=== PATIENT | male | born 1960 | race American Indian/Alaskan Native ===

== ENCOUNTER 2018-11-14 16:39 | Inpatient (IN) | payer MEDICAID, OTHER ==
[2018-11-14] MEDS ORDERED: ASPIRIN PO ONE (16:58)
--- NOTE | 2018-11-14 17:11 | Emergency Department Report ---
ED Chest Pain HPI - General Chief Complaint: Chest Pain Stated Complaint: CHEST PAIN Time Seen by Provider: 11/14/18 17:08 Source: patient Mode of arrival: Stretcher Limitations: No Limitations - History of Present Illness Initial Comments: Patient is a 57-year-old male presents emergency room with complaints of chest pain off and on for 5 days. Patient states that the chest pain is becoming more consistent. Patient describes the pain as a sharp pain. Patient states the pain is radiating to his left shoulder and left arm. Patient states the chest pain is in his left chest. Patient states he is also having problems with shortness of breath. Patient states symptoms are worse with exertion and better with rest. Patient states that his shortness of breath is worse than his chest pain. MD Complaint: chest pain -: Sudden Onset: during rest Pain Location: substernal, left chest Pain Radiation: LUE Severity: severe Severity scale (0 -10): 7 Quality: heaviness, sharp Consistency: intermittent Improves With: rest Worsens With: exertion, palpation, movement re: nausea, dyspnea. denies: vomting, diaphoresis, sense of impending doom Other Symptoms: denies: cough, fever, syncope, rash, acid taste in mouth, leg swelling, palpitations, burping Treatments Prior to Arrival: none Aspirin use within the Past 7 Days: (0) No - Related Data On Oral Contraceptives: No Allergies Allergy/AdvReac Type Severity Reaction Status Date / Time lisinopril Allergy Swelling Verified 11/14/18 16:51 Penicillins Allergy Rash Verified 11/14/18 16:51 Heart Score - HEART Score History: Moderately suspicious EKG: Non-specific Age: 45-65 Risk factors: 1-2 risk factors Troponin: < normal limit HEART Score: 4 ED Review of Systems ROS: Stated complaint: CHEST PAIN Other details as noted in HPI Constitutional: denies: chills, fever Eyes: denies: eye pain, eye discharge, vision change ENT: denies: ear pain, throat pain Respiratory: shortness of breath, SOB with exertion, SOB at rest. denies: cough, wheezing Cardiovascular: chest pain. denies: palpitations Endocrine: no symptoms reported Gastrointestinal: denies: abdominal pain, nausea, diarrhea Genitourinary: denies: urgency, dysuria Musculoskeletal: denies: back pain, joint swelling, arthralgia Skin: denies: rash, lesions Neurological: denies: headache, weakness, paresthesias Psychiatric: denies: anxiety, depression Hematological/Lymphatic: denies: easy bleeding, easy bruising ED Past Medical Hx - Past Medical History Previous Medical History?: Yes Hx Hypertension: Yes Hx Congestive Heart Failure: Yes Additional medical history: Diverticulitis, clogged artery - Surgical History Past Surgical History?: Yes Additional Surgical History: pace maker - Family History Family history: no significant - Social History Smoking Status: Former Smoker Substance Use Type: None ED Physical Exam - General Limitations: No Limitations General appearance: alert, in no apparent distress - Head Head exam: Present: atraumatic, normocephalic - Eye Eye exam: Present: normal appearance, PERRL Pupils: Present: normal accommodation - ENT ENT exam: Present: mucous membranes moist - Neck Neck exam: Present: normal inspection - Respiratory Respiratory exam: Present: normal lung sounds bilaterally. Absent: respiratory distress - Cardiovascular Cardiovascular Exam: Present: regular rate, normal rhythm. Absent: systolic murmur, diastolic murmur, rubs, gallop - GI/Abdominal GI/Abdominal exam: Present: soft, normal bowel sounds - Rectal Rectal exam: Present: deferred - Extremities Exam Extremities exam: Present: normal inspection - Back Exam Back exam: Present: normal inspection - Neurological Exam Neurological exam: Present: alert, oriented X3 - Psychiatric Psychiatric exam: Present: normal affect, normal mood - Skin Skin exam: Present: warm, dry, intact, normal color. Absent: rash ED Course Vital Signs 11/14/18 11/14/18 11/14/18 16:51 18:02 18:15 Temperature 98.5 F Pulse Rate 98 H Respiratory 19 17 22 Rate Blood Pressure 122/67 O2 Sat by Pulse 95 Oximetry - Reevaluation(s) Reevaluation #1: Discussed all results with patient. Patient admitted to the hospitalist service. Patient agrees with plan of care and admission. 11/14/18 17:54 - Consultations Consultation #1: Hospitalist consult for admission. Hospitalist admit patient. Hospitalist to assume care patient. Bridge orders place. 11/14/18 17:55 RUDDY score - Ruddy Score Age > 65: (0) No Aspirin use within the Past 7 Days: (0) No 3 or more CAD Risk Factors: (0) No 2 or more Angina events in past 24 hrs: (1) Yes Known CAD with more than 50% Stenosis: (0) No Elevated Cardiac Markers: (0) No ST Deviation Greater than 0.5mm: (0) No RUDDY Score: 1 ED Medical Decision Making - Lab Data Result diagrams: 11/14/18 17:02 11/14/18 17:02 - EKG Data -: EKG Interpreted by Me EKG shows normal: sinus rhythm, axis, intervals Rate: normal - EKG Data Interpretation: other (right bundle-branch block noted widened QRS. Negative T waves in V1 and V2 and V3.) - Radiology Data Radiology results: report reviewed PROCEDURE: XR CHEST 1V AP TECHNIQUE: AP chest HISTORY: Chest Pain COMPARISONS: None FINDINGS: Trachea midline. Prominent cardiomegaly. Bipolar pacemaker with unremarkable appearance. No pneumothorax. Vascular redistribution. Blunting costophrenic sulci compatible with small effusion. Minimal patchy basilar airspace disease. No acute bony abnormality IMPRESSION: Prominent cardiomegaly. Vascular distribution. Trace bilateral effusion. Findings compatible with mild congestion. - Medical Decision Making Patient is a 57-year-old male that presents emergency room with complaints of chest pain or shortness of breath. Patient found to have CHF exacerbation. Patient was admitted to the hospitalist service. Patient's labs reviewed. Patient's BNP is elevated. The patient's creatinine is elevated. Patient given Lasix IV in the ER for CHF exacerbation. Patient chest x-ray shows CHF changes. Patient's EKG reviewed, no STEMI. - Differential Diagnosis chest pain. Shortness of breath. CHF. ACS. Critical Care Time: Yes Critical care attestation.: If time is entered above; I have spent that time in minutes in the direct care of this critically ill patient, excluding procedure time. Critical Care Time: 35 minutes ED Disposition Clinical Impression: Shortness of breath, Renal insufficiency Chest pain Qualifiers: Chest pain type: unspecified Qualified Code(s): R07.9 - Chest pain, unspecified CHF exacerbation Qualifiers: Heart failure type: unspecified Qualified Code(s): I50.9 - Heart failure, unspecified Disposition: 09 OP ADMIT IP TO THIS HOSP Is pt being admited?: Yes Does the pt Need Aspirin: No Condition: Critical Time of Disposition: 17:54
[2018-11-14 17:17] LABS: Basophils % (Auto) 0.2 % (0.0-1.8); Eosinophils # (Auto) 0.1 K/mm3 (0.0-0.4); Eosinophils % (Auto) 0.6 % (0.0-4.3); Hematocrit 37.7 % (35.5-45.6); Hemoglobin 12.6 gm/dl (11.8-15.2); Lymphocytes # (Auto) 1.1 K/mm3 (1.2-5.4); Lymphocytes % (Auto) 7.7 % (13.4-35.0); Mean Corpuscular HGB Conc 33 % (32-34); Mean Corpuscular Volume 89 fl (84-94); Monocytes # (Auto) 1.2 K/mm3 (0.0-0.8); Monocytes % (Auto) 8.3 % (0.0-7.3); Platelet Count 364 K/mm3 (140-440); Red Blood Count 4.24 M/mm3 (3.65-5.03); Red Cell Distribution Width 17.5 % (13.2-15.2)
[2018-11-14 17:28] LABS: Calcium 9.1 mg/dL (8.4-10.2)
--- NOTE | 2018-11-14 17:35 | XRay Report ---
PROCEDURE: XR CHEST 1V AP TECHNIQUE: AP chest HISTORY: Chest Pain COMPARISONS: None FINDINGS: Trachea midline. Prominent cardiomegaly. Bipolar pacemaker with unremarkable appearance. No pneumotho rax. Vascular redistribution. Blunting costophrenic sulci compatible with small effusion. Minimal pat zandra basilar airspace disease. No acute bony abnormality IMPRESSION: Prominent cardiomegaly. Vascular distribution. Trace bilateral effusion. Findings compatible with mil d congestion. This document is electronically signed by Delano Hanson MD., November 14 2018 05:33:31 PM ET
[2018-11-14 17:43] LABS: Alanine Aminotransferase 8 units/L (7-56); Albumin 3.3 g/dL (3.9-5)
[2018-11-14 17:52] LABS: Bilirubin,Direct < 0.2 mg/dL (0-0.2)
[2018-11-14] MEDS ORDERED: LASIX IV ONE (17:52)
[2018-11-14] MEDS ORDERED: MORPHINE IV ONE (18:06)
[2018-11-14] MEDS ORDERED: MORPHINE ONE (18:10)
--- NOTE | 2018-11-14 21:39 | History and Physical Report ---
History of Present Illness Date of examination: 11/14/18 Date of admission: 11/14/18 18:32 Chief complaint: Chest pain for 5 days History of present illness: 57-year-old male presents to emergency room with complaints of chest pain off and on for 5 days. Patient states that the chest pain is becoming more consistent. Patient describes the pain as a sharp pain. Chest pain is about 7 on a scale of 1 to 10.Sharp in nature.No diaphoresis.No palpitations.Some SOB p resent.Exacerbated by Exertion and relieved by rest.Radiation to L arm present Past Medical History Previous Medical History?: Yes Hx Hypertension: Yes Hx Congestive Heart Failure: Yes Additional medical history: Diverticulitis, clogged artery Surgical History Past Surgical History?: Yes Additional Surgical History: pace maker Family History Family history: no significant Social History Smoking Status: Former Smoker Substance Use Type: None Review of Systems ROS: Stated complaint: CHEST PAIN Other details as noted in HPI Constitutional: denies: chills, fever Eyes: denies: eye pain, eye discharge, vision change ENT: denies: ear pain, throat pain Respiratory: shortness of breath, SOB with exertion, SOB at rest. denies: cough, wheezing Cardiovascular: chest pain. denies: palpitations Endocrine: no symptoms reported Gastrointestinal: denies: abdominal pain, nausea, diarrhea Genitourinary: denies: urgency, dysuria Musculoskeletal: denies: back pain, joint swelling, arthralgia Skin: denies: rash, lesions Neurological: denies: headache, weakness, paresthesias Psychiatric: denies: anxiety, depression Hematological/Lymphatic: denies: easy bleeding, easy bruising Medications and Allergies Allergies Allergy/AdvReac Type Severity Reaction Status Date / Time lisinopril Allergy Swelling Verified 11/14/18 16:51 Penicillins Allergy Rash Verified 11/14/18 16:51 Home Medications Medication Instructions Recorded Confirmed Last Taken Type Amlodipine Besylate [Norvasc] 10 mg PO QDAY 11/14/18 11/14/18 Unknown History Aspirin EC [Aspirin Enteric Coated 81 mg PO QDAY 11/14/18 11/14/18 Unknown History TAB] AtorvaSTATin [Lipitor] 40 mg PO QHS 11/14/18 11/14/18 Unknown History Bumetanide [Bumetanide 2 mg tab] 2 mg PO DAILY 11/14/18 11/14/18 Unknown History Isosorbide Mononitrate 30 mg PO QDAY 11/14/18 11/14/18 Unknown History hydrALAZINE [Apresoline] 50 mg PO Q8HR 11/14/18 11/14/18 Unknown History Exam - Constitutional Vitals: Temp Pulse Resp BP Pulse Ox 98.5 F 107 H 29 H 121/76 93 11/14/18 16:51 11/14/18 21:00 11/14/18 21:00 11/14/18 21:00 11/14/18 21:00 General appearance: Present: no acute distress, well-nourished - EENT Eyes: Present: PERRL ENT: hearing intact, clear oral mucosa - Neck Neck: Present: supple, normal ROM - Respiratory Respiratory effort: normal Respiratory: bilateral: CTA - Cardiovascular Heart rate: 96 Rhythm: regular Heart Sounds: Present: S1 & S2. Absent: rub, click - Extremities Extremities: no ischemia, pulses intact, pulses symmetrical, No edema Peripheral Pulses: within normal limits - Abdominal General gastrointestinal: Present: soft, non-tender, non-distended, normal bowel sounds Male genitourinary: Present: normal - Integumentary Integumentary: Present: clear, warm, dry - Musculoskeletal Musculoskeletal: gait normal, strength equal bilaterally - Psychiatric Psychiatric: appropriate mood/affect, intact judgment & insight - Neurologic Neurologic: CNII-XII intact, moves all extremities - Allied Health Allied health notes reviewed: nursing, case management Results - Labs CBC & Chem 7: 11/15/18 04:29 11/15/18 04:29 Labs: Laboratory Last Values WBC 14.9 K/mm3 (4.5-11.0) H 11/14/18 17:02 RBC 4.24 M/mm3 (3.65-5.03) 11/14/18 17:02 Hgb 12.6 gm/dl (11.8-15.2) 11/14/18 17:02 Hct 37.7 % (35.5-45.6) 11/14/18 17:02 MCV 89 fl (84-94) 11/14/18 17:02 MCH 30 pg (28-32) 11/14/18 17:02 MCHC 33 % (32-34) 11/14/18 17:02 RDW 17.5 % (13.2-15.2) H 11/14/18 17:02 Plt Count 364 K/mm3 (140-440) 11/14/18 17:02 Lymph % (Auto) 7.7 % (13.4-35.0) L 11/14/18 17:02 [place] % (Auto) 8.3 % (0.0-7.3) H 11/14/18 17:02 Eos % (Auto) 0.6 % (0.0-4.3) 11/14/18 17:02 Baso % (Auto) 0.2 % (0.0-1.8) 11/14/18 17:02 Lymph # 1.1 K/mm3 (1.2-5.4) L 11/14/18 17:02 [place] # 1.2 K/mm3 (0.0-0.8) H 11/14/18 17:02 Eos # 0.1 K/mm3 (0.0-0.4) 11/14/18 17:02 Baso # 0.0 K/mm3 (0.0-0.1) 11/14/18 17:02 Seg Neutrophils % 83.2 % (40.0-70.0) H 11/14/18 17:02 Seg Neutrophils # 12.4 K/mm3 (1.8-7.7) H 11/14/18 17:02 Sodium 137 mmol/L (137-145) 11/14/18 17:02 Potassium 4.8 mmol/L (3.6-5.0) 11/14/18 17:02 Chloride 98.6 mmol/L (98-107) 11/14/18 17:02 Carbon Dioxide 25 mmol/L (22-30) 11/14/18 17:02 Anion Gap 18 mmol/L 11/14/18 17:02 BUN 31 mg/dL (9-20) H 11/14/18 17:02 Creatinine 2.0 mg/dL (0.8-1.5) H 11/14/18 17:02 Estimated GFR 42 ml/min 11/14/18 17:02 BUN/Creatinine Ratio 16 % 11/14/18 17:02 Glucose 109 mg/dL (75-100) H 11/14/18 17:02 Calcium 9.1 mg/dL (8.4-10.2) 11/14/18 17:02 Total Bilirubin 0.40 mg/dL (0.1-1.2) 11/14/18 17:02 Direct Bilirubin < 0.2 mg/dL (0-0.2) 11/14/18 17:02 Indirect Bilirubin 0.2 mg/dL 11/14/18 17:02 AST 14 units/L (5-40) 11/14/18 17:02 ALT 8 units/L (7-56) 11/14/18 17:02 Alkaline Phosphatase 92 units/L (35-129) 11/14/18 17:02 Troponin T 0.027 ng/mL (0.00-0.029) 11/14/18 19:22 NT-Pro-B Natriuret Pep 2385 pg/mL (0-900) H 11/14/18 17:02 Total Protein 6.8 g/dL (6.3-8.2) 11/14/18 17:02 Albumin 3.3 g/dL (3.9-5) L 11/14/18 17:02 Albumin/Globulin Ratio 0.9 % 11/14/18 17:02 Short CBC 11/14/18 11/15/18 Range/Units 17:02 04:29 WBC 14.9 H 14.6 H (4.5-11.0) K/mm3 Hgb 12.6 13.1 (11.8-15.2) gm/dl Hct 37.7 40.1 (35.5-45.6) % Plt Count 364 387 (140-440) K/mm3 BMP 11/14/18 11/15/18 17:02 04:29 Sodium 137 138 Potassium 4.8 4.4 Chloride 98.6 98.9 Carbon Dioxide 25 25 BUN 31 H 30 H Creatinine 2.0 H 2.1 H Glucose 109 H 97 Calcium 9.1 8.7 Cardiac Enzymes 11/14/18 11/14/18 11/14/18 Range/Units 17:02 19:22 23:19 Troponin T 0.022 0.027 0.023 (0.00-0.029) ng/mL 11/15/18 Range/Units 04:29 Troponin T 0.021 (0.00-0.029) ng/mL Liver Function 11/14/18 11/15/18 Range/Units 17:02 04:29 Total Bilirubin 0.40 0.50 (0.1-1.2) mg/dL Direct Bilirubin < 0.2 (0-0.2) mg/dL AST 14 13 (5-40) units/L ALT 8 7 (7-56) units/L Alkaline Phosphatase 92 91 (35-129) units/L Albumin 3.3 L 3.1 L (3.9-5) g/dL - Imaging and Cardiology EKG: report reviewed (NSR 90/min ) Imaging and Cardiology: CXR IMPRESSION: Prominent cardiomegaly. Vascular distribution. Trace bilateral effusion. 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
[2018-11-14] MEDS ORDERED: ZOFRAN IV PRN (21:40)
[2018-11-14] MEDS ORDERED: SODIUM CHLORIDE FLUSH SYRINGE 10 ML IV PRN (21:40)
[2018-11-14] MEDS ORDERED: PEPCID PO SCH (22:00)
[2018-11-14] MEDS: DILAUDID IV PRN (22:40)
[2018-11-14] MEDS: PEPCID PO SCH (22:41)
[2018-11-14] MEDS: SODIUM CHLORIDE FLUSH SYRINGE 10 ML IV SCH (22:42)
[2018-11-15] MEDS: DILAUDID IV PRN ×5 (04:08→23:39)
[2018-11-15 05:32] LABS: Basophils % (Auto) 0.2 % (0.0-1.8); Eosinophils # (Auto) 0.1 K/mm3 (0.0-0.4); Eosinophils % (Auto) 0.8 % (0.0-4.3); Hematocrit 40.1 % (35.5-45.6); Hemoglobin 13.1 gm/dl (11.8-15.2); Lymphocytes # (Auto) 1.4 K/mm3 (1.2-5.4); Lymphocytes % (Auto) 9.3 % (13.4-35.0); Mean Corpuscular HGB Conc 33 % (32-34); Mean Corpuscular Volume 88 fl (84-94); Monocytes # (Auto) 1.4 K/mm3 (0.0-0.8); Monocytes % (Auto) 9.5 % (0.0-7.3); Platelet Count 387 K/mm3 (140-440); Red Blood Count 4.56 M/mm3 (3.65-5.03); Red Cell Distribution Width 17.3 % (13.2-15.2)
[2018-11-15 06:01] LABS: Albumin 3.1 g/dL (3.9-5); Calcium 8.7 mg/dL (8.4-10.2)
[2018-11-15] MEDS ORDERED: LEXISCAN IV ONE ×2 (09:02→09:03)
[2018-11-15] MEDS ORDERED: DILAUDID ONE (09:24)
[2018-11-15] MEDS ORDERED: NON-FORMULARY (Isosorbide Mononitrate [Isosorbide Mononitrate] 30 MG) PO SCH (10:00)
--- NOTE | 2018-11-15 10:41 | Progress Note ---
Assessment and Plan Assessment and plan: Patient is a 57 yo man with a history of hypertension, PPM, CHF, CAD, tobacco dependency and dyslipidemia who presents to [facility] ED with sob and chest pains. * pCXR CXR IMPRESSION: Prominent cardiomegaly. Vascular distribution. Trace bilateral effusion. Findings compatible with mild congestion -Chest pains, with increase risk factors: stress test and Echo -Acute on chronic suspected combined heart failure: treat with iv diuretics, ECHO pending, Cardiology consulted -Hypertension: low salt diet, continue antihypertensives -Tobacco dependency: chemical dependency counselor on stopping which patient reports that he has sto pped -PPM present: Consult cardiology to check -ARF, vasomotor nephrology, no baseline (first visit here): consulted nephrology and monitor bmp closely -Leukocytosis, appears reactive, ?steroid related: continue to monitor DVT ppx full code Disposition: continue inpatient care for CHF History Interval history: Patient was seen and examined. Follow-up on current diagnosis CHF, cp, doing better. Overnight uneventful. Patient denies any nausea/vomiting or severe headaches. Imaging, nursing note, chart, labs and old chart reviewed. Discussed with patient. Hospitalist Physical - Physical exam Narrative exam: Gen: WDWN, NAD, Awake, Alert, Orientated HEENT: NCAT, EOMI, PERRL, OP Clear Neck: supple, no adenopathy, no thyromegaly, = JVD CVS/Heart: RRR, normal S1S2, pulses present bilaterally Chest/Lungs: diminished bs bilateral Symmetrical chest expansion, good air entry bilaterally GI/Abdomen: soft, NTND, good bowel sounds, no guarding or rebound /Bladder: no suprapubic tenderness, no CVA or paraspinal tenderness Extermity/Skin: pre-tibial pitting edema, no obvious rash MSK: FROM x 4 Neuro: CN 2-12 grossly intact, no new focal deficits Psych: calm - Constitutional Vitals: Temp Pulse Resp BP Pulse Ox 98.6 F 94 H 18 122/77 98 11/15/18 04:57 11/15/18 04:57 11/15/18 09:24 11/15/18 04:57 11/15/18 04:57 General appearance: Present: no acute distress, well-nourished Results - Labs CBC & Chem 7: 11/15/18 04:29 11/15/18 04:29 Labs: Laboratory Last Values WBC 14.6 K/mm3 (4.5-11.0) H 11/15/18 04:29 RBC 4.56 M/mm3 (3.65-5.03) 11/15/18 04:29 Hgb 13.1 gm/dl (11.8-15.2) 11/15/18 04:29 Hct 40.1 % (35.5-45.6) 11/15/18 04:29 MCV 88 fl (84-94) 11/15/18 04:29 MCH 29 pg (28-32) 11/15/18 04:29 MCHC 33 % (32-34) 11/15/18 04:29 RDW 17.3 % (13.2-15.2) H 11/15/18 04:29 Plt Count 387 K/mm3 (140-440) 11/15/18 04:29 Lymph % (Auto) 9.3 % (13.4-35.0) L 11/15/18 04:29 [place] % (Auto) 9.5 % (0.0-7.3) H 11/15/18 04:29 Eos % (Auto) 0.8 % (0.0-4.3) 11/15/18 04:29 Baso % (Auto) 0.2 % (0.0-1.8) 11/15/18 04:29 Lymph # 1.4 K/mm3 (1.2-5.4) 11/15/18 04:29 [place] # 1.4 K/mm3 (0.0-0.8) H 11/15/18 04:29 Eos # 0.1 K/mm3 (0.0-0.4) 11/15/18 04:29 Baso # 0.0 K/mm3 (0.0-0.1) 11/15/18 04:29 Seg Neutrophils % 80.2 % (40.0-70.0) H 11/15/18 04:29 Seg Neutrophils # 11.7 K/mm3 (1.8-7.7) H 11/15/18 04:29 Sodium 138 mmol/L (137-145) 11/15/18 04:29 Potassium 4.4 mmol/L (3.6-5.0) 11/15/18 04:29 Chloride 98.9 mmol/L (98-107) 11/15/18 04:29 Carbon Dioxide 25 mmol/L (22-30) 11/15/18 04:29 Anion Gap 19 mmol/L 11/15/18 04:29 BUN 30 mg/dL (9-20) H 11/15/18 04:29 Creatinine 2.1 mg/dL (0.8-1.5) H 11/15/18 04:29 Estimated GFR 40 ml/min 11/15/18 04:29 BUN/Creatinine Ratio 14 % 11/15/18 04:29 Glucose 97 mg/dL (75-100) 11/15/18 04:29 Hemoglobin A1c 5.6 % (4-6) 11/14/18 23:19 Calcium 8.7 mg/dL (8.4-10.2) 11/15/18 04:29 Total Bilirubin 0.50 mg/dL (0.1-1.2) 11/15/18 04:29 Direct Bilirubin < 0.2 mg/dL (0-0.2) 11/14/18 17:02 Indirect Bilirubin 0.2 mg/dL 11/14/18 17:02 AST 13 units/L (5-40) 11/15/18 04:29 ALT 7 units/L (7-56) 11/15/18 04:29 Alkaline Phosphatase 91 units/L (35-129) 11/15/18 04:29 Troponin T 0.021 ng/mL (0.00-0.029) 11/15/18 04:29 NT-Pro-B Natriuret Pep 2385 pg/mL (0-900) H 11/14/18 17:02 Total Protein 6.6 g/dL (6.3-8.2) 11/15/18 04:29 Albumin 3.1 g/dL (3.9-5) L 11/15/18 04:29 Albumin/Globulin Ratio 0.9 % 11/15/18 04:29 Active Medications - Current Medications Current Medications: Generic Name Dose Route Start Last Admin Trade Name Freq PRN Reason Stop Dose Admin Acetaminophen 650 mg 11/14/18 21:40 Tylenol PO Q4H PRN Pain MILD(1-3)/Fever >100.5/RIVAS Amlodipine Besylate 10 mg 11/15/18 10:00 Norvasc PO QDAY [facility] Aspirin 81 mg 11/15/18 10:00 Halfprin Ec PO QDAY [facility] Atorvastatin Calcium 40 mg 11/15/18 22:00 Lipitor PO QHS [facility] Famotidine 10 mg 11/14/18 22:00 11/14/18 22:41 Pepcid PO 10 mg BID [facility] Administration Furosemide 40 mg 11/16/18 06:00 Lasix IV 0600 [facility] Hydralazine HCl 50 mg 11/15/18 07:00 Apresoline PO Q8HR [facility] Hydromorphone HCl 0.5 mg 11/14/18 21:40 11/15/18 09:24 Dilaudid IV 0.5 mg Q3H PRN Administration Pain , Severe (7-10) Isosorbide Mononitrate 30 mg 11/15/18 10:00 Imdur PO QDAY [facility] Ondansetron HCl 4 mg 11/14/18 21:40 Zofran IV Q8H PRN Nausea And Vomiting Oxycodone/Acetaminophen 1 tab 11/14/18 21:40 Percocet 5/325 PO Q6H PRN Pain, Moderate (4-6) Potassium Chloride 20 meq 11/15/18 06:40 K-Dur PO QDAY [facility] Sodium Chloride 10 ml 11/14/18 22:00 11/14/18 22:42 Sodium Chloride Flush Syringe 10 Ml IV 10 ml BID [facility] Administration Sodium Chloride 10 ml 11/14/18 21:40 Sodium Chloride Flush Syringe 10 Ml IV PRN PRN LINE FLUSH
[2018-11-15] MEDS: PEPCID PO SCH ×2 (11:23→21:26)
[2018-11-15] MEDS: IMDUR PO SCH (11:23)
[2018-11-15] MEDS: NORVASC PO SCH (11:23)
[2018-11-15] MEDS: APRESOLINE PO SCH ×3 (11:24→21:26)
[2018-11-15] MEDS: K-DUR PO SCH (11:24)
[2018-11-15] MEDS: HALFPRIN EC PO SCH (11:24)
[2018-11-15] MEDS: SODIUM CHLORIDE FLUSH SYRINGE 10 ML IV SCH ×2 (11:26→21:28)
[2018-11-15] MEDS: HEPARIN SUB-Q SCH ×2 (11:30→21:28)
--- NOTE | 2018-11-15 14:04 | Consultation ---
History of Present Illness Consult date: 11/15/18 Consult reason: congestive heart failure History of present illness: The patient is a 57-year-old man who presented with atypical chest pain. He was evaluated by the medical service, cardiac consultation was requested. EKG on presentation was in normal sinus rhythm with right bundle branch block, no acute changes. Chest x-ray revealed a dual-chamber pacemaker in situ, severe cardiomegaly, but minimal interstitial changes. Workup here includes an echocardiogram which reveals a severe dilated cardiomyopathy, ejection fraction 15-20%. There is a small hemodynamically insignificant pericardial effusion. A thallium stress test ordered by the medical service, forms a severe dilated cardiomyopathy, and a moderate to large, mostly fixed inferior wall defect. The patient is a very poor historian, unable to articulate any previous cardiac workup, does not know the chronicity of his cardiomyopathy, and unable to date the pacemaker implantation. Comorbidities include chronic kidney disease, current creatinine is 2.0. Past History Past Medical History: heart failure, hypertension, renal failure Past Surgical History: Other (pacemaker implant) Medications and Allergies Allergies Allergy/AdvReac Type Severity Reaction Status Date / Time lisinopril Allergy Swelling Verified 11/14/18 16:51 Penicillins Allergy Rash Verified 11/14/18 16:51 Home Medications Medication Instructions Recorded Confirmed Last Taken Type Amlodipine Besylate [Norvasc] 10 mg PO QDAY 11/14/18 11/14/18 Unknown History Aspirin EC [Aspirin Enteric Coated 81 mg PO QDAY 11/14/18 11/14/18 Unknown History TAB] AtorvaSTATin [Lipitor] 40 mg PO QHS 11/14/18 11/14/18 Unknown History Bumetanide [Bumetanide 2 mg tab] 2 mg PO DAILY 11/14/18 11/14/18 Unknown History Isosorbide Mononitrate 30 mg PO QDAY 11/14/18 11/14/18 Unknown History hydrALAZINE [Apresoline] 50 mg PO Q8HR 11/14/18 11/14/18 Unknown History Active Meds: Active Medications Acetaminophen (Tylenol) 650 mg PO Q4H PRN PRN Reason: Pain MILD(1-3)/Fever >100.5/RIVAS Amlodipine Besylate (Norvasc) 10 mg PO QDAY [facility] Last Admin: 11/15/18 11:23 Dose: 10 mg Documented by: Aspirin (Halfprin Ec) 81 mg PO QDAY [facility] Last Admin: 11/15/18 11:24 Dose: 81 mg Documented by: Atorvastatin Calcium (Lipitor) 40 mg PO QHS [facility] Famotidine (Pepcid) 10 mg PO BID [facility] Last Admin: 11/15/18 11:23 Dose: 10 mg Documented by: Furosemide (Lasix) 40 mg IV 0600 [facility] Heparin Sodium (Porcine) (Heparin) 5,000 unit SUB-Q Q12HR [facility] Last Admin: 11/15/18 11:30 Dose: 5,000 unit Documented by: Hydralazine HCl (Apresoline) 50 mg PO Q8HR [facility] Last Admin: 11/15/18 13:41 Dose: 50 mg Documented by: Hydromorphone HCl (Dilaudid) 0.5 mg IV Q3H PRN PRN Reason: Pain , Severe (7-10) Last Admin: 11/15/18 13:37 Dose: 0.5 mg Documented by: Isosorbide Mononitrate (Imdur) 30 mg PO QDAY [facility] Last Admin: 11/15/18 11:23 Dose: 30 mg Documented by: Ondansetron HCl (Zofran) 4 mg IV Q8H PRN PRN Reason: Nausea And Vomiting Oxycodone/Acetaminophen (Percocet 5/325) 1 tab PO Q6H PRN PRN Reason: Pain, Moderate (4-6) Potassium Chloride (K-Dur) 20 meq PO QDAY [facility] Last Admin: 11/15/18 11:24 Dose: 20 meq Documented by: Sodium Chloride (Sodium Chloride Flush Syringe 10 Ml) 10 ml IV BID [facility] Last Admin: 11/15/18 11:26 Dose: 10 ml Documented by: Sodium Chloride (Sodium Chloride Flush Syringe 10 Ml) 10 ml IV PRN PRN PRN Reason: LINE FLUSH Review of Systems Cardiovascular: chest pain, shortness of breath, no orthopnea, no palpitations, no rapid/irregular heart beat, no edema, no syncope, no lightheadedness Physical Examination Vital Signs Temp Pulse Resp BP Pulse Ox 98.5 F 98 H 19 122/67 95 11/14/18 16:51 11/14/18 16:51 11/14/18 16:51 11/14/18 16:51 11/14/18 16:51 General appearance: no acute distress HEENT: Positive: PERRL Neck: Positive: neck supple Cardiac: Positive: Reg Rate and Rhythm Lungs: Positive: Decreased Breath Sounds Neuro: Positive: Grossly Intact Abdomen: Positive: Soft Male genitourinary: Positive: deferred Skin: Positive: Clear Extremities: Absent: edema Results 11/15/18 04:29 11/15/18 04:29 Cardiac Enzymes 11/14/18 11/15/18 Range/Units 17:02 04:29 AST 14 13 (5-40) units/L CBC 11/14/18 11/15/18 Range/Units 17:02 04:29 WBC 14.9 H 14.6 H (4.5-11.0) K/mm3 RBC 4.24 4.56 (3.65-5.03) M/mm3 Hgb 12.6 13.1 (11.8-15.2) gm/dl Hct 37.7 40.1 (35.5-45.6) % Plt Count 364 387 (140-440) K/mm3 Lymph # 1.1 L 1.4 (1.2-5.4) K/mm3 [place] # 1.2 H 1.4 H (0.0-0.8) K/mm3 Eos # 0.1 0.1 (0.0-0.4) K/mm3 Baso # 0.0 0.0 (0.0-0.1) K/mm3 Comprehensive Metabolic Panel 11/14/18 11/14/18 11/15/18 Range/Units 17:02 17:02 04:29 Sodium 137 138 (137-145) mmol/L Potassium 4.8 4.4 (3.6-5.0) mmol/L Chloride 98.6 98.9 (98-107) mmol/L Carbon Dioxide 25 25 (22-30) mmol/L BUN 31 H 30 H (9-20) mg/dL Creatinine 2.0 H 2.1 H (0.8-1.5) mg/dL Glucose 109 H 97 (75-100) mg/dL Calcium 9.1 8.7 (8.4-10.2) mg/dL Direct Bilirubin < 0.2 (0-0.2) mg/dL Indirect Bilirubin 0.2 mg/dL AST 14 13 (5-40) units/L ALT 8 7 (7-56) units/L Alkaline Phosphatase 92 91 (35-129) units/L Total Protein 6.8 6.6 (6.3-8.2) g/dL Albumin 3.3 L 3.1 L (3.9-5) g/dL EKG interpretations - Telemetry EKG Rhythm: Sinus Rhythm (with right bundle branch block) Assessment and Plan - Patient Problems (1) CHF exacerbation Current Visit: Yes Status: Acute Qualifiers: Heart failure type: combined systolic and diastolic Qualified Code(s): I50.43 - Acute on chronic combined systolic (congestive) and diastolic (congestive) heart failure Plan to address problem: Patient has a severe dilated cardiomyopathy, ejection fraction 15-20%. Echocardiogram shows a small hemodynamically insignificant pericardial effusion. Thallium stress test shows a large fixed inferior defect with minimal reversibility. The patient is status post previous dual-chamber pacemaker. In addition to guideline directed medical therapy including afterload agents, beta blockers, oral antiplatelet therapy, diuretics and oral antiplatelets, we will attempt to obtain patient's past medical records and prior invasive cardiac assessment.
--- NOTE | 2018-11-15 17:43 | Consultation ---
History of Present Illness - Reason for Consult Consult date: 11/15/18 chronic renal failure - History of Present Illness Mr. Wilson is a 57yo who presented to the ED with complaint of chest pain. He reports that pain is sharp and was initially localized across his chest radiating to left shoulder. He reports pain has been ongoing for appx 4-5 months. He denies nausea, vomiting but reports SOB. Past History Past Medical History: heart failure, hypertension, renal failure Past Surgical History: Other (pacemaker implant) Medications and Allergies Allergies Allergy/AdvReac Type Severity Reaction Status Date / Time lisinopril Allergy Swelling Verified 11/14/18 16:51 Penicillins Allergy Rash Verified 11/14/18 16:51 Home Medications Medication Instructions Recorded Confirmed Last Taken Type Amlodipine Besylate [Norvasc] 10 mg PO QDAY 11/14/18 11/14/18 Unknown History Aspirin EC [Aspirin Enteric Coated 81 mg PO QDAY 11/14/18 11/14/18 Unknown History TAB] AtorvaSTATin [Lipitor] 40 mg PO QHS 11/14/18 11/14/18 Unknown History Bumetanide [Bumetanide 2 mg tab] 2 mg PO DAILY 11/14/18 11/14/18 Unknown History Isosorbide Mononitrate 30 mg PO QDAY 11/14/18 11/14/18 Unknown History hydrALAZINE [Apresoline] 50 mg PO Q8HR 11/14/18 11/14/18 Unknown History Active Meds: Active Medications Acetaminophen (Tylenol) 650 mg PO Q4H PRN PRN Reason: Pain MILD(1-3)/Fever >100.5/RIVAS Amlodipine Besylate (Norvasc) 10 mg PO QDAY [facility] Last Admin: 11/15/18 11:23 Dose: 10 mg Documented by: Aspirin (Halfprin Ec) 81 mg PO QDAY [facility] Last Admin: 11/15/18 11:24 Dose: 81 mg Documented by: Atorvastatin Calcium (Lipitor) 40 mg PO QHS [facility] Famotidine (Pepcid) 10 mg PO BID [facility] Last Admin: 11/15/18 11:23 Dose: 10 mg Documented by: Furosemide (Lasix) 40 mg IV 0600 [facility] Heparin Sodium (Porcine) (Heparin) 5,000 unit SUB-Q Q12HR [facility] Last Admin: 11/15/18 11:30 Dose: 5,000 unit Documented by: Hydralazine HCl (Apresoline) 50 mg PO Q8HR [facility] Last Admin: 11/15/18 13:41 Dose: 50 mg Documented by: Hydromorphone HCl (Dilaudid) 0.5 mg IV Q3H PRN PRN Reason: Pain , Severe (7-10) Last Admin: 11/15/18 13:37 Dose: 0.5 mg Documented by: Isosorbide Mononitrate (Imdur) 30 mg PO QDAY [facility] Last Admin: 11/15/18 11:23 Dose: 30 mg Documented by: Ondansetron HCl (Zofran) 4 mg IV Q8H PRN PRN Reason: Nausea And Vomiting Oxycodone/Acetaminophen (Percocet 5/325) 1 tab PO Q6H PRN PRN Reason: Pain, Moderate (4-6) Potassium Chloride (K-Dur) 20 meq PO QDAY [facility] Last Admin: 11/15/18 11:24 Dose: 20 meq Documented by: Sodium Chloride (Sodium Chloride Flush Syringe 10 Ml) 10 ml IV BID [facility] Last Admin: 11/15/18 11:26 Dose: 10 ml Documented by: Sodium Chloride (Sodium Chloride Flush Syringe 10 Ml) 10 ml IV PRN PRN PRN Reason: LINE FLUSH Review of Systems All systems: negative Exam - Vital Signs Vital signs: Vital Signs Temp Pulse Resp BP Pulse Ox 98.5 F 98 H 19 122/67 95 11/14/18 16:51 11/14/18 16:51 11/14/18 16:51 11/14/18 16:51 11/14/18 16:51 - General Appearance General appearance: well-developed, well-nourished EENT: ATNC Respiratory: Clear to Ascultation, Decreased Breath Sounds Heart: regular, S1S2 Gastrointestinal: Present: normal. Absent: tenderness, distended Integumentary: no rash, warm and dry Neurologic: no focal deficit, alert and oriented x3 Musculoskeletal: Present: other (no edema) Psychiatric: cooperative Results - Lab Results 11/15/18 04:29 11/15/18 04:29 Most recent lab results Calcium 8.7 mg/dL (8.4-10.2) 11/15/18 04:29 Assessment and Plan Impression: * Stage III chronic kidney disease - dx appx 2 years ago per patient * Chest pain * Dilated cardiomyopathy --TTE: Four chamber dilated cardiomyopathy, EF 15-20%, mild-mod LVH (Nov 2018) * Hypertension * Pleural effusion Plan: * Patient reports a history of CKD dx appx 2 years ago while residing in [place] where he was previously 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 Baseline renal function unknown to patient. * Will obtain UA, UPCR, renal ultrasound * Cardiology work up in progress * Diuresis prn * Avoid potential nephrotoxins * Dose medications for renal function * AM labs
[2018-11-15] MEDS: TYLENOL PO PRN (21:27)
--- NOTE | 2018-11-15 22:33 | Treadmill Report ---
THALLIUM STRESS TEST LEFT VENTRICLE: Left ventricle is severely dilated. Perfusion study demonstrates a moderate to large, fixed inferior wall defect, with minimal degree of reversibility. Gated analysis demonstrates severe left ventricular systolic dysfunction, ejection fraction 24%. CONCLUSION: Abnormal perfusion study, demonstrating a severe dilated cardiomyopathy with severe left ventricular systolic dysfunction. Fixed inferior defect may represent a prior inferior wall myocardial infarction. There is a minimal degree of reversible periinfarct ischemia, clinical correlation is recommended. JOB# [id number] CA/NTS
[2018-11-15 23:09] LABS: Bilirubin,Urine NEG (Negative); Blood,Urine NEG (Negative); Color,Urine Yellow (Yellow)
[2018-11-15 23:14] LABS: Creatinine,Urine 220.1 mg/dL (0.1-20.0); Protein/Creatinine Ratio,Urine 0.3
[2018-11-16] MEDS: APRESOLINE PO SCH ×3 (05:51→21:55)
[2018-11-16] MEDS: LASIX IV SCH (05:52)
[2018-11-16 06:22] LABS: Hematocrit 40.4 % (35.5-45.6); Hemoglobin 13.3 gm/dl (11.8-15.2); Mean Corpuscular HGB Conc 33 % (32-34); Mean Corpuscular Volume 88 fl (84-94); Platelet Count 432 K/mm3 (140-440); Red Blood Count 4.62 M/mm3 (3.65-5.03); Red Cell Distribution Width 16.9 % (13.2-15.2)
[2018-11-16 06:36] LABS: Calcium 9.1 mg/dL (8.4-10.2)
[2018-11-16] MEDS: DILAUDID IV PRN (06:41)
--- NOTE | 2018-11-16 09:08 | Progress Note ---
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 Renal function is stable * Renal u/s pending * Cardiology work up noted * Diuresis prn * Avoid potential nephrotoxins * Dose medications for renal function * AM labs Subjective Date of service: 11/16/18 Interval history: Continues to complain of chest pain - primarily with breathing/inspiration Objective - Vital Signs Vital signs: Vital Signs - 12hr 11/15/18 11/16/18 11/16/18 22:41 00:38 04:10 Temperature 97.7 F 98.7 F 99.5 F Pulse Rate 52 L 46 L 106 H Respiratory 16 20 20 Rate Blood Pressure 137/111 94/58 127/91 O2 Sat by Pulse 93 89 90 Oximetry 11/16/18 08:00 Temperature 99.5 F Pulse Rate 103 H Respiratory 20 Rate Blood Pressure 93/55 O2 Sat by Pulse 89 Oximetry - General Appearance General appearance: well-developed, well-nourished EENT: ATNC Respiratory: Present: Clear to Ascultation Cardiology: regular, S1S2 Gastrointestinal: normal, no tenderness, no distended Integumentary: no rash, warm and dry Musculoskeletal: other (no edema) Psychiatric: cooperative - Lab 11/16/18 05:24 11/16/18 05:24 Most recent lab results Calcium 9.1 mg/dL (8.4-10.2) 11/16/18 05:24 Magnesium 2.20 mg/dL (1.7-2.3) 11/16/18 05:24 Urine Creatinine 220.1 mg/dL (0.1-20.0) H 11/15/18 22:45 Urine Total Protein 65 mg/dL (5-11.8) H 11/15/18 22:45 Medications & Allergies - Medications Allergies/Adverse Reactions: Allergies lisinopril Allergy (Verified 11/14/18 16:51) Swelling Penicillins Allergy (Verified 11/14/18 16:51) Rash Home Medications: Home Medications Medication Instructions Recorded Confirmed Last Taken Type Amlodipine Besylate [Norvasc] 10 mg PO QDAY 11/14/18 11/14/18 Unknown History Aspirin EC [Aspirin Enteric Coated 81 mg PO QDAY 11/14/18 11/14/18 Unknown History TAB] AtorvaSTATin [Lipitor] 40 mg PO QHS 11/14/18 11/14/18 Unknown History Bumetanide [Bumetanide 2 mg tab] 2 mg PO DAILY 11/14/18 11/14/18 Unknown History Isosorbide Mononitrate 30 mg PO QDAY 11/14/18 11/14/18 Unknown History hydrALAZINE [Apresoline] 50 mg PO Q8HR 11/14/18 11/14/18 Unknown History Active Medications: Generic Name Dose Route Start Last Admin Trade Name Freq PRN Reason Stop Dose Admin Acetaminophen 650 mg 11/14/18 21:40 11/15/18 21:27 Tylenol PO 650 mg Q4H PRN Administration Pain MILD(1-3)/Fever >100.5/RIVAS Amlodipine Besylate 10 mg 11/15/18 10:00 11/15/18 11:23 Norvasc PO 10 mg QDAY [facility] Administration Aspirin 81 mg 11/15/18 10:00 11/15/18 11:24 Halfprin Ec PO 81 mg QDAY [facility] Administration Atorvastatin Calcium 40 mg 11/15/18 22:00 11/15/18 21:27 Lipitor PO 40 mg QHS [facility] Administration Famotidine 10 mg 11/14/18 22:00 11/15/18 21:26 Pepcid PO 10 mg BID [facility] Administration Furosemide 40 mg 11/16/18 06:00 11/16/18 05:52 Lasix IV 40 mg 0600 [facility] Administration Heparin Sodium (Porcine) 5,000 unit 11/15/18 11:00 11/15/18 21:28 Heparin SUB-Q 5,000 unit Q12HR [facility] Administration Hydralazine HCl 50 mg 11/15/18 07:00 11/16/18 05:51 Apresoline PO 50 mg Q8HR [facility] Administration Hydromorphone HCl 0.5 mg 11/14/18 21:40 11/16/18 06:41 Dilaudid IV 0.5 mg Q3H PRN Administration Pain , Severe (7-10) Isosorbide Mononitrate 30 mg 11/15/18 10:00 11/15/18 11:23 Imdur PO 30 mg QDAY [facility] Administration Ondansetron HCl 4 mg 11/14/18 21:40 11/16/18 06:41 Zofran IV 4 mg Q8H PRN Administration Nausea And Vomiting Oxycodone/Acetaminophen 1 tab 11/14/18 21:40 Percocet 5/325 PO Q6H PRN Pain, Moderate (4-6) Potassium Chloride 20 meq 11/15/18 06:40 11/15/18 11:24 K-Dur PO 20 meq QDAY [facility] Administration Sodium Chloride 10 ml 11/14/18 22:00 11/15/18 21:28 Sodium Chloride Flush Syringe 10 Ml IV 10 ml BID [facility] Administration Sodium Chloride 10 ml 11/14/18 21:40 Sodium Chloride Flush Syringe 10 Ml IV PRN PRN LINE FLUSH
--- NOTE | 2018-11-16 09:29 | Progress Note ---
Assessment and Plan Atypical chest pain Dual-chamber pacemaker in situ Chronic kidney disease An echocardiogram which reveals a severe dilated cardiomyopathy, ejection fraction 15-20%. Thallium stress test reports a moderate to large, mostly fixed inferior wall defect. Obtain records from [facility] in [place], [place] for cardiac review. Subjective Date of service: 11/16/18 Interval history: Patient is resting in bed comfortably. He denies chest pain and shortness of breath. Objective Vital Signs Temp Pulse Pulse Pulse Pulse Resp BP 11/16/18 08:00 99.5 F 103 H 20 93/55 11/16/18 04:10 99.5 F 106 H 20 127/91 11/16/18 00:38 98.7 F 46 L 20 94/58 11/15/18 22:41 97.7 F 52 L 16 137/111 11/15/18 20:00 100.8 F H 105 H 12 120/81 11/15/18 19:00 99 H 11/15/18 15:37 98.3 F 98 H 18 120/68 11/15/18 13:41 100 H 116/74 11/15/18 12:00 94 H 94 H 94 H 94 H 19 11/15/18 11:24 99 H 117/80 11/15/18 11:23 99 H 117/80 11/15/18 09:44 118/67 11/15/18 09:43 114/63 11/15/18 09:42 100/58 11/15/18 09:40 98/54 11/15/18 09:32 117/66 Pulse Ox 11/16/18 08:00 89 11/16/18 04:10 90 11/16/18 00:38 89 11/15/18 22:41 93 11/15/18 20:00 88 11/15/18 19:00 11/15/18 15:37 92 11/15/18 13:41 11/15/18 12:00 98 11/15/18 11:24 11/15/18 11:23 11/15/18 09:44 11/15/18 09:43 11/15/18 09:42 11/15/18 09:40 11/15/18 09:32 - Physical Examination General: No Apparent Distress HEENT: Positive: PERRL Neck: Positive: neck supple Cardiac: Positive: Reg Rate and Rhythm Lungs: Positive: Decreased Breath Sounds Neuro: Positive: Grossly Intact Extremities: Absent: edema - Labs and Meds CBC 11/16/18 Range/Units 05:24 WBC 14.4 H (4.5-11.0) K/mm3 RBC 4.62 (3.65-5.03) M/mm3 Hgb 13.3 (11.8-15.2) gm/dl Hct 40.4 (35.5-45.6) % Plt Count 432 (140-440) K/mm3 Comprehensive Metabolic Panel 11/16/18 Range/Units 05:24 Sodium 136 L (137-145) mmol/L Potassium 4.4 (3.6-5.0) mmol/L Chloride 96.7 L (98-107) mmol/L Carbon Dioxide 25 (22-30) mmol/L BUN 28 H (9-20) mg/dL Creatinine 2.0 H (0.8-1.5) mg/dL Glucose 100 (75-100) mg/dL Calcium 9.1 (8.4-10.2) mg/dL
[2018-11-16] MEDS: HEPARIN SUB-Q SCH ×2 (09:49→21:55)
[2018-11-16] MEDS: HALFPRIN EC PO SCH (09:49)
[2018-11-16] MEDS: IMDUR PO SCH (09:49)
[2018-11-16] MEDS: PEPCID PO SCH ×2 (09:50→21:54)
[2018-11-16] MEDS: K-DUR PO SCH (09:50)
[2018-11-16] MEDS: NORVASC PO SCH (09:50)
[2018-11-16] MEDS: SODIUM CHLORIDE FLUSH SYRINGE 10 ML IV SCH ×2 (09:51→21:55)
--- NOTE | 2018-11-16 11:56 | Progress Note ---
Assessment and Plan Assessment and plan: 57-year-old man who presented to the hospital with chest pain Past medical history; hypertension, CHF, diverticulitis, status post pacemaker Chest x-ray; trace bilateral effusions, findings compatible with mild pulmonary venous congestion EKG; SR, Left atrial enlargement, RBBB Diagnosis chest pain, likely due to CHF Acute on chronic systolic CHF Hypertension Tobacco dependenceabuse PPM present Chronic kidney disease, stage III- likely htn nephrosclerosis Plan Echo shows EF of 15%, thallium stress test reports moderate to large mostly fixed inferior wall defect, awaiting records from seeing [facility] in [place], [place] for Cardiac review -cont iv lasix, Optimize cardiac meds per cardiology -This is most likely the patient's baseline kidney function, it is stable DVT prophylaxis chemical. History Interval history: Review of systems Constitutional: No fevers, no malaise, no joint pains CVS: Chest pain has resolved, still having orthopnea, WHITE and PND GI: No abdominal pain, no diarrhea, no vomiting, no constipation Respiratory: , no wheezing, no coughing Hospitalist Physical - Physical exam Narrative exam: General.: Appears well, no distress, nontoxic HEENT: Moist mucous membranes, extraocular muscles intact, no lymphadenopathy Neck: supple Cardiac: S1-S2 heard Lungs: Bibasilar crackles Abdomen: soft , nontender, nondistended, bowel sounds positive Extremities: no edema clubbing or cyanosis Skin: no rash or lesions Neurologic: no gross focal deficits Psych: calm, and cooperative - Constitutional Vitals: Temp Pulse Resp BP Pulse Ox 98.8 F 41 L 20 96/64 91 11/16/18 11:43 11/16/18 11:43 11/16/18 11:43 11/16/18 11:43 11/16/18 11:43 General appearance: Present: no acute distress Results - Labs CBC & Chem 7: 11/17/18 05:00 11/17/18 05:00 Labs: Laboratory Last Values WBC 14.4 K/mm3 (4.5-11.0) H 11/16/18 05:24 RBC 4.62 M/mm3 (3.65-5.03) 11/16/18 05:24 Hgb 13.3 gm/dl (11.8-15.2) 11/16/18 05:24 Hct 40.4 % (35.5-45.6) 11/16/18 05:24 MCV 88 fl (84-94) 11/16/18 05:24 MCH 29 pg (28-32) 11/16/18 05:24 MCHC 33 % (32-34) 11/16/18 05:24 RDW 16.9 % (13.2-15.2) H 11/16/18 05:24 Plt Count 432 K/mm3 (140-440) 11/16/18 05:24 Lymph % (Auto) 9.3 % (13.4-35.0) L 11/15/18 04:29 [place] % (Auto) 9.5 % (0.0-7.3) H 11/15/18 04:29 Eos % (Auto) 0.8 % (0.0-4.3) 11/15/18 04:29 Baso % (Auto) 0.2 % (0.0-1.8) 11/15/18 04:29 Lymph # 1.4 K/mm3 (1.2-5.4) 11/15/18 04:29 [place] # 1.4 K/mm3 (0.0-0.8) H 11/15/18 04:29 Eos # 0.1 K/mm3 (0.0-0.4) 11/15/18 04:29 Baso # 0.0 K/mm3 (0.0-0.1) 11/15/18 04:29 Seg Neutrophils % 80.2 % (40.0-70.0) H 11/15/18 04:29 Seg Neutrophils # 11.7 K/mm3 (1.8-7.7) H 11/15/18 04:29 Sodium 136 mmol/L (137-145) L 11/16/18 05:24 Potassium 4.4 mmol/L (3.6-5.0) 11/16/18 05:24 Chloride 96.7 mmol/L (98-107) L 11/16/18 05:24 Carbon Dioxide 25 mmol/L (22-30) 11/16/18 05:24 Anion Gap 19 mmol/L 11/16/18 05:24 BUN 28 mg/dL (9-20) H 11/16/18 05:24 Creatinine 2.0 mg/dL (0.8-1.5) H 11/16/18 05:24 Estimated GFR 42 ml/min 11/16/18 05:24 BUN/Creatinine Ratio 14 % 11/16/18 05:24 Glucose 100 mg/dL (75-100) 11/16/18 05:24 Hemoglobin A1c 5.6 % (4-6) 11/14/18 23:19 Calcium 9.1 mg/dL (8.4-10.2) 11/16/18 05:24 Magnesium 2.20 mg/dL (1.7-2.3) 11/16/18 05:24 Total Bilirubin 0.50 mg/dL (0.1-1.2) 11/15/18 04:29 Direct Bilirubin < 0.2 mg/dL (0-0.2) 11/14/18 17:02 Indirect Bilirubin 0.2 mg/dL 11/14/18 17:02 AST 13 units/L (5-40) 11/15/18 04:29 ALT 7 units/L (7-56) 11/15/18 04:29 Alkaline Phosphatase 91 units/L (35-129) 11/15/18 04:29 Troponin T 0.021 ng/mL (0.00-0.029) 11/15/18 04:29 NT-Pro-B Natriuret Pep 2385 pg/mL (0-900) H 11/14/18 17:02 Total Protein 6.6 g/dL (6.3-8.2) 11/15/18 04:29 Albumin 3.1 g/dL (3.9-5) L 11/15/18 04:29 Albumin/Globulin Ratio 0.9 % 11/15/18 04:29 Urine Color Yellow (Yellow) 11/15/18 22:45 Urine Turbidity Slightly-cloudy (Clear) 11/15/18 22:45 Urine pH 5.0 (5.0-7.0) 11/15/18 22:45 Ur Specific [place] 1.027 (1.003-1.030) 11/15/18 22:45 Urine Protein 30 mg/dl mg/dL (Negative) 11/15/18 22:45 Urine Glucose (UA) 50 mg/dL (Negative) 11/15/18 22:45 Urine Ketones Neg mg/dL (Negative) 11/15/18 22:45 Urine Blood Neg (Negative) 11/15/18 22:45 Urine Nitrite Neg (Negative) 11/15/18 22:45 Urine Bilirubin Neg (Negative) 11/15/18 22:45 Urine Urobilinogen 4.0 mg/dL (<2.0) 11/15/18 22:45 Ur Leukocyte Esterase Neg (Negative) 11/15/18 22:45 Urine WBC (Auto) 2.0 /HPF (0.0-6.0) 11/15/18 22:45 Urine RBC (Auto) 5.0 /HPF (0.0-6.0) 11/15/18 22:45 U Epithel Cells (Auto) 1.0 /HPF (0-13.0) 11/15/18 22:45 Urine Creatinine 220.1 mg/dL (0.1-20.0) H 11/15/18 22:45 Protein/Creatinin Ratio 0.30 11/15/18 22:45 Urine Total Protein 65 mg/dL (5-11.8) H 11/15/18 22:45 Active Medications - Current Medications Current Medications: Generic Name Dose Route Start Last Admin Trade Name Freq PRN Reason Stop Dose Admin Acetaminophen 650 mg 11/14/18 21:40 11/15/18 21:27 Tylenol PO 650 mg Q4H PRN Administration Pain MILD(1-3)/Fever >100.5/RIVAS Amlodipine Besylate 10 mg 11/15/18 10:00 11/16/18 09:50 Norvasc PO 10 mg QDAY [facility] Administration Aspirin 81 mg 11/15/18 10:00 11/16/18 09:49 Halfprin Ec PO 81 mg QDAY [facility] Administration Atorvastatin Calcium 40 mg 11/15/18 22:00 11/15/18 21:27 Lipitor PO 40 mg QHS K[facility]AME Administration Famotidine 10 mg 11/14/18 22:00 11/16/18 09:50 Pepcid PO 10 mg BID [facility] Administration Furosemide 40 mg 11/16/18 06:00 11/16/18 05:52 Lasix IV 40 mg 0600 K[facility]AME Administration Heparin Sodium (Porcine) 5,000 unit 11/15/18 11:00 11/16/18 09:49 Heparin SUB-Q 5,000 unit Q12HR [facility] Administration Hydralazine HCl 50 mg 11/15/18 07:00 11/16/18 05:51 Apresoline PO 50 mg Q8HR [facility] Administration Hydromorphone HCl 0.5 mg 11/14/18 21:40 11/16/18 06:41 Dilaudid IV 0.5 mg Q3H PRN Administration Pain , Severe (7-10) Isosorbide Mononitrate 30 mg 11/15/18 10:00 11/16/18 09:49 Imdur PO 30 mg QDAY [facility] Administration Ondansetron HCl 4 mg 11/14/18 21:40 11/16/18 06:41 Zofran IV 4 mg Q8H PRN Administration Nausea And Vomiting Oxycodone/Acetaminophen 1 tab 11/14/18 21:40 Percocet 5/325 PO Q6H PRN Pain, Moderate (4-6) Potassium Chloride 20 meq 11/15/18 06:40 11/16/18 09:50 K-Dur PO 20 meq QDAY KWAME Administration Sodium Chloride 10 ml 11/14/18 22:00 11/16/18 09:51 Sodium Chloride Flush Syringe 10 Ml IV 10 ml BID KWAME Administration Sodium Chloride 10 ml 11/14/18 21:40 Sodium Chloride Flush Syringe 10 Ml IV PRN PRN LINE FLUSH
[2018-11-16] MEDS: PERCOCET 5/325 PO PRN ×2 (12:25→19:51)
[2018-11-16] MEDS: LYRICA PO SCH ×2 (16:05→21:55)
--- NOTE | 2018-11-16 20:44 | Ultrasound Report ---
PROCEDURE: US RENAL BILAT HISTORY: BROOKE FINDINGS: Real-time ultrasound of the kidneys was performed. The right kidney measures 9.6 x 4.1 x 5.6 cm. Cortical thickness is 1.4 cm which is within normal lomas its. The left kidney measures 11.4 x 5.8 x 5.4 cm. Cortical thickness was 1.8 cm, which is normal. Both kidneys appear normal in size. Renal cortical echotexture is increased bilaterally which could r epresent an acute renal disease such as glomerulonephritis. No cyst, mass, stone or hydronephrosis is seen. IMPRESSION: The kidneys are bilaterally normal in size but are increased in cortical echotexture. Thi s could represent acute renal disease This document is electronically signed by Gage Ramos MD., November 16 2018 08:42:29 PM ET
[2018-11-17] MEDS: PERCOCET 5/325 PO PRN ×2 (02:41→14:18)
[2018-11-17 05:33] LABS: Hematocrit 35.9 % (35.5-45.6); Mean Corpuscular HGB Conc 33 % (32-34); Mean Corpuscular Volume 88 fl (84-94); Platelet Count 383 K/mm3 (140-440); Red Blood Count 4.09 M/mm3 (3.65-5.03); Red Cell Distribution Width 17.3 % (13.2-15.2)
[2018-11-17 05:52] LABS: Calcium 8.6 mg/dL (8.4-10.2)
[2018-11-17] MEDS: LASIX IV SCH (06:19)
[2018-11-17] MEDS: APRESOLINE PO SCH ×3 (06:20→22:07)
--- NOTE | 2018-11-17 11:05 | Progress Note ---
Assessment and Plan Assessment and plan: 57-year-old man who presented to the hospital with chest pain, pain is around PPM Past medical history; hypertension, CHF, diverticulitis, status post pacemaker Chest x-ray; trace bilateral effusions, findings compatible with mild pulmonary venous congestion EKG; SR, Left atrial enlargement, RBBB Diagnosis chest pain, likely due to CHF Acute on chronic systolic CHF Hypertension Tobacco dependenceabuse PPM present Chronic kidney disease, stage III- likely htn nephrosclerosis Fever Plan Echo shows EF of 15%, thallium stress test reports moderate to large mostly fixed inferior wall defect, awaiting records from OSH in [place], [place] for Cardiac review -cont iv lasix, Optimize cardiac meds per cardiology -This is most likely the patient's baseline kidney function, it is stable -fever; obtain UA, BC, CXR, ID consult given PPM DVT prophylaxis chemical. History Interval history: Review of systems Constitutional: No fevers, no malaise, no joint pains CVS: Patient is having atypical chest pain, still having orthopnea, WHITE and PND GI: No abdominal pain, no diarrhea, no vomiting, no constipation Respiratory: , no wheezing, no coughing Hospitalist Physical - Physical exam Narrative exam: General.: Appears well, no distress, nontoxic HEENT: Moist mucous membranes, extraocular muscles intact, no lymphadenopathy Neck: supple Cardiac: S1-S2 heard Lungs: Bibasilar crackles Abdomen: soft , nontender, nondistended, bowel sounds positive Extremities: no edema clubbing or cyanosis Skin: no rash or lesions Neurologic: no gross focal deficits Psych: calm, and cooperative - Constitutional Vitals: Temp Pulse Resp BP Pulse Ox 99.2 F 105 H 16 110/73 93 11/17/18 09:42 11/17/18 09:42 11/17/18 09:42 11/17/18 09:42 11/17/18 09:42 General appearance: Present: no acute distress Results - Labs CBC & Chem 7: 11/18/18 05:12 11/18/18 05:12 Labs: Laboratory Last Values WBC 14.0 K/mm3 (4.5-11.0) H 11/17/18 05:00 RBC 4.09 M/mm3 (3.65-5.03) 11/17/18 05:00 Hgb 12.0 gm/dl (11.8-15.2) 11/17/18 05:00 Hct 35.9 % (35.5-45.6) 11/17/18 05:00 MCV 88 fl (84-94) 11/17/18 05:00 MCH 29 pg (28-32) 11/17/18 05:00 MCHC 33 % (32-34) 11/17/18 05:00 RDW 17.3 % (13.2-15.2) H 11/17/18 05:00 Plt Count 383 K/mm3 (140-440) 11/17/18 05:00 Lymph % (Auto) 9.3 % (13.4-35.0) L 11/15/18 04:29 Major % (Auto) 9.5 % (0.0-7.3) H 11/15/18 04:29 Eos % (Auto) 0.8 % (0.0-4.3) 11/15/18 04:29 Baso % (Auto) 0.2 % (0.0-1.8) 11/15/18 04:29 Lymph # 1.4 K/mm3 (1.2-5.4) 11/15/18 04:29 Major # 1.4 K/mm3 (0.0-0.8) H 11/15/18 04:29 Eos # 0.1 K/mm3 (0.0-0.4) 11/15/18 04:29 Baso # 0.0 K/mm3 (0.0-0.1) 11/15/18 04:29 Seg Neutrophils % 80.2 % (40.0-70.0) H 11/15/18 04:29 Seg Neutrophils # 11.7 K/mm3 (1.8-7.7) H 11/15/18 04:29 Sodium 136 mmol/L (137-145) L 11/17/18 05:00 Potassium 4.6 mmol/L (3.6-5.0) 11/17/18 05:00 Chloride 97.7 mmol/L (98-107) L 11/17/18 05:00 Carbon Dioxide 26 mmol/L (22-30) 11/17/18 05:00 Anion Gap 17 mmol/L 11/17/18 05:00 BUN 29 mg/dL (9-20) H 11/17/18 05:00 Creatinine 2.2 mg/dL (0.8-1.5) H 11/17/18 05:00 Estimated GFR 38 ml/min 11/17/18 05:00 BUN/Creatinine Ratio 13 % 11/17/18 05:00 Glucose 109 mg/dL (75-100) H 11/17/18 05:00 Hemoglobin A1c 5.6 % (4-6) 11/14/18 23:19 Calcium 8.6 mg/dL (8.4-10.2) 11/17/18 05:00 Magnesium 2.20 mg/dL (1.7-2.3) 11/16/18 05:24 Total Bilirubin 0.50 mg/dL (0.1-1.2) 11/15/18 04:29 Direct Bilirubin < 0.2 mg/dL (0-0.2) 11/14/18 17:02 Indirect Bilirubin 0.2 mg/dL 11/14/18 17:02 AST 13 units/L (5-40) 11/15/18 04:29 ALT 7 units/L (7-56) 11/15/18 04:29 Alkaline Phosphatase 91 units/L (35-129) 11/15/18 04:29 Troponin T 0.021 ng/mL (0.00-0.029) 11/15/18 04:29 NT-Pro-B Natriuret Pep 2385 pg/mL (0-900) H 11/14/18 17:02 Total Protein 6.6 g/dL (6.3-8.2) 11/15/18 04:29 Albumin 3.1 g/dL (3.9-5) L 11/15/18 04:29 Albumin/Globulin Ratio 0.9 % 11/15/18 04:29 Urine Color Yellow (Yellow) 11/15/18 22:45 Urine Turbidity Slightly-cloudy (Clear) 11/15/18 22:45 Urine pH 5.0 (5.0-7.0) 11/15/18 22:45 Ur Specific [place] 1.027 (1.003-1.030) 11/15/18 22:45 Urine Protein 30 mg/dl mg/dL (Negative) 11/15/18 22:45 Urine Glucose (UA) 50 mg/dL (Negative) 11/15/18 22:45 Urine Ketones Neg mg/dL (Negative) 11/15/18 22:45 Urine Blood Neg (Negative) 11/15/18 22:45 Urine Nitrite Neg (Negative) 11/15/18 22:45 Urine Bilirubin Neg (Negative) 11/15/18 22:45 Urine Urobilinogen 4.0 mg/dL (<2.0) 11/15/18 22:45 Ur Leukocyte Esterase Neg (Negative) 11/15/18 22:45 Urine WBC (Auto) 2.0 /HPF (0.0-6.0) 11/15/18 22:45 Urine RBC (Auto) 5.0 /HPF (0.0-6.0) 11/15/18 22:45 U Epithel Cells (Auto) 1.0 /HPF (0-13.0) 11/15/18 22:45 Urine Creatinine 220.1 mg/dL (0.1-20.0) H 11/15/18 22:45 Protein/Creatinin Ratio 0.30 11/15/18 22:45 Urine Total Protein 65 mg/dL (5-11.8) H 11/15/18 22:45 Active Medications - Current Medications Current Medications: Generic Name Dose Route Start Last Admin Trade Name Freq PRN Reason Stop Dose Admin Acetaminophen 650 mg 11/14/18 21:40 11/15/18 21:27 Tylenol PO 650 mg Q4H PRN Administration Pain MILD(1-3)/Fever >100.5/RIVAS Amlodipine Besylate 10 mg 11/15/18 10:00 11/16/18 09:50 Norvasc PO 10 mg QDAY KWAME Administration Aspirin 81 mg 11/15/18 10:00 11/16/18 09:49 Halfprin Ec PO 81 mg QDAY KWAME Administration Atorvastatin Calcium 40 mg 11/15/18 22:00 11/16/18 21:54 Lipitor PO 40 mg QHS KWAME Administration Famotidine 10 mg 11/14/18 22:00 11/16/18 21:54 Pepcid PO 10 mg BID KWAME Administration Furosemide 40 mg 11/16/18 06:00 11/17/18 06:19 Lasix IV 40 mg 0600 KWAME Administration Heparin Sodium (Porcine) 5,000 unit 11/15/18 11:00 11/16/18 21:55 Heparin SUB-Q 5,000 unit Q12HR KWAME Administration Hydralazine HCl 50 mg 11/15/18 07:00 11/17/18 06:20 Apresoline PO 50 mg Q8HR KWAME Administration Hydromorphone HCl 0.5 mg 11/14/18 21:40 11/16/18 06:41 Dilaudid IV 0.5 mg Q3H PRN Administration Pain , Severe (7-10) Isosorbide Mononitrate 30 mg 11/15/18 10:00 11/16/18 09:49 Imdur PO 30 mg QDAY KWAME Administration Ondansetron HCl 4 mg 11/14/18 21:40 11/16/18 06:41 Zofran IV 4 mg Q8H PRN Administration Nausea And Vomiting Oxycodone/Acetaminophen 1 tab 11/14/18 21:40 11/17/18 02:41 Percocet 5/325 PO 1 tab Q6H PRN Administration Pain, Moderate (4-6) Potassium Chloride 20 meq 11/15/18 06:40 11/16/18 09:50 K-Dur PO 20 meq QDAY KWAME Administration Pregabalin 75 mg 11/16/18 15:00 11/16/18 21:55 Lyrica PO 75 mg BID KWAME Administration Sodium Chloride 10 ml 11/14/18 22:00 11/16/18 21:55 Sodium Chloride Flush Syringe 10 Ml IV 10 ml BID KWAME Administration Sodium Chloride 10 ml 11/14/18 21:40 11/17/18 06:20 Sodium Chloride Flush Syringe 10 Ml IV 10 ml PRN PRN Administration LINE FLUSH
--- NOTE | 2018-11-17 11:17 | Progress Note ---
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 Renal function is stable * Renal u/s reviewed * Cardiology work up noted * Diuresis prn * Avoid potential nephrotoxins * Dose medications for renal function * AM labs * Stable for d/c from a renal standpoint w/ outpatient nephrology follow up Subjective Date of service: 11/17/18 Objective - Vital Signs Vital signs: Vital Signs - 12hr 11/16/18 11/17/18 11/17/18 23:24 03:00 03:37 Temperature 99.8 F H 100.4 F H Pulse Rate 101 H 108 H 102 H Respiratory 18 18 Rate Blood Pressure 99/59 98/47 O2 Sat by Pulse 90 94 Oximetry 11/17/18 09:42 Temperature 99.2 F Pulse Rate 105 H Respiratory 16 Rate Blood Pressure 110/73 O2 Sat by Pulse 93 Oximetry - Lab 11/17/18 05:00 11/17/18 05:00 Most recent lab results Calcium 8.6 mg/dL (8.4-10.2) 11/17/18 05:00 Magnesium 2.20 mg/dL (1.7-2.3) 11/16/18 05:24 Urine Creatinine 220.1 mg/dL (0.1-20.0) H 11/15/18 22:45 Urine Total Protein 65 mg/dL (5-11.8) H 11/15/18 22:45 Medications & Allergies - Medications Allergies/Adverse Reactions: Allergies lisinopril Allergy (Verified 11/14/18 16:51) Swelling Penicillins Allergy (Verified 11/14/18 16:51) Rash Home Medications: Home Medications Medication Instructions Recorded Confirmed Last Taken Type Amlodipine Besylate [Norvasc] 10 mg PO QDAY 11/14/18 11/14/18 Unknown History Aspirin EC [Aspirin Enteric Coated 81 mg PO QDAY 11/14/18 11/14/18 Unknown History TAB] AtorvaSTATin [Lipitor] 40 mg PO QHS 11/14/18 11/14/18 Unknown History Bumetanide [Bumetanide 2 mg tab] 2 mg PO DAILY 11/14/18 11/14/18 Unknown History Isosorbide Mononitrate 30 mg PO QDAY 11/14/18 11/14/18 Unknown History hydrALAZINE [Apresoline] 50 mg PO Q8HR 11/14/18 11/14/18 Unknown History Active Medications: Generic Name Dose Route Start Last Admin Trade Name Freq PRN Reason Stop Dose Admin Acetaminophen 650 mg 11/14/18 21:40 11/15/18 21:27 Tylenol PO 650 mg Q4H PRN Administration Pain MILD(1-3)/Fever >100.5/RIVAS Amlodipine Besylate 10 mg 11/15/18 10:00 11/16/18 09:50 Norvasc PO 10 mg QDAY KWAME Administration Aspirin 81 mg 11/15/18 10:00 11/16/18 09:49 Halfprin Ec PO 81 mg QDAY KWAME Administration Atorvastatin Calcium 40 mg 11/15/18 22:00 11/16/18 21:54 Lipitor PO 40 mg QHS KWAME Administration Famotidine 10 mg 11/14/18 22:00 11/16/18 21:54 Pepcid PO 10 mg BID KWAME Administration Furosemide 40 mg 11/16/18 06:00 11/17/18 06:19 Lasix IV 40 mg 0600 KWAME Administration Heparin Sodium (Porcine) 5,000 unit 11/15/18 11:00 11/16/18 21:55 Heparin SUB-Q 5,000 unit Q12HR KWAME Administration Hydralazine HCl 50 mg 11/15/18 07:00 11/17/18 06:20 Apresoline PO 50 mg Q8HR KWAME Administration Hydromorphone HCl 0.5 mg 11/14/18 21:40 11/16/18 06:41 Dilaudid IV 0.5 mg Q3H PRN Administration Pain , Severe (7-10) Isosorbide Mononitrate 30 mg 11/15/18 10:00 11/16/18 09:49 Imdur PO 30 mg QDAY KWAME Administration Ondansetron HCl 4 mg 11/14/18 21:40 11/16/18 06:41 Zofran IV 4 mg Q8H PRN Administration Nausea And Vomiting Oxycodone/Acetaminophen 1 tab 11/14/18 21:40 11/17/18 02:41 Percocet 5/325 PO 1 tab Q6H PRN Administration Pain, Moderate (4-6) Potassium Chloride 20 meq 11/15/18 06:40 11/16/18 09:50 K-Dur PO 20 meq QDAY KWAME Administration Pregabalin 75 mg 11/16/18 15:00 11/16/18 21:55 Lyrica PO 75 mg BID KWAME Administration Sodium Chloride 10 ml 11/14/18 22:00 11/16/18 21:55 Sodium Chloride Flush Syringe 10 Ml IV 10 ml BID KWAME Administration Sodium Chloride 10 ml 11/14/18 21:40 11/17/18 06:20 Sodium Chloride Flush Syringe 10 Ml IV 10 ml PRN PRN Administration LINE FLUSH
[2018-11-17] MEDS: K-DUR PO SCH (11:32)
[2018-11-17] MEDS: IMDUR PO SCH (11:32)
[2018-11-17] MEDS: NORVASC PO SCH (11:32)
[2018-11-17] MEDS: HALFPRIN EC PO SCH (11:32)
[2018-11-17] MEDS: PEPCID PO SCH ×2 (11:32→22:07)
[2018-11-17] MEDS: HEPARIN SUB-Q SCH ×2 (11:32→22:07)
[2018-11-17] MEDS: LYRICA PO SCH ×2 (11:33→22:08)
[2018-11-17] MEDS: SODIUM CHLORIDE FLUSH SYRINGE 10 ML IV SCH ×2 (11:34→22:08)
--- NOTE | 2018-11-17 11:53 | Progress Note ---
Assessment and Plan Atypical chest pain Dual-chamber pacemaker in situ Chronic kidney disease Hx of CAD Hx of Ischemic cardiomyopathy An echocardiogram which reveals a severe dilated cardiomyopathy, ejection fraction 15-20%. Thallium stress test reports a moderate to large, mostly fixed inferior wall defect. Continue medical therapy for coronary artery disease, ischemic cardiomyopathy and chronic systolic heart failure. Subjective Date of service: 11/17/18 Interval history: Patient complains of left shoulder pain. Noted febrile overnight. Patient has left sided pacemaker implant; no fluctuance noted. Objective Vital Signs Temp Pulse Pulse Resp BP Pulse Ox 11/17/18 09:42 99.2 F 105 H 16 110/73 93 11/17/18 03:37 100.4 F H 102 H 18 98/47 94 11/17/18 03:00 108 H 11/16/18 23:24 99.8 F H 101 H 18 99/59 90 11/16/18 19:49 100.6 F H 105 H 18 120/65 91 11/16/18 17:05 99.6 F 97 H 20 102/58 90 11/16/18 15:09 98 H 11/16/18 12:00 90 17 96 - Physical Examination General: No Apparent Distress HEENT: Positive: PERRL Neck: Positive: neck supple, trachea midline Cardiac: Positive: Tachycardia Lungs: Positive: Decreased Breath Sounds Neuro: Positive: Grossly Intact Extremities: Absent: edema - Labs and Meds CBC 11/17/18 Range/Units 05:00 WBC 14.0 H (4.5-11.0) K/mm3 RBC 4.09 (3.65-5.03) M/mm3 Hgb 12.0 (11.8-15.2) gm/dl Hct 35.9 (35.5-45.6) % Plt Count 383 (140-440) K/mm3 Comprehensive Metabolic Panel 11/17/18 Range/Units 05:00 Sodium 136 L (137-145) mmol/L Potassium 4.6 (3.6-5.0) mmol/L Chloride 97.7 L (98-107) mmol/L Carbon Dioxide 26 (22-30) mmol/L BUN 29 H (9-20) mg/dL Creatinine 2.2 H (0.8-1.5) mg/dL Glucose 109 H (75-100) mg/dL Calcium 8.6 (8.4-10.2) mg/dL
--- NOTE | 2018-11-17 12:23 | XRay Report ---
ROUTINE CHEST, TWO VIEWS: HISTORY: Fever. Cardiomegaly and pulmonary venous congestion are stable since 11/14/18. Cardiac device remains in the same position. Moderate bilateral pleural effusions have developed which compress the lower lobes. No obvious infiltrate is appreciated. No pneumothorax. IMPRESSION: CHF. There is compressive atelectasis of the lower lobes. No obvious pneumonia.
--- NOTE | 2018-11-17 13:56 | Consultation ---
History of Present Illness - Reason for Consult Consult date: 11/17/18 Fever, indwelling PPM Requesting physician: BRANDO WILSON - History of Present Illness The patient is a 57-year-old male with cardiomyopathy, status post pacemaker placement about 2 years ago, CKD was admitted to the hospital on 11/14/2018 with complaints of chest pain. The patient recently moved from [place], of note, he states he was recently hospitalized at [facility] in [place] beginning of November 2018 with worsening shortness of breath, diagnosed with possible pneumonia versus congestive heart failure. He was treated with diuretics along with antibiotics and discharged home. Patient reports that the shortness of breath has persisted and now he was having chest pain and hence he came to the hospital. Outside hospital records reviewed. Patient had a temperature of 100.8F on 11/15/2018. Yesterday also he had a few low-grade temperatures in the 99-100F range. Infectious diseases was consulted to evaluate for possible infectious causes. Patient denies any runny nose or cough. Denies any dysphagia. Denies any nausea, vomiting or diarrhea. Denies abdominal pain. He states that initially when he came to the hospital, he had some urinary burning which has now resolved. He also reports a more than 50 pound weight loss over the last 6 weeks. TTE here shows an EF of 15-20%. Patient does report a family history of lupus in his sister. Also reports a history of cancer in the family. Review of Systems: General: no fevers,chills or rigors HEENT: no new visual disturbance Respiratory: No cough, sputum, hemoptysis or shortness of breath Cardiovascular: No chest pain, syncope Gastrointestinal: No nausea, vomiting or diarrhea Genitourinary: No dysuria or hematuria Musculoskeletal: No new or worsening neck pain or back pain. Few non specific joint pains. Neurologic: No headaches, seizures Hematologic: No easy bruising or bleeding Endocrine: No night sweats. + for acute weight loss Skin: negative for rash, jaundice Psychiatric: No suicidal or homicidal ideation Past History Past Medical History: heart failure, hypertension, renal failure Past Surgical History: Other (pacemaker implant) Medications and Allergies Allergies Allergy/AdvReac Type Severity Reaction Status Date / Time lisinopril Allergy Swelling Verified 11/14/18 16:51 Penicillins Allergy Rash Verified 11/14/18 16:51 Home Medications Medication Instructions Recorded Confirmed Last Taken Type Amlodipine Besylate [Norvasc] 10 mg PO QDAY 11/14/18 11/14/18 Unknown History Aspirin EC [Aspirin Enteric Coated 81 mg PO QDAY 11/14/18 11/14/18 Unknown History TAB] AtorvaSTATin [Lipitor] 40 mg PO QHS 11/14/18 11/14/18 Unknown History Bumetanide [Bumetanide 2 mg tab] 2 mg PO DAILY 11/14/18 11/14/18 Unknown History Isosorbide Mononitrate 30 mg PO QDAY 11/14/18 11/14/18 Unknown History hydrALAZINE [Apresoline] 50 mg PO Q8HR 11/14/18 11/14/18 Unknown History Active Meds: Active Medications Acetaminophen (Tylenol) 650 mg PO Q4H PRN PRN Reason: Pain MILD(1-3)/Fever >100.5/RIVAS Last Admin: 11/15/18 21:27 Dose: 650 mg Documented by: Amlodipine Besylate (Norvasc) 10 mg PO QDAY [facility] Last Admin: 11/17/18 11:32 Dose: 10 mg Documented by: Aspirin (Halfprin Ec) 81 mg PO QDAY [facility] Last Admin: 11/17/18 11:32 Dose: 81 mg Documented by: Atorvastatin Calcium (Lipitor) 40 mg PO QHS [facility] Last Admin: 11/16/18 21:54 Dose: 40 mg Documented by: Famotidine (Pepcid) 10 mg PO BID [facility] Last Admin: 11/17/18 11:32 Dose: 10 mg Documented by: Furosemide (Lasix) 40 mg IV 0600 [facility] Last Admin: 11/17/18 06:19 Dose: 40 mg Documented by: Heparin Sodium (Porcine) (Heparin) 5,000 unit SUB-Q Q12HR [facility] Last Admin: 11/17/18 11:32 Dose: 5,000 unit Documented by: Hydralazine HCl (Apresoline) 50 mg PO Q8HR [facility] Last Admin: 11/17/18 06:20 Dose: 50 mg Documented by: Hydromorphone HCl (Dilaudid) 0.5 mg IV Q3H PRN PRN Reason: Pain , Severe (7-10) Last Admin: 11/16/18 06:41 Dose: 0.5 mg Documented by: Isosorbide Mononitrate (Imdur) 30 mg PO QDAY [facility] Last Admin: 11/17/18 11:32 Dose: 30 mg Documented by: Metoprolol Succinate (Toprol Xl) 25 mg PO QDAY [facility] Ondansetron HCl (Zofran) 4 mg IV Q8H PRN PRN Reason: Nausea And Vomiting Last Admin: 11/16/18 06:41 Dose: 4 mg Documented by: Oxycodone/Acetaminophen (Percocet 5/325) 1 tab PO Q6H PRN PRN Reason: Pain, Moderate (4-6) Last Admin: 11/17/18 02:41 Dose: 1 tab Documented by: Potassium Chloride (K-Dur) 20 meq PO QDAY [facility] Last Admin: 11/17/18 11:32 Dose: 20 meq Documented by: Pregabalin (Lyrica) 75 mg PO BID [facility] Last Admin: 11/17/18 11:33 Dose: 75 mg Documented by: Sodium Chloride (Sodium Chloride Flush Syringe 10 Ml) 10 ml IV BID [facility] Last Admin: 11/17/18 11:34 Dose: 10 ml Documented by: Sodium Chloride (Sodium Chloride Flush Syringe 10 Ml) 10 ml IV PRN PRN PRN Reason: LINE FLUSH Last Admin: 11/17/18 06:20 Dose: 10 ml Documented by: Physical Examination - Physical Exam Narrative exam: Physical Exam: Constitutional: Alert, cooperative. No acute distress Head, Ears, Nose: Normocephalic, atraumatic. External ears, nose normal Eyes: Conjunctivae/corneas clear. No icterus. No ptosis. Neck: Supple, no meningeal signs Oral: dentition fair, no thrush Cardiovascular: S1, S2 normal. PPM site is well healed, no swelling or tenderness Respiratory: Good air entry, clear to auscultation bilaterally GI: Soft, non-tender; bowel sounds normal. No peritoneal signs Musculoskeletal: No pedal edema, no cyanosis. Skin: No rash or abscess Hem/Lymphatic: No palpable cervical or supraclavicular nodes. No lymphangitis Psych: Mood ok. Affect normal Neurological: Awake, alert, oriented. No gross abnormality - Constitutional Vitals: Vital Signs Temp Pulse Resp BP Pulse Ox 99.2 F 105 H 16 110/73 93 11/17/18 09:42 11/17/18 09:42 11/17/18 09:42 11/17/18 09:42 11/17/18 09:42 Temperature -Last 24 Hours Temperature 99.2 F Temperature 100.4 F Temperature 99.8 F Temperature 100.6 F Temperature 99.6 F Results - Labs CBC & Chem 7: 11/17/18 05:00 11/17/18 05:00 Labs: Abnormal lab results 11/17/18 11/17/18 Range/Units 05:00 05:00 WBC 14.0 H (4.5-11.0) K/mm3 RDW 17.3 H (13.2-15.2) % Sodium 136 L (137-145) mmol/L Chloride 97.7 L (98-107) mmol/L BUN 29 H (9-20) mg/dL Creatinine 2.2 H (0.8-1.5) mg/dL Glucose 109 H (75-100) mg/dL - Imaging and Cardiology Chest x-ray: report reviewed, image reviewed (Chest x-ray shows bilateral p leural effusions) Assessment and Plan Cultures: 11/15/2018 MRSA nasal culture: Negative 11/17/2018 blood culture: In progress A/P: 57-year-old male with cardiomyopathy, status post pacemaker placement about 2 years ago, CKD was admitted to the hospital on 11/14/2018 with complaints of chest pain. The patient recently moved from [place]. Admitted with chest pain. 1) Leukocytosis, low grade fever: indwelling PPM. UA not suggestive of infection. Chest x-ray with bilateral pleural effusions likely related to CHF. Of note, patient was recently treated for pneumonia and congestive heart failure earlier this month. Has no cough, pneumonia is quite unlikely. Follow-up blood cultures. No antibiotics for now. 2) CKD: nephrology consulted. 3) Bilateral pleural effusions: likely from CHF. 4) Anorexia: unintentional weight loss of 50+ lbs over the last 6 weeks. HIV screen. May need to consider CT to evaluate for occult malignancy. Also check for lupus given family history. 5) Dilated cardiomyopathy: cardiology following. EF 15-20%. Check for lupus. Recs: follow up blood cultures HIV screen (order placed) C3, C4, SANTANA, ESR, CRP, procalcitonin ordered no abx for now d/w Dr. Wilson. Bora Harrell MD [facility] C: [phone] O: [phone] F: [phone]
[2018-11-17] MEDS: TOPROL XL PO SCH (14:18)
--- NOTE | 2018-11-17 16:53 | Cat Scan Report ---
PROCEDURE: CT NECK WO CON HISTORY: Upper chest pain, fever FINDINGS: Unenhanced CT of the neck was performed and data was reformatted in the sagittal and bernal l planes. There is a pacing device. There are bilateral pleural effusions. The pulmonary apices appear clear. A chest CT is been performed and reported separately. The thyroid gland is within normal limits. There is a normal limits. Alignment. There is a left maxillary polyp versus mucous retention cyst. There is no evidence of acute sinusitis . There is endplate remodeling at C3 C4, C4 C5, C5 C6, C6 C7 and C7-T1. The airway is widely patent. The prevertebral soft tissues are within normal limits. There is are mild calcific atherosclerotic changes of the cervical arterial vasculature. IMPRESSION: No neck mass or abscess This document is electronically signed by Gage Ramos MD., November 17 2018 04:51:03 PM ET
--- NOTE | 2018-11-17 17:45 | Cat Scan Report ---
PROCEDURE: CT CHEST WO CON TECHNIQUE: CT chest without contrast HISTORY: Upper chest pain, fever COMPARISONS: FINDINGS: Pacemaker noted Thoracic aorta appears normal in caliber. The heart is enlarged. There is small pericardial effusion. There are large bilateral pleural effusions with compressive atelectasis adjacent upper and lower lob es. Haziness in the mediastinum likely reflects edema. Few mildly prominent mediastinal lymph nodes n oted which do not appear pathologically enlarged. No acute change seen on nonenhanced images visualized upper abdomen IMPRESSION: Large bilateral pleural effusions Cardiomegaly Small pericardial effusion Pacemaker. This document is electronically signed by Guilherme Camara MD., November 17 2018 05:43:13 PM ET
[2018-11-18] MEDS: PERCOCET 5/325 PO PRN ×4 (00:59→23:41)
[2018-11-18] MEDS: LASIX IV SCH (05:32)
[2018-11-18] MEDS: APRESOLINE PO SCH ×3 (05:32→21:08)
[2018-11-18 05:52] LABS: Hematocrit 34.2 % (35.5-45.6); Hemoglobin 11.3 gm/dl (11.8-15.2); Mean Corpuscular HGB Conc 33 % (32-34); Mean Corpuscular Volume 87 fl (84-94); Platelet Count 423 K/mm3 (140-440); Red Blood Count 3.96 M/mm3 (3.65-5.03); Red Cell Distribution Width 17.2 % (13.2-15.2)
[2018-11-18 07:02] LABS: C-Reactive Protein 26.7 mg/dL (0.00-1.30); Calcium 8.6 mg/dL (8.4-10.2)
[2018-11-18 07:05] LABS: Erythrocyte Sedimentation Rate 55 mm/Hr (0-20)
--- NOTE | 2018-11-18 09:04 | Progress Note ---
Assessment and Plan Atypical chest pain Leukocytosis with mild fever Dual-chamber pacemaker in situ Chronic kidney disease Hx of CAD Hx of Ischemic cardiomyopathy An echocardiogram which reveals a severe dilated cardiomyopathy, ejection fraction 15-20%. Thallium stress test reports a moderate to large, mostly fixed inferior wall defect. Continue medical therapy for coronary artery disease, ischemic cardiomyopathy and chronic systolic heart failure. Subjective Date of service: 11/18/18 Interval history: Patient has no complaints. He denies shortness of breath and chest pain. Objective Vital Signs Temp Pulse Resp BP Pulse Ox 11/18/18 08:20 98.9 F 91 H 16 110/73 92 11/18/18 03:29 99.2 F 86 18 102/69 89 11/18/18 00:59 18 11/17/18 23:00 93 H 11/17/18 22:19 98.8 F 95 H 16 111/68 88 11/17/18 19:07 99.6 F 35 L 16 102/65 87 11/17/18 18:12 99.4 F 92 H 16 100/64 94 11/17/18 14:18 118/62 11/17/18 13:07 99.4 F 103 H 18 112/66 90 11/17/18 12:00 18 11/17/18 09:42 99.2 F 105 H 16 110/73 93 - Physical Examination General: No Apparent Distress HEENT: Positive: PERRL Neck: Positive: neck supple, trachea midline Cardiac: Positive: Reg Rate and Rhythm Lungs: Positive: Decreased Breath Sounds Neuro: Positive: Grossly Intact Abdomen: Positive: Soft Extremities: Absent: edema - Labs and Meds CBC 11/18/18 Range/Units 05:12 WBC 13.4 H (4.5-11.0) K/mm3 RBC 3.96 (3.65-5.03) M/mm3 Hgb 11.3 L (11.8-15.2) gm/dl Hct 34.2 L (35.5-45.6) % Plt Count 423 (140-440) K/mm3 Comprehensive Metabolic Panel 11/18/18 Range/Units 05:12 Sodium 140 (137-145) mmol/L Potassium 4.4 (3.6-5.0) mmol/L Chloride 100.3 (98-107) mmol/L Carbon Dioxide 25 (22-30) mmol/L BUN 31 H (9-20) mg/dL Creatinine 2.2 H (0.8-1.5) mg/dL Glucose 115 H (75-100) mg/dL Calcium 8.6 (8.4-10.2) mg/dL
--- NOTE | 2018-11-18 09:33 | Progress Note ---
Assessment and Plan Impression: * Stage III chronic kidney disease - dx appx 2 years ago per patient --UPCR 300mg/g --Renal ultrasound: right 9.6, left 11.4. 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 Renal function is stable * Cardiology work up noted * ID following - recommendations noted * Diuresis prn * Avoid potential nephrotoxins * Dose medications for renal function * AM labs * Stable for d/c from a renal standpoint w/ outpatient nephrology follow up Subjective Date of service: 11/18/18 Interval history: Patient has no complaints Objective - Vital Signs Vital signs: Vital Signs - 12hr 11/17/18 11/17/18 11/18/18 22:19 23:00 00:59 Temperature 98.8 F Pulse Rate 95 H 93 H Respiratory 16 18 Rate Blood Pressure 111/68 O2 Sat by Pulse 88 Oximetry 11/18/18 11/18/18 03:29 08:20 Temperature 99.2 F 98.9 F Pulse Rate 86 91 H Respiratory 18 16 Rate Blood Pressure 102/69 110/73 O2 Sat by Pulse 89 92 Oximetry - General Appearance General appearance: well-developed, well-nourished EENT: ATNC Respiratory: Present: Clear to Ascultation Cardiology: regular, S1S2 Gastrointestinal: normal, no tenderness, no distended Integumentary: no rash, warm and dry Musculoskeletal: other (no edema) Psychiatric: cooperative - Lab 11/18/18 05:12 11/18/18 05:12 Most recent lab results Calcium 8.6 mg/dL (8.4-10.2) 11/18/18 05:12 Magnesium 2.20 mg/dL (1.7-2.3) 11/16/18 05:24 Urine Creatinine 220.1 mg/dL (0.1-20.0) H 11/15/18 22:45 Urine Total Protein 65 mg/dL (5-11.8) H 11/15/18 22:45 Medications & Allergies - Medications Allergies/Adverse Reactions: Allergies lisinopril Allergy (Verified 11/14/18 16:51) Swelling Penicillins Allergy (Verified 11/14/18 16:51) Rash Home Medications: Home Medications Medication Instructions Recorded Confirmed Last Taken Type Amlodipine Besylate [Norvasc] 10 mg PO QDAY 11/14/18 11/14/18 Unknown History Aspirin EC [Aspirin Enteric Coated 81 mg PO QDAY 11/14/18 11/14/18 Unknown History TAB] AtorvaSTATin [Lipitor] 40 mg PO QHS 11/14/18 11/14/18 Unknown History Bumetanide [Bumetanide 2 mg tab] 2 mg PO DAILY 11/14/18 11/14/18 Unknown History Isosorbide Mononitrate 30 mg PO QDAY 11/14/18 11/14/18 Unknown History hydrALAZINE [Apresoline] 50 mg PO Q8HR 11/14/18 11/14/18 Unknown History Active Medications: Generic Name Dose Route Start Last Admin Trade Name Freq PRN Reason Stop Dose Admin Acetaminophen 650 mg 11/14/18 21:40 11/15/18 21:27 Tylenol PO 650 mg Q4H PRN Administration Pain MILD(1-3)/Fever >100.5/RIVAS Amlodipine Besylate 10 mg 11/15/18 10:00 11/17/18 11:32 Norvasc PO 10 mg QDAY KWAME Administration Aspirin 81 mg 11/15/18 10:00 11/17/18 11:32 Halfprin Ec PO 81 mg QDAY KWAME Administration Atorvastatin Calcium 40 mg 11/15/18 22:00 11/17/18 22:07 Lipitor PO 40 mg QHS KWAME Administration Famotidine 10 mg 11/14/18 22:00 11/17/18 22:07 Pepcid PO 10 mg BID KWAME Administration Furosemide 40 mg 11/16/18 06:00 11/18/18 05:32 Lasix IV 40 mg 0600 KWAME Administration Heparin Sodium (Porcine) 5,000 unit 11/15/18 11:00 11/17/18 22:07 Heparin SUB-Q 5,000 unit Q12HR KWAME Administration Hydralazine HCl 50 mg 11/15/18 07:00 11/18/18 05:32 Apresoline PO 50 mg Q8HR KWAME Administration Hydromorphone HCl 0.5 mg 11/14/18 21:40 11/16/18 06:41 Dilaudid IV 0.5 mg Q3H PRN Administration Pain , Severe (7-10) Isosorbide Mononitrate 30 mg 11/15/18 10:00 11/17/18 11:32 Imdur PO 30 mg QDAY KWAME Administration Metoprolol Succinate 25 mg 11/17/18 14:00 11/17/18 14:18 Toprol Xl PO 25 mg QDAY KWAME Administration Ondansetron HCl 4 mg 11/14/18 21:40 11/16/18 06:41 Zofran IV 4 mg Q8H PRN Administration Nausea And Vomiting Oxycodone/Acetaminophen 1 tab 11/14/18 21:40 11/18/18 00:59 Percocet 5/325 PO 1 tab Q6H PRN Administration Pain, Moderate (4-6) Potassium Chloride 20 meq 11/15/18 06:40 11/17/18 11:32 K-Dur PO 20 meq QDAY KWAME Administration Pregabalin 75 mg 11/16/18 15:00 11/17/18 22:08 Lyrica PO 75 mg BID KWAME Administration Sodium Chloride 10 ml 11/14/18 22:00 11/17/18 22:08 Sodium Chloride Flush Syringe 10 Ml IV 10 ml BID KWAME Administration Sodium Chloride 10 ml 11/14/18 21:40 11/17/18 06:20 Sodium Chloride Flush Syringe 10 Ml IV 10 ml PRN PRN Administration LINE FLUSH
--- NOTE | 2018-11-18 09:49 | Progress Note ---
Assessment and Plan Assessment and plan: 57-year-old man who presented to the hospital with chest pain, pain is around PPM Past medical history; hypertension, CHF, diverticulitis, status post pacemaker Chest x-ray; trace bilateral effusions, findings compatible with mild pulmonary venous congestion EKG; SR, Left atrial enlargement, RBBB Diagnosis chest pain, likely due to CHF Acute on chronic systolic CHF, ef 15% Hypertension Tobacco dependence/abuse PPM present Chronic kidney disease, stage III- likely htn nephrosclerosis Fever bilateral pleural effusions Plan Echo shows EF of 15%, thallium stress test reports moderate to large mostly fixed inferior wall defect, awaiting records from OSH in [place], [place] for Cardiac review -cont iv lasix, Optimize cardiac meds per cardiology -This is most likely the patient's baseline kidney function, it is stable -fever; given PPM, fup BC, UA neg, CXR no infiltrate DVT prophylaxis chemical. History Interval history: Review of systems Constitutional: No fevers, no malaise, no joint pains CVS: Patient is having atypical chest pain, still having orthopnea, WHITE and PND GI: No abdominal pain, no diarrhea, no vomiting, no constipation Respiratory: , no wheezing, no coughing Hospitalist Physical - Physical exam Narrative exam: General.: Appears well, no distress, nontoxic HEENT: Moist mucous membranes, extraocular muscles intact, no lymphadenopathy Neck: supple Cardiac: S1-S2 heard Lungs: Bibasilar dullness, rales in mid lungs Abdomen: soft , nontender, nondistended, bowel sounds positive Extremities: no edema clubbing or cyanosis Skin: no rash or lesions Neurologic: no gross focal deficits Psych: calm, and cooperative - Constitutional Vitals: Temp Pulse Resp BP Pulse Ox 98.9 F 91 H 16 110/73 92 11/18/18 08:20 11/18/18 08:20 11/18/18 08:20 11/18/18 08:20 11/18/18 08:20 General appearance: Present: no acute distress Results - Labs CBC & Chem 7: 11/18/18 05:12 11/18/18 05:12 Labs: Laboratory Last Values WBC 13.4 K/mm3 (4.5-11.0) H 11/18/18 05:12 RBC 3.96 M/mm3 (3.65-5.03) 11/18/18 05:12 Hgb 11.3 gm/dl (11.8-15.2) L 11/18/18 05:12 Hct 34.2 % (35.5-45.6) L 11/18/18 05:12 MCV 87 fl (84-94) 11/18/18 05:12 MCH 29 pg (28-32) 11/18/18 05:12 MCHC 33 % (32-34) 11/18/18 05:12 RDW 17.2 % (13.2-15.2) H 11/18/18 05:12 Plt Count 423 K/mm3 (140-440) 11/18/18 05:12 Lymph % (Auto) 9.3 % (13.4-35.0) L 11/15/18 04:29 [place] % (Auto) 9.5 % (0.0-7.3) H 11/15/18 04:29 Eos % (Auto) 0.8 % (0.0-4.3) 11/15/18 04:29 Baso % (Auto) 0.2 % (0.0-1.8) 11/15/18 04:29 Lymph # 1.4 K/mm3 (1.2-5.4) 11/15/18 04:29 [place] # 1.4 K/mm3 (0.0-0.8) H 11/15/18 04:29 Eos # 0.1 K/mm3 (0.0-0.4) 11/15/18 04:29 Baso # 0.0 K/mm3 (0.0-0.1) 11/15/18 04:29 Seg Neutrophils % 80.2 % (40.0-70.0) H 11/15/18 04:29 Seg Neutrophils # 11.7 K/mm3 (1.8-7.7) H 11/15/18 04:29 ESR 55 mm/Hr (0-20) 11/18/18 05:12 Sodium 140 mmol/L (137-145) 11/18/18 05:12 Potassium 4.4 mmol/L (3.6-5.0) 11/18/18 05:12 Chloride 100.3 mmol/L (98-107) 11/18/18 05:12 Carbon Dioxide 25 mmol/L (22-30) 11/18/18 05:12 Anion Gap 19 mmol/L 11/18/18 05:12 BUN 31 mg/dL (9-20) H 11/18/18 05:12 Creatinine 2.2 mg/dL (0.8-1.5) H 11/18/18 05:12 Estimated GFR 38 ml/min 11/18/18 05:12 BUN/Creatinine Ratio 14 % 11/18/18 05:12 Glucose 115 mg/dL (75-100) H 11/18/18 05:12 Hemoglobin A1c 5.6 % (4-6) 11/14/18 23:19 Calcium 8.6 mg/dL (8.4-10.2) 11/18/18 05:12 Magnesium 2.20 mg/dL (1.7-2.3) 11/16/18 05:24 Total Bilirubin 0.50 mg/dL (0.1-1.2) 11/15/18 04:29 Direct Bilirubin < 0.2 mg/dL (0-0.2) 11/14/18 17:02 Indirect Bilirubin 0.2 mg/dL 11/14/18 17:02 AST 13 units/L (5-40) 11/15/18 04:29 ALT 7 units/L (7-56) 11/15/18 04:29 Alkaline Phosphatase 91 units/L (35-129) 11/15/18 04:29 Troponin T 0.021 ng/mL (0.00-0.029) 11/15/18 04:29 C-Reactive Protein 26.70 mg/dL (0.00-1.30) H 11/18/18 05:12 NT-Pro-B Natriuret Pep 2385 pg/mL (0-900) H 11/14/18 17:02 Total Protein 6.6 g/dL (6.3-8.2) 11/15/18 04:29 Albumin 3.1 g/dL (3.9-5) L 11/15/18 04:29 Albumin/Globulin Ratio 0.9 % 11/15/18 04:29 Urine Color Yellow (Yellow) 11/15/18 22:45 Urine Turbidity Slightly-cloudy (Clear) 11/15/18 22:45 Urine pH 5.0 (5.0-7.0) 11/15/18 22:45 Ur Specific [place] 1.027 (1.003-1.030) 11/15/18 22:45 Urine Protein 30 mg/dl mg/dL (Negative) 11/15/18 22:45 Urine Glucose (UA) 50 mg/dL (Negative) 11/15/18 22:45 Urine Ketones Neg mg/dL (Negative) 11/15/18 22:45 Urine Blood Neg (Negative) 11/15/18 22:45 Urine Nitrite Neg (Negative) 11/15/18 22:45 Urine Bilirubin Neg (Negative) 11/15/18 22:45 Urine Urobilinogen 4.0 mg/dL (<2.0) 11/15/18 22:45 Ur Leukocyte Esterase Neg (Negative) 11/15/18 22:45 Urine WBC (Auto) 2.0 /HPF (0.0-6.0) 11/15/18 22:45 Urine RBC (Auto) 5.0 /HPF (0.0-6.0) 11/15/18 22:45 U Epithel Cells (Auto) 1.0 /HPF (0-13.0) 11/15/18 22:45 Urine Creatinine 220.1 mg/dL (0.1-20.0) H 11/15/18 22:45 Protein/Creatinin Ratio 0.30 11/15/18 22:45 Urine Total Protein 65 mg/dL (5-11.8) H 11/15/18 22:45 HIV 1&2 Antibody Rapid Non react (Non React) 11/18/18 05:12 HIV P24 Antigen Non react (Non React) 11/18/18 05:12 Active Medications - Current Medications Current Medications: Generic Name Dose Route Start Last Admin Trade Name Freq PRN Reason Stop Dose Admin Acetaminophen 650 mg 11/14/18 21:40 11/15/18 21:27 Tylenol PO 650 mg Q4H PRN Administration Pain MILD(1-3)/Fever >100.5/RIVAS Amlodipine Besylate 10 mg 11/15/18 10:00 11/17/18 11:32 Norvasc PO 10 mg QDAY KWAME Administration Aspirin 81 mg 11/15/18 10:00 11/17/18 11:32 Halfprin Ec PO 81 mg QDAY KWAME Administration Atorvastatin Calcium 40 mg 11/15/18 22:00 11/17/18 22:07 Lipitor PO 40 mg QHS KWAME Administration Famotidine 10 mg 11/14/18 22:00 11/17/18 22:07 Pepcid PO 10 mg BID KWAME Administration Furosemide 40 mg 11/16/18 06:00 11/18/18 05:32 Lasix IV 40 mg 0600 KWAME Administration Heparin Sodium (Porcine) 5,000 unit 11/15/18 11:00 11/17/18 22:07 Heparin SUB-Q 5,000 unit Q12HR KWAME Administration Hydralazine HCl 50 mg 11/15/18 07:00 11/18/18 05:32 Apresoline PO 50 mg Q8HR KWAME Administration Hydromorphone HCl 0.5 mg 11/14/18 21:40 11/16/18 06:41 Dilaudid IV 0.5 mg Q3H PRN Administration Pain , Severe (7-10) Isosorbide Mononitrate 30 mg 11/15/18 10:00 11/17/18 11:32 Imdur PO 30 mg QDAY KWAME Administration Metoprolol Succinate 25 mg 11/17/18 14:00 11/17/18 14:18 Toprol Xl PO 25 mg QDAY KWAME Administration Ondansetron HCl 4 mg 11/14/18 21:40 11/16/18 06:41 Zofran IV 4 mg Q8H PRN Administration Nausea And Vomiting Oxycodone/Acetaminophen 1 tab 11/14/18 21:40 11/18/18 00:59 Percocet 5/325 PO 1 tab Q6H PRN Administration Pain, Moderate (4-6) Potassium Chloride 20 meq 11/15/18 06:40 11/17/18 11:32 K-Dur PO 20 meq QDAY KWAME Administration Pregabalin 75 mg 11/16/18 15:00 11/17/18 22:08 Lyrica PO 75 mg BID KWAME Administration Sodium Chloride 10 ml 11/14/18 22:00 11/17/18 22:08 Sodium Chloride Flush Syringe 10 Ml IV 10 ml BID KWAME Administration Sodium Chloride 10 ml 11/14/18 21:40 11/17/18 06:20 Sodium Chloride Flush Syringe 10 Ml IV 10 ml PRN PRN Administration LINE FLUSH
[2018-11-18] MEDS: PEPCID PO SCH ×2 (10:07→22:05)
[2018-11-18] MEDS: HEPARIN SUB-Q SCH ×2 (10:07→22:06)
[2018-11-18] MEDS: HALFPRIN EC PO SCH (10:07)
[2018-11-18] MEDS: NORVASC PO SCH (10:07)
[2018-11-18] MEDS: SODIUM CHLORIDE FLUSH SYRINGE 10 ML IV SCH ×2 (10:08→22:06)
[2018-11-18] MEDS: LYRICA PO SCH ×2 (10:14→22:06)
[2018-11-18] MEDS: K-DUR PO SCH (10:14)
[2018-11-18] MEDS: TOPROL XL PO SCH (10:14)
[2018-11-18] MEDS: IMDUR PO SCH (10:14)
--- NOTE | 2018-11-18 11:25 | Progress Note ---
Assessment and Plan Cultures: 11/15/2018 MRSA nasal culture: Negative 11/17/2018 blood culture: no growth thus far 11/18/2018 HIV: negative A/P: 57-year-old male with cardiomyopathy, status post pacemaker placement about 2 years ago, CKD was admitted to the hospital on 11/14/2018 with complaints of chest pain. The patient recently moved from [place]. Admitted with chest pain. 1) Leukocytosis, low grade fever: indwelling PPM. UA not suggestive of infection. Chest x-ray with bilateral pleural effusions likely related to CHF. Of note, patient was recently treated for pneumonia and congestive heart failure earlier this month. Has no cough, pneumonia is quite unlikely. Follow-up blood cultures. continue off antibiotics. ESR 55, CRP 26.[address] chest without pneumonia, showed large bilateral pleural effusions and small pericardial effusion. No vegetations noted on TTE. 2) CKD: nephrology following. Has mild proteinuria. 3) Bilateral pleural effusions: likely from CHF. 4) Anorexia: unintentional weight loss of 50+ lbs over the last 6 weeks. HIV negative. Also checking for lupus given family history. 5) Dilated cardiomyopathy: cardiology following. EF 15-20%. Indwelling pacemacker + Recs: blood cultures negative thus far HIV screen negative continue off antibiotics f/u C3, C4, SANTANA, procalcitonin Broa Harrell MD [facility] C: [phone] O: [phone] F: [phone] Subjective Date of service: 11/18/18 Interval history: No fever. No new complaints. Chronic SOB. No rash. Objective - Exam Narrative Exam: Physical Exam: Constitutional: Alert, cooperative. No acute distress Head, Ears, Nose: Normocephalic, atraumatic. External ears, nose normal Eyes: Conjunctivae/corneas clear. No icterus. No ptosis. Neck: Supple, no meningeal signs Oral: dentition fair, no thrush, no ulcers Cardiovascular: S1, S2 normal. PPM site is well healed, no swelling or tenderness Respiratory: AE decreased in bases, otherwise clear to ausc GI: Soft, non-tender; bowel sounds normal. No peritoneal signs Musculoskeletal: No pedal edema, no cyanosis. Skin: No rash or abscess Hem/Lymphatic: No palpable cervical or supraclavicular nodes. No lymphangitis Psych: Mood ok. Affect normal Neurological: Awake, alert, oriented. No gross abnormality - Constitutional Vitals: Vital Signs Temp Pulse Resp BP Pulse Ox 98.9 F 91 H 16 110/73 92 11/18/18 08:20 11/18/18 08:20 11/18/18 08:20 11/18/18 08:20 11/18/18 08:20 Temperature -Last 24 Hours Temperature 98.9 F Temperature 99.2 F Temperature 98.8 F Temperature 99.6 F Temperature 99.4 F Temperature 99.4 F - Labs CBC & Chem 7: 11/18/18 05:12 11/18/18 05:12 Labs: Abnormal lab results 11/18/18 11/18/18 Range/Units 05:12 05:12 WBC 13.4 H (4.5-11.0) K/mm3 Hgb 11.3 L (11.8-15.2) gm/dl Hct 34.2 L (35.5-45.6) % RDW 17.2 H (13.2-15.2) % BUN 31 H (9-20) mg/dL Creatinine 2.2 H (0.8-1.5) mg/dL Glucose 115 H (75-100) mg/dL C-Reactive Protein 26.70 H (0.00-1.30) mg/dL - Imaging and cardiology CT scan - chest: report reviewed, image reviewed (bilateral pleural effusions, small pericardial effusion)
--- NOTE | 2018-11-18 18:05 | Nuclear Medicine Report ---
PROCEDURE: Nuclear medicine ventilation and perfusion lung scan. TECHNIQUE: Ventilation imaging was done in the posterior projection using 15.64 mCi of xenon-133 gas . Perfusion imaging was done in multiple projections using 4.02 mCi of technetium 99m MAA. HISTORY: Shortness of breath, chest pain. COMPARISONS: Comparison chest radiograph 11/18/2018. FINDINGS: There is diminished ventilation at the left lung base due to cardiomegaly. There is some trapping of xenon gas bilaterally during the washout phase of the study. The perfusion images appear similar to t he ventilation images. There are no perfusion defects except at the left heart border due to cardiome grace. The scan caries a low probability of pulmonary embolism. IMPRESSION: Low probability of pulmonary embolism. This document is electronically signed by Viktor Leiva MD., November 18 2018 06:03:02 PM ET
[2018-11-18] MEDS: PROTONIX PO SCH (18:15)
--- NOTE | 2018-11-18 18:19 | XRay Report ---
PROCEDURE: XR CHEST 1V AP HISTORY: sob and cp and for vq scan FINDINGS: Single frontal view of the chest was acquired and compared to the examination of the prior day. There is cardiomegaly and pacing device. There are bilateral pleural effusions left greater than right. The left effusion is unchanged. The right effusion is smaller than on prior exam. There remai ns mild pulmonary edema. IMPRESSION: Stable cardiomegaly Left pleural effusion unchanged Right pleural effusion, smaller This document is electronically signed by Gage Ramos MD., November 18 2018 06:17:09 PM ET
[2018-11-19] MEDS: PERCOCET 5/325 PO PRN ×2 (05:09→15:28)
[2018-11-19] MEDS: APRESOLINE PO SCH ×3 (05:10→21:42)
[2018-11-19] MEDS: LASIX IV SCH (05:10)
--- NOTE | 2018-11-19 09:53 | Vascular Lab Report ---
PROCEDURE: VL VENOUS DUPLEX LE BILAT TECHNIQUE: Grayscale, color flow and spectral waveform images were obtained of bilateral lower extre mities. HISTORY: LE edema COMPARISON: None FINDINGS: There is no deep venous thrombosis seen in the left or right lower extremity. Flow is demonstrated by color flow and spectral waveform imaging. There is appropriate wall compression and augmentation. There is no superficial venous thrombus seen. IMPRESSION: There is no evidence for DVT in either right or left lower extremity. This document is electronically signed by Ruby García MD., November 19 2018 09:50:52 AM ET
--- NOTE | 2018-11-19 09:54 | Progress Note ---
Assessment and Plan Cultures: 11/15/2018 MRSA nasal culture: Negative 11/17/2018 blood culture: no growth thus far 11/18/2018 HIV: negative A/P: 57-year-old male with cardiomyopathy, status post pacemaker placement about 2 years ago, CKD was admitted to the hospital on 11/14/2018 with complaints of chest pain. The patient recently moved from [place]. Admitted with chest pain. 1) Leukocytosis: trending down, No fevers. indwelling PPM. UA not suggestive of infection. Chest x-ray with bilateral pleural effusions likely related to CHF. Of note, patient was recently treated for pneumonia and congestive heart failure earlier this month. Has no cough, pneumonia is quite unlikely. Follow-up blood cultures. continue off antibiotics. ESR 55, CRP 26.[address] chest without pneumonia, showed large bilateral pleural effusions and small pericardial effusion. No vegetations noted on TTE. HIV- Non reactive Influenza Rapid- negative Influenza PCR -negative 2) CKD: nephrology following. Has mild proteinuria. 3) Bilateral pleural effusions: likely from CHF. 4) Anorexia: unintentional weight loss of 50+ lbs over the last 6 weeks. HIV negative. Also checking for lupus given family history. 5) Dilated cardiomyopathy: cardiology following. EF 15-20%. Indwelling pacemacker + 6) Proximal PIP swelling: will order Anti-cyclic citrullinated peptide (anti- CCP) , RA and obtain left hand xray. 70 Oral Candidiasis: white plaque on the oropharynx. Will start Flucanazole . Recs: blood cultures negative thus far continue off antibiotics f/u C3, C4, SANTANA, procalcitonin anti-CCP, RH factor and Left hand xray ordered Start Fluconazole 100 mg po every [address] Harrell is pre sales technical consultant this weekend [phone], please call for questions. [facility] M: [id number] O:[phone] Subjective Date of service: 11/19/18 Interval history: Patient seen and examined. Complained of pleuritic chest pain, on the left > right. +SOB. no fevers. Objective - Exam Narrative Exam: Constitutional: Alert, cooperative. Mild distress observed. Head, Ears, Nose: Normocephalic, atraumatic. External ears, nose normal Eyes: Conjunctivae/corneas clear. No icterus. No ptosis. Neck: Supple, no meningeal signs Oral: dentition fair, + thrush oropharynx Cardiovascular: S1, S2 normal. PPM site is well healed, no swelling or tenderness Respiratory: AE decreased in bases, otherwise clear to ausc. Left pleuritic chest pain with SOB GI: Soft, non-tender; bowel sounds normal. No peritoneal signs Musculoskeletal: No pedal edema, no cyanosis. Skin: No rash or abscess Hem/Lymphatic: No palpable cervical or supraclavicular nodes. No lymphangitis Psych: Mood ok. Affect normal Neurological: Awake, alert, oriented. No gross abnormality - Constitutional Vitals: Vital Signs Temp Pulse Resp BP Pulse Ox 99.2 F 88 18 114/70 93 11/19/18 09:33 11/19/18 09:33 11/19/18 09:33 11/19/18 09:33 11/19/18 09:33 Temperature -Last 24 Hours Temperature 99.2 F Temperature 98.4 F Temperature 98.5 F Temperature 99.1 F Temperature 98.4 F Temperature 98.3 F - Labs CBC & Chem 7: 11/18/18 05:12 11/18/18 05:12
[2018-11-19] MEDS: LYRICA PO SCH ×2 (10:19→21:42)
[2018-11-19] MEDS: K-DUR PO SCH (10:19)
[2018-11-19] MEDS: PEPCID PO SCH ×2 (10:19→21:42)
[2018-11-19] MEDS: IMDUR PO SCH (10:19)
[2018-11-19] MEDS: HEPARIN SUB-Q SCH ×2 (10:19→21:42)
[2018-11-19] MEDS: TOPROL XL PO SCH (10:19)
[2018-11-19] MEDS: NORVASC PO SCH (10:19)
[2018-11-19] MEDS: HALFPRIN EC PO SCH (10:19)
[2018-11-19] MEDS: PROTONIX PO SCH (10:19)
[2018-11-19] MEDS: SODIUM CHLORIDE FLUSH SYRINGE 10 ML IV SCH ×2 (10:20→21:48)
--- NOTE | 2018-11-19 11:29 | Progress Note ---
Assessment and Plan Assessment and plan: 57-year-old man who presented to the hospital with chest pain, pain is around PPM Past medical history; hypertension, CHF, diverticulitis, status post pacemaker Chest x-ray; trace bilateral effusions, findings compatible with mild pulmonary venous congestion EKG; SR, Left atrial enlargement, RBBB Diagnosis chest pain, likely due to CHF Acute on chronic systolic CHF, ef 15% Hypertension Tobacco dependence/abuse PPM present Chronic kidney disease, stage III- likely htn nephrosclerosis Fever bilateral pleural effusions Plan Echo shows EF of 15%, thallium stress test reports moderate to large mostly fixed inferior wall defect, awaiting records from OSH in [place], [place] for Cardiac review -cont iv lasix, Optimize cardiac meds per cardiology -This is most likely the patient's baseline kidney function, it is stable -fever; given PPM, fup BC, UA neg, CXR no infiltrate DVT prophylaxis chemical. History Interval history: Review of systems Constitutional: No fevers, no malaise, no joint pains CVS: Patient is having atypical chest pain, still having orthopnea, WHITE and PND GI: No abdominal pain, no diarrhea, no vomiting, no constipation Respiratory: , no wheezing, no coughing Hospitalist Physical - Physical exam Narrative exam: General.: Appears well, no distress, nontoxic HEENT: Moist mucous membranes, extraocular muscles intact, no lymphadenopathy Neck: supple Cardiac: S1-S2 heard Lungs: Bibasilar dullness, rales in mid lungs Abdomen: soft , nontender, nondistended, bowel sounds positive Extremities: no edema clubbing or cyanosis Skin: no rash or lesions Neurologic: no gross focal deficits Psych: calm, and cooperative - Constitutional Vitals: Temp Pulse Resp BP Pulse Ox 99.2 F 88 18 114/70 93 11/19/18 09:33 11/19/18 09:33 11/19/18 09:33 11/19/18 09:33 11/19/18 09:33 General appearance: Present: no acute distress Results - Labs CBC & Chem 7: 11/18/18 05:12 11/18/18 05:12 Labs: Laboratory Last Values WBC 13.4 K/mm3 (4.5-11.0) H 11/18/18 05:12 RBC 3.96 M/mm3 (3.65-5.03) 11/18/18 05:12 Hgb 11.3 gm/dl (11.8-15.2) L 11/18/18 05:12 Hct 34.2 % (35.5-45.6) L 11/18/18 05:12 MCV 87 fl (84-94) 11/18/18 05:12 MCH 29 pg (28-32) 11/18/18 05:12 MCHC 33 % (32-34) 11/18/18 05:12 RDW 17.2 % (13.2-15.2) H 11/18/18 05:12 Plt Count 423 K/mm3 (140-440) 11/18/18 05:12 Lymph % (Auto) 9.3 % (13.4-35.0) L 11/15/18 04:29 [place] % (Auto) 9.5 % (0.0-7.3) H 11/15/18 04:29 Eos % (Auto) 0.8 % (0.0-4.3) 11/15/18 04:29 Baso % (Auto) 0.2 % (0.0-1.8) 11/15/18 04:29 Lymph # 1.4 K/mm3 (1.2-5.4) 11/15/18 04:29 [place] # 1.4 K/mm3 (0.0-0.8) H 11/15/18 04:29 Eos # 0.1 K/mm3 (0.0-0.4) 11/15/18 04:29 Baso # 0.0 K/mm3 (0.0-0.1) 11/15/18 04:29 Seg Neutrophils % 80.2 % (40.0-70.0) H 11/15/18 04:29 Seg Neutrophils # 11.7 K/mm3 (1.8-7.7) H 11/15/18 04:29 ESR 55 mm/Hr (0-20) 11/18/18 05:12 Sodium 140 mmol/L (137-145) 11/18/18 05:12 Potassium 4.4 mmol/L (3.6-5.0) 11/18/18 05:12 Chloride 100.3 mmol/L (98-107) 11/18/18 05:12 Carbon Dioxide 25 mmol/L (22-30) 11/18/18 05:12 Anion Gap 19 mmol/L 11/18/18 05:12 BUN 31 mg/dL (9-20) H 11/18/18 05:12 Creatinine 2.2 mg/dL (0.8-1.5) H 11/18/18 05:12 Estimated GFR 38 ml/min 11/18/18 05:12 BUN/Creatinine Ratio 14 % 11/18/18 05:12 Glucose 115 mg/dL (75-100) H 11/18/18 05:12 Hemoglobin A1c 5.6 % (4-6) 11/14/18 23:19 Calcium 8.6 mg/dL (8.4-10.2) 11/18/18 05:12 Magnesium 2.20 mg/dL (1.7-2.3) 11/16/18 05:24 Total Bilirubin 0.50 mg/dL (0.1-1.2) 11/15/18 04:29 Direct Bilirubin < 0.2 mg/dL (0-0.2) 11/14/18 17:02 Indirect Bilirubin 0.2 mg/dL 11/14/18 17:02 AST 13 units/L (5-40) 11/15/18 04:29 ALT 7 units/L (7-56) 11/15/18 04:29 Alkaline Phosphatase 91 units/L (35-129) 11/15/18 04:29 Troponin T 0.021 ng/mL (0.00-0.029) 11/15/18 04:29 C-Reactive Protein 26.70 mg/dL (0.00-1.30) H 11/18/18 05:12 NT-Pro-B Natriuret Pep 2385 pg/mL (0-900) H 11/14/18 17:02 Total Protein 6.6 g/dL (6.3-8.2) 11/15/18 04:29 Albumin 3.1 g/dL (3.9-5) L 11/15/18 04:29 Albumin/Globulin Ratio 0.9 % 11/15/18 04:29 Urine Color Yellow (Yellow) 11/15/18 22:45 Urine Turbidity Slightly-cloudy (Clear) 11/15/18 22:45 Urine pH 5.0 (5.0-7.0) 11/15/18 22:45 Ur Specific [place] 1.027 (1.003-1.030) 11/15/18 22:45 Urine Protein 30 mg/dl mg/dL (Negative) 11/15/18 22:45 Urine Glucose (UA) 50 mg/dL (Negative) 11/15/18 22:45 Urine Ketones Neg mg/dL (Negative) 11/15/18 22:45 Urine Blood Neg (Negative) 11/15/18 22:45 Urine Nitrite Neg (Negative) 11/15/18 22:45 Urine Bilirubin Neg (Negative) 11/15/18 22:45 Urine Urobilinogen 4.0 mg/dL (<2.0) 11/15/18 22:45 Ur Leukocyte Esterase Neg (Negative) 11/15/18 22:45 Urine WBC (Auto) 2.0 /HPF (0.0-6.0) 11/15/18 22:45 Urine RBC (Auto) 5.0 /HPF (0.0-6.0) 11/15/18 22:45 U Epithel Cells (Auto) 1.0 /HPF (0-13.0) 11/15/18 22:45 Urine Creatinine 220.1 mg/dL (0.1-20.0) H 11/15/18 22:45 Protein/Creatinin Ratio 0.30 11/15/18 22:45 Urine Total Protein 65 mg/dL (5-11.8) H 11/15/18 22:45 HIV 1&2 Antibody Rapid Non react (Non React) 11/18/18 05:12 HIV P24 Antigen Non react (Non React) 11/18/18 05:12 Influenza A (Rapid) Negative (Negative) 11/19/18 Unknown Influenza B (Rapid) Negative (Negative) 11/19/18 Unknown Active Medications - Current Medications Current Medications: Generic Name Dose Route Start Last Admin Trade Name Freq PRN Reason Stop Dose Admin Acetaminophen 650 mg 11/14/18 21:40 11/15/18 21:27 Tylenol PO 650 mg Q4H PRN Administration Pain MILD(1-3)/Fever >100.5/RIVAS Amlodipine Besylate 10 mg 11/15/18 10:00 11/19/18 10:19 Norvasc PO 10 mg QDAY KWAME Administration Aspirin 81 mg 11/15/18 10:00 11/19/18 10:19 Halfprin Ec PO 81 mg QDAY KWAME Administration Atorvastatin Calcium 40 mg 11/15/18 22:00 11/18/18 22:05 Lipitor PO 40 mg QHS KWAME Administration Bumetanide 1 mg 11/19/18 18:00 Bumex IV BID@0600,1800 KWAME Famotidine 10 mg 11/14/18 22:00 11/19/18 10:19 Pepcid PO 10 mg BID KWAME Administration Heparin Sodium (Porcine) 5,000 unit 11/15/18 11:00 11/19/18 10:19 Heparin SUB-Q 5,000 unit Q12HR KWAME Administration Hydralazine HCl 25 mg 11/18/18 15:34 11/19/18 05:10 Apresoline PO 25 mg Q8HR KWAME Administration Hydromorphone HCl 0.5 mg 11/14/18 21:40 11/16/18 06:41 Dilaudid IV 0.5 mg Q3H PRN Administration Pain , Severe (7-10) Isosorbide Mononitrate 30 mg 11/15/18 10:00 11/19/18 10:19 Imdur PO 30 mg QDAY KWAME Administration Metoprolol Succinate 25 mg 11/17/18 14:00 11/19/18 10:19 Toprol Xl PO 25 mg QDAY KWAME Administration Ondansetron HCl 4 mg 11/14/18 21:40 11/16/18 06:41 Zofran IV 4 mg Q8H PRN Administration Nausea And Vomiting Oxycodone/Acetaminophen 1 tab 11/14/18 21:40 11/19/18 05:09 Percocet 5/325 PO 1 tab Q6H PRN Administration Pain, Moderate (4-6) Pantoprazole Sodium 20 mg 11/18/18 18:00 11/19/18 10:19 Protonix PO 20 mg QDAY KWAME Administration Potassium Chloride 20 meq 11/15/18 06:40 11/19/18 10:19 K-Dur PO 20 meq QDAY KWAME Administration Pregabalin 75 mg 11/16/18 15:00 11/19/18 10:19 Lyrica PO 75 mg BID KWAME Administration Sodium Chloride 10 ml 11/14/18 22:00 11/19/18 10:20 Sodium Chloride Flush Syringe 10 Ml IV 10 ml BID KWAME Administration Sodium Chloride 10 ml 11/14/18 21:40 11/17/18 06:20 Sodium Chloride Flush Syringe 10 Ml IV 10 ml PRN PRN Administration LINE FLUSH Nutrition/Malnutrition Assess - Dietary Evaluation Nutrition/Malnutrition Findings: Nutrition Notes Start: 11/19/18 10:23 Freq: Status: Active Protocol: Document 11/19/18 10:25 SA (Rec: 11/19/18 10:28 SA [id number]) Co-Sign 11/19/18 10:25 LP Nutrition Notes Need for Assessment generated from: LOS Initial or Follow up Brief Note Subjective/Other Information Screened for LOS. Per pt's ADL, pt eating 75-100 % of meals recorded. Nutrition Intervention Revisit per MD consult or patient Sign Off request:
--- NOTE | 2018-11-19 11:43 | Progress Note ---
Assessment and Plan Atypical chest pain V/Q scan reports a low probability for PE Leukocytosis Pleural effusion Dual-chamber pacemaker in situ Chronic kidney disease Hx of CAD Hx of Ischemic cardiomyopathy An echocardiogram which reveals a severe dilated cardiomyopathy, ejection fraction 15-20%. Thallium stress test reports a moderate to large, mostly fixed inferior wall defect. Continue medical therapy for coronary artery disease, ischemic cardiomyopathy and chronic systolic heart failure. We will stop IV lasix and use IV bumex twice daily instead. Subjective Date of service: 11/19/18 Interval history: Patient is resting in bed comfortably. Bilateral pleural effusion seen on repeat chest x-ray. Objective Vital Signs Temp Pulse Resp BP Pulse Ox 11/19/18 09:33 99.2 F 88 18 114/70 93 11/19/18 03:52 98.4 F 85 18 114/73 96 11/19/18 03:00 83 11/19/18 00:00 18 11/18/18 23:34 98.5 F 18 106/73 11/18/18 21:08 87 98/66 11/18/18 20:26 99.1 F 87 18 98/66 92 11/18/18 15:53 98.4 F 81 16 107/65 93 11/18/18 14:30 99/63 11/18/18 12:48 98.3 F 76 16 95/54 93 - Physical Examination General: No Apparent Distress HEENT: Positive: PERRL Neck: Positive: trachea midline Cardiac: Positive: Reg Rate and Rhythm Lungs: Positive: Decreased Breath Sounds Neuro: Positive: Grossly Intact Abdomen: Positive: Soft Extremities: Absent: edema
[2018-11-19] MEDS: DIFLUCAN PO SCH (15:28)
--- NOTE | 2018-11-19 15:42 | XRay Report ---
XRAY LEFT HAND THREE VIEWS: 11/14/18 18:32:00 CLINICAL: Arthritis. FINDINGS: Moderate osteoarthritis involving the DIP joint of the middle finger. Large medial and lateral osteophytes along with swelling at the joint. Milder osteoarthritis involving the PIP and DIP joints of the digits. Osteoarthritis of the first MCP joint. The MCP joints 2 through 5 are normal. Mild osteoarthritis at the basal joint of the thumb. The carpal bones are intact and the distal radius and ulna are normal. No cortical thinning or erosions. No fracture or dislocation. IMPRESSION: Mild/moderate osteoarthritis of the digits with greater involvement of the middle finger. No signs of rheumatoid arthritis.
[2018-11-19] MEDS: BUMEX IV SCH (18:27)
[2018-11-20] MEDS: PERCOCET 5/325 PO PRN ×3 (00:27→21:45)
[2018-11-20] MEDS: BUMEX IV SCH ×2 (05:38→17:28)
[2018-11-20] MEDS: APRESOLINE PO SCH ×3 (05:39→21:44)
[2018-11-20] MEDS: PEPCID PO SCH ×2 (10:22→21:44)
[2018-11-20] MEDS: DIFLUCAN PO SCH (10:22)
[2018-11-20] MEDS: TOPROL XL PO SCH (10:22)
[2018-11-20] MEDS: LYRICA PO SCH ×2 (10:23→21:44)
[2018-11-20] MEDS: HALFPRIN EC PO SCH (10:23)
[2018-11-20] MEDS: HEPARIN SUB-Q SCH ×2 (10:23→21:45)
[2018-11-20] MEDS: PROTONIX PO SCH (10:23)
[2018-11-20] MEDS: K-DUR PO SCH (10:23)
[2018-11-20] MEDS: IMDUR PO SCH (10:24)
[2018-11-20] MEDS: SODIUM CHLORIDE FLUSH SYRINGE 10 ML IV SCH ×2 (10:24→21:47)
[2018-11-20] MEDS: NORVASC PO SCH (10:26)
--- NOTE | 2018-11-20 10:29 | Progress Note ---
Assessment and Plan Assessment and plan: 57-year-old man who presented to the hospital with chest pain, pain is around PPM Past medical history; hypertension, CHF, diverticulitis, status post pacemaker Chest x-ray; trace bilateral effusions, findings compatible with mild pulmonary venous congestion EKG; SR, Left atrial enlargement, RBBB Diagnosis chest pain, likely due to CHF Acute on chronic systolic CHF, ef 15% Hypertension Tobacco dependence/abuse PPM present Chronic kidney disease, stage III- likely htn nephrosclerosis Fever, now resolved bilateral pleural effusions Oral thrush Plan Echo shows EF of 15%, thallium stress test reports moderate to large mostly fixed inferior wall defect, awaiting records from OSH in [place], [place] for Cardiac review -cont iv diuretics, the VQ scan is low probability for PE Optimize cardiac meds per cardiology -This is most likely the patient's baseline kidney function, it is stable -fever; given PPM, BC neg, UA neg, CXR no infiltrate, hand x-ray is not consistent with rheumatoid arthritis, only show some osteoarthritis. Follow-up autoimmune labs -Continue fluconazole for treatment of oral thrush DVT prophylaxis chemical. History Interval history: Review of systems Constitutional: No fevers, no malaise, no joint pains CVS: Patient is having atypical chest pain, still having orthopnea, WHITE and PND GI: No abdominal pain, no diarrhea, no vomiting, no constipation Respiratory: , no wheezing, no coughing Hospitalist Physical - Physical exam Narrative exam: General.: Appears well, no distress, nontoxic HEENT: Moist mucous membranes, extraocular muscles intact, no lymphadenopathy Neck: supple Cardiac: S1-S2 heard Lungs: Bibasilar dullness, rales in mid lungs Abdomen: soft , nontender, nondistended, bowel sounds positive Extremities: no edema clubbing or cyanosis Skin: no rash or lesions Neurologic: no gross focal deficits Psych: calm, and cooperative - Constitutional Vitals: Temp Pulse Resp BP Pulse Ox 98.3 F 85 18 108/63 98 11/20/18 07:36 11/20/18 10:24 11/20/18 07:36 11/20/18 10:24 11/20/18 07:36 General appearance: Present: no acute distress Results - Labs CBC & Chem 7: 11/18/18 05:12 11/18/18 05:12 Labs: Laboratory Last Values WBC 13.4 K/mm3 (4.5-11.0) H 11/18/18 05:12 RBC 3.96 M/mm3 (3.65-5.03) 11/18/18 05:12 Hgb 11.3 gm/dl (11.8-15.2) L 11/18/18 05:12 Hct 34.2 % (35.5-45.6) L 11/18/18 05:12 MCV 87 fl (84-94) 11/18/18 05:12 MCH 29 pg (28-32) 11/18/18 05:12 MCHC 33 % (32-34) 11/18/18 05:12 RDW 17.2 % (13.2-15.2) H 11/18/18 05:12 Plt Count 423 K/mm3 (140-440) 11/18/18 05:12 Lymph % (Auto) 9.3 % (13.4-35.0) L 11/15/18 04:29 [place] % (Auto) 9.5 % (0.0-7.3) H 11/15/18 04:29 Eos % (Auto) 0.8 % (0.0-4.3) 11/15/18 04:29 Baso % (Auto) 0.2 % (0.0-1.8) 11/15/18 04:29 Lymph # 1.4 K/mm3 (1.2-5.4) 11/15/18 04:29 [place] # 1.4 K/mm3 (0.0-0.8) H 11/15/18 04:29 Eos # 0.1 K/mm3 (0.0-0.4) 11/15/18 04:29 Baso # 0.0 K/mm3 (0.0-0.1) 11/15/18 04:29 Seg Neutrophils % 80.2 % (40.0-70.0) H 11/15/18 04:29 Seg Neutrophils # 11.7 K/mm3 (1.8-7.7) H 11/15/18 04:29 ESR 55 mm/Hr (0-20) 11/18/18 05:12 Sodium 140 mmol/L (137-145) 11/18/18 05:12 Potassium 4.4 mmol/L (3.6-5.0) 11/18/18 05:12 Chloride 100.3 mmol/L (98-107) 11/18/18 05:12 Carbon Dioxide 25 mmol/L (22-30) 11/18/18 05:12 Anion Gap 19 mmol/L 11/18/18 05:12 BUN 31 mg/dL (9-20) H 11/18/18 05:12 Creatinine 2.2 mg/dL (0.8-1.5) H 11/18/18 05:12 Estimated GFR 38 ml/min 11/18/18 05:12 BUN/Creatinine Ratio 14 % 11/18/18 05:12 Glucose 115 mg/dL (75-100) H 11/18/18 05:12 Hemoglobin A1c 5.6 % (4-6) 11/14/18 23:19 Calcium 8.6 mg/dL (8.4-10.2) 11/18/18 05:12 Magnesium 2.20 mg/dL (1.7-2.3) 11/16/18 05:24 Total Bilirubin 0.50 mg/dL (0.1-1.2) 11/15/18 04:29 Direct Bilirubin < 0.2 mg/dL (0-0.2) 11/14/18 17:02 Indirect Bilirubin 0.2 mg/dL 11/14/18 17:02 AST 13 units/L (5-40) 11/15/18 04:29 ALT 7 units/L (7-56) 11/15/18 04:29 Alkaline Phosphatase 91 units/L (35-129) 11/15/18 04:29 Troponin T 0.021 ng/mL (0.00-0.029) 11/15/18 04:29 C-Reactive Protein 26.70 mg/dL (0.00-1.30) H 11/18/18 05:12 NT-Pro-B Natriuret Pep 2385 pg/mL (0-900) H 11/14/18 17:02 Total Protein 6.6 g/dL (6.3-8.2) 11/15/18 04:29 Albumin 3.1 g/dL (3.9-5) L 11/15/18 04:29 Albumin/Globulin Ratio 0.9 % 11/15/18 04:29 Urine Color Yellow (Yellow) 11/15/18 22:45 Urine Turbidity Slightly-cloudy (Clear) 11/15/18 22:45 Urine pH 5.0 (5.0-7.0) 11/15/18 22:45 Ur Specific [place] 1.027 (1.003-1.030) 11/15/18 22:45 Urine Protein 30 mg/dl mg/dL (Negative) 11/15/18 22:45 Urine Glucose (UA) 50 mg/dL (Negative) 11/15/18 22:45 Urine Ketones Neg mg/dL (Negative) 11/15/18 22:45 Urine Blood Neg (Negative) 11/15/18 22:45 Urine Nitrite Neg (Negative) 11/15/18 22:45 Urine Bilirubin Neg (Negative) 11/15/18 22:45 Urine Urobilinogen 4.0 mg/dL (<2.0) 11/15/18 22:45 Ur Leukocyte Esterase Neg (Negative) 11/15/18 22:45 Urine WBC (Auto) 2.0 /HPF (0.0-6.0) 11/15/18 22:45 Urine RBC (Auto) 5.0 /HPF (0.0-6.0) 11/15/18 22:45 U Epithel Cells (Auto) 1.0 /HPF (0-13.0) 11/15/18 22:45 Urine Creatinine 220.1 mg/dL (0.1-20.0) H 11/15/18 22:45 Protein/Creatinin Ratio 0.30 11/15/18 22:45 Urine Total Protein 65 mg/dL (5-11.8) H 11/15/18 22:45 Rheumatoid Factor 19 IU/ml (0-13) H 11/19/18 13:30 HIV 1&2 Antibody Rapid Non react (Non React) 11/18/18 05:12 HIV P24 Antigen Non react (Non React) 11/18/18 05:12 Influenza A (Rapid) Negative (Negative) 11/19/18 Unknown Influenza A (RT-PCR) Negative (Negative) 11/19/18 Unknown Influenza B (Rapid) Negative (Negative) 11/19/18 Unknown Influenza B (RT-PCR) Negative (Negative) 11/19/18 Unknown Active Medications - Current Medications Current Medications: Generic Name Dose Route Start Last Admin Trade Name Freq PRN Reason Stop Dose Admin Acetaminophen 650 mg 11/14/18 21:40 11/15/18 21:27 Tylenol PO 650 mg Q4H PRN Administration Pain MILD(1-3)/Fever >100.5/RIVAS Amlodipine Besylate 10 mg 11/15/18 10:00 11/20/18 10:26 Norvasc PO Not Given QDAY [facility] Aspirin 81 mg 11/15/18 10:00 11/20/18 10:23 Halfprin Ec PO 81 mg QDAY KWAME Administration Atorvastatin Calcium 40 mg 11/15/18 22:00 11/19/18 21:42 Lipitor PO 40 mg QHS KWAME Administration Bumetanide 1 mg 11/19/18 18:00 11/20/18 05:38 Bumex IV 1 mg BID@0600,1800 KWAME Administration Famotidine 10 mg 11/14/18 22:00 11/20/18 10:22 Pepcid PO 10 mg BID KWAME Administration Fluconazole 100 mg 11/19/18 14:00 11/20/18 10:22 Diflucan PO 100 mg QDAY KWAME Administration Heparin Sodium (Porcine) 5,000 unit 11/15/18 11:00 11/20/18 10:23 Heparin SUB-Q 5,000 unit Q12HR KWAME Administration Hydralazine HCl 25 mg 11/18/18 15:34 11/20/18 05:39 Apresoline PO 25 mg Q8HR KWAME Administration Hydromorphone HCl 0.5 mg 11/14/18 21:40 11/16/18 06:41 Dilaudid IV 0.5 mg Q3H PRN Administration Pain , Severe (7-10) Isosorbide Mononitrate 30 mg 11/15/18 10:00 11/20/18 10:24 Imdur PO Not Given QDAY [facility] Metoprolol Succinate 25 mg 11/17/18 14:00 11/20/18 10:22 Toprol Xl PO 25 mg QDAY KWAME Administration Ondansetron HCl 4 mg 11/14/18 21:40 11/16/18 06:41 Zofran IV 4 mg Q8H PRN Administration Nausea And Vomiting Oxycodone/Acetaminophen 1 tab 11/14/18 21:40 11/20/18 00:27 Percocet 5/325 PO 1 tab Q6H PRN Administration Pain, Moderate (4-6) Pantoprazole Sodium 20 mg 11/18/18 18:00 11/20/18 10:23 Protonix PO 20 mg QDAY KWAME Administration Potassium Chloride 20 meq 11/15/18 06:40 11/20/18 10:23 K-Dur PO 20 meq QDAY KWAME Administration Pregabalin 75 mg 11/16/18 15:00 11/20/18 10:23 Lyrica PO 75 mg BID KWAME Administration Sodium Chloride 10 ml 11/14/18 22:00 11/20/18 10:24 Sodium Chloride Flush Syringe 10 Ml IV 10 ml BID KWAME Administration Sodium Chloride 10 ml 11/14/18 21:40 11/17/18 06:20 Sodium Chloride Flush Syringe 10 Ml IV 10 ml PRN PRN Administration LINE FLUSH Nutrition/Malnutrition Assess - Dietary Evaluation Nutrition/Malnutrition Findings: Nutrition Notes Start: 11/19/18 10:23 Freq: Status: Active Protocol: Document 11/19/18 10:25 SA (Rec: 11/19/18 10:28 [email or web address]) Co-Sign 11/19/18 10:25 LP Nutrition Notes Need for Assessment generated from: LOS Initial or Follow up Brief Note Subjective/Other Information Screened for LOS. Per pt's ADL, pt eating 75-100 % of meals recorded. Nutrition Intervention Revisit per MD consult or patient Sign Off request:
--- NOTE | 2018-11-20 11:06 | Progress Note ---
Assessment and Plan Impression: * Stage III chronic kidney disease - dx appx 2 years ago per patient --UPCR 300mg/g --Renal ultrasound: right 9.6, left 11.4. 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 Renal function is stable * Cardiology work up noted * ID following - recommendations noted * Diuresis prn * Avoid potential nephrotoxins * Dose medications for renal function * AM labs * Stable for d/c from a renal standpoint w/ outpatient nephrology follow up * diuretics per cards Subjective Date of service: 11/20/18 Principal diagnosis: babak on ckd Interval history: resting in bed today Objective - Exam Narrative Exam: General appearance: well-developed, well-nourished EENT: ATNC Respiratory: Present: Clear to Ascultation Cardiology: regular, S1S2 Gastrointestinal: normal, no tenderness, no distended Integumentary: no rash, warm and dry Musculoskeletal: other (no edema) Psychiatric: cooperative - Vital Signs Vital signs: Vital Signs - 12hr 11/19/18 11/20/18 11/20/18 23:41 03:00 05:03 Temperature 97.0 F L 97.0 F L Pulse Rate 107 H 91 H 85 Respiratory 20 20 Rate Blood Pressure 119/67 112/71 O2 Sat by Pulse 88 100 Oximetry 11/20/18 11/20/18 11/20/18 07:36 10:22 10:24 Temperature 98.3 F Pulse Rate 85 85 85 Respiratory 18 Rate Blood Pressure 108/63 108/63 O2 Sat by Pulse 98 Oximetry - Lab 11/18/18 05:12 11/18/18 05:12 Most recent lab results Calcium 8.6 mg/dL (8.4-10.2) 11/18/18 05:12 Magnesium 2.20 mg/dL (1.7-2.3) 11/16/18 05:24 Urine Creatinine 220.1 mg/dL (0.1-20.0) H 11/15/18 22:45 Urine Total Protein 65 mg/dL (5-11.8) H 11/15/18 22:45 Medications & Allergies - Medications Allergies/Adverse Reactions: Allergies lisinopril Allergy (Verified 11/14/18 16:51) Swelling Penicillins Allergy (Verified 11/14/18 16:51) Rash Home Medications: Home Medications Medication Instructions Recorded Confirmed Last Taken Type Amlodipine Besylate [Norvasc] 10 mg PO QDAY 11/14/18 11/14/18 Unknown History Aspirin EC [Aspirin Enteric Coated 81 mg PO QDAY 11/14/18 11/14/18 Unknown History TAB] AtorvaSTATin [Lipitor] 40 mg PO QHS 11/14/18 11/14/18 Unknown History Bumetanide [Bumetanide 2 mg tab] 2 mg PO DAILY 11/14/18 11/14/18 Unknown History Isosorbide Mononitrate 30 mg PO QDAY 11/14/18 11/14/18 Unknown History hydrALAZINE [Apresoline] 50 mg PO Q8HR 11/14/18 11/14/18 Unknown History Active Medications: Generic Name Dose Route Start Last Admin Trade Name Freq PRN Reason Stop Dose Admin Acetaminophen 650 mg 11/14/18 21:40 11/15/18 21:27 Tylenol PO 650 mg Q4H PRN Administration Pain MILD(1-3)/Fever >100.5/RIVAS Amlodipine Besylate 10 mg 11/15/18 10:00 11/20/18 10:26 Norvasc PO Not Given QDAY KWAME Aspirin 81 mg 11/15/18 10:00 11/20/18 10:23 Halfprin Ec PO 81 mg QDAY KWAME Administration Atorvastatin Calcium 40 mg 11/15/18 22:00 11/19/18 21:42 Lipitor PO 40 mg QHS KWAME Administration Bumetanide 1 mg 11/19/18 18:00 11/20/18 05:38 Bumex IV 1 mg BID@0600,1800 KWAME Administration Famotidine 10 mg 11/14/18 22:00 11/20/18 10:22 Pepcid PO 10 mg BID KWAME Administration Fluconazole 100 mg 11/19/18 14:00 11/20/18 10:22 Diflucan PO 100 mg QDAY KWAME Administration Heparin Sodium (Porcine) 5,000 unit 11/15/18 11:00 11/20/18 10:23 Heparin SUB-Q 5,000 unit Q12HR KWAME Administration Hydralazine HCl 25 mg 11/18/18 15:34 11/20/18 05:39 Apresoline PO 25 mg Q8HR KWAME Administration Hydromorphone HCl 0.5 mg 11/14/18 21:40 11/16/18 06:41 Dilaudid IV 0.5 mg Q3H PRN Administration Pain , Severe (7-10) Isosorbide Mononitrate 30 mg 11/15/18 10:00 11/20/18 10:24 Imdur PO Not Given QDAY KWAME Metoprolol Succinate 25 mg 11/17/18 14:00 11/20/18 10:22 Toprol Xl PO 25 mg QDAY KWAME Administration Ondansetron HCl 4 mg 11/14/18 21:40 11/16/18 06:41 Zofran IV 4 mg Q8H PRN Administration Nausea And Vomiting Oxycodone/Acetaminophen 1 tab 11/14/18 21:40 11/20/18 00:27 Percocet 5/325 PO 1 tab Q6H PRN Administration Pain, Moderate (4-6) Pantoprazole Sodium 20 mg 11/18/18 18:00 11/20/18 10:23 Protonix PO 20 mg QDAY KWAME Administration Potassium Chloride 20 meq 11/15/18 06:40 11/20/18 10:23 K-Dur PO 20 meq QDAY KWAME Administration Pregabalin 75 mg 11/16/18 15:00 11/20/18 10:23 Lyrica PO 75 mg BID KWAME Administration Sodium Chloride 10 ml 11/14/18 22:00 11/20/18 10:24 Sodium Chloride Flush Syringe 10 Ml IV 10 ml BID KWAME Administration Sodium Chloride 10 ml 11/14/18 21:40 11/17/18 06:20 Sodium Chloride Flush Syringe 10 Ml IV 10 ml PRN PRN Administration LINE FLUSH
--- NOTE | 2018-11-20 11:17 | Progress Note ---
Assessment and Plan Atypical chest pain V/Q scan reports a low probability for PE Leukocytosis Pleural effusion Dual-chamber pacemaker in situ Chronic kidney disease Hx of CAD Hx of Ischemic cardiomyopathy An echocardiogram which reveals a severe dilated cardiomyopathy, ejection fraction 15-20%. Thallium stress test reports a moderate to large, mostly fixed inferior wall defect. Continue medical therapy for coronary artery disease, ischemic cardiomyopathy and chronic systolic heart failure. We will stop IV lasix and use IV bumex twice daily instead. Subjective Date of service: 11/20/18 Principal diagnosis: babak on ckd Interval history: No acute events overnight Objective Vital Signs Temp Pulse Resp BP BP Pulse Ox 11/20/18 10:24 85 108/63 11/20/18 10:22 85 11/20/18 07:36 98.3 F 85 18 108/63 98 11/20/18 05:03 97.0 F L 85 20 112/71 100 11/20/18 03:00 91 H 11/19/18 23:41 97.0 F L 107 H 20 119/67 88 11/19/18 20:12 98 F 84 18 124/68 11/19/18 19:37 98.0 F 101 H 18 131/79 90 11/19/18 16:09 99.2 F 88 18 113/71 93 11/19/18 15:00 80 11/19/18 14:48 89 18 116/72 96 11/19/18 12:00 18 - Physical Examination Narrative exam: Physical examination Vitals reviewed GEN: No acute distress noted HEENT: Carotids 2+ NECK: Supple CVS: S1 and S2 heard no significant murmur or gallop noted LUNGS/CHEST: Normal auscultation ABD: Soft nontender Extremities: No edema noted normal color NEURO: Alert moves all all 4 extremities PSY: Stable General: No Apparent Distress HEENT: Positive: PERRL Neck: Positive: trachea midline Neuro: Positive: Grossly Intact Abdomen: Positive: Soft Skin: Positive: Clear Extremities: Absent: edema - Imaging and Cardiology EKG: report reviewed (NSR 90/min )
[2018-11-20] MEDS: TYLENOL PO PRN (23:37)
[2018-11-21] MEDS: PERCOCET 5/325 PO PRN ×2 (05:11→15:47)
[2018-11-21] MEDS: BUMEX IV SCH ×2 (05:11→19:38)
[2018-11-21] MEDS: APRESOLINE PO SCH ×3 (05:11→22:42)
[2018-11-21 08:10] LABS: Calcium 8.9 mg/dL (8.4-10.2)
--- NOTE | 2018-11-21 10:18 | Progress Note ---
Assessment and Plan Assessment and plan: 57-year-old man who presented to the hospital with chest pain, pain is around PPM Past medical history; hypertension, CHF, diverticulitis, status post pacemaker Chest x-ray; trace bilateral effusions, findings compatible with mild pulmonary venous congestion EKG; SR, Left atrial enlargement, RBBB Diagnosis chest pain, likely due to CHF Acute on chronic systolic CHF, ef 15% Hypertension Tobacco dependence/abuse PPM present Chronic kidney disease, stage III- likely htn nephrosclerosis Fever, low grade bilateral pleural effusions Oral thrush Plan Echo shows EF of 15%, thallium stress test reports moderate to large mostly fixed inferior wall defect, awaiting records from OSH in [place], [place] for Cardiac review -cont iv diuretics, the VQ scan is low probability for PE Optimize cardiac meds per cardiology -This is most likely the patient's baseline kidney function, it is stable -fever; given PPM, BC neg, UA neg, CXR no infiltrate, hand x-ray is not consistent with rheumatoid arthritis, only show some osteoarthritis. Follow-up autoimmune labs -Continue fluconazole for treatment of oral thrush DVT prophylaxis chemical. History Interval history: Review of systems Constitutional: tmax 100.4, no malaise, no joint pains CVS: Patient is having atypical chest pain, still having orthopnea, WHITE and PND GI: No abdominal pain, no diarrhea, no vomiting, no constipation Respiratory: , no wheezing, no coughing Hospitalist Physical - Physical exam Narrative exam: General.: Appears well, no distress, nontoxic HEENT: Moist mucous membranes, extraocular muscles intact, no lymphadenopathy Neck: supple Cardiac: S1-S2 heard Lungs: Bibasilar dullness, rales in mid lungs Abdomen: soft , nontender, nondistended, bowel sounds positive Extremities: no edema clubbing or cyanosis Skin: no rash or lesions Neurologic: no gross focal deficits Psych: calm, and cooperative - Constitutional Vitals: Temp Pulse Resp BP Pulse Ox 98.6 F 78 20 124/80 95 11/21/18 04:39 11/21/18 05:43 11/21/18 04:39 11/21/18 05:11 11/21/18 04:39 General appearance: Present: no acute distress Results - Labs CBC & Chem 7: 11/18/18 05:12 11/21/18 07:20 Labs: Laboratory Last Values WBC 13.4 K/mm3 (4.5-11.0) H 11/18/18 05:12 RBC 3.96 M/mm3 (3.65-5.03) 11/18/18 05:12 Hgb 11.3 gm/dl (11.8-15.2) L 11/18/18 05:12 Hct 34.2 % (35.5-45.6) L 11/18/18 05:12 MCV 87 fl (84-94) 11/18/18 05:12 MCH 29 pg (28-32) 11/18/18 05:12 MCHC 33 % (32-34) 11/18/18 05:12 RDW 17.2 % (13.2-15.2) H 11/18/18 05:12 Plt Count 423 K/mm3 (140-440) 11/18/18 05:12 Lymph % (Auto) 9.3 % (13.4-35.0) L 11/15/18 04:29 [place] % (Auto) 9.5 % (0.0-7.3) H 11/15/18 04:29 Eos % (Auto) 0.8 % (0.0-4.3) 11/15/18 04:29 Baso % (Auto) 0.2 % (0.0-1.8) 11/15/18 04:29 Lymph # 1.4 K/mm3 (1.2-5.4) 11/15/18 04:29 [place] # 1.4 K/mm3 (0.0-0.8) H 11/15/18 04:29 Eos # 0.1 K/mm3 (0.0-0.4) 11/15/18 04:29 Baso # 0.0 K/mm3 (0.0-0.1) 11/15/18 04:29 Seg Neutrophils % 80.2 % (40.0-70.0) H 11/15/18 04:29 Seg Neutrophils # 11.7 K/mm3 (1.8-7.7) H 11/15/18 04:29 ESR 55 mm/Hr (0-20) 11/18/18 05:12 Sodium 138 mmol/L (137-145) 11/21/18 07:20 Potassium 4.9 mmol/L (3.6-5.0) 11/21/18 07:20 Chloride 96.4 mmol/L (98-107) L 11/21/18 07:20 Carbon Dioxide 29 mmol/L (22-30) 11/21/18 07:20 Anion Gap 18 mmol/L 11/21/18 07:20 BUN 29 mg/dL (9-20) H 11/21/18 07:20 Creatinine 2.0 mg/dL (0.8-1.5) H 11/21/18 07:20 Estimated GFR 42 ml/min 11/21/18 07:20 BUN/Creatinine Ratio 15 % 11/21/18 07:20 Glucose 98 mg/dL (75-100) 11/21/18 07:20 Hemoglobin A1c 5.6 % (4-6) 11/14/18 23:19 Calcium 8.9 mg/dL (8.4-10.2) 11/21/18 07:20 Magnesium 2.20 mg/dL (1.7-2.3) 11/16/18 05:24 Total Bilirubin 0.50 mg/dL (0.1-1.2) 11/15/18 04:29 Direct Bilirubin < 0.2 mg/dL (0-0.2) 11/14/18 17:02 Indirect Bilirubin 0.2 mg/dL 11/14/18 17:02 AST 13 units/L (5-40) 11/15/18 04:29 ALT 7 units/L (7-56) 11/15/18 04:29 Alkaline Phosphatase 91 units/L (35-129) 11/15/18 04:29 Troponin T 0.021 ng/mL (0.00-0.029) 11/15/18 04:29 C-Reactive Protein 26.70 mg/dL (0.00-1.30) H 11/18/18 05:12 NT-Pro-B Natriuret Pep 2385 pg/mL (0-900) H 11/14/18 17:02 Total Protein 6.6 g/dL (6.3-8.2) 11/15/18 04:29 Albumin 3.1 g/dL (3.9-5) L 11/15/18 04:29 Albumin/Globulin Ratio 0.9 % 11/15/18 04:29 Urine Color Yellow (Yellow) 11/15/18 22:45 Urine Turbidity Slightly-cloudy (Clear) 11/15/18 22:45 Urine pH 5.0 (5.0-7.0) 11/15/18 22:45 Ur Specific [place] 1.027 (1.003-1.030) 11/15/18 22:45 Urine Protein 30 mg/dl mg/dL (Negative) 11/15/18 22:45 Urine Glucose (UA) 50 mg/dL (Negative) 11/15/18 22:45 Urine Ketones Neg mg/dL (Negative) 11/15/18 22:45 Urine Blood Neg (Negative) 11/15/18 22:45 Urine Nitrite Neg (Negative) 11/15/18 22:45 Urine Bilirubin Neg (Negative) 11/15/18 22:45 Urine Urobilinogen 4.0 mg/dL (<2.0) 11/15/18 22:45 Ur Leukocyte Esterase Neg (Negative) 11/15/18 22:45 Urine WBC (Auto) 2.0 /HPF (0.0-6.0) 11/15/18 22:45 Urine RBC (Auto) 5.0 /HPF (0.0-6.0) 11/15/18 22:45 U Epithel Cells (Auto) 1.0 /HPF (0-13.0) 11/15/18 22:45 Urine Creatinine 220.1 mg/dL (0.1-20.0) H 11/15/18 22:45 Protein/Creatinin Ratio 0.30 11/15/18 22:45 Urine Total Protein 65 mg/dL (5-11.8) H 11/15/18 22:45 Rheumatoid Factor 19 IU/ml (0-13) H 11/19/18 13:30 HIV 1&2 Antibody Rapid Non react (Non React) 11/18/18 05:12 HIV P24 Antigen Non react (Non React) 11/18/18 05:12 Influenza A (Rapid) Negative (Negative) 11/19/18 Unknown Influenza A (RT-PCR) Negative (Negative) 11/19/18 Unknown Influenza B (Rapid) Negative (Negative) 11/19/18 Unknown Influenza B (RT-PCR) Negative (Negative) 11/19/18 Unknown Active Medications - Current Medications Current Medications: Generic Name Dose Route Start Last Admin Trade Name Freq PRN Reason Stop Dose Admin Acetaminophen 650 mg 11/14/18 21:40 11/20/18 23:37 Tylenol PO 650 mg Q4H PRN Administration Pain MILD(1-3)/Fever >100.5/RIVAS Amlodipine Besylate 10 mg 11/15/18 10:00 11/20/18 10:26 Norvasc PO Not Given QDAY [facility] Aspirin 81 mg 11/15/18 10:00 11/20/18 10:23 Halfprin Ec PO 81 mg QDAY K[facility]AME Administration Atorvastatin Calcium 40 mg 11/15/18 22:00 11/20/18 21:44 Lipitor PO 40 mg QHS KWAME Administration Bumetanide 1 mg 11/19/18 18:00 11/21/18 05:11 Bumex IV 1 mg BID@0600,1800 K[facility]AME Administration Famotidine 10 mg 11/14/18 22:00 11/20/18 21:44 Pepcid PO 10 mg BID KWAME Administration Fluconazole 100 mg 11/19/18 14:00 11/20/18 10:22 Diflucan PO 100 mg QDAY [facility] Administration Heparin Sodium (Porcine) 5,000 unit 11/15/18 11:00 11/20/18 21:45 Heparin SUB-Q 5,000 unit Q12HR KWAME Administration Hydralazine HCl 25 mg 11/18/18 15:34 11/21/18 05:11 Apresoline PO 25 mg Q8HR KWAME Administration Hydromorphone HCl 0.5 mg 11/14/18 21:40 11/16/18 06:41 Dilaudid IV 0.5 mg Q3H PRN Administration Pain , Severe (7-10) Isosorbide Mononitrate 30 mg 11/15/18 10:00 11/20/18 10:24 Imdur PO Not Given QDAY [facility] Metoprolol Succinate 25 mg 11/17/18 14:00 11/20/18 10:22 Toprol Xl PO 25 mg QDAY K[facility]AME Administration Ondansetron HCl 4 mg 11/14/18 21:40 11/16/18 06:41 Zofran IV 4 mg Q8H PRN Administration Nausea And Vomiting Oxycodone/Acetaminophen 1 tab 11/14/18 21:40 11/21/18 05:11 Percocet 5/325 PO 1 tab Q6H PRN Administration Pain, Moderate (4-6) Pantoprazole Sodium 20 mg 11/18/18 18:00 11/20/18 10:23 Protonix PO 20 mg QDAY K[facility]AME Administration Potassium Chloride 20 meq 11/15/18 06:40 11/20/18 10:23 K-Dur PO 20 meq QDAY K[facility]AME Administration Pregabalin 75 mg 11/16/18 15:00 11/20/18 21:44 Lyrica PO 75 mg BID KWAME Administration Sodium Chloride 10 ml 11/14/18 22:00 11/20/18 21:47 Sodium Chloride Flush Syringe 10 Ml IV 10 ml BID KWAME Administration Sodium Chloride 10 ml 11/14/18 21:40 11/17/18 06:20 Sodium Chloride Flush Syringe 10 Ml IV 10 ml PRN PRN Administration LINE FLUSH Nutrition/Malnutrition Assess - Dietary Evaluation Nutrition/Malnutrition Findings: Nutrition Notes Start: 11/19/18 10:23 Freq: Status: Active Protocol: Document 11/19/18 10:25 SA (Rec: 11/19/18 10:28 [facility]-[id number]) Co-Sign 11/19/18 10:25 LP Nutrition Notes Need for Assessment generated from: LOS Initial or Follow up Brief Note Subjective/Other Information Screened for LOS. Per pt's ADL, pt eating 75-100 % of meals recorded. Nutrition Intervention Revisit per MD consult or patient Sign Off request:
--- NOTE | 2018-11-21 10:38 | Progress Note ---
Assessment and Plan Atypical chest pain, resolved Leukocytosis Pleural effusion Ischemic cardiomyopathy Dual-chamber pacemaker in situ Chronic kidney disease Hx of CAD An echocardiogram which reveals a severe dilated cardiomyopathy, ejection fraction 15-20%. Thallium stress test reports a moderate to large, mostly fixed inferior wall defect. Continue medical therapy for coronary artery disease, ischemic cardiomyopathy and chronic systolic heart failure. Continue IV Bumex Not done a circular ARB due to renal failure. Subjective Date of service: 11/21/18 Principal diagnosis: babak on ckd Interval history: No acute events overnight Objective Vital Signs Temp Pulse Resp BP Pulse Ox 11/21/18 05:43 78 11/21/18 05:11 82 124/80 11/21/18 04:39 98.6 F 85 20 124/80 95 11/20/18 23:29 100.4 F H 92 H 16 109/76 97 11/20/18 21:44 100 H 115/75 11/20/18 20:05 100.7 F H 96 H 16 115/75 90 11/20/18 15:53 82 11/20/18 13:54 18 11/20/18 13:14 87 110/70 11/20/18 12:54 18 11/20/18 12:05 98.0 F 87 18 110/70 95 11/20/18 11:00 83 - Physical Examination Narrative exam: Physical examination Vitals reviewed GEN: No acute distress noted, appears very tired HEENT: Carotids 2+ NECK: Supple CVS: S1 and S2 heard no significant murmur or gallop noted LUNGS/CHEST: Normal auscultation ABD: Soft nontender Extremities: No edema noted normal color NEURO: Alert moves all all 4 extremities PSY: Stable General: No Apparent Distress HEENT: Positive: PERRL Neck: Positive: trachea midline Neuro: Positive: Grossly Intact Abdomen: Positive: Soft Skin: Positive: Clear Extremities: Absent: edema - Labs and Meds Comprehensive Metabolic Panel 11/21/18 Range/Units 07:20 Sodium 138 (137-145) mmol/L Potassium 4.9 (3.6-5.0) mmol/L Chloride 96.4 L (98-107) mmol/L Carbon Dioxide 29 (22-30) mmol/L BUN 29 H (9-20) mg/dL Creatinine 2.0 H (0.8-1.5) mg/dL Glucose 98 (75-100) mg/dL Calcium 8.9 (8.4-10.2) mg/dL - Imaging and Cardiology EKG: report reviewed (NSR 90/min )
[2018-11-21] MEDS: PROTONIX PO SCH (10:39)
[2018-11-21] MEDS: NORVASC PO SCH (10:39)
[2018-11-21] MEDS: HALFPRIN EC PO SCH (10:39)
[2018-11-21] MEDS: IMDUR PO SCH (10:39)
[2018-11-21] MEDS: K-DUR PO SCH (10:40)
[2018-11-21] MEDS: SODIUM CHLORIDE FLUSH SYRINGE 10 ML IV SCH ×2 (10:40→22:43)
[2018-11-21] MEDS: TOPROL XL PO SCH (10:40)
[2018-11-21] MEDS: LYRICA PO SCH ×2 (10:40→22:42)
[2018-11-21] MEDS: PEPCID PO SCH ×2 (10:40→22:42)
[2018-11-21] MEDS: HEPARIN SUB-Q SCH ×2 (10:53→22:42)
[2018-11-21] MEDS: DIFLUCAN PO SCH (11:12)
--- NOTE | 2018-11-21 14:04 | Progress Note ---
Assessment and Plan Impression: * Stage III chronic kidney disease - dx appx 2 years ago per patient --UPCR 300mg/g --Renal ultrasound: right 9.6, left 11.4. 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 Renal function is stable * Cardiology work up noted * ID following - recommendations noted * Diuresis prn * Avoid potential nephrotoxins * Dose medications for renal function * AM labs * Stable for d/c from a renal standpoint w/ outpatient nephrology follow up * diuretics per cards Subjective Date of service: 11/21/18 Principal diagnosis: babak on ckd Interval history: resting in bed today Objective - Exam Narrative Exam: General appearance: well-developed, well-nourished EENT: ATNC Respiratory: Present: Clear to Ascultation Cardiology: regular, S1S2 Gastrointestinal: normal, no tenderness, no distended Integumentary: no rash, warm and dry Musculoskeletal: other (no edema) Psychiatric: cooperative - Vital Signs Vital signs: Vital Signs - 12hr 11/21/18 11/21/18 11/21/18 04:39 05:11 05:43 Temperature 98.6 F Pulse Rate 85 82 78 Respiratory 20 Rate Blood Pressure 124/80 124/80 O2 Sat by Pulse 95 Oximetry 11/21/18 12:51 Temperature 99.9 F H Pulse Rate 93 H Respiratory 18 Rate Blood Pressure 109/70 O2 Sat by Pulse 91 Oximetry - Lab 11/18/18 05:12 11/21/18 07:20 Most recent lab results Calcium 8.9 mg/dL (8.4-10.2) 11/21/18 07:20 Magnesium 2.20 mg/dL (1.7-2.3) 11/16/18 05:24 Urine Creatinine 220.1 mg/dL (0.1-20.0) H 11/15/18 22:45 Urine Total Protein 65 mg/dL (5-11.8) H 11/15/18 22:45 Medications & Allergies - Medications Allergies/Adverse Reactions: Allergies lisinopril Allergy (Verified 11/14/18 16:51) Swelling Penicillins Allergy (Verified 11/14/18 16:51) Rash Home Medications: Home Medications Medication Instructions Recorded Confirmed Last Taken Type Amlodipine Besylate [Norvasc] 10 mg PO QDAY 11/14/18 11/14/18 Unknown History Aspirin EC [Aspirin Enteric Coated 81 mg PO QDAY 11/14/18 11/14/18 Unknown History TAB] AtorvaSTATin [Lipitor] 40 mg PO QHS 11/14/18 11/14/18 Unknown History Bumetanide [Bumetanide 2 mg tab] 2 mg PO DAILY 11/14/18 11/14/18 Unknown History Isosorbide Mononitrate 30 mg PO QDAY 11/14/18 11/14/18 Unknown History hydrALAZINE [Apresoline] 50 mg PO Q8HR 11/14/18 11/14/18 Unknown History Active Medications: Generic Name Dose Route Start Last Admin Trade Name Freq PRN Reason Stop Dose Admin Acetaminophen 650 mg 11/14/18 21:40 11/20/18 23:37 Tylenol PO 650 mg Q4H PRN Administration Pain MILD(1-3)/Fever >100.5/RIVAS Amlodipine Besylate 10 mg 11/15/18 10:00 11/21/18 10:39 Norvasc PO 10 mg QDAY [facility] Administration Aspirin 81 mg 11/15/18 10:00 11/21/18 10:39 Halfprin Ec PO 81 mg QDAY [facility] Administration Atorvastatin Calcium 40 mg 11/15/18 22:00 11/20/18 21:44 Lipitor PO 40 mg QHS [facility] Administration Bumetanide 1 mg 11/19/18 18:00 11/21/18 05:11 Bumex IV 1 mg BID@0600,1800 [facility] Administration Famotidine 10 mg 11/14/18 22:00 11/21/18 10:40 Pepcid PO 10 mg BID [facility]AME Administration Fluconazole 100 mg 11/19/18 14:00 11/20/18 10:22 Diflucan PO 100 mg QDAY [facility] Administration Heparin Sodium (Porcine) 5,000 unit 11/15/18 11:00 11/21/18 10:53 Heparin SUB-Q 5,000 unit Q12HR KWAME Administration Hydralazine HCl 25 mg 11/18/18 15:34 11/21/18 05:11 Apresoline PO 25 mg Q8HR K[facility]AME Administration Hydromorphone HCl 0.5 mg 11/14/18 21:40 11/16/18 06:41 Dilaudid IV 0.5 mg Q3H PRN Administration Pain , Severe (7-10) Isosorbide Mononitrate 30 mg 11/15/18 10:00 11/21/18 10:39 Imdur PO 30 mg QDAY [facility] Administration Metoprolol Succinate 25 mg 11/17/18 14:00 11/21/18 10:40 Toprol Xl PO 25 mg QDAY [facility] Administration Ondansetron HCl 4 mg 11/14/18 21:40 11/16/18 06:41 Zofran IV 4 mg Q8H PRN Administration Nausea And Vomiting Oxycodone/Acetaminophen 1 tab 11/14/18 21:40 11/21/18 05:11 Percocet 5/325 PO 1 tab Q6H PRN Administration Pain, Moderate (4-6) Pantoprazole Sodium 20 mg 11/18/18 18:00 11/21/18 10:39 Protonix PO 20 mg QDAY [facility] Administration Potassium Chloride 20 meq 11/15/18 06:40 11/21/18 10:40 K-Dur PO 20 meq QDAY [facility] Administration Pregabalin 75 mg 11/16/18 15:00 11/21/18 10:40 Lyrica PO 75 mg BID KWAME Administration Sodium Chloride 10 ml 11/14/18 22:00 11/21/18 10:40 Sodium Chloride Flush Syringe 10 Ml IV 10 ml BID KWAME Administration Sodium Chloride 10 ml 11/14/18 21:40 11/17/18 06:20 Sodium Chloride Flush Syringe 10 Ml IV 10 ml PRN PRN Administration LINE FLUSH
[2018-11-22] MEDS: PERCOCET 5/325 PO PRN (04:02)
[2018-11-22] MEDS: APRESOLINE PO SCH ×3 (05:50→21:22)
[2018-11-22] MEDS: BUMEX IV SCH ×2 (05:50→17:49)
[2018-11-22 06:30] LABS: Calcium 8.8 mg/dL (8.4-10.2)
--- NOTE | 2018-11-22 10:55 | Progress Note ---
Assessment and Plan - Patient Problems (1) Chronic kidney disease, stage III (moderate) Current Visit: Yes Status: Acute Plan to address problem: Chronic kidney disease stage III* Current creatinine 2.0 mg/dl Etiology of chronic kidney disease is likely related to hypertension and hemodynamic shifts congestive heart failure Continue diuresis (2) CHF exacerbation Current Visit: Yes Status: Acute Qualifiers: Heart failure type: combined systolic and diastolic Qualified Code(s): I50.43 - Acute on chronic combined systolic (congestive) and diastolic (congestive) heart failure Plan to address problem: CHF exacerbation Chest x-ray pulmonary congestion and pulmonary edema Repeat chest x-ray today currently on Bumex 1 mg IV twice a day (3) Metabolic alkalosis Current Visit: Yes Status: Acute Plan to address problem: Metabolic alkalosis Secondary to diuresis (4) Hypertension Current Visit: Yes Status: Acute Plan to address problem: Hypertension controlled Monitor blood pressure Subjective Principal diagnosis: babak on ckd Interval history: 58-year-old gentleman with medical history significant for hypertension, chronic kidney disease stage 3 congestive heart failure status post pacemaker placement nephrology following. Chronic kidney disease Patient is seen today doesn't have any peripheral edema does have some exertional dyspnea remains on supplemental oxygen Objective - Vital Signs Vital signs: Vital Signs - 12hr 11/22/18 11/22/18 11/22/18 01:07 05:24 05:50 Temperature 98.3 F 99.3 F Pulse Rate 89 88 88 Respiratory 20 20 Rate Blood Pressure 119/69 Blood Pressure 105/68 119/69 [Right] O2 Sat by Pulse 95 94 Oximetry 11/22/18 07:58 Temperature 97.7 F Pulse Rate 81 Respiratory 18 Rate Blood Pressure 105/60 Blood Pressure [Right] O2 Sat by Pulse 94 Oximetry - General Appearance General appearance: well-developed, well-nourished EENT: ATNC, PERRL, mucous membranes moist Neck: no JVD Respiratory: Present: Decreased Breath Sounds Cardiology: regular, S1S2 Gastrointestinal: normal, normoactive bowel sounds Integumentary: no rash Neurologic: alert and oriented x3, CN 3-12 intact Musculoskeletal: deferred Psychiatric: mood/affect appropriate - Lab 11/18/18 05:12 11/22/18 05:22 Most recent lab results Calcium 8.8 mg/dL (8.4-10.2) 11/22/18 05:22 Magnesium 2.20 mg/dL (1.7-2.3) 11/16/18 05:24 Urine Creatinine 220.1 mg/dL (0.1-20.0) H 11/15/18 22:45 Urine Total Protein 65 mg/dL (5-11.8) H 11/15/18 22:45 - Imaging Chest x-ray: image reviewed (I reviewed chest x-ray with bilateral opacities and effusions) Medications & Allergies - Medications Allergies/Adverse Reactions: Allergies lisinopril Allergy (Verified 11/14/18 16:51) Swelling Penicillins Allergy (Verified 11/14/18 16:51) Rash Home Medications: Home Medications Medication Instructions Recorded Confirmed Last Taken Type Amlodipine Besylate [Norvasc] 10 mg PO QDAY 11/14/18 11/14/18 Unknown History Aspirin EC [Aspirin Enteric Coated 81 mg PO QDAY 11/14/18 11/14/18 Unknown History TAB] AtorvaSTATin [Lipitor] 40 mg PO QHS 11/14/18 11/14/18 Unknown History hydrALAZINE [Apresoline TAB] 50 mg PO Q8HR 11/14/18 11/14/18 Unknown History Bumetanide [Bumex 1 mg tab] 1 mg PO BID #60 tab 11/22/18 Unknown Rx Fluconazole [Diflucan TAB] 100 mg PO QDAY #5 tablet 11/22/18 Unknown Rx ISOSORBIDE MONOnitrate [Imdur ER] 30 mg PO QDAY #30 tablet 11/22/18 Unknown Rx Metoprolol Xl [Metoprolol 25 mg PO QDAY #30 tablet 11/22/18 Unknown Rx SUCCINATE ER TAB] Pantoprazole [Protonix TAB] 20 mg PO QDAY #30 tablet.dr 11/22/18 Unknown Rx Potassium Chloride [K-Dur] 20 meq PO QDAY #30 tablet 11/22/18 Unknown Rx Pregabalin [Lyrica] 75 mg PO BID #60 capsule 11/22/18 Unknown Rx Active Medications: Generic Name Dose Route Start Last Admin Trade Name Freq PRN Reason Stop Dose Admin Acetaminophen 650 mg 11/14/18 21:40 11/20/18 23:37 Tylenol PO 650 mg Q4H PRN Administration Pain MILD(1-3)/Fever >100.5/RIVAS Amlodipine Besylate 10 mg 11/15/18 10:00 11/21/18 10:39 Norvasc PO 10 mg QDAY K[facility]AME Administration Aspirin 81 mg 11/15/18 10:00 11/21/18 10:39 Halfprin Ec PO 81 mg QDAY K[facility]AME Administration Atorvastatin Calcium 40 mg 11/15/18 22:00 11/21/18 22:43 Lipitor PO 40 mg QHS KWAME Administration Bumetanide 1 mg 11/19/18 18:00 11/22/18 05:50 Bumex IV 1 mg BID@0600,1800 KWAME Administration Famotidine 10 mg 11/14/18 22:00 11/21/18 22:42 Pepcid PO 10 mg BID KWAME Administration Fluconazole 100 mg 11/19/18 14:00 11/21/18 11:12 Diflucan PO 100 mg QDAY [facility] Administration Heparin Sodium (Porcine) 5,000 unit 11/15/18 11:00 11/21/18 22:42 Heparin SUB-Q 5,000 unit Q12HR KWAME Administration Hydralazine HCl 25 mg 11/18/18 15:34 11/22/18 05:50 Apresoline PO 25 mg Q8HR KWAME Administration Hydromorphone HCl 0.5 mg 11/14/18 21:40 11/16/18 06:41 Dilaudid IV 0.5 mg Q3H PRN Administration Pain , Severe (7-10) Isosorbide Mononitrate 30 mg 11/15/18 10:00 11/21/18 10:39 Imdur PO 30 mg QDAY K[facility]AME Administration Metoprolol Succinate 25 mg 11/17/18 14:00 11/21/18 10:40 Toprol Xl PO 25 mg QDAY K[facility]AME Administration Ondansetron HCl 4 mg 11/14/18 21:40 11/16/18 06:41 Zofran IV 4 mg Q8H PRN Administration Nausea And Vomiting Oxycodone/Acetaminophen 1 tab 11/14/18 21:40 11/22/18 04:02 Percocet 5/325 PO 1 tab Q6H PRN Administration Pain, Moderate (4-6) Pantoprazole Sodium 20 mg 11/18/18 18:00 11/21/18 10:39 Protonix PO 20 mg QDAY KWAME Administration Potassium Chloride 20 meq 11/15/18 06:40 11/21/18 10:40 K-Dur PO 20 meq QDAY K[facility]AME Administration Pregabalin 75 mg 11/16/18 15:00 11/21/18 22:42 Lyrica PO 75 mg BID KWAME Administration Sodium Chloride 10 ml 11/14/18 22:00 11/21/18 22:43 Sodium Chloride Flush Syringe 10 Ml IV 10 ml BID KWAME Administration Sodium Chloride 10 ml 11/14/18 21:40 11/17/18 06:20 Sodium Chloride Flush Syringe 10 Ml IV 10 ml PRN PRN Administration LINE FLUSH
--- NOTE | 2018-11-22 11:12 | Discharge Summary ---
Providers - Providers Date of Admission: 11/14/18 18:32 Attending physician: BRANDO CLARK MD 11/14/18 21:40 Consult to Physician [CONS] Routine Comment: Consulting Provider: ROMA GARCIA Physician Instructions: Reason For Exam: CHF/CP 11/15/18 06:50 Consult to Physician [CONS] Routine Comment: Consulting Provider: TAMIR LOZANO Physician Instructions: Reason For Exam: BROOKE/CKD 11/17/18 11:05 Consult to Physician [CONS] Routine Comment: Consulting Provider: LYNDON REID Physician Instructions: Reason For Exam: fever, Sp PPM 11/20/18 10:28 Physical Therapy Evaluation and Treat [CONS] Routine Comment: Reason For Exam: ataxia Primary care physician: DUSTY WEST Hospitalization Condition: Critical Hospital course: 57-year-old man who presented to the hospital with chest pain, pain is around PPM Past medical history; hypertension, CHF, diverticulitis, status post pacemaker Chest x-ray; trace bilateral effusions, findings compatible with mild pulmonary venous congestion EKG; SR, Left atrial enlargement, RBBB Diagnosis chest pain, likely due to CHF Acute on chronic systolic CHF, ef 15% Hypertension Tobacco dependence/abuse PPM present Chronic kidney disease, stage III- likely htn nephrosclerosis Fever, low grade bilateral pleural effusions Oral thrush Plan Echo shows EF of 15%, thallium stress test reports moderate to large mostly fixed inferior wall defect, awaiting records from OS in [place], [place] for Cardiac review -cont iv diuretics, the VQ scan is low probability for PE Optimize cardiac meds per cardiology -This is most likely the patient's baseline kidney function, it is stable -fever; given PPM, BC neg, UA neg, CXR no infiltrate, hand x-ray is not consistent with rheumatoid arthritis, only show some osteoarthritis. Follow-up autoimmune labs -Continue fluconazole for treatment of oral thrush DVT prophylaxis chemical. Disposition: TO HOME OR SELFCARE Time spent for discharge: 33 minutes Core Measure Documentation - Palliative Care Palliative Care/ Comfort Measures: Not Applicable - Core Measures Any of the following diagnoses?: heart failure - Heart Failure Discharge Requirements PHILLIP/ARB for LVSD if EF <40%: Yes Beta maria elena at discharge: Yes Exam - Physical Exam Narrative exam: General.: Appears well, no distress, nontoxic HEENT: Moist mucous membranes, extraocular muscles intact, no lymphadenopathy Neck: supple Cardiac: S1-S2 heard Lungs: Bibasilar dullness, rales in mid lungs Abdomen: soft , nontender, nondistended, bowel sounds positive Extremities: no edema clubbing or cyanosis Skin: no rash or lesions Neurologic: no gross focal deficits Psych: calm, and cooperative - Constitutional Vitals: Temp Pulse Resp BP Pulse Ox 97.7 F 81 18 105/60 94 11/22/18 07:58 11/22/18 07:58 11/22/18 07:58 11/22/18 07:58 11/22/18 07:58 Plan Follow up with: DUSTY WEST MD [Primary Care Provider] - 7 Days Prescriptions: Bumetanide [Bumex 1 mg tab] 1 mg PO BID #60 tab Fluconazole [Diflucan TAB] 100 mg PO QDAY #5 tablet ISOSORBIDE MONOnitrate [Imdur ER] 30 mg PO QDAY #30 tablet Potassium Chloride [K-Dur] 20 meq PO QDAY #30 tablet Pregabalin [Lyrica] 75 mg PO BID #60 capsule Metoprolol Xl [Metoprolol SUCCINATE ER TAB] 25 mg PO QDAY #30 tablet Pantoprazole [Protonix TAB] 20 mg PO QDAY #30 tablet.
--- NOTE | 2018-11-22 11:18 | Progress Note ---
Assessment and Plan Atypical chest pain V/Q scan reports a low probability for PE Leukocytosis Pleural effusion Dual-chamber pacemaker in situ Chronic kidney disease Hx of CAD Hx of Ischemic cardiomyopathy An echocardiogram which reveals a severe dilated cardiomyopathy, ejection fraction 15-20%. Thallium stress test reports a moderate to large, mostly fixed inferior wall defect. Continue medical therapy for coronary artery disease, ischemic cardiomyopathy and chronic systolic heart failure. Subjective Date of service: 11/22/18 Principal diagnosis: babak on ckd Interval history: Patient is resting in bed comfortably. No distress noted. Objective Vital Signs Temp Pulse Resp BP BP Pulse Ox 11/22/18 07:58 97.7 F 81 18 105/60 94 11/22/18 05:50 88 119/69 11/22/18 05:24 99.3 F 88 20 119/69 94 11/22/18 01:07 98.3 F 89 20 105/68 95 11/21/18 20:30 99.4 F 88 20 97/68 94 11/21/18 17:37 87 111/64 98 11/21/18 12:51 99.9 F H 93 H 18 109/70 91 - Physical Examination General: No Apparent Distress HEENT: Positive: PERRL Neck: Positive: trachea midline Cardiac: Positive: Reg Rate and Rhythm Lungs: Positive: Decreased Breath Sounds Neuro: Positive: Grossly Intact Extremities: Absent: edema - Labs and Meds Comprehensive Metabolic Panel 11/22/18 Range/Units 05:22 Sodium 140 (137-145) mmol/L Potassium 4.4 (3.6-5.0) mmol/L Chloride 99.3 (98-107) mmol/L Carbon Dioxide 29 (22-30) mmol/L BUN 28 H (9-20) mg/dL Creatinine 2.0 H (0.8-1.5) mg/dL Glucose 124 H (75-100) mg/dL Calcium 8.8 (8.4-10.2) mg/dL
[2018-11-22] MEDS: K-DUR PO SCH (11:42)
[2018-11-22] MEDS: HEPARIN SUB-Q SCH ×2 (11:42→21:23)
[2018-11-22] MEDS: PEPCID PO SCH ×2 (11:42→21:22)
[2018-11-22] MEDS: LYRICA PO SCH ×2 (11:42→21:22)
[2018-11-22] MEDS: HALFPRIN EC PO SCH (11:42)
[2018-11-22] MEDS: PROTONIX PO SCH (11:43)
[2018-11-22] MEDS: SODIUM CHLORIDE FLUSH SYRINGE 10 ML IV SCH ×2 (11:43→21:24)
[2018-11-22] MEDS: TOPROL XL PO SCH (11:44)
[2018-11-22] MEDS: NORVASC PO SCH (12:32)
[2018-11-22] MEDS: IMDUR PO SCH (12:32)
--- NOTE | 2018-11-22 12:54 | Progress Note ---
Assessment and Plan Cultures: 11/15/2018 MRSA nasal culture: Negative 11/17/2018 blood culture: no growth thus far 11/18/2018 HIV: negative A/P: 57-year-old male with cardiomyopathy, status post pacemaker placement about 2 years ago, CKD was admitted to the hospital on 11/14/2018 with complaints of chest pain. The patient recently moved from [place]. Admitted with chest pain. 1) Leukocytosis: trending down, No fevers. Procal 0.3 c/w low risk for bacterial infection. Patient has an indwelling PPM. UA not suggestive of infection. Chest x-ray with bilateral pleural effusions likely related to CHF. Of note, patient was recently treated for pneumonia and congestive heart failure earlier this month. Has no cough, pneumonia is quite unlikely. Follow-up blood cultures. ESR 55, CRP 26.70 elevated. RF elevated at 19. XR hand c/w OA. CT chest without pneumonia, showed large bilateral pleural effusions and small pericardial effusion. No vegetations noted on TTE. HIV- Non reactive. Influenza Rapid- negative. Influenza PCR -negative. C3/C4 not c/w acute lupus flare. 2) CKD: nephrology following. Has mild proteinuria. 3) Bilateral pleural effusions: likely from CHF. 4) Anorexia: unintentional weight loss of 50+ lbs over the last 6 weeks. HIV negative. Also checking for lupus given family history. 5) Dilated cardiomyopathy: cardiology following. EF 15-20%. Indwelling pacemacker + 6) Proximal PIP swelling: will order Anti-cyclic citrullinated peptide (anti- CCP) , RA and obtain left hand xray. 70 Oral Candidiasis: white plaque on the oropharynx. Will start Flucanazole . Recs: continue off antibiotics f/u SANTANA, anti-CCP continue Fluconazole 100 mg po every 24 hours D4 of 5 monitor fever and chest pain Will follow Nina Calderon MD Infectious Diseases [employer] [facility] M [phone] O [phone] Subjective Date of service: 11/22/18 Principal diagnosis: babak on ckd Interval history: Patient reports feeling better, still c/o left sided chest pain. No fever for 36h. ROS as above rest negative. Objective - Exam Narrative Exam: General appearance: Alert in NAD, conversant Eyes: anicteric sclerae, moist conjunctivae; no lid-lag; PERRLA HENT: Atraumatic; oropharynx clear with moist mucous membranes and no mucosal ulcerations/no oral thrush; normal hard and soft palate. Normal external ears. Neck: Trachea midline; supple, no thyromegaly or lymphadenopathy Lungs: +decreased left sided breast sound CV: RRR, no murmurs Abdomen: Soft, non-tender; no masses or hepatosplenomegaly Extremities: arthritic changes román hands Skin: Normal temperature, turgor and texture; no rash, ulcers or subcutaneous nodules Psych: Appropriate affect, alert and oriented to person, place and time. Neuro: alert and oriented x 3. Moving all extermities - Constitutional Vitals: Vital Signs Temp Pulse Resp BP Pulse Ox 98.4 F 88 18 109/71 90 11/22/18 12:30 11/22/18 12:30 11/22/18 12:30 11/22/18 12:30 11/22/18 12:30 Temperature -Last 24 Hours Temperature 98.4 F Temperature 97.7 F Temperature 99.3 F Temperature 98.3 F Temperature 99.4 F - Labs CBC & Chem 7: 11/18/18 05:12 11/22/18 05:22 Labs: Abnormal lab results 11/18/18 11/18/18 11/22/18 Range/Units 05:12 06:30 05:22 BUN 28 H (9-20) mg/dL Creatinine 2.0 H (0.8-1.5) mg/dL Glucose 124 H (75-100) mg/dL NT-Pro-B Natriuret Pep (0-900) pg/mL Complement C3 187 H (82-185) mg/dL Miscellaneous Test Flexitest 1 H 11/22/18 Range/Units 05:22 BUN (9-20) mg/dL Creatinine (0.8-1.5) mg/dL Glucose (75-100) mg/dL NT-Pro-B Natriuret Pep 3963 H (0-900) pg/mL Complement C3 (82-185) mg/dL Miscellaneous Test
[2018-11-22] MEDS: DIFLUCAN PO SCH (13:54)
[2018-11-22] MEDS: TYLENOL PO PRN (15:58)
--- NOTE | 2018-11-22 18:15 | XRay Report ---
PROCEDURE: XR CHEST 1V AP TECHNIQUE: Frontal portable view of the chest HISTORY: pulmonary edema. COMPARISONS: Chest x-ray dated November 18, 2018 FINDINGS: There is improved aeration of the right lung. There is a persistent small right pleural fluid collection and pulmonary consolidation in the right l gale base that is decreased in degree in the interval. There is a persistent large left pleural fluid collection with pulmonary consolidation in the left mi d and lower lung coon that is not significantly changed in the interval. The cardiac silhouette is enlarged but partially obscured by the pulmonary disease with dual-lead AIC D. IMPRESSION: 1. Interval improvement in aeration of right lung with persistent small right pleural fluid collectio n and pulmonary consolidation right lung base which is decreased in the interval. 2. No significant change in appearance of large left pleural fluid collection with associated pulmona ry consolidation left mid and lower lung coon. 3. Enlarged cardiac silhouette with dual-lead AICD. This document is electronically signed by Jayne Pabon MD., November 22 2018 06:13:19 PM ET
[2018-11-22] MEDS ORDERED: TOPROL XL PO ONE (22:00)
--- NOTE | 2018-11-23 00:10 | Progress Note ---
Assessment and Plan Assessment and plan: 57-year-old man who presented to the hospital with chest pain, pain is around PPM Past medical history; hypertension, CHF, diverticulitis, status post pacemaker Chest x-ray; trace bilateral effusions, findings compatible with mild pulmonary venous congestion EKG; SR, Left atrial enlargement, RBBB Diagnosis chest pain, likely due to CHF Acute on chronic systolic CHF, ef 15% Hypertension Tobacco dependence/abuse PPM present Chronic kidney disease, stage III- likely htn nephrosclerosis Fever, low grade bilateral pleural effusions Oral thrush NSVT acute hypoxic resp failure Plan Echo shows EF of 15%, thallium stress test reports moderate to large mostly fixed inferior wall defect, awaiting records from OSH in [place], [place] for Cardiac review -cont iv diuretics, the VQ scan is low probability for PE Optimize cardiac meds per cardiology -This is most likely the patient's baseline kidney function, it is stable -fever; given PPM, BC neg, UA neg, CXR no infiltrate, hand x-ray is not consistent with rheumatoid arthritis, only show some osteoarthritis. Follow-up autoimmune labs -Continue fluconazole for treatment of oral thrush DVT prophylaxis chemical. -has been weaned of oxygen -given NSVT, patient will need lifevest prior to dc History Interval history: Review of systems Constitutional:no fever, no malaise, no joint pains CVS: denies cp, sob, pnd or orthopnea GI: No abdominal pain, no diarrhea, no vomiting, no constipation Respiratory: , no wheezing, no coughing Hospitalist Physical - Physical exam Narrative exam: General.: Appears well, no distress, nontoxic HEENT: Moist mucous membranes, extraocular muscles intact, no lymphadenopathy Neck: supple Cardiac: S1-S2 heard Lungs: diminished in bases Abdomen: soft , nontender, nondistended, bowel sounds positive Extremities: no edema clubbing or cyanosis Skin: no rash or lesions Neurologic: no gross focal deficits Psych: calm, and cooperative - Constitutional Vitals: Temp Pulse Resp BP Pulse Ox 99.2 F 82 20 116/69 96 11/22/18 20:30 11/22/18 21:23 11/22/18 20:30 11/22/18 21:23 11/22/18 20:30 General appearance: Present: no acute distress Results - Labs CBC & Chem 7: 11/18/18 05:12 11/22/18 05:22 Labs: Laboratory Last Values WBC 13.4 K/mm3 (4.5-11.0) H 11/18/18 05:12 RBC 3.96 M/mm3 (3.65-5.03) 11/18/18 05:12 Hgb 11.3 gm/dl (11.8-15.2) L 11/18/18 05:12 Hct 34.2 % (35.5-45.6) L 11/18/18 05:12 MCV 87 fl (84-94) 11/18/18 05:12 MCH 29 pg (28-32) 11/18/18 05:12 MCHC 33 % (32-34) 11/18/18 05:12 RDW 17.2 % (13.2-15.2) H 11/18/18 05:12 Plt Count 423 K/mm3 (140-440) 11/18/18 05:12 Lymph % (Auto) 9.3 % (13.4-35.0) L 11/15/18 04:29 [place] % (Auto) 9.5 % (0.0-7.3) H 11/15/18 04:29 Eos % (Auto) 0.8 % (0.0-4.3) 11/15/18 04:29 Baso % (Auto) 0.2 % (0.0-1.8) 11/15/18 04:29 Lymph # 1.4 K/mm3 (1.2-5.4) 11/15/18 04:29 [place] # 1.4 K/mm3 (0.0-0.8) H 11/15/18 04:29 Eos # 0.1 K/mm3 (0.0-0.4) 11/15/18 04:29 Baso # 0.0 K/mm3 (0.0-0.1) 11/15/18 04:29 Seg Neutrophils % 80.2 % (40.0-70.0) H 11/15/18 04:29 Seg Neutrophils # 11.7 K/mm3 (1.8-7.7) H 11/15/18 04:29 ESR 55 mm/Hr (0-20) 11/18/18 05:12 Sodium 140 mmol/L (137-145) 11/22/18 05:22 Potassium 4.4 mmol/L (3.6-5.0) 11/22/18 05:22 Chloride 99.3 mmol/L (98-107) 11/22/18 05:22 Carbon Dioxide 29 mmol/L (22-30) 11/22/18 05:22 Anion Gap 16 mmol/L 11/22/18 05:22 BUN 28 mg/dL (9-20) H 11/22/18 05:22 Creatinine 2.0 mg/dL (0.8-1.5) H 11/22/18 05:22 Estimated GFR 42 ml/min 11/22/18 05:22 BUN/Creatinine Ratio 14 % 11/22/18 05:22 Glucose 124 mg/dL (75-100) H 11/22/18 05:22 Hemoglobin A1c 5.6 % (4-6) 11/14/18 23:19 Calcium 8.8 mg/dL (8.4-10.2) 11/22/18 05:22 Magnesium 2.20 mg/dL (1.7-2.3) 11/16/18 05:24 Total Bilirubin 0.50 mg/dL (0.1-1.2) 11/15/18 04:29 Direct Bilirubin < 0.2 mg/dL (0-0.2) 11/14/18 17:02 Indirect Bilirubin 0.2 mg/dL 11/14/18 17:02 AST 13 units/L (5-40) 11/15/18 04:29 ALT 7 units/L (7-56) 11/15/18 04:29 Alkaline Phosphatase 91 units/L (35-129) 11/15/18 04:29 Troponin T 0.021 ng/mL (0.00-0.029) 11/15/18 04:29 C-Reactive Protein 26.70 mg/dL (0.00-1.30) H 11/18/18 05:12 NT-Pro-B Natriuret Pep 3963 pg/mL (0-900) H 11/22/18 05:22 Total Protein 6.6 g/dL (6.3-8.2) 11/15/18 04:29 Albumin 3.1 g/dL (3.9-5) L 11/15/18 04:29 Albumin/Globulin Ratio 0.9 % 11/15/18 04:29 Urine Color Yellow (Yellow) 11/15/18 22:45 Urine Turbidity Slightly-cloudy (Clear) 11/15/18 22:45 Urine pH 5.0 (5.0-7.0) 11/15/18 22:45 Ur Specific Spencer 1.027 (1.003-1.030) 11/15/18 22:45 Urine Protein 30 mg/dl mg/dL (Negative) 11/15/18 22:45 Urine Glucose (UA) 50 mg/dL (Negative) 11/15/18 22:45 Urine Ketones Neg mg/dL (Negative) 11/15/18 22:45 Urine Blood Neg (Negative) 11/15/18 22:45 Urine Nitrite Neg (Negative) 11/15/18 22:45 Urine Bilirubin Neg (Negative) 11/15/18 22:45 Urine Urobilinogen 4.0 mg/dL (<2.0) 11/15/18 22:45 Ur Leukocyte Esterase Neg (Negative) 11/15/18 22:45 Urine WBC (Auto) 2.0 /HPF (0.0-6.0) 11/15/18 22:45 Urine RBC (Auto) 5.0 /HPF (0.0-6.0) 11/15/18 22:45 U Epithel Cells (Auto) 1.0 /HPF (0-13.0) 11/15/18 22:45 Urine Creatinine 220.1 mg/dL (0.1-20.0) H 11/15/18 22:45 Protein/Creatinin Ratio 0.30 11/15/18 22:45 Urine Total Protein 65 mg/dL (5-11.8) H 11/15/18 22:45 Rheumatoid Factor 19 IU/ml (0-13) H 11/19/18 13:30 Complement C3 187 mg/dL (82-185) H 11/18/18 05:12 Complement C4 50 mg/dL (15-53) 11/18/18 05:12 HIV 1&2 Antibody Rapid Non react (Non React) 11/18/18 05:12 HIV P24 Antigen Non react (Non React) 11/18/18 05:12 Influenza A (Rapid) Negative (Negative) 11/19/18 Unknown Influenza A (RT-PCR) Negative (Negative) 11/19/18 Unknown Influenza B (Rapid) Negative (Negative) 11/19/18 Unknown Influenza B (RT-PCR) Negative (Negative) 11/19/18 Unknown Miscellaneous Test Flexitest 1 H 11/18/18 06:30 Active Medications - Current Medications Current Medications: Generic Name Dose Route Start Last Admin Trade Name Freq PRN Reason Stop Dose Admin Acetaminophen 650 mg 11/14/18 21:40 11/22/18 15:58 Tylenol PO 650 mg Q4H PRN Administration Pain MILD(1-3)/Fever >100.5/RIVAS Amlodipine Besylate 10 mg 11/15/18 10:00 11/22/18 12:32 Norvasc PO Not Given QDAY KWAME Aspirin 81 mg 11/15/18 10:00 11/22/18 11:42 Halfprin Ec PO 81 mg QDAY KWAME Administration Atorvastatin Calcium 40 mg 11/15/18 22:00 11/22/18 21:22 Lipitor PO 40 mg QHS KWAME Administration Bumetanide 1 mg 11/19/18 18:00 11/22/18 17:49 Bumex IV 1 mg BID@0600,1800 KWAME Administration Famotidine 10 mg 11/14/18 22:00 11/22/18 21:22 Pepcid PO 10 mg BID KWAME Administration Fluconazole 100 mg 11/19/18 14:00 11/22/18 13:54 Diflucan PO 100 mg QDAY KWAME Administration Heparin Sodium (Porcine) 5,000 unit 11/15/18 11:00 11/22/18 21:23 Heparin SUB-Q 5,000 unit Q12HR KWAME Administration Hydralazine HCl 25 mg 11/18/18 15:34 11/22/18 21:22 Apresoline PO 25 mg Q8HR KWAME Administration Isosorbide Mononitrate 30 mg 11/15/18 10:00 11/22/18 12:32 Imdur PO Not Given QDAY KWAME Metoprolol Succinate 50 mg 11/23/18 10:00 Toprol Xl PO QDAY KWAME Ondansetron HCl 4 mg 11/14/18 21:40 11/16/18 06:41 Zofran IV 4 mg Q8H PRN Administration Nausea And Vomiting Pantoprazole Sodium 20 mg 11/18/18 18:00 11/22/18 11:43 Protonix PO 20 mg QDAY KWAME Administration Potassium Chloride 20 meq 11/15/18 06:40 11/22/18 11:42 K-Dur PO 20 meq QDAY KWAME Administration Pregabalin 75 mg 11/16/18 15:00 11/22/18 21:22 Lyrica PO 75 mg BID KWAME Administration Sodium Chloride 10 ml 11/14/18 22:00 11/22/18 21:24 Sodium Chloride Flush Syringe 10 Ml IV 10 ml BID KWAME Administration Sodium Chloride 10 ml 11/14/18 21:40 11/17/18 06:20 Sodium Chloride Flush Syringe 10 Ml IV 10 ml PRN PRN Administration LINE FLUSH Nutrition/Malnutrition Assess - Dietary Evaluation Nutrition/Malnutrition Findings: Nutrition Notes Start: 11/19/18 10:23 Freq: Status: Active Protocol: Document 11/19/18 10:25 (Rec: 11/19/18 10:28 [id number]) Co-Sign 11/19/18 10:25 LP Nutrition Notes Need for Assessment generated from: LOS Initial or Follow up Brief Note Subjective/Other Information Screened for LOS. Per pt's ADL, pt eating 75-100 % of meals recorded. Nutrition Intervention Revisit per MD consult or patient Sign Off request:
[2018-11-23] MEDS: PERCOCET 5/325 PO PRN ×3 (02:25→13:50)
[2018-11-23 05:56] LABS: Calcium 8.9 mg/dL (8.4-10.2)
[2018-11-23] MEDS: BUMEX IV SCH ×2 (06:06→18:02)
[2018-11-23] MEDS: APRESOLINE PO SCH ×3 (06:08→21:41)
[2018-11-23] MEDS: PROTONIX PO SCH (09:19)
[2018-11-23] MEDS: TOPROL XL PO SCH (09:19)
[2018-11-23] MEDS: NORVASC PO SCH ×2 (09:19→09:30)
[2018-11-23] MEDS: HALFPRIN EC PO SCH (09:19)
[2018-11-23] MEDS: PEPCID PO SCH ×2 (09:19→21:41)
[2018-11-23] MEDS: IMDUR PO SCH ×2 (09:20→09:30)
[2018-11-23] MEDS: DIFLUCAN PO SCH (09:20)
[2018-11-23] MEDS: LYRICA PO SCH ×2 (09:20→21:41)
[2018-11-23] MEDS: HEPARIN SUB-Q SCH ×2 (09:25→21:41)
[2018-11-23] MEDS: SODIUM CHLORIDE FLUSH SYRINGE 10 ML IV SCH ×2 (09:30→21:42)
--- NOTE | 2018-11-23 09:56 | Progress Note ---
Assessment and Plan Cultures: 11/15/2018 MRSA nasal culture: Negative 11/17/2018 blood culture: no growth thus far 11/18/2018 HIV: negative A/P: 57-year-old male with cardiomyopathy, status post pacemaker placement about 2 years ago, CKD was admitted to the hospital on 11/14/2018 with complaints of chest pain. The patient recently moved from [place]. Admitted with chest pain. 1) Leukocytosis: trending down. Low grade fever noted. Procal 0.3 c/w low risk for bacterial infection. Patient has an indwelling PPM. UA not suggestive of infection. Chest x-ray with bilateral pleural effusions likely related to CHF. Of note, patient was recently treated for pneumonia and congestive heart failure earlier this month. Has no cough, pneumonia is quite unlikely. Follow-up blood cultures. ESR 55, CRP 26.70 elevated. RF elevated at 19. XR hand c/w OA. CT chest without pneumonia, showed large bilateral pleural effusions and small pericardial effusion. No vegetations noted on TTE. HIV- Non reactive. Influenza Rapid- negative. Influenza PCR -negative.C3/C4 not c/w acute lupus flare. 2) CKD: nephrology following. Has mild proteinuria. 3) Bilateral pleural effusions: likely from CHF. 4) Anorexia: unintentional weight loss of 50+ lbs over the last 6 weeks. HIV negative. Also checking for lupus given family history. 5) Dilated cardiomyopathy: cardiology following. EF 15-20%. Indwelling pacemacker + 6) Proximal PIP swelling: will order Anti-cyclic citrullinated peptide (anti- CCP). Left hand xray findings consistent with mild/moderate osteoarthritis of the digits with greater involvement of the middle finger. No signs of rheumatoid arthritis. 70 Oral Candidiasis: Improved, white plaque on the oropharynx. last dose of fluconazole today. Recs: patient with low grade fever, left side chest pain and chest xray without improvement of left pleural effusion consider thoracentesis continue off antibiotics f/u SANTANA, anti-CCP continue Fluconazole 100 mg po every 24 hours D5 - last dose today monitor fever and chest pain CBC ordered for tomorrow d/w Dr. Kal Dacosta, [facility] M: [phone] O:[phone] Subjective Date of service: 11/23/18 Principal diagnosis: babak on ckd Interval history: Patient seen and examined. Complains of left chest pain. +SOB. no fevers. Objective - Exam Narrative Exam: Constitutional: Alert, cooperative. Mild distress observed. Head, Ears, Nose: Normocephalic, atraumatic. External ears, nose normal Eyes: Conjunctivae/corneas clear. No icterus. No ptosis. Neck: Supple, no meningeal signs Oral: dentition fair, + thrush oropharynx improved Cardiovascular: S1, S2 normal. PPM site is well healed, no swelling or tenderness Respiratory: AE decreased in bases, otherwise clear to ausc. Left pleuritic chest pain with SOB GI: Soft, non-tender; bowel sounds normal. No peritoneal signs Musculoskeletal: No pedal edema, no cyanosis. Skin: No rash or abscess Hem/Lymphatic: No palpable cervical or supraclavicular nodes. No lymphangitis Psych: Mood ok. Affect normal Neurological: Awake, alert, oriented. No gross abnormality - Constitutional Vitals: Vital Signs Temp Pulse Resp BP Pulse Ox 98.0 F 82 18 108/72 98 11/23/18 08:20 11/23/18 08:20 11/23/18 08:20 11/23/18 08:20 11/23/18 08:20 Temperature -Last 24 Hours Temperature 98.0 F Temperature 99.2 F Temperature 100.0 F Temperature 99.2 F Temperature 97.9 F Temperature 98.4 F - Labs CBC & Chem 7: 11/18/18 05:12 11/23/18 05:15 Labs: Abnormal lab results 11/23/18 Range/Units 05:15 Potassium 5.2 H (3.6-5.0) mmol/L Chloride 97.0 L (98-107) mmol/L BUN 29 H (9-20) mg/dL Creatinine 2.1 H (0.8-1.5) mg/dL Glucose 122 H (75-100) mg/dL
--- NOTE | 2018-11-23 12:05 | Progress Note ---
Assessment and Plan - Patient Problems (1) Chronic kidney disease, stage III (moderate) Current Visit: Yes Status: Acute Plan to address problem: Chronic kidney disease stage III* Current creatinine 2.1 mg/dl Etiology of chronic kidney disease is likely related to hypertension and hemodynamic shifts congestive heart failure Continue diuresis (2) CHF exacerbation Current Visit: Yes Status: Acute Qualifiers: Heart failure type: combined systolic and diastolic Qualified Code(s): I50.43 - Acute on chronic combined systolic (congestive) and diastolic (congestive) heart failure Plan to address problem: CHF exacerbation Chest x-ray pulmonary congestion and pulmonary edema Repeat chest x-ray with concern for effusion Will obtain a chest ultrasound. currently on Bumex 1 mg IV twice a day (3) Metabolic alkalosis Current Visit: Yes Status: Acute Plan to address problem: Metabolic alkalosis Secondary to diuresis (4) Hypertension Current Visit: Yes Status: Acute Plan to address problem: Hypertension controlled Monitor blood pressure (5) Hyperkalemia Current Visit: Yes Status: Acute Plan to address problem: Hyperkalemia :iatrogenic - stop potassium chloride supplementation. Subjective Principal diagnosis: babak on ckd Interval history: 58-year-old gentleman with medical history significant for hypertension, chronic kidney disease stage 3 congestive heart failure status post pacemaker placement nephrology following Chronic kidney disease Patient is seen today doesn't have any peripheral edema does have some exertional dyspnea remains on supplemental oxygen I reviewed chest x-ray which showed large left lung effusion/consolidation Objective - Vital Signs Vital signs: Vital Signs - 12hr 11/23/18 11/23/18 11/23/18 00:35 02:25 05:00 Temperature 100.0 F H Pulse Rate 85 80 Respiratory 20 20 Rate Blood Pressure 109/72 O2 Sat by Pulse 97 Oximetry 11/23/18 11/23/18 11/23/18 05:57 06:08 08:20 Temperature 99.2 F 98.0 F Pulse Rate 76 76 82 Respiratory 20 18 Rate Blood Pressure 99/60 99/60 108/72 O2 Sat by Pulse 97 98 Oximetry - General Appearance General appearance: well-developed, well-nourished EENT: ATNC, PERRL Neck: no JVD Respiratory: Present: Decreased Breath Sounds Cardiology: regular, S1S2 Gastrointestinal: normal, normoactive bowel sounds Integumentary: no rash Neurologic: alert and oriented x3, CN 3-12 intact Musculoskeletal: deferred Psychiatric: mood/affect appropriate - Lab 11/18/18 05:12 11/23/18 05:15 Most recent lab results Calcium 8.9 mg/dL (8.4-10.2) 11/23/18 05:15 Magnesium 2.20 mg/dL (1.7-2.3) 11/16/18 05:24 Urine Creatinine 220.1 mg/dL (0.1-20.0) H 11/15/18 22:45 Urine Total Protein 65 mg/dL (5-11.8) H 11/15/18 22:45 - Imaging Chest x-ray: image reviewed (I reviewed CXr with improvement in aeration in right lung ,Left lung with consolidation/effusion. ) Medications & Allergies - Medications Allergies/Adverse Reactions: Allergies lisinopril Allergy (Verified 11/14/18 16:51) Swelling Penicillins Allergy (Verified 11/14/18 16:51) Rash Home Medications: Home Medications Medication Instructions Recorded Confirmed Last Taken Type Amlodipine Besylate [Norvasc] 10 mg PO QDAY 11/14/18 11/14/18 Unknown History Aspirin EC [Aspirin Enteric Coated 81 mg PO QDAY 11/14/18 11/14/18 Unknown History TAB] AtorvaSTATin [Lipitor] 40 mg PO QHS 11/14/18 11/14/18 Unknown History hydrALAZINE [Apresoline TAB] 50 mg PO Q8HR 11/14/18 11/14/18 Unknown History Bumetanide [Bumex 1 mg tab] 1 mg PO BID #60 tab 11/22/18 Unknown Rx Fluconazole [Diflucan TAB] 100 mg PO QDAY #5 tablet 11/22/18 Unknown Rx ISOSORBIDE MONOnitrate [Imdur ER] 30 mg PO QDAY #30 tablet 11/22/18 Unknown Rx Metoprolol Xl [Metoprolol 25 mg PO QDAY #30 tablet 11/22/18 Unknown Rx SUCCINATE ER TAB] Pantoprazole [Protonix TAB] 20 mg PO QDAY #30 tablet.dr 11/22/18 Unknown Rx Potassium Chloride [K-Dur] 20 meq PO QDAY #30 tablet 11/22/18 Unknown Rx Pregabalin [Lyrica] 75 mg PO BID #60 capsule 11/22/18 Unknown Rx Active Medications: Generic Name Dose Route Start Last Admin Trade Name Freq PRN Reason Stop Dose Admin Acetaminophen 650 mg 11/14/18 21:40 11/22/18 15:58 Tylenol PO 650 mg Q4H PRN Administration Pain MILD(1-3)/Fever >100.5/RIVAS Amlodipine Besylate 10 mg 11/15/18 10:00 11/23/18 09:30 Norvasc PO 10 mg QDAY KWAME Administration Aspirin 81 mg 11/15/18 10:00 11/23/18 09:19 Halfprin Ec PO 81 mg QDAY KWAME Administration Atorvastatin Calcium 40 mg 11/15/18 22:00 11/22/18 21:22 Lipitor PO 40 mg QHS KWAME Administration Bumetanide 1 mg 11/19/18 18:00 11/23/18 06:06 Bumex IV 1 mg BID@0600,1800 KWAME Administration Famotidine 10 mg 11/14/18 22:00 11/23/18 09:19 Pepcid PO 10 mg BID KWAME Administration Fluconazole 100 mg 11/19/18 14:00 11/23/18 09:20 Diflucan PO 100 mg QDAY KWAME Administration Heparin Sodium (Porcine) 5,000 unit 11/15/18 11:00 11/23/18 09:25 Heparin SUB-Q 5,000 unit Q12HR KWAME Administration Hydralazine HCl 25 mg 11/18/18 15:34 11/23/18 06:08 Apresoline PO Not Given Q8HR [facility] Isosorbide Mononitrate 30 mg 11/15/18 10:00 11/23/18 09:30 Imdur PO 30 mg QDAY KWAME Administration Metoprolol Succinate 50 mg 11/23/18 10:00 11/23/18 09:19 Toprol Xl PO 50 mg QDAY KWAME Administration Ondansetron HCl 4 mg 11/14/18 21:40 11/16/18 06:41 Zofran IV 4 mg Q8H PRN Administration Nausea And Vomiting Oxycodone/Acetaminophen 1 tab 11/23/18 02:18 11/23/18 08:30 Percocet 5/325 PO 1 tab Q6H PRN Administration Pain, Moderate (4-6) Pantoprazole Sodium 20 mg 11/18/18 18:00 11/23/18 09:19 Protonix PO 20 mg QDAY KWAME Administration Pregabalin 75 mg 11/16/18 15:00 11/23/18 09:20 Lyrica PO 75 mg BID KWAME Administration Sodium Chloride 10 ml 11/14/18 22:00 11/23/18 09:30 Sodium Chloride Flush Syringe 10 Ml IV 10 ml BID KWAME Administration Sodium Chloride 10 ml 11/14/18 21:40 11/17/18 06:20 Sodium Chloride Flush Syringe 10 Ml IV 10 ml PRN PRN Administration LINE FLUSH
--- NOTE | 2018-11-23 12:27 | Progress Note ---
Assessment and Plan Atypical chest pain V/Q scan reports a low probability for PE Leukocytosis Pleural effusion Dual-chamber pacemaker in situ Chronic kidney disease Hx of CAD Hx of Ischemic cardiomyopathy NSVT seen on telemetry 11/22 An echocardiogram which reveals a severe dilated cardiomyopathy, ejection fraction 15-20%. Thallium stress test reports a moderate to large, mostly fixed inferior wall defect. Recommendations: Continue medical therapy for coronary artery disease, ischemic cardiomyopathy and chronic systolic heart failure. LifeVest placement before discharge. Subjective Date of service: 11/23/18 Principal diagnosis: babak on ckd Interval history: Patient has no complaints. No events on telemetry overnight. Objective Vital Signs Temp Pulse Resp BP Pulse Ox 11/23/18 08:20 98.0 F 82 18 108/72 98 11/23/18 06:08 76 99/60 11/23/18 05:57 99.2 F 76 20 99/60 97 11/23/18 05:00 80 11/23/18 02:25 20 11/23/18 00:35 100.0 F H 85 20 109/72 97 11/22/18 21:23 82 116/69 11/22/18 21:22 82 116/69 11/22/18 20:30 99.2 F 81 20 112/71 96 11/22/18 15:17 97.9 F 84 18 115/72 96 11/22/18 12:30 98.4 F 88 18 109/71 90 - Physical Examination General: No Apparent Distress HEENT: Positive: PERRL Neck: Positive: trachea midline Cardiac: Positive: Reg Rate and Rhythm Lungs: Positive: Decreased Breath Sounds Neuro: Positive: Grossly Intact Extremities: Absent: edema - Labs and Meds Comprehensive Metabolic Panel 11/23/18 Range/Units 05:15 Sodium 137 (137-145) mmol/L Potassium 5.2 H (3.6-5.0) mmol/L Chloride 97.0 L (98-107) mmol/L Carbon Dioxide 28 (22-30) mmol/L BUN 29 H (9-20) mg/dL Creatinine 2.1 H (0.8-1.5) mg/dL Glucose 122 H (75-100) mg/dL Calcium 8.9 (8.4-10.2) mg/dL
--- NOTE | 2018-11-23 20:18 | Progress Note ---
Assessment and Plan Assessment and plan: 57-year-old man who presented to the hospital with chest pain, pain is around PPM --Chest pain; continue symptomatic management V/Q scan reports a low probability for PE --Ischemic cardiomyopathy; history of 15-20% Continue current anti-failure medications Patient may need LifeVest recommended by cardiology --History of coronary artery disease; continue current cardiac medications --NSVT on telemetry on 11/22/18 Cardiology following, LifeVest prior to discharge Case management assisting --No kidney disease stage III; closely monitor renal function Avoid nephrotoxins --Bilateral Pleural effusion; anti-failure medications Closely monitor, thoracentesis if needed --PPM in place: Supportive care --DVT prophylaxis; Lovenox --DC planning. Case management Patient will be discharged once LifeVest is available Patient is stable for discharge Plan of care is reviewed with the patient and his nurse as Well as the case management History Interval history: Patient seen and examination medical records reviewed no new events reported by the nursing Vital signs reviewed Hospitalist Physical - Constitutional Vitals: Temp Pulse Resp BP Pulse Ox 98.2 F 80 20 107/58 93 11/23/18 16:14 11/23/18 19:47 11/23/18 19:52 11/23/18 16:14 11/23/18 16:14 General appearance: Present: no acute distress, well-nourished - EENT Eyes: Present: PERRL, EOM intact - Neck Neck: Present: supple, normal ROM - Respiratory Respiratory effort: normal Respiratory: bilateral: diminished, rales, negative: rhonchi, wheezing - Cardiovascular Rhythm: regular Heart Sounds: Present: S1 & S2 - Extremities Extremities: no ischemia, No edema - Abdominal General gastrointestinal: soft, non-tender, non-distended, normal bowel sounds - Integumentary Integumentary: Present: clear, warm - Psychiatric Psychiatric: appropriate mood/affect, cooperative - Neurologic Neurologic: CNII-XII intact, moves all extremities Results - Labs CBC & Chem 7: 11/18/18 05:12 11/23/18 05:15 Labs: Laboratory Last Values WBC 13.4 K/mm3 (4.5-11.0) H 11/18/18 05:12 RBC 3.96 M/mm3 (3.65-5.03) 11/18/18 05:12 Hgb 11.3 gm/dl (11.8-15.2) L 11/18/18 05:12 Hct 34.2 % (35.5-45.6) L 11/18/18 05:12 MCV 87 fl (84-94) 11/18/18 05:12 MCH 29 pg (28-32) 11/18/18 05:12 MCHC 33 % (32-34) 11/18/18 05:12 RDW 17.2 % (13.2-15.2) H 11/18/18 05:12 Plt Count 423 K/mm3 (140-440) 11/18/18 05:12 Lymph % (Auto) 9.3 % (13.4-35.0) L 11/15/18 04:29 [place] % (Auto) 9.5 % (0.0-7.3) H 11/15/18 04:29 Eos % (Auto) 0.8 % (0.0-4.3) 11/15/18 04:29 Baso % (Auto) 0.2 % (0.0-1.8) 11/15/18 04:29 Lymph # 1.4 K/mm3 (1.2-5.4) 11/15/18 04:29 [place] # 1.4 K/mm3 (0.0-0.8) H 11/15/18 04:29 Eos # 0.1 K/mm3 (0.0-0.4) 11/15/18 04:29 Baso # 0.0 K/mm3 (0.0-0.1) 11/15/18 04:29 Seg Neutrophils % 80.2 % (40.0-70.0) H 11/15/18 04:29 Seg Neutrophils # 11.7 K/mm3 (1.8-7.7) H 11/15/18 04:29 ESR 55 mm/Hr (0-20) 11/18/18 05:12 Sodium 137 mmol/L (137-145) 11/23/18 05:15 Potassium 5.2 mmol/L (3.6-5.0) H 11/23/18 05:15 Chloride 97.0 mmol/L (98-107) L 11/23/18 05:15 Carbon Dioxide 28 mmol/L (22-30) 11/23/18 05:15 Anion Gap 17 mmol/L 11/23/18 05:15 BUN 29 mg/dL (9-20) H 11/23/18 05:15 Creatinine 2.1 mg/dL (0.8-1.5) H 11/23/18 05:15 Estimated GFR 39 ml/min 11/23/18 05:15 BUN/Creatinine Ratio 14 % 11/23/18 05:15 Glucose 122 mg/dL (75-100) H 11/23/18 05:15 Hemoglobin A1c 5.6 % (4-6) 11/14/18 23:19 Calcium 8.9 mg/dL (8.4-10.2) 11/23/18 05:15 Magnesium 2.20 mg/dL (1.7-2.3) 11/16/18 05:24 Total Bilirubin 0.50 mg/dL (0.1-1.2) 11/15/18 04:29 Direct Bilirubin < 0.2 mg/dL (0-0.2) 11/14/18 17:02 Indirect Bilirubin 0.2 mg/dL 11/14/18 17:02 AST 13 units/L (5-40) 11/15/18 04:29 ALT 7 units/L (7-56) 11/15/18 04:29 Alkaline Phosphatase 91 units/L (35-129) 11/15/18 04:29 Troponin T 0.021 ng/mL (0.00-0.029) 11/15/18 04:29 C-Reactive Protein 26.70 mg/dL (0.00-1.30) H 11/18/18 05:12 NT-Pro-B Natriuret Pep 3963 pg/mL (0-900) H 11/22/18 05:22 Total Protein 6.6 g/dL (6.3-8.2) 11/15/18 04:29 Albumin 3.1 g/dL (3.9-5) L 11/15/18 04:29 Albumin/Globulin Ratio 0.9 % 11/15/18 04:29 Urine Color Yellow (Yellow) 11/15/18 22:45 Urine Turbidity Slightly-cloudy (Clear) 11/15/18 22:45 Urine pH 5.0 (5.0-7.0) 11/15/18 22:45 Ur Specific [place] 1.027 (1.003-1.030) 11/15/18 22:45 Urine Protein 30 mg/dl mg/dL (Negative) 11/15/18 22:45 Urine Glucose (UA) 50 mg/dL (Negative) 11/15/18 22:45 Urine Ketones Neg mg/dL (Negative) 11/15/18 22:45 Urine Blood Neg (Negative) 11/15/18 22:45 Urine Nitrite Neg (Negative) 11/15/18 22:45 Urine Bilirubin Neg (Negative) 11/15/18 22:45 Urine Urobilinogen 4.0 mg/dL (<2.0) 11/15/18 22:45 Ur Leukocyte Esterase Neg (Negative) 11/15/18 22:45 Urine WBC (Auto) 2.0 /HPF (0.0-6.0) 11/15/18 22:45 Urine RBC (Auto) 5.0 /HPF (0.0-6.0) 11/15/18 22:45 U Epithel Cells (Auto) 1.0 /HPF (0-13.0) 11/15/18 22:45 Urine Creatinine 220.1 mg/dL (0.1-20.0) H 11/15/18 22:45 Protein/Creatinin Ratio 0.30 11/15/18 22:45 Urine Total Protein 65 mg/dL (5-11.8) H 11/15/18 22:45 Rheumatoid Factor 19 IU/ml (0-13) H 11/19/18 13:30 Complement C3 187 mg/dL (82-185) H 11/18/18 05:12 Complement C4 50 mg/dL (15-53) 11/18/18 05:12 HIV 1&2 Antibody Rapid Non react (Non React) 11/18/18 05:12 HIV P24 Antigen Non react (Non React) 11/18/18 05:12 Influenza A (Rapid) Negative (Negative) 11/19/18 Unknown Influenza A (RT-PCR) Negative (Negative) 11/19/18 Unknown Influenza B (Rapid) Negative (Negative) 11/19/18 Unknown Influenza B (RT-PCR) Negative (Negative) 11/19/18 Unknown Miscellaneous Test Flexitest 1 H 11/18/18 06:30 Active Medications - Current Medications Current Medications: Generic Name Dose Route Start Last Admin Trade Name Freq PRN Reason Stop Dose Admin Acetaminophen 650 mg 11/14/18 21:40 11/22/18 15:58 Tylenol PO 650 mg Q4H PRN Administration Pain MILD(1-3)/Fever >100.5/RIVAS Amlodipine Besylate 10 mg 11/15/18 10:00 11/23/18 09:30 Norvasc PO 10 mg QDAY KWAME Administration Aspirin 81 mg 11/15/18 10:00 11/23/18 09:19 Halfprin Ec PO 81 mg QDAY KWAME Administration Atorvastatin Calcium 40 mg 11/15/18 22:00 11/22/18 21:22 Lipitor PO 40 mg QHS KWAME Administration Bumetanide 1 mg 11/19/18 18:00 11/23/18 18:02 Bumex IV 1 mg BID@0600,1800 KWAME Administration Famotidine 10 mg 11/14/18 22:00 11/23/18 09:19 Pepcid PO 10 mg BID KWAME Administration Fluconazole 100 mg 11/19/18 14:00 11/23/18 09:20 Diflucan PO 100 mg QDAY KWAME Administration Heparin Sodium (Porcine) 5,000 unit 11/15/18 11:00 11/23/18 09:25 Heparin SUB-Q 5,000 unit Q12HR [facility] Administration Hydralazine HCl 25 mg 11/18/18 15:34 11/23/18 13:10 Apresoline PO Not Given Q8HR [facility] Isosorbide Mononitrate 30 mg 11/15/18 10:00 11/23/18 09:30 Imdur PO 30 mg QDAY [facility] Administration Metoprolol Succinate 50 mg 11/23/18 10:00 11/23/18 09:19 Toprol Xl PO 50 mg QDAY [facility] Administration Ondansetron HCl 4 mg 11/14/18 21:40 11/16/18 06:41 Zofran IV 4 mg Q8H PRN Administration Nausea And Vomiting Oxycodone/Acetaminophen 1 tab 11/23/18 02:18 11/23/18 13:50 Percocet 5/325 PO 1 tab Q6H PRN Administration Pain, Moderate (4-6) Pantoprazole Sodium 20 mg 11/18/18 18:00 11/23/18 09:19 Protonix PO 20 mg QDAY KWAME Administration Pregabalin 75 mg 11/16/18 15:00 11/23/18 09:20 Lyrica PO 75 mg BID KWAME Administration Sodium Chloride 10 ml 11/14/18 22:00 11/23/18 09:30 Sodium Chloride Flush Syringe 10 Ml IV 10 ml BID KWAME Administration Sodium Chloride 10 ml 11/14/18 21:40 11/17/18 06:20 Sodium Chloride Flush Syringe 10 Ml IV 10 ml PRN PRN Administration LINE FLUSH Nutrition/Malnutrition Assess - Dietary Evaluation Nutrition/Malnutrition Findings: Nutrition Notes Start: 11/19/18 10:23 Freq: Status: Active Protocol: Document 11/19/18 10:25 SA (Rec: 11/19/18 10:28 [facility]-[id number]) Co-Sign 11/19/18 10:25 LP Nutrition Notes Need for Assessment generated from: LOS Initial or Follow up Brief Note Subjective/Other Information Screened for LOS. Per pt's ADL, pt eating 75-100 % of meals recorded. Nutrition Intervention Revisit per MD consult or patient Sign Off request:
--- NOTE | 2018-11-23 23:00 | Ultrasound Report ---
PROCEDURE: US CHEST TECHNIQUE: PROCEDURE: US CHEST TECHNIQUE: Real-time sonography in multiple planes of the chest was performed with image documentati on. HISTORY: pleural effusion COMPARISONS: None . FINDINGS: RIGHT chest: No significant fluid . LEFT chest: Large left pleural effusion is identified. IMPRESSION: Left pleural effusion. HISTORY: pleural effusion COMPARISONS: FINDINGS: IMPRESSION: . This document is electronically signed by Ray Bates MD., November 23 2018 10:59:08 PM ET
[2018-11-24 01:06] LABS: Basophils # (Auto) 0.1 K/mm3 (0.0-0.1); Basophils % (Auto) 0.8 % (0.0-1.8); Eosinophils # (Auto) 0.2 K/mm3 (0.0-0.4); Eosinophils % (Auto) 1.4 % (0.0-4.3); Hematocrit 35.1 % (35.5-45.6); Hemoglobin 11.6 gm/dl (11.8-15.2); Lymphocytes # (Auto) 1.8 K/mm3 (1.2-5.4); Lymphocytes % (Auto) 14.3 % (13.4-35.0); Mean Corpuscular HGB Conc 33 % (32-34); Mean Corpuscular Volume 87 fl (84-94); Monocytes % (Auto) 8.1 % (0.0-7.3); Platelet Count 457 K/mm3 (140-440); Red Blood Count 4.02 M/mm3 (3.65-5.03)
[2018-11-24] MEDS: PERCOCET 5/325 PO PRN ×4 (04:16→18:20)
[2018-11-24] MEDS: BUMEX IV SCH ×2 (06:27→18:20)
[2018-11-24] MEDS: APRESOLINE PO SCH ×3 (06:27→22:19)
[2018-11-24 06:33] LABS: Calcium 8.7 mg/dL (8.4-10.2)
[2018-11-24] MEDS: HEPARIN SUB-Q SCH (09:49)
[2018-11-24] MEDS: HALFPRIN EC PO SCH (09:50)
[2018-11-24] MEDS: PROTONIX PO SCH (09:50)
[2018-11-24] MEDS: IMDUR PO SCH (09:50)
[2018-11-24] MEDS: NORVASC PO SCH (09:50)
[2018-11-24] MEDS: PEPCID PO SCH ×2 (09:50→22:18)
[2018-11-24] MEDS: TOPROL XL PO SCH (09:50)
[2018-11-24] MEDS: LYRICA PO SCH ×2 (09:50→22:18)
[2018-11-24] MEDS: SODIUM CHLORIDE FLUSH SYRINGE 10 ML IV SCH ×2 (09:51→22:19)
--- NOTE | 2018-11-24 10:21 | Progress Note ---
Assessment and Plan Cultures: 11/15/2018 MRSA nasal culture: Negative 11/17/2018 blood culture: no growth thus far 11/18/2018 HIV: negative A/P: 57-year-old male with cardiomyopathy, status post pacemaker placement about 2 years ago, CKD was admitted to the hospital on 11/14/2018 with complaints of chest pain. The patient recently moved from [place]. Admitted with chest pain. 1) Leukocytosis: trending down. no fever > 24 hours. Procal 0.3 c/w low risk for bacterial infection. Patient has an indwelling PPM. UA not suggestive of infection. Chest x-ray with bilateral pleural effusions likely related to CHF. Of note, patient was recently treated for pneumonia and congestive heart failure earlier this month. Has no cough, pneumonia is quite unlikely. Follow-up blood cultures. ESR 55, CRP 26.70 elevated. RF elevated at 19. XR hand c/w OA. CT chest without pneumonia, showed large bilateral pleural effusions and small pericardial effusion. No vegetations noted on TTE. HIV- Non reactive. Influenza Rapid- negative. Influenza PCR -negative.C3/C4 not c/w acute lupus flare. 2) CKD: nephrology following. Has mild proteinuria. 3) Bilateral pleural effusions: Pulmonary following. Ultrasound guided thoracentesis ordered. Please send fluid for Protein, LDH, Glucose, AFB and Fungal, Cell count with Diff and gram stain. 4) Anorexia: unintentional weight loss of 50+ lbs over the last 6 weeks. HIV negative. Also checking for lupus given family history. 5) Dilated cardiomyopathy: cardiology following. EF 15-20%. Indwelling pacemacker + 6) Proximal PIP swelling: will order Anti-cyclic citrullinated peptide (anti- CCP). Left hand xray findings consistent with mild/moderate osteoarthritis of the digits with greater involvement of the middle finger. No signs of rheumatoid arthritis. 70 Oral Candidiasis: Improved, Recs: continue off antibiotics f/u SANTANA, anti-CCP Ultrasound guided thoracentesis ordered. Please send fluid for Protein, LDH, Glucose, AFB and Fungal, Cell count with Diff and gram stain. [facility] M: [phone] O:[phone] Subjective Date of service: 11/24/18 Principal diagnosis: babak on ckd Interval history: Patient seen and examined. Left chest pain continuing, but better than y esterday, Continued SOB. no fevers. Objective - Exam Narrative Exam: Constitutional: Alert, cooperative. Mild distress observed. Head, Ears, Nose: Normocephalic, atraumatic. External ears, nose normal Eyes: Conjunctivae/corneas clear. No icterus. No ptosis. Neck: Supple, no meningeal signs Oral: dentition fair, + thrush oropharynx improved Cardiovascular: S1, S2 normal. PPM site is well healed, no swelling or tenderness Respiratory: AE decreased in bases, otherwise clear to ausc. Left pleuritic chest pain with SOB GI: Soft, non-tender; bowel sounds normal. No peritoneal signs Musculoskeletal: No pedal edema, no cyanosis. Skin: No rash or abscess Hem/Lymphatic: No palpable cervical or supraclavicular nodes. No lymphangitis Psych: Mood ok. Affect normal Neurological: Awake, alert, oriented. No gross abnormality - Constitutional Vitals: Vital Signs Temp Pulse Resp BP Pulse Ox 98.2 F 43 L 18 107/64 95 11/24/18 08:10 11/24/18 08:10 11/24/18 08:10 11/24/18 08:10 11/24/18 08:10 Temperature -Last 24 Hours Temperature 98.2 F Temperature 99.3 F Temperature 99.5 F Temperature 98.4 F Temperature 98.2 F Temperature 98.6 F - Labs CBC & Chem 7: 11/24/18 00:35 11/24/18 05:33 Labs: Abnormal lab results 11/24/18 11/24/18 Range/Units 00:35 05:33 WBC 12.7 H (4.5-11.0) K/mm3 Hgb 11.6 L (11.8-15.2) gm/dl Hct 35.1 L (35.5-45.6) % RDW 17.0 H (13.2-15.2) % Plt Count 457 H (140-440) K/mm3 [place] % (Auto) 8.1 H (0.0-7.3) % [place] # 1.0 H (0.0-0.8) K/mm3 Seg Neutrophils % 75.4 H (40.0-70.0) % Seg Neutrophils # 9.6 H (1.8-7.7) K/mm3 Chloride 96.9 L (98-107) mmol/L BUN 30 H (9-20) mg/dL Creatinine 2.0 H (0.8-1.5) mg/dL Glucose 109 H (75-100) mg/dL
--- NOTE | 2018-11-24 10:56 | Progress Note ---
Assessment and Plan Atypical chest pain V/Q scan reports a low probability for PE Leukocytosis Pleural effusion Dual-chamber pacemaker in situ Chronic kidney disease Hx of CAD Hx of Ischemic cardiomyopathy NSVT seen on telemetry 11/22 An echocardiogram which reveals a severe dilated cardiomyopathy, ejection fraction 15-20%. Thallium stress test reports a moderate to large, mostly fixed inferior wall defect. Recommendations: Continue medical therapy for coronary artery disease, ischemic cardiomyopathy and chronic systolic heart failure. LifeVest placement before discharge. Subjective Date of service: 11/24/18 Principal diagnosis: babak on ckd Interval history: Patient has no complaints. No events on telemetry overnight. Objective Vital Signs Temp Pulse Resp BP Pulse Ox 11/24/18 08:10 98.2 F 43 L 18 107/64 95 11/24/18 07:00 43 L 11/24/18 04:01 99.3 F 85 18 110/69 94 11/23/18 23:31 99.5 F 88 14 110/63 98 11/23/18 20:13 98.4 F 88 18 118/72 90 11/23/18 19:52 20 11/23/18 19:47 80 11/23/18 17:00 81 11/23/18 16:14 98.2 F 81 18 107/58 93 11/23/18 12:01 98.6 F 83 18 100/59 93 - Physical Examination General: No Apparent Distress HEENT: Positive: PERRL Neck: Positive: trachea midline Cardiac: Positive: Other (paced) Lungs: Positive: Decreased Breath Sounds Neuro: Positive: Grossly Intact Extremities: Absent: edema - Labs and Meds CBC 11/24/18 Range/Units 00:35 WBC 12.7 H (4.5-11.0) K/mm3 RBC 4.02 (3.65-5.03) M/mm3 Hgb 11.6 L (11.8-15.2) gm/dl Hct 35.1 L (35.5-45.6) % Plt Count 457 H (140-440) K/mm3 Lymph # 1.8 (1.2-5.4) K/mm3 [place] # 1.0 H (0.0-0.8) K/mm3 Eos # 0.2 (0.0-0.4) K/mm3 Baso # 0.1 (0.0-0.1) K/mm3 Comprehensive Metabolic Panel 11/24/18 Range/Units 05:33 Sodium 138 (137-145) mmol/L Potassium 4.6 (3.6-5.0) mmol/L Chloride 96.9 L (98-107) mmol/L Carbon Dioxide 29 (22-30) mmol/L BUN 30 H (9-20) mg/dL Creatinine 2.0 H (0.8-1.5) mg/dL Glucose 109 H (75-100) mg/dL Calcium 8.7 (8.4-10.2) mg/dL
--- NOTE | 2018-11-24 12:53 | Progress Note ---
Assessment and Plan Assessment and plan: 57-year-old man who presented to the hospital with chest pain, pain is around PPM --Chest pain; continue symptomatic management V/Q scan reports a low probability for PE --Ischemic cardiomyopathy; history of 15-20% Continue current anti-failure medications Patient may need LifeVest recommended by cardiology --History of coronary artery disease; continue current cardiac medications --NSVT on telemetry on 11/22/18 Cardiology following, LifeVest prior to discharge Case management assisting --No kidney disease stage III; closely monitor renal function Avoid nephrotoxins --Bilateral Pleural effusion;Lt larger than Rt. cont anti-failure medications Closely monitor, thoracentesis if needed --PPM in place: Supportive care --DVT prophylaxis; Lovenox --DC planning. Case management Patient will be discharged once LifeVest is available Plan of care is reviewed with the patient and his nurse as Well as the case management History Interval history: Patient seen and examined medical records reviewed Complains of mild shortness of breath Records reviewed Vital signs reviewed Hospitalist Physical - Constitutional Vitals: Temp Pulse Resp BP Pulse Ox 98.2 F 43 L 18 107/64 95 11/24/18 08:10 11/24/18 08:10 11/24/18 08:10 11/24/18 08:10 11/24/18 08:10 General appearance: Present: no acute distress, well-nourished - EENT Eyes: Present: PERRL, EOM intact - Neck Neck: Present: supple, normal ROM - Respiratory Respiratory effort: normal Respiratory: bilateral: diminished, rales, negative: rhonchi, wheezing - Cardiovascular Rhythm: regular Heart Sounds: Present: S1 & S2 - Extremities Extremities: no ischemia - Abdominal General gastrointestinal: soft, non-tender, non-distended, normal bowel sounds - Integumentary Integumentary: Present: clear, warm - Psychiatric Psychiatric: appropriate mood/affect, cooperative - Neurologic Neurologic: CNII-XII intact, moves all extremities Results - Labs CBC & Chem 7: 11/24/18 00:35 11/25/18 05:26 Labs: Laboratory Last Values WBC 12.7 K/mm3 (4.5-11.0) H 11/24/18 00:35 RBC 4.02 M/mm3 (3.65-5.03) 11/24/18 00:35 Hgb 11.6 gm/dl (11.8-15.2) L 11/24/18 00:35 Hct 35.1 % (35.5-45.6) L 11/24/18 00:35 MCV 87 fl (84-94) 11/24/18 00:35 MCH 29 pg (28-32) 11/24/18 00:35 MCHC 33 % (32-34) 11/24/18 00:35 RDW 17.0 % (13.2-15.2) H 11/24/18 00:35 Plt Count 457 K/mm3 (140-440) H 11/24/18 00:35 Lymph % (Auto) 14.3 % (13.4-35.0) 11/24/18 00:35 [place] % (Auto) 8.1 % (0.0-7.3) H 11/24/18 00:35 Eos % (Auto) 1.4 % (0.0-4.3) 11/24/18 00:35 Baso % (Auto) 0.8 % (0.0-1.8) 11/24/18 00:35 Lymph # 1.8 K/mm3 (1.2-5.4) 11/24/18 00:35 [place] # 1.0 K/mm3 (0.0-0.8) H 11/24/18 00:35 Eos # 0.2 K/mm3 (0.0-0.4) 11/24/18 00:35 Baso # 0.1 K/mm3 (0.0-0.1) 11/24/18 00:35 Seg Neutrophils % 75.4 % (40.0-70.0) H 11/24/18 00:35 Seg Neutrophils # 9.6 K/mm3 (1.8-7.7) H 11/24/18 00:35 ESR 55 mm/Hr (0-20) 11/18/18 05:12 Sodium 138 mmol/L (137-145) 11/24/18 05:33 Potassium 4.6 mmol/L (3.6-5.0) 11/24/18 05:33 Chloride 96.9 mmol/L (98-107) L 11/24/18 05:33 Carbon Dioxide 29 mmol/L (22-30) 11/24/18 05:33 Anion Gap 17 mmol/L 11/24/18 05:33 BUN 30 mg/dL (9-20) H 11/24/18 05:33 Creatinine 2.0 mg/dL (0.8-1.5) H 11/24/18 05:33 Estimated GFR 42 ml/min 11/24/18 05:33 BUN/Creatinine Ratio 15 % 11/24/18 05:33 Glucose 109 mg/dL (75-100) H 11/24/18 05:33 Hemoglobin A1c 5.6 % (4-6) 11/14/18 23:19 Calcium 8.7 mg/dL (8.4-10.2) 11/24/18 05:33 Magnesium 2.20 mg/dL (1.7-2.3) 11/16/18 05:24 Total Bilirubin 0.50 mg/dL (0.1-1.2) 11/15/18 04:29 Direct Bilirubin < 0.2 mg/dL (0-0.2) 11/14/18 17:02 Indirect Bilirubin 0.2 mg/dL 11/14/18 17:02 AST 13 units/L (5-40) 11/15/18 04:29 ALT 7 units/L (7-56) 11/15/18 04:29 Alkaline Phosphatase 91 units/L (35-129) 11/15/18 04:29 Troponin T 0.021 ng/mL (0.00-0.029) 11/15/18 04:29 C-Reactive Protein 26.70 mg/dL (0.00-1.30) H 11/18/18 05:12 NT-Pro-B Natriuret Pep 3963 pg/mL (0-900) H 11/22/18 05:22 Total Protein 6.6 g/dL (6.3-8.2) 11/15/18 04:29 Albumin 3.1 g/dL (3.9-5) L 11/15/18 04:29 Albumin/Globulin Ratio 0.9 % 11/15/18 04:29 Urine Color Yellow (Yellow) 11/15/18 22:45 Urine Turbidity Slightly-cloudy (Clear) 11/15/18 22:45 Urine pH 5.0 (5.0-7.0) 11/15/18 22:45 Ur Specific [place] 1.027 (1.003-1.030) 11/15/18 22:45 Urine Protein 30 mg/dl mg/dL (Negative) 11/15/18 22:45 Urine Glucose (UA) 50 mg/dL (Negative) 11/15/18 22:45 Urine Ketones Neg mg/dL (Negative) 11/15/18 22:45 Urine Blood Neg (Negative) 11/15/18 22:45 Urine Nitrite Neg (Negative) 11/15/18 22:45 Urine Bilirubin Neg (Negative) 11/15/18 22:45 Urine Urobilinogen 4.0 mg/dL (<2.0) 11/15/18 22:45 Ur Leukocyte Esterase Neg (Negative) 11/15/18 22:45 Urine WBC (Auto) 2.0 /HPF (0.0-6.0) 11/15/18 22:45 Urine RBC (Auto) 5.0 /HPF (0.0-6.0) 11/15/18 22:45 U Epithel Cells (Auto) 1.0 /HPF (0-13.0) 11/15/18 22:45 Urine Creatinine 220.1 mg/dL (0.1-20.0) H 11/15/18 22:45 Protein/Creatinin Ratio 0.30 11/15/18 22:45 Urine Total Protein 65 mg/dL (5-11.8) H 11/15/18 22:45 Rheumatoid Factor 19 IU/ml (0-13) H 11/19/18 13:30 Complement C3 187 mg/dL (82-185) H 11/18/18 05:12 Complement C4 50 mg/dL (15-53) 11/18/18 05:12 HIV 1&2 Antibody Rapid Non react (Non React) 11/18/18 05:12 HIV P24 Antigen Non react (Non React) 11/18/18 05:12 Influenza A (Rapid) Negative (Negative) 11/19/18 Unknown Influenza A (RT-PCR) Negative (Negative) 11/19/18 Unknown Influenza B (Rapid) Negative (Negative) 11/19/18 Unknown Influenza B (RT-PCR) Negative (Negative) 11/19/18 Unknown Miscellaneous Test Flexitest 1 H 11/18/18 06:30 Active Medications - Current Medications Current Medications: Generic Name Dose Route Start Last Admin Trade Name Freq PRN Reason Stop Dose Admin Acetaminophen 650 mg 04/14/19 21:40 11/22/18 15:58 Tylenol PO 650 mg Q4H PRN Administration Pain MILD(1-3)/Fever >100.5/RIVAS Amlodipine Besylate 10 mg 11/15/18 10:00 11/24/18 09:50 Norvasc PO 10 mg QDAY KWAME Administration Aspirin 81 mg 11/15/18 10:00 11/24/18 09:50 Halfprin Ec PO 81 mg QDAY KWAME Administration Atorvastatin Calcium 40 mg 11/15/18 22:00 11/23/18 21:41 Lipitor PO 40 mg QHS KWAME Administration Bumetanide 1 mg 11/19/18 18:00 11/24/18 06:27 Bumex IV 1 mg BID@0600,1800 KWAME Administration Famotidine 10 mg 11/14/18 22:00 11/24/18 09:50 Pepcid PO 10 mg BID KWAME Administration Heparin Sodium (Porcine) 5,000 unit 11/15/18 11:00 11/24/18 09:49 Heparin SUB-Q 5,000 unit Q12HR KWAME Administration Hydralazine HCl 25 mg 11/18/18 15:34 11/24/18 06:27 Apresoline PO 25 mg Q8HR KWAME Administration Isosorbide Mononitrate 30 mg 11/15/18 10:00 11/24/18 09:50 Imdur PO 30 mg QDAY KWAME Administration Metoprolol Succinate 50 mg 11/23/18 10:00 11/24/18 09:50 Toprol Xl PO 50 mg QDAY KWAME Administration Ondansetron HCl 4 mg 11/14/18 21:40 11/16/18 06:41 Zofran IV 4 mg Q8H PRN Administration Nausea And Vomiting Oxycodone/Acetaminophen 1 tab 11/23/18 02:18 11/24/18 04:16 Percocet 5/325 PO 1 tab Q6H PRN Administration Pain, Moderate (4-6) Pantoprazole Sodium 20 mg 11/18/18 18:00 11/24/18 09:50 Protonix PO 20 mg QDAY KWAME Administration Pregabalin 75 mg 11/16/18 15:00 11/24/18 09:50 Lyrica PO 75 mg BID KWAME Administration Sodium Chloride 10 ml 11/14/18 22:00 11/24/18 09:51 Sodium Chloride Flush Syringe 10 Ml IV 10 ml BID KWAME Administration Sodium Chloride 10 ml 11/14/18 21:40 11/17/18 06:20 Sodium Chloride Flush Syringe 10 Ml IV 10 ml PRN PRN Administration LINE FLUSH Nutrition/Malnutrition Assess - Dietary Evaluation Nutrition/Malnutrition Findings: Nutrition Notes Start: 11/19/18 10:23 Freq: Status: Active Protocol: Document 11/19/18 10:25 SA (Rec: 11/19/18 10:28 [facility]-[id number]) Co-Sign 11/19/18 10:25 LP Nutrition Notes Need for Assessment generated from: LOS Initial or Follow up Brief Note Subjective/Other Information Screened for LOS. Per pt's ADL, pt eating 75-100 % of meals recorded. Nutrition Intervention Revisit per MD consult or patient Sign Off request:
--- NOTE | 2018-11-24 13:59 | Consultation ---
History of Present Illness Consult date: 11/24/18 Requesting physician: RAY COWAN Reason for consult: pleural effusion History of present illness: 58 y/o male originally admitted back on 11/14 with chest pain. CXR at that time showed cardiomegaly but no pleural effusions. Patient had elevated WBC and low grade temps. ID and cards have been following as well as IMS. Patient has been getting diuresed with IV bumex but effusion appears to have developed while in house. Pulmonary consulted today secondary to large effusion. Patient is asleep in the room on room air and does not appear in distress. Past History Past Medical History: heart failure, hypertension, renal failure Past Surgical History: Other (pacemaker implant) Medications and Allergies Allergies Allergy/AdvReac Type Severity Reaction Status Date / Time lisinopril Allergy Swelling Verified 11/14/18 16:51 Penicillins Allergy Rash Verified 11/14/18 16:51 Home Medications Medication Instructions Recorded Confirmed Last Taken Type Amlodipine Besylate [Norvasc] 10 mg PO QDAY 11/14/18 11/14/18 Unknown History Aspirin EC [Aspirin Enteric Coated 81 mg PO QDAY 11/14/18 11/14/18 Unknown History TAB] AtorvaSTATin [Lipitor] 40 mg PO QHS 11/14/18 11/14/18 Unknown History hydrALAZINE [Apresoline TAB] 50 mg PO Q8HR 11/14/18 11/14/18 Unknown History Bumetanide [Bumex 1 mg tab] 1 mg PO BID #60 tab 11/22/18 Unknown Rx Fluconazole [Diflucan TAB] 100 mg PO QDAY #5 tablet 11/22/18 Unknown Rx ISOSORBIDE MONOnitrate [Imdur ER] 30 mg PO QDAY #30 tablet 11/22/18 Unknown Rx Metoprolol Xl [Metoprolol 25 mg PO QDAY #30 tablet 11/22/18 Unknown Rx SUCCINATE ER TAB] Pantoprazole [Protonix TAB] 20 mg PO QDAY #30 tablet. 11/22/18 Unknown Rx Potassium Chloride [K-Dur] 20 meq PO QDAY #30 tablet 11/22/18 Unknown Rx Pregabalin [Lyrica] 75 mg PO BID #60 capsule 11/22/18 Unknown Rx Active Meds: Active Medications Acetaminophen (Tylenol) 650 mg PO Q4H PRN PRN Reason: Pain MILD(1-3)/Fever >100.5/RIVAS Last Admin: 11/22/18 15:58 Dose: 650 mg Documented by: Amlodipine Besylate (Norvasc) 10 mg PO QDAY [facility] Last Admin: 11/24/18 09:50 Dose: 10 mg Documented by: Aspirin (Halfprin Ec) 81 mg PO QDAY [facility] Last Admin: 11/24/18 09:50 Dose: 81 mg Documented by: Atorvastatin Calcium (Lipitor) 40 mg PO QHS [facility] Last Admin: 11/23/18 21:41 Dose: 40 mg Documented by: Bumetanide (Bumex) 1 mg IV BID@0600,1800 [facility] Last Admin: 11/24/18 06:27 Dose: 1 mg Documented by: Famotidine (Pepcid) 10 mg PO BID [facility] Last Admin: 11/24/18 09:50 Dose: 10 mg Documented by: Heparin Sodium (Porcine) (Heparin) 5,000 unit SUB-Q Q12HR [facility] Last Admin: 11/24/18 09:49 Dose: 5,000 unit Documented by: Hydralazine HCl (Apresoline) 25 mg PO Q8HR [facility] Last Admin: 11/24/18 06:27 Dose: 25 mg Documented by: Isosorbide Mononitrate (Imdur) 30 mg PO QDAY [facility] Last Admin: 11/24/18 09:50 Dose: 30 mg Documented by: Metoprolol Succinate (Toprol Xl) 50 mg PO QDAY [facility] Last Admin: 11/24/18 09:50 Dose: 50 mg Documented by: Ondansetron HCl (Zofran) 4 mg IV Q8H PRN PRN Reason: Nausea And Vomiting Last Admin: 11/16/18 06:41 Dose: 4 mg Documented by: Oxycodone/Acetaminophen (Percocet 5/325) 1 tab PO Q6H PRN PRN Reason: Pain, Moderate (4-6) Last Admin: 11/24/18 04:16 Dose: 1 tab Documented by: Pantoprazole Sodium (Protonix) 20 mg PO QDAY [facility] Last Admin: 11/24/18 09:50 Dose: 20 mg Documented by: Pregabalin (Lyrica) 75 mg PO BID [facility] Last Admin: 11/24/18 09:50 Dose: 75 mg Documented by: Sodium Chloride (Sodium Chloride Flush Syringe 10 Ml) 10 ml IV BID KWAME Last Admin: 11/24/18 09:51 Dose: 10 ml Documented by: Sodium Chloride (Sodium Chloride Flush Syringe 10 Ml) 10 ml IV PRN PRN PRN Reason: LINE FLUSH Last Admin: 11/17/18 06:20 Dose: 10 ml Documented by: Review of Systems All systems: negative Physical Examination Vital signs: Vital Signs Temp Pulse Resp BP Pulse Ox 98.5 F 98 H 19 122/67 95 11/14/18 16:51 11/14/18 16:51 11/14/18 16:51 11/14/18 16:51 11/14/18 16:51 General appearance: no acute distress, asleep ENT: oropharynx moist Neck: supple Ascultation: Left: diminished breath sounds Percussion: Left: dull (base) Cardiovascular: regular rate and rhythm Gastrointestinal: normoactive bowel sounds Results - Laboratory Findings CBC and BMP: 11/24/18 00:35 11/24/18 05:33 Abnormal lab findings: Abnormal Labs 11/14/18 11/14/18 11/14/18 17:02 17:02 17:02 WBC 14.9 H Hgb Hct RDW 17.5 H Plt Count Lymph % (Auto) 7.7 L [place] % (Auto) 8.3 H Lymph # 1.1 L [place] # 1.2 H Seg Neutrophils % 83.2 H Seg Neutrophils # 12.4 H Sodium Potassium Chloride BUN 31 H Creatinine 2.0 H Glucose 109 H C-Reactive Protein NT-Pro-B Natriuret Pep Albumin 3.3 L Urine Creatinine Urine Total Protein Rheumatoid Factor Complement C3 Miscellaneous Test 11/14/18 11/15/18 11/15/18 17:02 04:29 04:29 WBC 14.6 H Hgb Hct RDW 17.3 H Plt Count Lymph % (Auto) 9.3 L [place] % (Auto) 9.5 H Lymph # [place] # 1.4 H Seg Neutrophils % 80.2 H Seg Neutrophils # 11.7 H Sodium Potassium Chloride BUN 30 H Creatinine 2.1 H Glucose C-Reactive Protein NT-Pro-B Natriuret Pep 2385 H Albumin 3.1 L Urine Creatinine Urine Total Protein Rheumatoid Factor Complement C3 Miscellaneous Test 11/15/18 11/16/18 11/16/18 22:45 05:24 05:24 WBC 14.4 H Hgb Hct RDW 16.9 H Plt Count Lymph % (Auto) [place] % (Auto) Lymph # [place] # Seg Neutrophils % Seg Neutrophils # Sodium 136 L Potassium Chloride 96.7 L BUN 28 H Creatinine 2.0 H Glucose C-Reactive Protein NT-Pro-B Natriuret Pep Albumin Urine Creatinine 220.1 H Urine Total Protein 65 H Rheumatoid Factor Complement C3 Miscellaneous Test 11/17/18 11/17/18 11/18/18 05:00 05:00 05:12 WBC 14.0 H 13.4 H Hgb 11.3 L Hct 34.2 L RDW 17.3 H 17.2 H Plt Count Lymph % (Auto) [place] % (Auto) Lymph # [place] # Seg Neutrophils % Seg Neutrophils # Sodium 136 L Potassium Chloride 97.7 L BUN 29 H Creatinine 2.2 H Glucose 109 H C-Reactive Protein NT-Pro-B Natriuret Pep Albumin Urine Creatinine Urine Total Protein Rheumatoid Factor Complement C3 Miscellaneous Test 11/18/18 11/18/18 11/18/18 05:12 05:12 06:30 WBC Hgb Hct RDW Plt Count Lymph % (Auto) [place] % (Auto) Lymph # [place] # Seg Neutrophils % Seg Neutrophils # Sodium Potassium Chloride BUN 31 H Creatinine 2.2 H Glucose 115 H C-Reactive Protein 26.70 H NT-Pro-B Natriuret Pep Albumin Urine Creatinine Urine Total Protein Rheumatoid Factor Complement C3 187 H Miscellaneous Test Flexitest 1 H 11/19/18 11/21/18 11/22/18 13:30 07:20 05:22 WBC Hgb Hct RDW Plt Count Lymph % (Auto) [place] % (Auto) Lymph # [place] # Seg Neutrophils % Seg Neutrophils # Sodium Potassium Chloride 96.4 L BUN 29 H 28 H Creatinine 2.0 H 2.0 H Glucose 124 H C-Reactive Protein NT-Pro-B Natriuret Pep Albumin Urine Creatinine Urine Total Protein Rheumatoid Factor 19 H Complement C3 Miscellaneous Test 11/22/18 11/23/18 11/24/18 05:22 05:15 00:35 WBC 12.7 H Hgb 11.6 L Hct 35.1 L RDW 17.0 H Plt Count 457 H Lymph % (Auto) [place] % (Auto) 8.1 H Lymph # [place] # 1.0 H Seg Neutrophils % 75.4 H Seg Neutrophils # 9.6 H Sodium Potassium 5.2 H Chloride 97.0 L BUN 29 H Creatinine 2.1 H Glucose 122 H C-Reactive Protein NT-Pro-B Natriuret Pep 3963 H Albumin Urine Creatinine Urine Total Protein Rheumatoid Factor Complement C3 Miscellaneous Test 11/24/18 05:33 WBC Hgb Hct RDW Plt Count Lymph % (Auto) [place] % (Auto) Lymph # [place] # Seg Neutrophils % Seg Neutrophils # Sodium Potassium Chloride 96.9 L BUN 30 H Creatinine 2.0 H Glucose 109 H C-Reactive Protein NT-Pro-B Natriuret Pep Albumin Urine Creatinine Urine Total Protein Rheumatoid Factor Complement C3 Miscellaneous Test - Diagnostic Findings Chest x-ray: image reviewed (left sided pleural effusion) Assessment and Plan 58 y/o male with large left sided pleural effusion that developed during hospital stay 1. Suggest Ultrasound guided thoracentesis. 2. Suggest sending fluid for Protein, LDH, Glucose, AFB and Fungal, Cell count with Diff and gram stain. If blood can send hematocrit on it. 3. Please check serum LDH and serum protein 4. Will need coags as well 5. Chest ultrasound was done yesterday but I assume this was just to confirm CXR findings? Thank you for this consult, will continue to follow along with you.
--- NOTE | 2018-11-24 17:59 | Progress Note ---
Assessment and Plan - Patient Problems (1) Chronic kidney disease, stage III (moderate) Current Visit: Yes Status: Acute Plan to address problem: Chronic kidney disease stage III* Current creatinine 2.0 mg/dl Etiology of chronic kidney disease is likely related to hypertension and hemodynamic shifts congestive heart failure large left pleural effusion Suggest thoracentesis as this is unlikely to improve with diuresis. Continue diuresis (2) CHF exacerbation Current Visit: Yes Status: Acute Qualifiers: Heart failure type: combined systolic and diastolic Qualified Code(s): I50.43 - Acute on chronic combined systolic (congestive) and diastolic (congestive) heart failure Plan to address problem: CHF exacerbation Chest x-ray pulmonary congestion and pulmonary edema Repeat chest x-ray with concern for effusion consider thoracentesis ?transudate. currently on Bumex 1 mg IV twice a day (3) Metabolic alkalosis Current Visit: Yes Status: Acute Plan to address problem: Metabolic alkalosis Secondary to diuresis (4) Hypertension Current Visit: Yes Status: Acute Plan to address problem: Hypertension controlled Monitor blood pressure (5) Hyperkalemia Current Visit: Yes Status: Acute Plan to address problem: Hyperkalemia :iatrogenic - stop potassium chloride supplementation. Subjective Principal diagnosis: babak on ckd Interval history: 58-year-old gentleman with medical history significant for hypertension, chronic kidney disease stage 3 congestive heart failure status post pacemaker placement nephrology following Chronic kidney disease Patient is seen today doesn't have any peripheral edema feels better ,still has some exertional dyspnea. I reviewed chest x-ray which showed large left lung effusion Objective - Vital Signs Vital signs: Vital Signs - 12hr 11/24/18 11/24/18 11/24/18 07:00 08:10 13:18 Temperature 98.2 F 97.9 F Pulse Rate 43 L 43 L 86 Respiratory 18 18 Rate Blood Pressure 107/64 117/70 O2 Sat by Pulse 95 91 Oximetry 11/24/18 11/24/18 13:19 15:53 Temperature 97.9 F 99.0 F Pulse Rate 86 83 Respiratory 18 18 Rate Blood Pressure 99/64 O2 Sat by Pulse 90 93 Oximetry - General Appearance General appearance: well-developed, well-nourished EENT: ATNC Neck: no JVD Respiratory: Present: Decreased Breath Sounds Cardiology: regular, S1S2 Gastrointestinal: normal, normoactive bowel sounds Integumentary: no rash Neurologic: alert and oriented x3, CN 3-12 intact Psychiatric: mood/affect appropriate - Lab 11/24/18 00:35 11/24/18 05:33 Most recent lab results Calcium 8.7 mg/dL (8.4-10.2) 11/24/18 05:33 Magnesium 2.20 mg/dL (1.7-2.3) 11/16/18 05:24 Urine Creatinine 220.1 mg/dL (0.1-20.0) H 11/15/18 22:45 Urine Total Protein 65 mg/dL (5-11.8) H 11/15/18 22:45 - Imaging Chest x-ray: image reviewed (I reviewed CXR with improvement in lung aeration on right lung, left lung with large effusion) Medications & Allergies - Medications Allergies/Adverse Reactions: Allergies lisinopril Allergy (Verified 11/14/18 16:51) Swelling Penicillins Allergy (Verified 11/14/18 16:51) Rash Home Medications: Home Medications Medication Instructions Recorded Confirmed Last Taken Type Amlodipine Besylate [Norvasc] 10 mg PO QDAY 11/14/18 11/14/18 Unknown History Aspirin EC [Aspirin Enteric Coated 81 mg PO QDAY 11/14/18 11/14/18 Unknown History TAB] AtorvaSTATin [Lipitor] 40 mg PO QHS 11/14/18 11/14/18 Unknown History hydrALAZINE [Apresoline TAB] 50 mg PO Q8HR 11/14/18 11/14/18 Unknown History Bumetanide [Bumex 1 mg tab] 1 mg PO BID #60 tab 11/22/18 Unknown Rx Fluconazole [Diflucan TAB] 100 mg PO QDAY #5 tablet 11/22/18 Unknown Rx ISOSORBIDE MONOnitrate [Imdur ER] 30 mg PO QDAY #30 tablet 11/22/18 Unknown Rx Metoprolol Xl [Metoprolol 25 mg PO QDAY #30 tablet 11/22/18 Unknown Rx SUCCINATE ER TAB] Pantoprazole [Protonix TAB] 20 mg PO QDAY #30 tablet.dr 11/22/18 Unknown Rx Potassium Chloride [K-Dur] 20 meq PO QDAY #30 tablet 11/22/18 Unknown Rx Pregabalin [Lyrica] 75 mg PO BID #60 capsule 11/22/18 Unknown Rx Active Medications: Generic Name Dose Route Start Last Admin Trade Name Freq PRN Reason Stop Dose Admin Acetaminophen 650 mg 11/14/18 21:40 11/22/18 15:58 Tylenol PO 650 mg Q4H PRN Administration Pain MILD(1-3)/Fever >100.5/RIVAS Amlodipine Besylate 10 mg 11/15/18 10:00 11/24/18 09:50 Norvasc PO 10 mg QDAY KWAME Administration Aspirin 81 mg 11/15/18 10:00 11/24/18 09:50 Halfprin Ec PO 81 mg QDAY KWAME Administration Atorvastatin Calcium 40 mg 11/15/18 22:00 11/23/18 21:41 Lipitor PO 40 mg QHS KWAME Administration Bumetanide 1 mg 11/19/18 18:00 11/24/18 06:27 Bumex IV 1 mg BID@0600,1800 KWAME Administration Famotidine 10 mg 11/14/18 22:00 11/24/18 09:50 Pepcid PO 10 mg BID KWAME Administration Hydralazine HCl 25 mg 11/18/18 15:34 11/24/18 14:47 Apresoline PO 25 mg Q8HR KWAME Administration Isosorbide Mononitrate 30 mg 11/15/18 10:00 11/24/18 09:50 Imdur PO 30 mg QDAY KWAME Administration Metoprolol Succinate 50 mg 11/23/18 10:00 11/24/18 09:50 Toprol Xl PO 50 mg QDAY KWAME Administration Ondansetron HCl 4 mg 11/14/18 21:40 11/16/18 06:41 Zofran IV 4 mg Q8H PRN Administration Nausea And Vomiting Oxycodone/Acetaminophen 1 tab 11/23/18 02:18 11/24/18 13:05 Percocet 5/325 PO 1 tab Q6H PRN Administration Pain, Moderate (4-6) Pantoprazole Sodium 20 mg 11/18/18 18:00 11/24/18 09:50 Protonix PO 20 mg QDAY KWAME Administration Pregabalin 75 mg 11/16/18 15:00 11/24/18 09:50 Lyrica PO 75 mg BID KWAME Administration Sodium Chloride 10 ml 11/14/18 22:00 11/24/18 09:51 Sodium Chloride Flush Syringe 10 Ml IV 10 ml BID KWAME Administration Sodium Chloride 10 ml 11/14/18 21:40 11/17/18 06:20 Sodium Chloride Flush Syringe 10 Ml IV 10 ml PRN PRN Administration LINE FLUSH
[2018-11-24 20:30] LABS: INR 1.05 (0.87-1.13)
[2018-11-24 21:10] LABS: ANA Screen, IFA Negative (Negative)
[2018-11-25] MEDS: PERCOCET 5/325 PO PRN ×3 (03:50→20:13)
[2018-11-25] MEDS: BUMEX IV SCH ×2 (05:57→20:13)
[2018-11-25] MEDS: APRESOLINE PO SCH ×3 (05:57→21:15)
[2018-11-25 06:24] LABS: Calcium 8.9 mg/dL (8.4-10.2)
--- NOTE | 2018-11-25 09:14 | Progress Note ---
Assessment and Plan Atypical chest pain V/Q scan reports a low probability for PE Leukocytosis Pleural effusion Dual-chamber pacemaker in situ Chronic kidney disease Hx of CAD Hx of Ischemic cardiomyopathy NSVT seen on telemetry 11/22 An echocardiogram which reveals a severe dilated cardiomyopathy, ejection fraction 15-20%. Thallium stress test reports a moderate to large, mostly fixed inferior wall defect. Recommendations: Continue medical therapy for coronary artery disease, ischemic cardiomyopathy and chronic systolic heart failure. LifeVest placement before discharge. Subjective Date of service: 11/25/18 Principal diagnosis: babak on ckd Interval history: Patient has no complaints. For planned thoracentesis today. Objective Vital Signs Temp Pulse Resp BP Pulse Ox 11/25/18 08:28 98.8 F 84 18 102/65 93 11/25/18 04:49 98.0 F 18 112/71 11/24/18 23:38 98.0 F 76 20 115/72 96 11/24/18 20:43 99.1 F 82 18 111/62 90 11/24/18 20:40 76 11/24/18 19:00 83 11/24/18 15:53 99.0 F 83 18 99/64 93 11/24/18 13:19 97.9 F 86 18 90 11/24/18 13:18 97.9 F 86 18 117/70 91 - Physical Examination General: No Apparent Distress HEENT: Positive: PERRL Neck: Positive: trachea midline Cardiac: Positive: Other (paced) Lungs: Positive: Decreased Breath Sounds Neuro: Positive: Grossly Intact Abdomen: Positive: Soft Extremities: Absent: edema - Labs and Meds Coagulation 11/24/18 Range/Units 19:57 PT 14.3 (12.2-14.9) Sec. INR 1.05 (0.87-1.13) Comprehensive Metabolic Panel 11/25/18 Range/Units 05:26 Sodium 137 (137-145) mmol/L Potassium 4.3 (3.6-5.0) mmol/L Chloride 94.9 L (98-107) mmol/L Carbon Dioxide 28 (22-30) mmol/L BUN 30 H (9-20) mg/dL Creatinine 2.0 H (0.8-1.5) mg/dL Glucose 120 H (75-100) mg/dL Calcium 8.9 (8.4-10.2) mg/dL
--- NOTE | 2018-11-25 10:07 | Progress Note ---
Assessment and Plan Assessment and plan: 57-year-old man who presented to the hospital with chest pain, --Bilateral Pleural effusion;Lt larger than Rt. Pulmonary Evaluation noted and appreciated thoracentesis today, cont anti-failure medications --Chest pain; continue symptomatic management V/Q scan reports a low probability for PE --Ischemic cardiomyopathy; history of 15-20% Continue current anti-failure medications Patient may need LifeVest recommended by cardiology --History of coronary artery disease; continue current cardiac medications --NSVT on telemetry on 11/22/18 Cardiology following, LifeVest prior to discharge Case management assisting --No kidney disease stage III; closely monitor renal function Avoid nephrotoxins --PPM in place: Supportive care --DVT prophylaxis; Lovenox --DC planning. Case management Follow thoracentesis, fluid analysis Patient will be discharged once LifeVest is available Plan of care is reviewed with the patient and his nurse as Well as the case management History Interval history: Patient seen and examined medical records reviewed Scheduled for left thoracentesis today Patient feels better, also awaiting life vest Hospitalist Physical - Constitutional Vitals: Temp Pulse Resp BP Pulse Ox 98.8 F 84 18 102/65 93 11/25/18 08:28 11/25/18 08:28 11/25/18 08:28 11/25/18 08:28 11/25/18 08:28 General appearance: Present: no acute distress, well-nourished - EENT Eyes: Present: PERRL, EOM intact - Neck Neck: Present: supple, normal ROM - Respiratory Respiratory effort: normal Respiratory: bilateral: diminished (left more than right), rales, negative: rhonchi, wheezing - Cardiovascular Rhythm: regular Heart Sounds: Present: S1 & S2 - Extremities Extremities: no ischemia, No edema - Abdominal General gastrointestinal: soft, non-tender, non-distended, normal bowel sounds - Integumentary Integumentary: Present: clear, warm - Psychiatric Psychiatric: appropriate mood/affect, cooperative - Neurologic Neurologic: moves all extremities Results - Labs CBC & Chem 7: 11/24/18 00:35 11/25/18 05:26 Labs: Laboratory Last Values WBC 12.7 K/mm3 (4.5-11.0) H 11/24/18 00:35 RBC 4.02 M/mm3 (3.65-5.03) 11/24/18 00:35 Hgb 11.6 gm/dl (11.8-15.2) L 11/24/18 00:35 Hct 35.1 % (35.5-45.6) L 11/24/18 00:35 MCV 87 fl (84-94) 11/24/18 00:35 MCH 29 pg (28-32) 11/24/18 00:35 MCHC 33 % (32-34) 11/24/18 00:35 RDW 17.0 % (13.2-15.2) H 11/24/18 00:35 Plt Count 457 K/mm3 (140-440) H 11/24/18 00:35 Lymph % (Auto) 14.3 % (13.4-35.0) 11/24/18 00:35 Emmet % (Auto) 8.1 % (0.0-7.3) H 11/24/18 00:35 Eos % (Auto) 1.4 % (0.0-4.3) 11/24/18 00:35 Baso % (Auto) 0.8 % (0.0-1.8) 11/24/18 00:35 Lymph # 1.8 K/mm3 (1.2-5.4) 11/24/18 00:35 Emmet # 1.0 K/mm3 (0.0-0.8) H 11/24/18 00:35 Eos # 0.2 K/mm3 (0.0-0.4) 11/24/18 00:35 Baso # 0.1 K/mm3 (0.0-0.1) 11/24/18 00:35 Seg Neutrophils % 75.4 % (40.0-70.0) H 11/24/18 00:35 Seg Neutrophils # 9.6 K/mm3 (1.8-7.7) H 11/24/18 00:35 ESR 55 mm/Hr (0-20) 11/18/18 05:12 PT 14.3 Sec. (12.2-14.9) 11/24/18 19:57 INR 1.05 (0.87-1.13) 11/24/18 19:57 Sodium 137 mmol/L (137-145) 11/25/18 05:26 Potassium 4.3 mmol/L (3.6-5.0) 11/25/18 05:26 Chloride 94.9 mmol/L (98-107) L 11/25/18 05:26 Carbon Dioxide 28 mmol/L (22-30) 11/25/18 05:26 Anion Gap 18 mmol/L 11/25/18 05:26 BUN 30 mg/dL (9-20) H 11/25/18 05:26 Creatinine 2.0 mg/dL (0.8-1.5) H 11/25/18 05:26 Estimated GFR 42 ml/min 11/25/18 05:26 BUN/Creatinine Ratio 15 % 11/25/18 05:26 Glucose 120 mg/dL (75-100) H 11/25/18 05:26 Hemoglobin A1c 5.6 % (4-6) 11/14/18 23:19 Calcium 8.9 mg/dL (8.4-10.2) 11/25/18 05:26 Magnesium 2.20 mg/dL (1.7-2.3) 11/16/18 05:24 Total Bilirubin 0.50 mg/dL (0.1-1.2) 11/15/18 04:29 Direct Bilirubin < 0.2 mg/dL (0-0.2) 11/14/18 17:02 Indirect Bilirubin 0.2 mg/dL 11/14/18 17:02 AST 13 units/L (5-40) 11/15/18 04:29 ALT 7 units/L (7-56) 11/15/18 04:29 Alkaline Phosphatase 91 units/L (35-129) 11/15/18 04:29 Troponin T 0.021 ng/mL (0.00-0.029) 11/15/18 04:29 C-Reactive Protein 26.70 mg/dL (0.00-1.30) H 11/18/18 05:12 NT-Pro-B Natriuret Pep 3963 pg/mL (0-900) H 11/22/18 05:22 Total Protein 6.6 g/dL (6.3-8.2) 11/15/18 04:29 Albumin 3.1 g/dL (3.9-5) L 11/15/18 04:29 Albumin/Globulin Ratio 0.9 % 11/15/18 04:29 Urine Color Yellow (Yellow) 11/15/18 22:45 Urine Turbidity Slightly-cloudy (Clear) 11/15/18 22:45 Urine pH 5.0 (5.0-7.0) 11/15/18 22:45 Ur Specific [place] 1.027 (1.003-1.030) 11/15/18 22:45 Urine Protein 30 mg/dl mg/dL (Negative) 11/15/18 22:45 Urine Glucose (UA) 50 mg/dL (Negative) 11/15/18 22:45 Urine Ketones Neg mg/dL (Negative) 11/15/18 22:45 Urine Blood Neg (Negative) 11/15/18 22:45 Urine Nitrite Neg (Negative) 11/15/18 22:45 Urine Bilirubin Neg (Negative) 11/15/18 22:45 Urine Urobilinogen 4.0 mg/dL (<2.0) 11/15/18 22:45 Ur Leukocyte Esterase Neg (Negative) 11/15/18 22:45 Urine WBC (Auto) 2.0 /HPF (0.0-6.0) 11/15/18 22:45 Urine RBC (Auto) 5.0 /HPF (0.0-6.0) 11/15/18 22:45 U Epithel Cells (Auto) 1.0 /HPF (0-13.0) 11/15/18 22:45 Urine Creatinine 220.1 mg/dL (0.1-20.0) H 11/15/18 22:45 Protein/Creatinin Ratio 0.30 11/15/18 22:45 Urine Total Protein 65 mg/dL (5-11.8) H 11/15/18 22:45 Rheumatoid Factor 19 IU/ml (0-13) H 11/19/18 13:30 SANTANA Screen Negative (Negative) 11/18/18 05:12 Complement C3 187 mg/dL (82-185) H 11/18/18 05:12 Complement C4 50 mg/dL (15-53) 11/18/18 05:12 HIV 1&2 Antibody Rapid Non react (Non React) 11/18/18 05:12 HIV P24 Antigen Non react (Non React) 11/18/18 05:12 Influenza A (Rapid) Negative (Negative) 11/19/18 Unknown Influenza A (RT-PCR) Negative (Negative) 11/19/18 Unknown Influenza B (Rapid) Negative (Negative) 11/19/18 Unknown Influenza B (RT-PCR) Negative (Negative) 11/19/18 Unknown Miscellaneous Test Flexitest 1 H 11/18/18 06:30 Active Medications - Current Medications Current Medications: Generic Name Dose Route Start Last Admin Trade Name Freq PRN Reason Stop Dose Admin Acetaminophen 650 mg 11/14/18 21:40 11/22/18 15:58 Tylenol PO 650 mg Q4H PRN Administration Pain MILD(1-3)/Fever >100.5/RIVAS Amlodipine Besylate 10 mg 11/15/18 10:00 11/24/18 09:50 Norvasc PO 10 mg QDAY KWAME Administration Aspirin 81 mg 11/15/18 10:00 11/24/18 09:50 Halfprin Ec PO 81 mg QDAY KWAME Administration Atorvastatin Calcium 40 mg 11/15/18 22:00 11/24/18 22:19 Lipitor PO 40 mg QHS KWAME Administration Bumetanide 1 mg 11/19/18 18:00 11/25/18 05:57 Bumex IV 1 mg BID@0600,1800 KWAME Administration Famotidine 10 mg 11/14/18 22:00 11/24/18 22:18 Pepcid PO 10 mg BID KWAME Administration Hydralazine HCl 25 mg 11/18/18 15:34 11/25/18 05:57 Apresoline PO 25 mg Q8HR KWAME Administration Isosorbide Mononitrate 30 mg 11/15/18 10:00 11/24/18 09:50 Imdur PO 30 mg QDAY KWAME Administration Metoprolol Succinate 50 mg 11/23/18 10:00 11/24/18 09:50 Toprol Xl PO 50 mg QDAY KWAME Administration Ondansetron HCl 4 mg 11/14/18 21:40 11/16/18 06:41 Zofran IV 4 mg Q8H PRN Administration Nausea And Vomiting Oxycodone/Acetaminophen 1 tab 11/23/18 02:18 11/25/18 03:50 Percocet 5/325 PO 1 tab Q6H PRN Administration Pain, Moderate (4-6) Pantoprazole Sodium 20 mg 11/18/18 18:00 11/24/18 09:50 Protonix PO 20 mg QDAY KWAME Administration Pregabalin 75 mg 11/16/18 15:00 11/24/18 22:18 Lyrica PO 75 mg BID KWAME Administration Sodium Chloride 10 ml 11/14/18 22:00 11/24/18 22:19 Sodium Chloride Flush Syringe 10 Ml IV 10 ml BID KWAME Administration Sodium Chloride 10 ml 11/14/18 21:40 11/17/18 06:20 Sodium Chloride Flush Syringe 10 Ml IV 10 ml PRN PRN Administration LINE FLUSH Nutrition/Malnutrition Assess - Dietary Evaluation Nutrition/Malnutrition Findings: Nutrition Notes Start: 11/19/18 10:23 Freq: Status: Active Protocol: Document 11/19/18 10:25 SA (Rec: 11/19/18 10:28 [id number]) Co-Sign 11/19/18 10:25 LP Nutrition Notes Need for Assessment generated from: LOS Initial or Follow up Brief Note Subjective/Other Information Screened for LOS. Per pt's ADL, pt eating 75-100 % of meals recorded. Nutrition Intervention Revisit per MD consult or patient Sign Off request:
--- NOTE | 2018-11-25 10:33 | Progress Note ---
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 currently on Bumex 1 mg IV twice a day (3) Metabolic alkalosis Current Visit: Yes Status: Acute Plan to address problem: Metabolic alkalosis Secondary to diuresis (4) Hypertension Current Visit: Yes Status: Acute Plan to address problem: Hypertension controlled Monitor blood pressure (5) Hyperkalemia Current Visit: Yes Status: Acute Plan to address problem: Hyperkalemia :iatrogenic - stop potassium chloride supplementation. Subjective Principal diagnosis: babak on ckd Interval history: 58-year-old gentleman with medical history significant for hypertension, chronic kidney disease stage 3 congestive heart failure status post pacemaker placement nephrology following Chronic kidney disease Patient is seen today doesn't have any peripheral edema feels better ,still has some exertional dyspnea. I reviewed chest x-ray which showed large left lung effusion Discussed with primary team yesterday patient was seen by Pulmonary yesterday and and a thoracentesis is planned for today 1.4L of pleural fluid removed today per note. Objective - Vital Signs Vital signs: Vital Signs - 12hr 11/24/18 11/25/18 11/25/18 23:38 04:49 08:28 Temperature 98.0 F 98.0 F 98.8 F Pulse Rate 76 84 Respiratory 20 18 18 Rate Blood Pressure 115/72 112/71 102/65 O2 Sat by Pulse 96 93 Oximetry - General Appearance General appearance: well-developed, well-nourished EENT: ATNC, mucous membranes moist Neck: no JVD Respiratory: Present: Decreased Breath Sounds Cardiology: regular, S1S2 Gastrointestinal: normal, normoactive bowel sounds Integumentary: no rash Neurologic: alert and oriented x3, CN 3-12 intact Musculoskeletal: deferred Psychiatric: mood/affect appropriate - Lab 11/24/18 00:35 11/25/18 05:26 Most recent lab results Calcium 8.9 mg/dL (8.4-10.2) 11/25/18 05:26 Magnesium 2.20 mg/dL (1.7-2.3) 11/16/18 05:24 Urine Creatinine 220.1 mg/dL (0.1-20.0) H 11/15/18 22:45 Urine Total Protein 65 mg/dL (5-11.8) H 11/15/18 22:45 - Imaging Chest x-ray: image reviewed (I reviewed CXR post thoracentesis significant improvement in lung aeration in left lung base) Medications & Allergies - Medications Allergies/Adverse Reactions: Allergies lisinopril Allergy (Verified 11/14/18 16:51) Swelling Penicillins Allergy (Verified 11/14/18 16:51) Rash Home Medications: Home Medications Medication Instructions Recorded Confirmed Last Taken Type Amlodipine Besylate [Norvasc] 10 mg PO QDAY 11/14/18 11/14/18 Unknown History Aspirin EC [Aspirin Enteric Coated 81 mg PO QDAY 11/14/18 11/14/18 Unknown History TAB] AtorvaSTATin [Lipitor] 40 mg PO QHS 11/14/18 11/14/18 Unknown History hydrALAZINE [Apresoline TAB] 50 mg PO Q8HR 11/14/18 11/14/18 Unknown History Bumetanide [Bumex 1 mg tab] 1 mg PO BID #60 tab 11/22/18 Unknown Rx Fluconazole [Diflucan TAB] 100 mg PO QDAY #5 tablet 11/22/18 Unknown Rx ISOSORBIDE MONOnitrate [Imdur ER] 30 mg PO QDAY #30 tablet 11/22/18 Unknown Rx Metoprolol Xl [Metoprolol 25 mg PO QDAY #30 tablet 11/22/18 Unknown Rx SUCCINATE ER TAB] Pantoprazole [Protonix TAB] 20 mg PO QDAY #30 tablet.dr 11/22/18 Unknown Rx Potassium Chloride [K-Dur] 20 meq PO QDAY #30 tablet 11/22/18 Unknown Rx Pregabalin [Lyrica] 75 mg PO BID #60 capsule 11/22/18 Unknown Rx Active Medications: Generic Name Dose Route Start Last Admin Trade Name Freq PRN Reason Stop Dose Admin Acetaminophen 650 mg 11/14/18 21:40 11/22/18 15:58 Tylenol PO 650 mg Q4H PRN Administration Pain MILD(1-3)/Fever >100.5/RIVAS Amlodipine Besylate 10 mg 11/15/18 10:00 11/24/18 09:50 Norvasc PO 10 mg QDAY KWAME Administration Aspirin 81 mg 11/15/18 10:00 11/24/18 09:50 Halfprin Ec PO 81 mg QDAY KWAME Administration Atorvastatin Calcium 40 mg 11/15/18 22:00 11/24/18 22:19 Lipitor PO 40 mg QHS KWAME Administration Bumetanide 1 mg 11/19/18 18:00 11/25/18 05:57 Bumex IV 1 mg BID@0600,1800 KWAME Administration Famotidine 10 mg 11/14/18 22:00 11/24/18 22:18 Pepcid PO 10 mg BID KWAME Administration Hydralazine HCl 25 mg 11/18/18 15:34 11/25/18 05:57 Apresoline PO 25 mg Q8HR KWAME Administration Isosorbide Mononitrate 30 mg 11/15/18 10:00 11/24/18 09:50 Imdur PO 30 mg QDAY KWAME Administration Metoprolol Succinate 50 mg 11/23/18 10:00 11/24/18 09:50 Toprol Xl PO 50 mg QDAY KWAME Administration Ondansetron HCl 4 mg 11/14/18 21:40 11/16/18 06:41 Zofran IV 4 mg Q8H PRN Administration Nausea And Vomiting Oxycodone/Acetaminophen 1 tab 11/23/18 02:18 11/25/18 03:50 Percocet 5/325 PO 1 tab Q6H PRN Administration Pain, Moderate (4-6) Pantoprazole Sodium 20 mg 11/18/18 18:00 11/24/18 09:50 Protonix PO 20 mg QDAY KWAME Administration Pregabalin 75 mg 11/16/18 15:00 11/24/18 22:18 Lyrica PO 75 mg BID KWAME Administration Sodium Chloride 10 ml 11/14/18 22:00 11/24/18 22:19 Sodium Chloride Flush Syringe 10 Ml IV 10 ml BID KWAME Administration Sodium Chloride 10 ml 11/14/18 21:40 11/17/18 06:20 Sodium Chloride Flush Syringe 10 Ml IV 10 ml PRN PRN Administration LINE FLUSH
[2018-11-25] MEDS: SODIUM CHLORIDE FLUSH SYRINGE 10 ML IV SCH ×2 (11:00→21:15)
--- NOTE | 2018-11-25 11:15 | Progress Note ---
Assessment and Plan Cultures: 11/15/2018 MRSA nasal culture: Negative 11/17/2018 blood culture: no growth 11/18/2018 HIV: negative A/P: 57-year-old male with cardiomyopathy, status post pacemaker placement about 2 ye ars ago, CKD was admitted to the hospital on 11/14/2018 with complaints of chest pain. The patient recently moved from [place]. Admitted with chest pain. 1) Leukocytosis: continuing. No fevers. Procal 0.3 c/w low risk for bacterial infection. Patient has an indwelling PPM. UA not suggestive of infection. Chest x-ray with bilateral pleural effusions likely related to CHF. Of note, patient was recently treated for pneumonia and congestive heart failure earlier this month. Has no cough, pneumonia is quite unlikely. Follow-up blood cultures. ESR 55, CRP 26.70 elevated. RF elevated at 19. XR hand c/w OA. CT chest without pneumonia, showed large bilateral pleural effusions and small pericardial effusion. No vegetations noted on TTE. HIV- Non reactive. Influenza Rapid- negative. Influenza PCR -negative.C3/C4 not c/w acute lupus flare. 2) CKD: nephrology following. Has mild proteinuria. 3) Bilateral pleural effusions: Pulmonary following. S/p ultrasound guided thoracentesis 11/24/18., 400 cc's o yellow fluid removed. f/u thoracentesis cultures that were sent. 4) Anorexia: unintentional weight loss of 50+ lbs over the last 6 weeks. HIV negative. Also checking for lupus given family history. 5) Dilated cardiomyopathy: cardiology following. EF 15-20%. Indwelling pacemacker + 6) Proximal PIP swelling: will order Anti-cyclic citrullinated peptide (anti- CCP). Left hand xray findings consistent with mild/moderate osteoarthritis of the digits with greater involvement of the middle finger. No signs of rheumatoid arthritis. 70 Oral Candidiasis: resolved. Recs: continue off antibiotics f/u SANTANA, anti-CCP f/u Ultrasound guided thoracentesis cultures- pending per lab CBC ordered for tomorrow Monitor WBC [facility] M: [phone] O:[phone] Subjective Date of service: 11/25/18 Principal diagnosis: babak on ckd Interval history: Patient seen and examined. S/P thoracentesis, patient states that he is breathing better and denies left chest pain. Objective - Exam Narrative Exam: Constitutional: Alert, cooperative. No acute distress Head, Ears, Nose: Normocephalic, atraumatic. External ears, nose normal Eyes: Conjunctivae/corneas clear. No icterus. No ptosis. Neck: Supple, no meningeal signs Oral: dentition fair, + thrush oropharynx improved Cardiovascular: S1, S2 normal. PPM site is well healed, no swelling or tenderness Respiratory: AE decreased in bases, otherwise clear to ausc. GI: Soft, non-tender; bowel sounds normal. No peritoneal signs Musculoskeletal: No pedal edema, no cyanosis. Skin: No rash or abscess Hem/Lymphatic: No palpable cervical or supraclavicular nodes. No lymphangitis Psych: Mood ok. Affect normal Neurological: Awake, alert, oriented. No gross abnormality - Constitutional Vitals: Vital Signs Temp Pulse Resp BP Pulse Ox 98.8 F 84 18 102/65 93 11/25/18 08:28 11/25/18 08:28 11/25/18 08:28 11/25/18 08:28 11/25/18 08:28 Temperature -Last 24 Hours Temperature 98.8 F Temperature 98.0 F Temperature 98.0 F Temperature 99.1 F Temperature 99.0 F Temperature 97.9 F Temperature 97.9 F - Labs CBC & Chem 7: 11/24/18 00:35 11/25/18 05:26 Labs: Abnormal lab results 11/25/18 Range/Units 05:26 Chloride 94.9 L (98-107) mmol/L BUN 30 H (9-20) mg/dL Creatinine 2.0 H (0.8-1.5) mg/dL Glucose 120 H (75-100) mg/dL
[2018-11-25] MEDS ORDERED: XYLOCAINE 1% 20 mL ONE (11:19)
--- NOTE | 2018-11-25 11:44 | Progress Note ---
Assessment and Plan 58 y/o male with large left sided pleural effusion that developed during hospital stay 1. 1400 cc's of yellow fluid removed per rads 2. AWait the remainder of the PFA 3. Will continue to follow with you. Thank you for this consult. Subjective Date of service: 11/25/18 Principal diagnosis: babak on ckd Interval history: Awaiting thoracentesis. Objective Vital Signs - 12hr 11/25/18 11/25/18 04:49 08:28 Temperature 98.0 F 98.8 F Pulse Rate 84 Respiratory 18 18 Rate Blood Pressure 112/71 102/65 O2 Sat by Pulse 93 Oximetry Constitutional: no acute distress, asleep ENT: oropharynx moist Neck: supple Ascultation: Left: diminished breath sounds Percussion: Left: dull (base) Cardiovascular: regular rate and rhythm Gastrointestinal: normoactive bowel sounds CBC and BMP: 11/24/18 00:35 11/25/18 05:26 ABG, PT/INR, D-dimer: PT/INR, D-dimer PT 14.3 Sec. (12.2-14.9) 11/24/18 19:57 INR 1.05 (0.87-1.13) 11/24/18 19:57 Abnormal lab findings: Abnormal Labs 11/14/18 11/14/18 11/14/18 17:02 17:02 17:02 WBC 14.9 H Hgb Hct RDW 17.5 H Plt Count Lymph % (Auto) 7.7 L Cochran % (Auto) 8.3 H Lymph # 1.1 L Cochran # 1.2 H Seg Neutrophils % 83.2 H Seg Neutrophils # 12.4 H Sodium Potassium Chloride BUN 31 H Creatinine 2.0 H Glucose 109 H C-Reactive Protein NT-Pro-B Natriuret Pep Albumin 3.3 L Urine Creatinine Urine Total Protein Rheumatoid Factor Complement C3 Miscellaneous Test 11/14/18 11/15/18 11/15/18 17:02 04:29 04:29 WBC 14.6 H Hgb Hct RDW 17.3 H Plt Count Lymph % (Auto) 9.3 L Cochran % (Auto) 9.5 H Lymph # Cochran # 1.4 H Seg Neutrophils % 80.2 H Seg Neutrophils # 11.7 H Sodium Potassium Chloride BUN 30 H Creatinine 2.1 H Glucose C-Reactive Protein NT-Pro-B Natriuret Pep 2385 H Albumin 3.1 L Urine Creatinine Urine Total Protein Rheumatoid Factor Complement C3 Miscellaneous Test 11/15/18 11/16/18 11/16/18 22:45 05:24 05:24 WBC 14.4 H Hgb Hct RDW 16.9 H Plt Count Lymph % (Auto) Cochran % (Auto) Lymph # Cochran # Seg Neutrophils % Seg Neutrophils # Sodium 136 L Potassium Chloride 96.7 L BUN 28 H Creatinine 2.0 H Glucose C-Reactive Protein NT-Pro-B Natriuret Pep Albumin Urine Creatinine 220.1 H Urine Total Protein 65 H Rheumatoid Factor Complement C3 Miscellaneous Test 11/17/18 11/17/18 11/18/18 05:00 05:00 05:12 WBC 14.0 H 13.4 H Hgb 11.3 L Hct 34.2 L RDW 17.3 H 17.2 H Plt Count Lymph % (Auto) Cochran % (Auto) Lymph # Cochran # Seg Neutrophils % Seg Neutrophils # Sodium 136 L Potassium Chloride 97.7 L BUN 29 H Creatinine 2.2 H Glucose 109 H C-Reactive Protein NT-Pro-B Natriuret Pep Albumin Urine Creatinine Urine Total Protein Rheumatoid Factor Complement C3 Miscellaneous Test 11/18/18 11/18/18 11/18/18 05:12 05:12 06:30 WBC Hgb Hct RDW Plt Count Lymph % (Auto) Co[place]ran % (Auto) Lymph # Cochran # Seg Neutrophils % Seg Neutrophils # Sodium Potassium Chloride BUN 31 H Creatinine 2.2 H Glucose 115 H C-Reactive Protein 26.70 H NT-Pro-B Natriuret Pep Albumin Urine Creatinine Urine Total Protein Rheumatoid Factor Complement C3 187 H Miscellaneous Test Flexitest 1 H 11/19/18 11/21/18 11/22/18 13:30 07:20 05:22 WBC Hgb Hct RDW Plt Count Lymph % (Auto) [place] % (Auto) Lymph # [place]ran # Seg Neutrophils % Seg Neutrophils # Sodium Potassium Chloride 96.4 L BUN 29 H 28 H Creatinine 2.0 H 2.0 H Glucose 124 H C-Reactive Protein NT-Pro-B Natriuret Pep Albumin Urine Creatinine Urine Total Protein Rheumatoid Factor 19 H Complement C3 Miscellaneous Test 11/22/18 11/23/18 11/24/18 05:22 05:15 00:35 WBC 12.7 H Hgb 11.6 L Hct 35.1 L RDW 17.0 H Plt Count 457 H Lymph % (Auto) Cochran % (Auto) 8.1 H Lymph # Cochran # 1.0 H Seg Neutrophils % 75.4 H Seg Neutrophils # 9.6 H Sodium Potassium 5.2 H Chloride 97.0 L BUN 29 H Creatinine 2.1 H Glucose 122 H C-Reactive Protein NT-Pro-B Natriuret Pep 3963 H Albumin Urine Creatinine Urine Total Protein Rheumatoid Factor Complement C3 Miscellaneous Test 11/24/18 11/25/18 05:33 05:26 WBC Hgb Hct RDW Plt Count Lymph % (Auto) Co[place]ran % (Auto) Lymph # Cochran # Seg Neutrophils % Seg Neutrophils # Sodium Potassium Chloride 96.9 L 94.9 L BUN 30 H 30 H Creatinine 2.0 H 2.0 H Glucose 109 H 120 H C-Reactive Protein NT-Pro-B Natriuret Pep Albumin Urine Creatinine Urine Total Protein Rheumatoid Factor Complement C3 Miscellaneous Test
--- NOTE | 2018-11-25 11:50 | Procedure Note ---
Date of procedure: 11/25/18 Pre-op diagnosis: left pleural effusion Post-op diagnosis: same Procedure: US left thoracentesis Findings: moderate left pleural effusion Anesthesia: local Surgeon: MARY JANE GARCIA Estimated blood loss: none Pathology: list (120cc) Specimen disposition: to lab Condition: stable Disposition: floor
--- NOTE | 2018-11-25 12:14 | Ultrasound Report ---
ULTRASOUND THORACENTESIS History: Left pleural effusion. Description of procedure: Informed consent was obtained. Sterile technique was utilized. 1% lidocaine for skin anesthesia. Using ultrasound guidance, a 5 Stateless centesis needle was advanced into the right pleural space. There was spontaneous return of clear yellow fluid. 1400 cc of fluid was aspirated. 120 cc of fluid was sent to laboratory for analysis. No complications. A followup chest x-ray was ordered. Impression: Successful ultrasound-guided left thoracentesis.
[2018-11-25] MEDS: HALFPRIN EC PO SCH (12:39)
[2018-11-25] MEDS: NORVASC PO SCH ×2 (12:39→12:45)
[2018-11-25] MEDS: PEPCID PO SCH ×2 (12:39→21:15)
[2018-11-25] MEDS: IMDUR PO SCH (12:39)
[2018-11-25] MEDS: PROTONIX PO SCH (12:40)
[2018-11-25] MEDS: TOPROL XL PO SCH ×2 (12:40→12:45)
[2018-11-25] MEDS: LYRICA PO SCH ×2 (12:40→21:15)
--- NOTE | 2018-11-25 13:02 | XRay Report ---
AP CHEST: HISTORY: Shortness of breath, recent ultrasound-guided left thoracentesis Near-complete evacuation of the large left pleural effusion is demonstrated since 11/22/16. There is no evidence for pneumothorax. Moderate cardiomegaly and mild central pulmonary venous congestion appear stable. The right lung is generally clear. There is partial atelectasis in the left lower lobe. Trace residual left pleural effusion. Pacemaker device remains in the same position. IMPRESSION: Near complete evacuation of the left pleural effusion. No pneumothorax.
[2018-11-25 13:43] LABS: Total Cells Counted 100 /mm3
[2018-11-26 01:02] LABS: Basophils % (Auto) 0.3 % (0.0-1.8); Eosinophils # (Auto) 0.2 K/mm3 (0.0-0.4); Eosinophils % (Auto) 1.3 % (0.0-4.3); Hematocrit 34.7 % (35.5-45.6); Hemoglobin 11.4 gm/dl (11.8-15.2); Lymphocytes # (Auto) 1.9 K/mm3 (1.2-5.4); Lymphocytes % (Auto) 13.8 % (13.4-35.0); Mean Corpuscular HGB Conc 33 % (32-34); Mean Corpuscular Volume 87 fl (84-94); Monocytes # (Auto) 1.1 K/mm3 (0.0-0.8); Monocytes % (Auto) 7.8 % (0.0-7.3); Platelet Count 418 K/mm3 (140-440); Red Blood Count 3.99 M/mm3 (3.65-5.03); Red Cell Distribution Width 17.7 % (13.2-15.2)
[2018-11-26] MEDS: PERCOCET 5/325 PO PRN ×2 (04:03→13:35)
[2018-11-26 06:14] LABS: Calcium 8.8 mg/dL (8.4-10.2)
[2018-11-26] MEDS: APRESOLINE PO SCH ×3 (06:25→21:55)
[2018-11-26] MEDS: BUMEX IV SCH (06:25)
[2018-11-26] MEDS: LYRICA PO SCH ×2 (09:22→21:54)
[2018-11-26] MEDS: PROTONIX PO SCH (09:22)
[2018-11-26] MEDS: HALFPRIN EC PO SCH (09:22)
[2018-11-26] MEDS: IMDUR PO SCH (09:23)
[2018-11-26] MEDS: TOPROL XL PO SCH (09:23)
[2018-11-26] MEDS: NORVASC PO SCH (09:23)
[2018-11-26] MEDS: PEPCID PO SCH ×2 (09:23→21:54)
[2018-11-26] MEDS: SODIUM CHLORIDE FLUSH SYRINGE 10 ML IV SCH ×2 (09:25→21:55)
--- NOTE | 2018-11-26 09:59 | Progress Note ---
Assessment and Plan Atypical chest pain V/Q scan reports a low probability for PE Leukocytosis Pleural effusion s/p left pleural effusion Dual-chamber pacemaker in situ Chronic kidney disease Hx of CAD Hx of Ischemic cardiomyopathy NSVT seen on telemetry 11/22 LifeVest declined by insurance company. An echocardiogram which reveals a severe dilated cardiomyopathy, ejection fraction 15-20%. Thallium stress test reports a moderate to large, mostly fixed inferior wall defect. Recommendations: Continue medical therapy for coronary artery disease, ischemic cardiomyopathy and chronic systolic heart failure. Stable cardiac angeles. Once discharged, patient will follow up with [facility] as scheduled December 03. Subjective Date of service: 11/26/18 Principal diagnosis: babak on ckd Interval history: s/p thoracentesis 11/25. Patient reports he feels much better. Objective Vital Signs Temp Pulse Resp Resp BP Pulse Ox 11/26/18 09:23 90 122/70 11/26/18 07:57 89 98 11/26/18 07:56 88 95/59 94 11/26/18 06:25 93 H 105/63 11/26/18 05:03 18 11/26/18 04:03 20 11/26/18 04:02 99.8 F H 93 H 18 105/63 92 11/25/18 23:02 98.5 F 88 17 101/61 93 11/25/18 21:15 92 H 108/73 11/25/18 21:13 18 11/25/18 21:07 18 11/25/18 20:50 18 96 11/25/18 20:13 18 11/25/18 19:33 99.3 F 92 H 18 108/73 92 11/25/18 19:29 90 11/25/18 18:54 92 H 11/25/18 15:34 99.6 F 88 18 108/66 94 11/25/18 13:39 18 11/25/18 12:41 97.9 F 18 104/64 - Physical Examination General: No Apparent Distress HEENT: Positive: PERRL Neck: Positive: trachea midline Cardiac: Positive: Reg Rate and Rhythm Lungs: Positive: Decreased Breath Sounds Neuro: Positive: Grossly Intact Extremities: Absent: edema - Labs and Meds CBC 11/26/18 Range/Units 00:31 WBC 14.0 H (4.5-11.0) K/mm3 RBC 3.99 (3.65-5.03) M/mm3 Hgb 11.4 L (11.8-15.2) gm/dl Hct 34.7 L (35.5-45.6) % Plt Count 418 (140-440) K/mm3 Lymph # 1.9 (1.2-5.4) K/mm3 [place] # 1.1 H (0.0-0.8) K/mm3 Eos # 0.2 (0.0-0.4) K/mm3 Baso # 0.0 (0.0-0.1) K/mm3 Comprehensive Metabolic Panel 11/26/18 Range/Units 05:02 Sodium 139 (137-145) mmol/L Potassium 4.3 (3.6-5.0) mmol/L Chloride 95.7 L (98-107) mmol/L Carbon Dioxide 28 (22-30) mmol/L BUN 30 H (9-20) mg/dL Creatinine 2.3 H (0.8-1.5) mg/dL Glucose 119 H (75-100) mg/dL Calcium 8.8 (8.4-10.2) mg/dL
--- NOTE | 2018-11-26 11:07 | Progress Note ---
Assessment and Plan 58 y/o male with large left sided pleural effusion that developed during hospital stay No new recs for today. need the protein, LDH and glucose to determine if exudate vs transudate and if this is infectious related or Rheumatoid Pleural effusion. 1. 1400 cc's of yellow fluid removed per rads 2. AWait the remainder of the PFA 3. Will continue to follow with you. Thank you for this consult. Subjective Date of service: 11/26/18 Principal diagnosis: babak on ckd Interval history: No acute events. Thora on yesterday but all results not back yet. Clear yellow fluid removed. Objective Vital Signs - 12hr 11/26/18 11/26/18 11/26/18 04:02 04:03 05:03 Temperature 99.8 F H Pulse Rate 93 H Respiratory 18 20 18 Rate Blood Pressure 105/63 Blood Pressure [Right] O2 Sat by Pulse 92 Oximetry 11/26/18 11/26/18 11/26/18 06:25 07:56 07:57 Temperature Pulse Rate 93 H 88 89 Respiratory Rate Blood Pressure 105/63 95/59 Blood Pressure [Right] O2 Sat by Pulse 94 98 Oximetry 11/26/18 11/26/18 08:00 09:23 Temperature 98 F Pulse Rate 92 H 90 Respiratory 18 Rate Blood Pressure 122/70 Blood Pressure 109/63 [Right] O2 Sat by Pulse 90 Oximetry Constitutional: no acute distress, asleep ENT: oropharynx moist Neck: supple Ascultation: Left: diminished breath sounds Percussion: Left: dull (base) Cardiovascular: regular rate and rhythm Gastrointestinal: normoactive bowel sounds CBC and BMP: 11/26/18 00:31 11/26/18 05:02 ABG, PT/INR, D-dimer: PT/INR, D-dimer PT 14.3 Sec. (12.2-14.9) 11/24/18 19:57 INR 1.05 (0.87-1.13) 11/24/18 19:57 Abnormal lab findings: Abnormal Labs 11/14/18 11/14/18 11/14/18 17:02 17:02 17:02 WBC 14.9 H Hgb Hct RDW 17.5 H Plt Count Lymph % (Auto) 7.7 L [place] % (Auto) 8.3 H Lymph # 1.1 L [place] # 1.2 H Seg Neutrophils % 83.2 H Seg Neutrophils # 12.4 H Sodium Potassium Chloride BUN 31 H Creatinine 2.0 H Glucose 109 H C-Reactive Protein NT-Pro-B Natriuret Pep Albumin 3.3 L Urine Creatinine Urine Total Protein Rheumatoid Factor Complement C3 Miscellaneous Test 11/14/18 11/15/18 11/15/18 17:02 04:29 04:29 WBC 14.6 H Hgb Hct RDW 17.3 H Plt Count Lymph % (Auto) 9.3 L [place] % (Auto) 9.5 H Lymph # [place] # 1.4 H Seg Neutrophils % 80.2 H Seg Neutrophils # 11.7 H Sodium Potassium Chloride BUN 30 H Creatinine 2.1 H Glucose C-Reactive Protein NT-Pro-B Natriuret Pep 2385 H Albumin 3.1 L Urine Creatinine Urine Total Protein Rheumatoid Factor Complement C3 Miscellaneous Test 11/15/18 11/16/18 11/16/18 22:45 05:24 05:24 WBC 14.4 H Hgb Hct RDW 16.9 H Plt Count Lymph % (Auto) [place] % (Auto) Lymph # [place] # Seg Neutrophils % Seg Neutrophils # Sodium 136 L Potassium Chloride 96.7 L BUN 28 H Creatinine 2.0 H Glucose C-Reactive Protein NT-Pro-B Natriuret Pep Albumin Urine Creatinine 220.1 H Urine Total Protein 65 H Rheumatoid Factor Complement C3 Miscellaneous Test 11/17/18 11/17/18 11/18/18 05:00 05:00 05:12 WBC 14.0 H 13.4 H Hgb 11.3 L Hct 34.2 L RDW 17.3 H 17.2 H Plt Count Lymph % (Auto) [place] % (Auto) Lymph # [place] # Seg Neutrophils % Seg Neutrophils # Sodium 136 L Potassium Chloride 97.7 L BUN 29 H Creatinine 2.2 H Glucose 109 H C-Reactive Protein NT-Pro-B Natriuret Pep Albumin Urine Creatinine Urine Total Protein Rheumatoid Factor Complement C3 Miscellaneous Test 11/18/18 11/18/18 11/18/18 05:12 05:12 06:30 WBC Hgb Hct RDW Plt Count Lymph % (Auto) [place] % (Auto) Lymph # [place] # Seg Neutrophils % Seg Neutrophils # Sodium Potassium Chloride BUN 31 H Creatinine 2.2 H Glucose 115 H C-Reactive Protein 26.70 H NT-Pro-B Natriuret Pep Albumin Urine Creatinine Urine Total Protein Rheumatoid Factor Complement C3 187 H Miscellaneous Test Flexitest 1 H 11/19/18 11/21/18 11/22/18 13:30 07:20 05:22 WBC Hgb Hct RDW Plt Count Lymph % (Auto) [place] % (Auto) Lymph # [place] # Seg Neutrophils % Seg Neutrophils # Sodium Potassium Chloride 96.4 L BUN 29 H 28 H Creatinine 2.0 H 2.0 H Glucose 124 H C-Reactive Protein NT-Pro-B Natriuret Pep Albumin Urine Creatinine Urine Total Protein Rheumatoid Factor 19 H Complement C3 Miscellaneous Test 11/22/18 11/23/18 11/24/18 05:22 05:15 00:35 WBC 12.7 H Hgb 11.6 L Hct 35.1 L RDW 17.0 H Plt Count 457 H Lymph % (Auto) [place] % (Auto) 8.1 H Lymph # [place] # 1.0 H Seg Neutrophils % 75.4 H Seg Neutrophils # 9.6 H Sodium Potassium 5.2 H Chloride 97.0 L BUN 29 H Creatinine 2.1 H Glucose 122 H C-Reactive Protein NT-Pro-B Natriuret Pep 3963 H Albumin Urine Creatinine Urine Total Protein Rheumatoid Factor Complement C3 Miscellaneous Test 11/24/18 11/25/18 11/26/18 05:33 05:26 00:31 WBC 14.0 H Hgb 11.4 L Hct 34.7 L RDW 17.7 H Plt Count Lymph % (Auto) [place] % (Auto) 7.8 H Lymph # [place] # 1.1 H Seg Neutrophils % 76.8 H Seg Neutrophils # 10.8 H Sodium Potassium Chloride 96.9 L 94.9 L BUN 30 H 30 H Creatinine 2.0 H 2.0 H Glucose 109 H 120 H C-Reactive Protein NT-Pro-B Natriuret Pep Albumin Urine Creatinine Urine Total Protein Rheumatoid Factor Complement C3 Miscellaneous Test 11/26/18 11/26/18 05:02 08:49 WBC Hgb Hct RDW Plt Count Lymph % (Auto) [place] % (Auto) Lymph # [place] # Seg Neutrophils % Seg Neutrophils # Sodium Potassium Chloride 95.7 L BUN 30 H Creatinine 2.3 H Glucose 119 H C-Reactive Protein NT-Pro-B Natriuret Pep 2268 H Albumin Urine Creatinine Urine Total Protein Rheumatoid Factor Complement C3 Miscellaneous Test
--- NOTE | 2018-11-26 15:02 | Progress Note ---
Assessment and Plan Assessment and plan: 57-year-old man who presented to the hospital with chest pain, --Bilateral Pleural effusion;Lt larger than Rt. s/p thoracentesis, removal of 1400 mL pleural fluid Urinalysis pending, Pulmonary following cont anti-failure medications --Chest pain; continue symptomatic management V/Q scan low probability for PE --Ischemic cardiomyopathy; history of 15-20% Continue current anti-failure medications Patient may need LifeVest recommended by cardiology --History of coronary artery disease; continue current cardiac medications --NSVT on telemetry on 11/22/18 Cardiology following, LifeVest prior to discharge Case management assisting --No kidney disease stage III; closely monitor renal function Avoid nephrotoxins --PPM in place: Supportive care --DVT prophylaxis; Lovenox --DC planning. Case management Follow thoracentesis, fluid analysis Environmental Professional recommend LifeVest, however case management could not secure one Due to insurance, and financial constraints Patient will be discharged in 1-2 days if pleural fluid analysis is negative History Interval history: Patient feels better no new complaints Had thoracentesis yesterday and removal of 1400 mL Pleural fluid analysis pending Vital signs reviewed Hospitalist Physical - Constitutional Vitals: Temp Pulse Resp BP Pulse Ox 99.7 F H 84 18 106/63 90 11/26/18 12:00 11/26/18 13:35 11/26/18 12:00 11/26/18 13:35 11/26/18 08:00 General appearance: Present: no acute distress, well-nourished - EENT Eyes: Present: PERRL - Neck Neck: Present: supple, normal ROM - Respiratory Respiratory effort: normal Respiratory: bilateral: diminished, rales, negative: rhonchi, wheezing - Cardiovascular Rhythm: regular Heart Sounds: Present: S1 & S2 - Extremities Extremities: no ischemia, No edema - Abdominal General gastrointestinal: soft, non-tender, non-distended, normal bowel sounds - Integumentary Integumentary: Present: clear, warm - Psychiatric Psychiatric: appropriate mood/affect, cooperative - Neurologic Neurologic: CNII-XII intact, moves all extremities Results - Labs CBC & Chem 7: 11/26/18 00:31 11/26/18 05:02 Labs: Laboratory Last Values WBC 14.0 K/mm3 (4.5-11.0) H 11/26/18 00:31 RBC 3.99 M/mm3 (3.65-5.03) 11/26/18 00:31 Hgb 11.4 gm/dl (11.8-15.2) L 11/26/18 00:31 Hct 34.7 % (35.5-45.6) L 11/26/18 00:31 MCV 87 fl (84-94) 11/26/18 00: MCH 29 pg (28-32) 11/26/18 00:31 MCHC 33 % (32-34) 11/26/18 00:31 RDW 17.7 % (13.2-15.2) H 11/26/18 00:31 Plt Count 418 K/mm3 (140-440) 11/26/18 00:31 Lymph % (Auto) 13.8 % (13.4-35.0) 11/26/18 00: [place] % (Auto) 7.8 % (0.0-7.3) H 11/26/18 00: Eos % (Auto) 1.3 % (0.0-4.3) 11/26/18 00:31 Baso % (Auto) 0.3 % (0.0-1.8) 11/26/18 00:31 Lymph # 1.9 K/mm3 (1.2-5.4) 11/26/18 00:31 [place] # 1.1 K/mm3 (0.0-0.8) H 11/26/18 00:31 Eos # 0.2 K/mm3 (0.0-0.4) 11/26/18 00:31 Baso # 0.0 K/mm3 (0.0-0.1) 11/26/18 00:31 Seg Neutrophils % 76.8 % (40.0-70.0) H 11/26/18 00:31 Seg Neutrophils # 10.8 K/mm3 (1.8-7.7) H 11/26/18 00:31 ESR 55 mm/Hr (0-20) 11/18/18 05:12 PT 14.3 Sec. (12.2-14.9) 11/24/18 19:57 INR 1.05 (0.87-1.13) 11/24/18 19:57 Sodium 139 mmol/L (137-145) 11/26/18 05:02 Potassium 4.3 mmol/L (3.6-5.0) 11/26/18 05:02 Chloride 95.7 mmol/L (98-107) L 11/26/18 05:02 Carbon Dioxide 28 mmol/L (22-30) 11/26/18 05:02 Anion Gap 20 mmol/L 11/26/18 05:02 BUN 30 mg/dL (9-20) H 11/26/18 05:02 Creatinine 2.3 mg/dL (0.8-1.5) H 11/26/18 05:02 Estimated GFR 36 ml/min 11/26/18 05:02 BUN/Creatinine Ratio 13 % 11/26/18 05:02 Glucose 119 mg/dL (75-100) H 11/26/18 05:02 Hemoglobin A1c 5.6 % (4-6) 11/14/18 23:19 Calcium 8.8 mg/dL (8.4-10.2) 11/26/18 05:02 Magnesium 2.20 mg/dL (1.7-2.3) 11/16/18 05:24 Total Bilirubin 0.50 mg/dL (0.1-1.2) 11/15/18 04:29 Direct Bilirubin < 0.2 mg/dL (0-0.2) 11/14/18 17:02 Indirect Bilirubin 0.2 mg/dL 11/14/18 17:02 AST 13 units/L (5-40) 11/15/18 04:29 ALT 7 units/L (7-56) 11/15/18 04:29 Alkaline Phosphatase 91 units/L (35-129) 11/15/18 04:29 Troponin T 0.021 ng/mL (0.00-0.029) 11/15/18 04:29 C-Reactive Protein 26.70 mg/dL (0.00-1.30) H 11/18/18 05:12 NT-Pro-B Natriuret Pep 2268 pg/mL (0-900) H 11/26/18 08:49 Total Protein 6.6 g/dL (6.3-8.2) 11/15/18 04:29 Albumin 3.1 g/dL (3.9-5) L 11/15/18 04:29 Albumin/Globulin Ratio 0.9 % 11/15/18 04:29 Urine Color Yellow (Yellow) 11/15/18 22:45 Urine Turbidity Slightly-cloudy (Clear) 11/15/18 22:45 Urine pH 5.0 (5.0-7.0) 11/15/18 22:45 Ur Specific [place] 1.027 (1.003-1.030) 11/15/18 22:45 Urine Protein 30 mg/dl mg/dL (Negative) 11/15/18 22:45 Urine Glucose (UA) 50 mg/dL (Negative) 11/15/18 22:45 Urine Ketones Neg mg/dL (Negative) 11/15/18 22:45 Urine Blood Neg (Negative) 11/15/18 22:45 Urine Nitrite Neg (Negative) 11/15/18 22:45 Urine Bilirubin Neg (Negative) 11/15/18 22:45 Urine Urobilinogen 4.0 mg/dL (<2.0) 11/15/18 22:45 Ur Leukocyte Esterase Neg (Negative) 11/15/18 22:45 Urine WBC (Auto) 2.0 /HPF (0.0-6.0) 11/15/18 22:45 Urine RBC (Auto) 5.0 /HPF (0.0-6.0) 11/15/18 22:45 U Epithel Cells (Auto) 1.0 /HPF (0-13.0) 11/15/18 22:45 Urine Creatinine 220.1 mg/dL (0.1-20.0) H 11/15/18 22:45 Protein/Creatinin Ratio 0.30 11/15/18 22:45 Urine Total Protein 65 mg/dL (5-11.8) H 11/15/18 22:45 Fluid Type Pleural 11/25/18 11:45 Fluid Color Yellow 11/25/18 11:45 Fluid Appearance Hazy 11/25/18 11:45 Fluid WBC 445 /mm3 11/25/18 11:45 Fluid RBC 1025 /mm3 11/25/18 11:45 Fluid Seg Neutrophils 41.0 % 11/25/18 11:45 Fluid Lymphocytes 46.0 % 11/25/18 11:45 Fluid Reactive Lymphs 7.0 % 11/25/18 11:45 Fluid Monocytes 6.0 % 11/25/18 11:45 Rheumatoid Factor 19 IU/ml (0-13) H 11/19/18 13:30 SANTANA Screen Negative (Negative) 11/18/18 05:12 Complement C3 187 mg/dL (82-185) H 11/18/18 05:12 Complement C4 50 mg/dL (15-53) 11/18/18 05:12 HIV 1&2 Antibody Rapid Non react (Non React) 11/18/18 05:12 HIV P24 Antigen Non react (Non React) 11/18/18 05:12 Influenza A (Rapid) Negative (Negative) 11/19/18 Unknown Influenza A (RT-PCR) Negative (Negative) 11/19/18 Unknown Influenza B (Rapid) Negative (Negative) 11/19/18 Unknown Influenza B (RT-PCR) Negative (Negative) 11/19/18 Unknown Miscellaneous Test Flexitest 1 H 11/18/18 06:30 Active Medications - Current Medications Current Medications: Generic Name Dose Route Start Last Admin Trade Name Freq PRN Reason Stop Dose Admin Acetaminophen 650 mg 11/14/18 21:40 11/22/18 15:58 Tylenol PO 650 mg Q4H PRN Administration Pain MILD(1-3)/Fever >100.5/RIVAS Amlodipine Besylate 10 mg 11/15/18 10:00 11/26/18 09:23 Norvasc PO 10 mg QDAY KWAME Administration Aspirin 81 mg 11/15/18 10:00 11/26/18 09:22 Halfprin Ec PO 81 mg QDAY KWAME Administration Atorvastatin Calcium 40 mg 11/15/18 22:00 11/25/18 21:16 Lipitor PO 40 mg QHS KWAME Administration Bumetanide 1 mg 11/27/18 10:00 Bumex PO QDAY KWAME Famotidine 10 mg 11/14/18 22:00 11/26/18 09:23 Pepcid PO 10 mg BID KWAME Administration Hydralazine HCl 25 mg 11/18/18 15:34 11/26/18 13:35 Apresoline PO Not Given Q8HR KWAME Isosorbide Mononitrate 30 mg 11/15/18 10:00 11/26/18 09:23 Imdur PO 30 mg QDAY KWAME Administration Metoprolol Succinate 50 mg 11/23/18 10:00 11/26/18 09:23 Toprol Xl PO 50 mg QDAY KWAME Administration Ondansetron HCl 4 mg 11/14/18 21:40 11/16/18 06:41 Zofran IV 4 mg Q8H PRN Administration Nausea And Vomiting Oxycodone/Acetaminophen 1 tab 11/23/18 02:18 11/26/18 13:35 Percocet 5/325 PO 1 tab Q6H PRN Administration Pain, Moderate (4-6) Pantoprazole Sodium 20 mg 11/18/18 18:00 11/26/18 09:22 Protonix PO 20 mg QDAY KWAME Administration Pregabalin 75 mg 11/16/18 15:00 11/26/18 09:22 Lyrica PO 75 mg BID KWAME Administration Sodium Chloride 10 ml 11/14/18 22:00 11/26/18 09:25 Sodium Chloride Flush Syringe 10 Ml IV 10 ml BID KWAME Administration Sodium Chloride 10 ml 11/14/18 21:40 11/17/18 06:20 Sodium Chloride Flush Syringe 10 Ml IV 10 ml PRN PRN Administration LINE FLUSH Nutrition/Malnutrition Assess - Dietary Evaluation Nutrition/Malnutrition Findings: Nutrition Notes Start: 11/19/18 10:23 Freq: Status: Active Protocol: Document 11/19/18 10:25 SA (Rec: 11/19/18 10:28 [facility]-[id number]) Co-Sign 11/19/18 10:25 LP Nutrition Notes Need for Assessment generated from: LOS Initial or Follow up Brief Note Subjective/Other Information Screened for LOS. Per pt's ADL, pt eating 75-100 % of meals recorded. Nutrition Intervention Revisit per MD consult or patient Sign Off request:
--- NOTE | 2018-11-26 15:09 | Progress Note ---
Assessment and Plan - Patient Problems (1) Acute kidney injury Current Visit: Yes Status: Acute Plan to address problem: BROOKE on Chronic kidney disease stage III*worsening Current creatinine 2.3mg/dl Etiology of chronic kidney disease is likely related to hypertension and hemodynamic shifts congestive heart failure large left pleural effusion s/p thoracentesis with 1.4L removed Will decrease Bumex to 1mg daily Continue diuresis (2) CHF exacerbation Current Visit: Yes Status: Acute Qualifiers: Heart failure type: combined systolic and diastolic Qualified Code(s): I50.43 - Acute on chronic combined systolic (congestive) and diastolic (congestive) heart failure Plan to address problem: CHF exacerbation Chest x-ray pulmonary congestion and pulmonary edema Repeat chest x-ray with large left effusion s/p thoracentesis. currently on Bumex 1 mg IV once a day (3) Metabolic alkalosis Current Visit: Yes Status: Acute Plan to address problem: Metabolic alkalosis Secondary to diuresis (4) Hypertension Current Visit: Yes Status: Acute Plan to address problem: Hypertension controlled Monitor blood pressure (5) Hyperkalemia Current Visit: Yes Status: Acute Plan to address problem: Hyperkalemia :iatrogenic - stop potassium chloride supplementation. Subjective Principal diagnosis: brooke on ckd Interval history: 58-year-old gentleman with medical history significant for hypertension, chronic kidney disease stage 3 congestive heart failure status post pacemaker placement nephrology following Chronic kidney disease Patient is seen today doesn't have any peripheral edema feels better ,still has some exertional dyspnea. I reviewed chest x-ray which showed large left lung effusion Discussed with primary team yesterday patient was seen by Pulmonary yesterday and and a thoracentesis is planned for today 1.4L of pleural fluid removed today per note. Objective - Vital Signs Vital signs: Vital Signs - 12hr 11/26/18 11/26/18 11/26/18 04:02 04:03 05:03 Temperature 99.8 F H Pulse Rate 93 H Respiratory 18 20 18 Rate Blood Pressure 105/63 Blood Pressure [Right] O2 Sat by Pulse 92 Oximetry 11/26/18 11/26/18 11/26/18 06:25 07:56 07:57 Temperature Pulse Rate 93 H 88 89 Respiratory Rate Blood Pressure 105/63 95/59 Blood Pressure [Right] O2 Sat by Pulse 94 98 Oximetry 11/26/18 11/26/18 11/26/18 08:00 09:23 12:00 Temperature 98 F 99.7 F H Pulse Rate 92 H 90 92 H Respiratory 18 18 Rate Blood Pressure 122/70 Blood Pressure 109/63 109/63 [Right] O2 Sat by Pulse 90 Oximetry 11/26/18 13:35 Temperature Pulse Rate 84 Respiratory Rate Blood Pressure 106/63 Blood Pressure [Right] O2 Sat by Pulse Oximetry - General Appearance General appearance: well-developed, well-nourished EENT: ATNC, PERRL Neck: no JVD Respiratory: Present: Clear to Ascultation Cardiology: regular, S1S2 Gastrointestinal: normal, normoactive bowel sounds Integumentary: no rash Neurologic: alert and oriented x3, CN 3-12 intact Psychiatric: mood/affect appropriate - Lab 11/26/18 00:31 11/26/18 05:02 Most recent lab results Calcium 8.8 mg/dL (8.4-10.2) 11/26/18 05:02 Magnesium 2.20 mg/dL (1.7-2.3) 11/16/18 05:24 Urine Creatinine 220.1 mg/dL (0.1-20.0) H 11/15/18 22:45 Urine Total Protein 65 mg/dL (5-11.8) H 11/15/18 22:45 - Imaging Chest x-ray: image reviewed Medications & Allergies - Medications Allergies/Adverse Reactions: Allergies lisinopril Allergy (Verified 11/14/18 16:51) Swelling Penicillins Allergy (Verified 11/14/18 16:51) Rash Home Medications: Home Medications Medication Instructions Recorded Confirmed Last Taken Type Amlodipine Besylate [Norvasc] 10 mg PO QDAY 11/14/18 11/14/18 Unknown History Aspirin EC [Aspirin Enteric Coated 81 mg PO QDAY 11/14/18 11/14/18 Unknown History TAB] AtorvaSTATin [Lipitor] 40 mg PO QHS 11/14/18 11/14/18 Unknown History hydrALAZINE [Apresoline TAB] 50 mg PO Q8HR 11/14/18 11/14/18 Unknown History Bumetanide [Bumex 1 mg tab] 1 mg PO BID #60 tab 11/22/18 Unknown Rx Fluconazole [Diflucan TAB] 100 mg PO QDAY #5 tablet 11/22/18 Unknown Rx ISOSORBIDE MONOnitrate [Imdur ER] 30 mg PO QDAY #30 tablet 11/22/18 Unknown Rx Metoprolol Xl [Metoprolol 25 mg PO QDAY #30 tablet 11/22/18 Unknown Rx SUCCINATE ER TAB] Pantoprazole [Protonix TAB] 20 mg PO QDAY #30 tablet. 11/22/18 Unknown Rx Potassium Chloride [K-Dur] 20 meq PO QDAY #30 tablet 11/22/18 Unknown Rx Pregabalin [Lyrica] 75 mg PO BID #60 capsule 11/22/18 Unknown Rx Active Medications: Generic Name Dose Route Start Last Admin Trade Name Freq PRN Reason Stop Dose Admin Acetaminophen 650 mg 11/14/18 21:40 11/22/18 15:58 Tylenol PO 650 mg Q4H PRN Administration Pain MILD(1-3)/Fever >100.5/RIVAS Amlodipine Besylate 10 mg 11/15/18 10:00 11/26/18 09:23 Norvasc PO 10 mg QDAY KWAME Administration Aspirin 81 mg 11/15/18 10:00 11/26/18 09:22 Halfprin Ec PO 81 mg QDAY KWAME Administration Atorvastatin Calcium 40 mg 11/15/18 22:00 11/25/18 21:16 Lipitor PO 40 mg QHS KWAME Administration Bumetanide 1 mg 11/27/18 10:00 Bumex PO QDAY KWAME Famotidine 10 mg 11/14/18 22:00 11/26/18 09:23 Pepcid PO 10 mg BID KWAME Administration Hydralazine HCl 25 mg 11/18/18 15:34 11/26/18 13:35 Apresoline PO Not Given Q8HR KWAME Isosorbide Mononitrate 30 mg 11/15/18 10:00 11/26/18 09:23 Imdur PO 30 mg QDAY KWAME Administration Metoprolol Succinate 50 mg 11/23/18 10:00 11/26/18 09:23 Toprol Xl PO 50 mg QDAY KWAME Administration Ondansetron HCl 4 mg 11/14/18 21:40 11/16/18 06:41 Zofran IV 4 mg Q8H PRN Administration Nausea And Vomiting Oxycodone/Acetaminophen 1 tab 11/23/18 02:18 11/26/18 13:35 Percocet 5/325 PO 1 tab Q6H PRN Administration Pain, Moderate (4-6) Pantoprazole Sodium 20 mg 11/18/18 18:00 11/26/18 09:22 Protonix PO 20 mg QDAY KWAME Administration Pregabalin 75 mg 11/16/18 15:00 11/26/18 09:22 Lyrica PO 75 mg BID KWAME Administration Sodium Chloride 10 ml 11/14/18 22:00 11/26/18 09:25 Sodium Chloride Flush Syringe 10 Ml IV 10 ml BID KWAME Administration Sodium Chloride 10 ml 11/14/18 21:40 11/17/18 06:20 Sodium Chloride Flush Syringe 10 Ml IV 10 ml PRN PRN Administration LINE FLUSH
[2018-11-26] MEDS: TYLENOL PO PRN (16:10)
[2018-11-27] MEDS: TYLENOL PO PRN ×3 (03:28→20:55)
[2018-11-27 05:53] LABS: Basophils # (Auto) 0.1 K/mm3 (0.0-0.1); Basophils % (Auto) 0.3 % (0.0-1.8); Eosinophils # (Auto) 0.2 K/mm3 (0.0-0.4); Hematocrit 35.1 % (35.5-45.6); Hemoglobin 11.7 gm/dl (11.8-15.2); Lymphocytes # (Auto) 1.9 K/mm3 (1.2-5.4); Mean Corpuscular HGB Conc 33 % (32-34); Mean Corpuscular Volume 87 fl (84-94); Monocytes # (Auto) 1.2 K/mm3 (0.0-0.8); Platelet Count 376 K/mm3 (140-440); Red Blood Count 4.05 M/mm3 (3.65-5.03); Red Cell Distribution Width 17.2 % (13.2-15.2)
[2018-11-27] MEDS: APRESOLINE PO SCH ×4 (06:11→21:00)
[2018-11-27] MEDS: SODIUM CHLORIDE FLUSH SYRINGE 10 ML IV SCH ×2 (09:46→21:00)
[2018-11-27] MEDS: IMDUR PO SCH (09:47)
[2018-11-27] MEDS: HALFPRIN EC PO SCH (09:47)
[2018-11-27] MEDS: PROTONIX PO SCH (09:47)
[2018-11-27] MEDS: LYRICA PO SCH ×3 (09:47→21:00)
[2018-11-27] MEDS: PEPCID PO SCH ×3 (09:47→21:00)
[2018-11-27] MEDS: BUMEX PO SCH (09:48)
[2018-11-27] MEDS: TOPROL XL PO SCH (09:49)
[2018-11-27] MEDS: NORVASC PO SCH (09:49)
[2018-11-27] MEDS: PERCOCET 5/325 PO PRN (11:18)
--- NOTE | 2018-11-27 11:31 | Progress Note ---
Assessment and Plan - Patient Problems (1) CHF exacerbation Current Visit: Yes Status: Acute Qualifiers: Heart failure type: combined systolic and diastolic Qualified Code(s): I50.43 - Acute on chronic combined systolic (congestive) and diastolic (congestive) heart failure Plan to address problem: Patient has a severe dilated cardiomyopathy, ejection fraction 15-20%. Echocardiogram shows a small hemodynamically insignificant pericardial effusion. Thallium stress test shows a large fixed inferior defect with minimal reversibility. The patient is status post previous dual-chamber pacemaker. We will continue medical therapy as previously outlined. A recommendation for outpatient LifeVest monitoring was refused by the patient's medical insurance company. He is stable for cardiac discharge and outpatient follow-up of medical therapy. Subjective Date of service: 11/27/18 Principal diagnosis: babak on ckd Interval history: Patient is comfortable, no new cardiac complaints, looks and feels better. He is status post successful thoracentesis. Objective Vital Signs Temp Pulse Resp BP BP Pulse Ox 11/27/18 09:49 81 106/80 11/27/18 09:47 81 106/80 11/27/18 08:01 98.0 F 81 18 106/80 95 11/27/18 06:11 82 113/68 11/27/18 04:51 99.8 F H 82 20 113/68 92 11/26/18 23:44 99.0 F 78 20 102/62 94 11/26/18 22:00 80 11/26/18 21:55 78 117/64 11/26/18 20:52 99.5 F 78 20 117/64 94 11/26/18 18:00 99.4 F 77 18 97/52 95 11/26/18 16:08 96/55 11/26/18 16:00 101.2 F H 78 20 96/55 95 11/26/18 15:58 81 98 11/26/18 15:57 18 11/26/18 15:24 97 H 18 135/88 97 11/26/18 13:35 84 106/63 11/26/18 12:00 99.7 F H 92 H 18 109/63 - Physical Examination General: No Apparent Distress HEENT: Positive: PERRL Neck: Positive: trachea midline Cardiac: Positive: Reg Rate and Rhythm Lungs: Positive: Decreased Breath Sounds Neuro: Positive: Grossly Intact Abdomen: Positive: Soft Skin: Positive: Clear Extremities: Absent: edema - Labs and Meds CBC 11/27/18 Range/Units 05:03 WBC 15.7 H (4.5-11.0) K/mm3 RBC 4.05 (3.65-5.03) M/mm3 Hgb 11.7 L (11.8-15.2) gm/dl Hct 35.1 L (35.5-45.6) % Plt Count 376 (140-440) K/mm3 Lymph # 1.9 (1.2-5.4) K/mm3 [place] # 1.2 H (0.0-0.8) K/mm3 Eos # 0.2 (0.0-0.4) K/mm3 Baso # 0.1 (0.0-0.1) K/mm3 Comprehensive Metabolic Panel 11/27/18 Range/Units 05:03 Sodium 137 (137-145) mmol/L Potassium 4.3 (3.6-5.0) mmol/L Chloride 95.2 L (98-107) mmol/L Carbon Dioxide 29 (22-30) mmol/L BUN 29 H (9-20) mg/dL Creatinine 2.1 H (0.8-1.5) mg/dL Glucose 107 H (75-100) mg/dL Calcium 9.0 (8.4-10.2) mg/dL - Imaging and Cardiology EKG: report reviewed (NSR 90/min )
--- NOTE | 2018-11-27 12:56 | Progress Note ---
Assessment and Plan Assessment and plan: 57-year-old man who presented to the hospital with chest pain, --Bilateral Pleural effusion;Lt larger than Rt. s/p thoracentesis, removal of 1400 mL pleural fluid analysis pending, Pulmonary following cont anti-failure medications --Chest pain; continue symptomatic management V/Q scan low probability for PE --Ischemic cardiomyopathy; history of 15-20% Continue current anti-failure medications Patient may need LifeVest recommended by cardiology --History of coronary artery disease; continue current cardiac medications --NSVT on telemetry on 11/22/18 Cardiology following, LifeVest prior to discharge Case management assisting --No kidney disease stage III; closely monitor renal function Avoid nephrotoxins --PPM in place: Supportive care --DVT prophylaxis; Lovenox --DC planning. Case management Follow thoracentesis, fluid analysis Supervisor Production Department recommend LifeVest, however case management could not secure one Due to insurance, and financial constraints Patient will be discharged in 1-2 days if pleural fluid analysis is negative History Interval history: Patient seen and examined medical records reviewed Patient feels better afebrile Complaints of generalized weakness Vital signs reviewed Hospitalist Physical - Constitutional Vitals: Temp Pulse Resp BP Pulse Ox 98.6 F 81 18 113/61 93 11/27/18 12:04 11/27/18 12:04 11/27/18 12:04 11/27/18 12:04 11/27/18 12:04 General appearance: Present: no acute distress, well-nourished - EENT Eyes: Present: PERRL, EOM intact - Neck Neck: Present: supple, normal ROM - Respiratory Respiratory effort: normal Respiratory: bilateral: diminished, negative: rales, rhonchi, wheezing - Cardiovascular Rhythm: regular Heart Sounds: Present: S1 & S2 - Extremities Extremities: no ischemia, No edema - Abdominal General gastrointestinal: soft, non-tender, non-distended, normal bowel sounds - Integumentary Integumentary: Present: clear, warm - Psychiatric Psychiatric: appropriate mood/affect, cooperative - Neurologic Neurologic: CNII-XII intact, moves all extremities Results - Labs CBC & Chem 7: 11/27/18 05:03 11/27/18 05:03 Labs: Laboratory Last Values WBC 15.7 K/mm3 (4.5-11.0) H 11/27/18 05:03 RBC 4.05 M/mm3 (3.65-5.03) 11/27/18 05:03 Hgb 11.7 gm/dl (11.8-15.2) L 11/27/18 05:03 Hct 35.1 % (35.5-45.6) L 11/27/18 05:03 MCV 87 fl (84-94) 11/27/18 05:03 MCH 29 pg (28-32) 11/27/18 05:03 MCHC 33 % (32-34) 11/27/18 05:03 RDW 17.2 % (13.2-15.2) H 11/27/18 05:03 Plt Count 376 K/mm3 (140-440) 11/27/18 05:03 Lymph % (Auto) 12.0 % (13.4-35.0) L 11/27/18 05:03 [place] % (Auto) 8.0 % (0.0-7.3) H 11/27/18 05:03 Eos % (Auto) 1.0 % (0.0-4.3) 11/27/18 05:03 Baso % (Auto) 0.3 % (0.0-1.8) 11/27/18 05:03 Lymph # 1.9 K/mm3 (1.2-5.4) 11/27/18 05:03 [place] # 1.2 K/mm3 (0.0-0.8) H 11/27/18 05:03 Eos # 0.2 K/mm3 (0.0-0.4) 11/27/18 05:03 Baso # 0.1 K/mm3 (0.0-0.1) 11/27/18 05:03 Seg Neutrophils % 78.7 % (40.0-70.0) H 11/27/18 05:03 Seg Neutrophils # 12.4 K/mm3 (1.8-7.7) H 11/27/18 05:03 ESR 55 mm/Hr (0-20) 11/18/18 05:12 PT 14.3 Sec. (12.2-14.9) 11/24/18 19:57 INR 1.05 (0.87-1.13) 11/24/18 19:57 Sodium 137 mmol/L (137-145) 11/27/18 05:03 Potassium 4.3 mmol/L (3.6-5.0) 11/27/18 05:03 Chloride 95.2 mmol/L (98-107) L 11/27/18 05:03 Carbon Dioxide 29 mmol/L (22-30) 11/27/18 05:03 Anion Gap 17 mmol/L 11/27/18 05:03 BUN 29 mg/dL (9-20) H 11/27/18 05:03 Creatinine 2.1 mg/dL (0.8-1.5) H 11/27/18 05:03 Estimated GFR 39 ml/min 11/27/18 05:03 BUN/Creatinine Ratio 14 % 11/27/18 05:03 Glucose 107 mg/dL (75-100) H 11/27/18 05:03 Hemoglobin A1c 5.6 % (4-6) 11/14/18 23:19 Calcium 9.0 mg/dL (8.4-10.2) 11/27/18 05:03 Magnesium 2.20 mg/dL (1.7-2.3) 11/16/18 05:24 Total Bilirubin 0.50 mg/dL (0.1-1.2) 11/15/18 04:29 Direct Bilirubin < 0.2 mg/dL (0-0.2) 11/14/18 17:02 Indirect Bilirubin 0.2 mg/dL 11/14/18 17:02 AST 13 units/L (5-40) 11/15/18 04:29 ALT 7 units/L (7-56) 11/15/18 04:29 Alkaline Phosphatase 91 units/L (35-129) 11/15/18 04:29 Troponin T 0.021 ng/mL (0.00-0.029) 11/15/18 04:29 C-Reactive Protein 26.70 mg/dL (0.00-1.30) H 11/18/18 05:12 NT-Pro-B Natriuret Pep 2268 pg/mL (0-900) H 11/26/18 08:49 Total Protein 6.6 g/dL (6.3-8.2) 11/15/18 04:29 Albumin 3.1 g/dL (3.9-5) L 11/15/18 04:29 Albumin/Globulin Ratio 0.9 % 11/15/18 04:29 Urine Color Yellow (Yellow) 11/15/18 22:45 Urine Turbidity Slightly-cloudy (Clear) 11/15/18 22:45 Urine pH 5.0 (5.0-7.0) 11/15/18 22:45 Ur Specific [place] 1.027 (1.003-1.030) 11/15/18 22:45 Urine Protein 30 mg/dl mg/dL (Negative) 11/15/18 22:45 Urine Glucose (UA) 50 mg/dL (Negative) 11/15/18 22:45 Urine Ketones Neg mg/dL (Negative) 11/15/18 22:45 Urine Blood Neg (Negative) 11/15/18 22:45 Urine Nitrite Neg (Negative) 11/15/18 22:45 Urine Bilirubin Neg (Negative) 11/15/18 22:45 Urine Urobilinogen 4.0 mg/dL (<2.0) 11/15/18 22:45 Ur Leukocyte Esterase Neg (Negative) 11/15/18 22:45 Urine WBC (Auto) 2.0 /HPF (0.0-6.0) 11/15/18 22:45 Urine RBC (Auto) 5.0 /HPF (0.0-6.0) 11/15/18 22:45 U Epithel Cells (Auto) 1.0 /HPF (0-13.0) 11/15/18 22:45 Urine Creatinine 220.1 mg/dL (0.1-20.0) H 11/15/18 22:45 Protein/Creatinin Ratio 0.30 11/15/18 22:45 Urine Total Protein 65 mg/dL (5-11.8) H 11/15/18 22:45 Fluid Type Pleural 11/25/18 11:45 Fluid Color Yellow 11/25/18 11:45 Fluid Appearance Hazy 11/25/18 11:45 Fluid WBC 445 /mm3 11/25/18 11:45 Fluid RBC 1025 /mm3 11/25/18 11:45 Fluid Seg Neutrophils 41.0 % 11/25/18 11:45 Fluid Lymphocytes 46.0 % 11/25/18 11:45 Fluid Reactive Lymphs 7.0 % 11/25/18 11:45 Fluid Monocytes 6.0 % 11/25/18 11:45 Rheumatoid Factor 19 IU/ml (0-13) H 11/19/18 13:30 SANTANA Screen Negative (Negative) 11/18/18 05:12 Complement C3 187 mg/dL (82-185) H 11/18/18 05:12 Complement C4 50 mg/dL (15-53) 11/18/18 05:12 HIV 1&2 Antibody Rapid Non react (Non React) 11/18/18 05:12 HIV P24 Antigen Non react (Non React) 11/18/18 05:12 Influenza A (Rapid) Negative (Negative) 11/19/18 Unknown Influenza A (RT-PCR) Negative (Negative) 11/19/18 Unknown Influenza B (Rapid) Negative (Negative) 11/19/18 Unknown Influenza B (RT-PCR) Negative (Negative) 11/19/18 Unknown Miscellaneous Test Flexitest 1 H 11/18/18 06:30 Active Medications - Current Medications Current Medications: Generic Name Dose Route Start Last Admin Trade Name Freq PRN Reason Stop Dose Admin Acetaminophen 650 mg 11/14/18 21:40 11/27/18 03:28 Tylenol PO 650 mg Q4H PRN Administration Pain MILD(1-3)/Fever >100.5/RIVAS Amlodipine Besylate 10 mg 11/15/18 10:00 11/27/18 09:49 Norvasc PO Not Given QDAY KWAME Aspirin 81 mg 11/15/18 10:00 11/27/18 09:47 Halfprin Ec PO 81 mg QDAY KWAME Administration Atorvastatin Calcium 40 mg 11/15/18 22:00 11/26/18 21:54 Lipitor PO 40 mg QHS KWAME Administration Bumetanide 1 mg 11/27/18 10:00 11/27/18 09:48 Bumex PO 1 mg QDAY KWAME Administration Famotidine 10 mg 11/14/18 22:00 11/27/18 09:47 Pepcid PO 10 mg BID KWAME Administration Hydralazine HCl 25 mg 11/18/18 15:34 11/27/18 06:11 Apresoline PO 25 mg Q8HR KWAME Administration Isosorbide Mononitrate 30 mg 11/15/18 10:00 11/27/18 09:47 Imdur PO 30 mg QDAY KWAME Administration Metoprolol Succinate 50 mg 11/23/18 10:00 11/27/18 09:49 Toprol Xl PO Not Given QDAY KWAME Ondansetron HCl 4 mg 11/14/18 21:40 11/16/18 06:41 Zofran IV 4 mg Q8H PRN Administration Nausea And Vomiting Oxycodone/Acetaminophen 1 tab 11/23/18 02:18 11/27/18 11:18 Percocet 5/325 PO 1 tab Q6H PRN Administration Pain, Moderate (4-6) Pantoprazole Sodium 20 mg 11/18/18 18:00 11/27/18 09:47 Protonix PO 20 mg QDAY KWAME Administration Pregabalin 75 mg 11/16/18 15:00 11/27/18 09:47 Lyrica PO 75 mg BID KWAME Administration Sodium Chloride 10 ml 11/14/18 22:00 11/27/18 09:46 Sodium Chloride Flush Syringe 10 Ml IV 10 ml BID KWAME Administration Sodium Chloride 10 ml 11/14/18 21:40 11/17/18 06:20 Sodium Chloride Flush Syringe 10 Ml IV 10 ml PRN PRN Administration LINE FLUSH Nutrition/Malnutrition Assess - Dietary Evaluation Nutrition/Malnutrition Findings: Nutrition Notes Start: 11/19/18 10:23 Freq: Status: Active Protocol: Document 11/19/18 10:25 SA (Rec: 11/19/18 10:28 [facility]-[id number]) Co-Sign 11/19/18 10:25 LP Nutrition Notes Need for Assessment generated from: LOS Initial or Follow up Brief Note Subjective/Other Information Screened for LOS. Per pt's ADL, pt eating 75-100 % of meals recorded. Nutrition Intervention Revisit per MD consult or patient Sign Off request:
--- NOTE | 2018-11-27 13:15 | Progress Note ---
Assessment and Plan Impression: * Stage III chronic kidney disease - dx appx 2 years ago per patient --UPCR 300mg/g --Renal ultrasound: right 9.6, left 11.4. 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 Renal function is stable - SCr 2.0-2.2mg/dL since admission * Cardiology work up noted * ID following - being monitored off dialysis * Diuresis prn * Avoid potential nephrotoxins * Dose medications for renal function * AM labs Subjective Date of service: 11/27/18 Principal diagnosis: babak on ckd Interval history: Patient febrile overnight - temp 101.2 Patient has no complaints. He states that he ambulated cam without difficulty. Denies SOB. Objective - Vital Signs Vital signs: Vital Signs - 12hr 11/27/18 11/27/18 11/27/18 04:51 06:11 08:01 Temperature 99.8 F H 98.0 F Pulse Rate 82 82 81 Respiratory 20 18 Rate Blood Pressure 113/68 113/68 106/80 O2 Sat by Pulse 92 95 Oximetry 11/27/18 11/27/18 11/27/18 09:47 09:49 12:04 Temperature 98.6 F Pulse Rate 81 81 81 Respiratory 18 Rate Blood Pressure 106/80 106/80 113/61 O2 Sat by Pulse 93 Oximetry - General Appearance General appearance: well-developed, well-nourished EENT: ATNC Respiratory: Present: Clear to Ascultation Cardiology: regular, S1S2 Gastrointestinal: normal, no tenderness, no distended Integumentary: no rash, warm and dry Musculoskeletal: other (no edema) Psychiatric: cooperative - Lab 11/27/18 05:03 11/27/18 05:03 Most recent lab results Calcium 9.0 mg/dL (8.4-10.2) 11/27/18 05:03 Magnesium 2.20 mg/dL (1.7-2.3) 11/16/18 05:24 Urine Creatinine 220.1 mg/dL (0.1-20.0) H 11/15/18 22:45 Urine Total Protein 65 mg/dL (5-11.8) H 11/15/18 22:45 Medications & Allergies - Medications Allergies/Adverse Reactions: Allergies lisinopril Allergy (Verified 11/14/18 16:51) Swelling Penicillins Allergy (Verified 11/14/18 16:51) Rash Home Medications: Home Medications Medication Instructions Recorded Confirmed Last Taken Type Amlodipine Besylate [Norvasc] 10 mg PO QDAY 11/14/18 11/14/18 Unknown History Aspirin EC [Aspirin Enteric Coated 81 mg PO QDAY 11/14/18 11/14/18 Unknown History TAB] AtorvaSTATin [Lipitor] 40 mg PO QHS 11/14/18 11/14/18 Unknown History hydrALAZINE [Apresoline TAB] 50 mg PO Q8HR 11/14/18 11/14/18 Unknown History Bumetanide [Bumex 1 mg tab] 1 mg PO BID #60 tab 11/22/18 Unknown Rx Fluconazole [Diflucan TAB] 100 mg PO QDAY #5 tablet 11/22/18 Unknown Rx ISOSORBIDE MONOnitrate [Imdur ER] 30 mg PO QDAY #30 tablet 11/22/18 Unknown Rx Metoprolol Xl [Metoprolol 25 mg PO QDAY #30 tablet 11/22/18 Unknown Rx SUCCINATE ER TAB] Pantoprazole [Protonix TAB] 20 mg PO QDAY #30 tablet. 11/22/18 Unknown Rx Potassium Chloride [K-Dur] 20 meq PO QDAY #30 tablet 11/22/18 Unknown Rx Pregabalin [Lyrica] 75 mg PO BID #60 capsule 11/22/18 Unknown Rx Active Medications: Generic Name Dose Route Start Last Admin Trade Name Freq PRN Reason Stop Dose Admin Acetaminophen 650 mg 11/14/18 21:40 11/27/18 03:28 Tylenol PO 650 mg Q4H PRN Administration Pain MILD(1-3)/Fever >100.5/RIVAS Amlodipine Besylate 10 mg 11/15/18 10:00 11/27/18 09:49 Norvasc PO Not Given QDAY KWAME Aspirin 81 mg 11/15/18 10:00 11/27/18 09:47 Halfprin Ec PO 81 mg QDAY KWAME Administration Atorvastatin Calcium 40 mg 11/15/18 22:00 11/26/18 21:54 Lipitor PO 40 mg QHS KWAME Administration Bumetanide 1 mg 11/27/18 10:00 11/27/18 09:48 Bumex PO 1 mg QDAY KWAME Administration Famotidine 10 mg 11/14/18 22:00 11/27/18 09:47 Pepcid PO 10 mg BID KWAME Administration Hydralazine HCl 25 mg 11/18/18 15:34 11/27/18 06:11 Apresoline PO 25 mg Q8HR KWAME Administration Isosorbide Mononitrate 30 mg 11/15/18 10:00 11/27/18 09:47 Imdur PO 30 mg QDAY KWAME Administration Metoprolol Succinate 50 mg 11/23/18 10:00 11/27/18 09:49 Toprol Xl PO Not Given QDAY KWAME Ondansetron HCl 4 mg 11/14/18 21:40 11/16/18 06:41 Zofran IV 4 mg Q8H PRN Administration Nausea And Vomiting Oxycodone/Acetaminophen 1 tab 11/23/18 02:18 11/27/18 11:18 Percocet 5/325 PO 1 tab Q6H PRN Administration Pain, Moderate (4-6) Pantoprazole Sodium 20 mg 11/18/18 18:00 11/27/18 09:47 Protonix PO 20 mg QDAY KWAME Administration Pregabalin 75 mg 11/16/18 15:00 11/27/18 09:47 Lyrica PO 75 mg BID KWAME Administration Sodium Chloride 10 ml 11/14/18 22:00 11/27/18 09:46 Sodium Chloride Flush Syringe 10 Ml IV 10 ml BID KWAME Administration Sodium Chloride 10 ml 11/14/18 21:40 11/17/18 06:20 Sodium Chloride Flush Syringe 10 Ml IV 10 ml PRN PRN Administration LINE FLUSH
--- NOTE | 2018-11-27 14:53 | Progress Note ---
Assessment and Plan 58 y/o male with large left sided pleural effusion that developed during hospital stay Unsure of why glucose, protein and LDH have still not returned however patient does not need to stay in the hospital for these results, especially if he is clinically better. It is rare to have an isolated left sided pleural effusion from heart failure but this can happen. At this point will sign off. Please call if any questions or concerns. Thank you for this consult. Subjective Date of service: 11/27/18 Principal diagnosis: babak on ckd Interval history: Glucose, Protein and LDH still not back. Cytology negative. Objective Vital Signs - 12hr 11/27/18 11/27/18 11/27/18 04:51 06:11 08:01 Temperature 99.8 F H 98.0 F Pulse Rate 82 82 81 Respiratory 20 18 Rate Blood Pressure 113/68 113/68 106/80 Blood Pressure [Right] O2 Sat by Pulse 92 95 Oximetry 11/27/18 11/27/18 11/27/18 09:47 09:49 10:00 Temperature Pulse Rate 81 81 80 Respiratory Rate Blood Pressure 106/80 106/80 Blood Pressure [Right] O2 Sat by Pulse Oximetry 11/27/18 11/27/18 11/27/18 12:04 14:14 14:20 Temperature 98.6 F 99.6 F Pulse Rate 81 84 84 Respiratory 18 18 Rate Blood Pressure 113/61 102/58 Blood Pressure 102/58 [Right] O2 Sat by Pulse 93 Oximetry Constitutional: no acute distress, asleep ENT: oropharynx moist Neck: supple Ascultation: Left: diminished breath sounds Percussion: Left: dull (base) Cardiovascular: regular rate and rhythm Gastrointestinal: normoactive bowel sounds CBC and BMP: 11/27/18 05:03 11/27/18 05:03 ABG, PT/INR, D-dimer: PT/INR, D-dimer PT 14.3 Sec. (12.2-14.9) 11/24/18 19:57 INR 1.05 (0.87-1.13) 11/24/18 19:57 Abnormal lab findings: Abnormal Labs 11/14/18 11/14/18 11/14/18 17:02 17:02 17:02 WBC 14.9 H Hgb Hct RDW 17.5 H Plt Count Lymph % (Auto) 7.7 L [place] % (Auto) 8.3 H Lymph # 1.1 L [place] # 1.2 H Seg Neutrophils % 83.2 H Seg Neutrophils # 12.4 H Sodium Potassium Chloride BUN 31 H Creatinine 2.0 H Glucose 109 H C-Reactive Protein NT-Pro-B Natriuret Pep Albumin 3.3 L Urine Creatinine Urine Total Protein Rheumatoid Factor Complement C3 Miscellaneous Test 11/14/18 11/15/18 11/15/18 17:02 04:29 04:29 WBC 14.6 H Hgb Hct RDW 17.3 H Plt Count Lymph % (Auto) 9.3 L [place] % (Auto) 9.5 H Lymph # [place] # 1.4 H Seg Neutrophils % 80.2 H Seg Neutrophils # 11.7 H Sodium Potassium Chloride BUN 30 H Creatinine 2.1 H Glucose C-Reactive Protein NT-Pro-B Natriuret Pep 2385 H Albumin 3.1 L Urine Creatinine Urine Total Protein Rheumatoid Factor Complement C3 Miscellaneous Test 11/15/18 11/16/18 11/16/18 22:45 05:24 05:24 WBC 14.4 H Hgb Hct RDW 16.9 H Plt Count Lymph % (Auto) [place] % (Auto) Lymph # [place] # Seg Neutrophils % Seg Neutrophils # Sodium 136 L Potassium Chloride 96.7 L BUN 28 H Creatinine 2.0 H Glucose C-Reactive Protein NT-Pro-B Natriuret Pep Albumin Urine Creatinine 220.1 H Urine Total Protein 65 H Rheumatoid Factor Complement C3 Miscellaneous Test 11/17/18 11/17/18 11/18/18 05:00 05:00 05:12 WBC 14.0 H 13.4 H Hgb 11.3 L Hct 34.2 L RDW 17.3 H 17.2 H Plt Count Lymph % (Auto) [place] % (Auto) Lymph # [place] # Seg Neutrophils % Seg Neutrophils # Sodium 136 L Potassium Chloride 97.7 L BUN 29 H Creatinine 2.2 H Glucose 109 H C-Reactive Protein NT-Pro-B Natriuret Pep Albumin Urine Creatinine Urine Total Protein Rheumatoid Factor Complement C3 Miscellaneous Test 11/18/18 11/18/18 11/18/18 05:12 05:12 06:30 WBC Hgb Hct RDW Plt Count Lymph % (Auto) [place] % (Auto) Lymph # [place] # Seg Neutrophils % Seg Neutrophils # Sodium Potassium Chloride BUN 31 H Creatinine 2.2 H Glucose 115 H C-Reactive Protein 26.70 H NT-Pro-B Natriuret Pep Albumin Urine Creatinine Urine Total Protein Rheumatoid Factor Complement C3 187 H Miscellaneous Test Flexitest 1 H 11/19/18 11/21/18 11/22/18 13:30 07:20 05:22 WBC Hgb Hct RDW Plt Count Lymph % (Auto) [place] % (Auto) Lymph # [place] # Seg Neutrophils % Seg Neutrophils # Sodium Potassium Chloride 96.4 L BUN 29 H 28 H Creatinine 2.0 H 2.0 H Glucose 124 H C-Reactive Protein NT-Pro-B Natriuret Pep Albumin Urine Creatinine Urine Total Protein Rheumatoid Factor 19 H Complement C3 Miscellaneous Test 11/22/18 11/23/18 11/24/18 05:22 05:15 00:35 WBC 12.7 H Hgb 11.6 L Hct 35.1 L RDW 17.0 H Plt Count 457 H Lymph % (Auto) [place] % (Auto) 8.1 H Lymph # [place] # 1.0 H Seg Neutrophils % 75.4 H Seg Neutrophils # 9.6 H Sodium Potassium 5.2 H Chloride 97.0 L BUN 29 H Creatinine 2.1 H Glucose 122 H C-Reactive Protein NT-Pro-B Natriuret Pep 3963 H Albumin Urine Creatinine Urine Total Protein Rheumatoid Factor Complement C3 Miscellaneous Test 11/24/18 11/25/18 11/26/18 05:33 05:26 00:31 WBC 14.0 H Hgb 11.4 L Hct 34.7 L RDW 17.7 H Plt Count Lymph % (Auto) [place] % (Auto) 7.8 H Lymph # [place] # 1.1 H Seg Neutrophils % 76.8 H Seg Neutrophils # 10.8 H Sodium Potassium Chloride 96.9 L 94.9 L BUN 30 H 30 H Creatinine 2.0 H 2.0 H Glucose 109 H 120 H C-Reactive Protein NT-Pro-B Natriuret Pep Albumin Urine Creatinine Urine Total Protein Rheumatoid Factor Complement C3 Miscellaneous Test 11/26/18 11/26/18 11/27/18 05:02 08:49 05:03 WBC Hgb Hct RDW Plt Count Lymph % (Auto) [place] % (Auto) Lymph # [place] # Seg Neutrophils % Seg Neutrophils # Sodium Potassium Chloride 95.7 L 95.2 L BUN 30 H 29 H Creatinine 2.3 H 2.1 H Glucose 119 H 107 H C-Reactive Protein NT-Pro-B Natriuret Pep 2268 H Albumin Urine Creatinine Urine Total Protein Rheumatoid Factor Complement C3 Miscellaneous Test 11/27/18 05:03 WBC 15.7 H Hgb 11.7 L Hct 35.1 L RDW 17.2 H Plt Count Lymph % (Auto) 12.0 L [place] % (Auto) 8.0 H Lymph # [place] # 1.2 H Seg Neutrophils % 78.7 H Seg Neutrophils # 12.4 H Sodium Potassium Chloride BUN Creatinine Glucose C-Reactive Protein NT-Pro-B Natriuret Pep Albumin Urine Creatinine Urine Total Protein Rheumatoid Factor Complement C3 Miscellaneous Test
[2018-11-28] MEDS: APRESOLINE PO SCH ×3 (05:24→21:28)
[2018-11-28] MEDS: LYRICA PO SCH ×2 (09:12→21:38)
[2018-11-28] MEDS: BUMEX PO SCH (09:12)
[2018-11-28] MEDS: IMDUR PO SCH (09:12)
[2018-11-28] MEDS: TOPROL XL PO SCH (09:12)
[2018-11-28] MEDS: HALFPRIN EC PO SCH (09:12)
[2018-11-28] MEDS: PEPCID PO SCH ×2 (09:12→21:28)
[2018-11-28] MEDS: PROTONIX PO SCH (09:12)
[2018-11-28] MEDS: SODIUM CHLORIDE FLUSH SYRINGE 10 ML IV SCH ×2 (09:13→21:28)
[2018-11-28] MEDS: NORVASC PO SCH (09:17)
[2018-11-28 11:17] LABS: Basophils # (Auto) 0.1 K/mm3 (0.0-0.1); Basophils % (Auto) 0.6 % (0.0-1.8); Eosinophils # (Auto) 0.3 K/mm3 (0.0-0.4); Eosinophils % (Auto) 1.7 % (0.0-4.3); Hematocrit 36.8 % (35.5-45.6); Hemoglobin 11.7 gm/dl (11.8-15.2); Lymphocytes # (Auto) 1.6 K/mm3 (1.2-5.4); Mean Corpuscular HGB Conc 32 % (32-34); Mean Corpuscular Volume 87 fl (84-94); Monocytes # (Auto) 1.2 K/mm3 (0.0-0.8); Monocytes % (Auto) 7.5 % (0.0-7.3); Platelet Count 379 K/mm3 (140-440); Red Blood Count 4.24 M/mm3 (3.65-5.03); Red Cell Distribution Width 17.4 % (13.2-15.2)
--- NOTE | 2018-11-28 12:13 | Progress Note ---
Assessment and Plan - Patient Problems (1) CHF exacerbation Current Visit: Yes Status: Acute Qualifiers: Heart failure type: combined systolic and diastolic Qualified Code(s): I50.43 - Acute on chronic combined systolic (congestive) and diastolic (congestive) heart failure Plan to address problem: Patient has a severe dilated cardiomyopathy, ejection fraction 15-20%. Echocardiogram shows a small hemodynamically insignificant pericardial effusion. Thallium stress test shows a large fixed inferior defect with minimal reversibility. The patient is status post previous dual-chamber pacemaker. We will continue medical therapy as previously outlined. A recommendation for outpatient LifeVest monitoring was refused by the patient's medical insurance company. He is stable for cardiac discharge and outpatient follow-up on medical therapy. Subjective Date of service: 11/28/18 Principal diagnosis: babak on ckd Interval history: Patient is comfortable, in no acute distress, on telemetry is sinus rhythm with ventricular pacemaker and fusion QRS complexes. Objective Vital Signs Temp Pulse Resp BP BP Pulse Ox 11/28/18 12:05 99.2 F 73 18 102/55 93 11/28/18 09:36 98.8 F 84 20 110/68 11/28/18 09:17 80 110/68 11/28/18 09:12 84 110/68 11/28/18 07:30 98.3 F 82 18 95/50 95 11/28/18 05:24 83 105/63 11/28/18 04:13 98.7 F 83 18 105/63 94 11/28/18 00:39 99.9 F H 90 18 110/61 92 11/27/18 22:00 83 11/27/18 20:47 101.4 F H 84 22 112/57 95 11/27/18 15:34 98.0 F 18 109/66 11/27/18 14:20 84 102/58 11/27/18 14:14 99.6 F 84 18 102/58 - Physical Examination General: No Apparent Distress HEENT: Positive: PERRL Neck: Positive: trachea midline Cardiac: Positive: Reg Rate and Rhythm Lungs: Positive: Decreased Breath Sounds Neuro: Positive: Grossly Intact Abdomen: Positive: Soft Skin: Positive: Clear Extremities: Absent: edema - Labs and Meds CBC 11/28/18 Range/Units 11:03 WBC 16.3 H (4.5-11.0) K/mm3 RBC 4.24 (3.65-5.03) M/mm3 Hgb 11.7 L (11.8-15.2) gm/dl Hct 36.8 (35.5-45.6) % Plt Count 379 (140-440) K/mm3 Lymph # 1.6 (1.2-5.4) K/mm3 [place] # 1.2 H (0.0-0.8) K/mm3 Eos # 0.3 (0.0-0.4) K/mm3 Baso # 0.1 (0.0-0.1) K/mm3 - Imaging and Cardiology EKG: report reviewed (NSR 90/min )
--- NOTE | 2018-11-28 12:55 | Progress Note ---
Assessment and Plan Cultures: 11/15/2018 MRSA nasal culture: Negative 11/17/2018 blood culture: no growth thus far 11/18/2018 HIV: negative A/P: 57-year-old male with cardiomyopathy, status post pacemaker placement about 2 years ago, CKD was admitted to the hospital on 11/14/2018 with complaints of chest pain. The patient recently moved from [place]. Admitted with chest pain. 1) Leukocytosis now new fever: leukocytosis not better, fever at 101.4. Likely from pleural effusion. Procal 0.3 c/w low risk for bacterial infection. Patient has an indwelling PPM. UA not suggestive of infection. Chest x-ray with bilateral pleural effusions likely related to CHF. ESR 55, CRP 26.70 elevated. RF elevated at 19. XR hand c /w OA. CT chest without pneumonia, showed large bilateral pleural effusions and small pericardial effusion. No vegetations noted on TTE. HIV- Non reactive. Influenza Rapid- negative. Influenza PCR -negative.C3/C4 not c/w acute lupus flare. 2) CKD: nephrology following. Has mild proteinuria. 3) Bilateral pleural effusions L>R: not c/w CHF as he has persistent fever despite left sided thoracentesis. Unclear etiology, pleural fluid studies incomplete. WBC 445, Lymph 40%, RBC 1025, cytology negative for malignancy with numerous mesothelial cells and macrophages. LDH/Glucose pending. 4) Anorexia: unintentional weight loss of 50+ lbs over the last 6 weeks. HIV negative. Also checking for lupus given family history. 5) Dilated cardiomyopathy: cardiology following. EF 15-20%. Indwelling pacemaker + 6) Proximal PIP swelling: will order Anti-cyclic citrullinated peptide (anti- CCP) , RA and obtain left hand xray. 70 Oral Candidiasis: white plaque on the oropharynx. Recs: repeat chest CT repeat blood culture/UA repeat CRP start ceftriaxone and flagyl to cover para-pneumonic effusion caused by anaerobes f/u SANTANA, anti-CCP stop Fluconazole monitor fever and chest pain Discussed with Dr Britton and Dr Blackwood Will follow Nina Calderon MD Infectious Diseases [employer] [facility] M [phone] O [phone] Subjective Date of service: 11/28/18 Principal diagnosis: babak on ckd Interval history: Patient reports anterior chest pain 6 of 10 increases with deep inspiration. Had fever 101.4 yesterday. ROS as above rest negative. Objective - Exam Narrative Exam: General appearance: Alert in NAD, conversant Eyes: anicteric sclerae, moist conjunctivae; no lid-lag; PERRLA HENT: Atraumatic; oropharynx clear with moist mucous membranes and no mucosal ulcerations/no oral thrush; normal hard and soft palate. Normal external ears. Neck: Trachea midline; supple, no thyromegaly or lymphadenopathy Lungs: +decreased left sided breast sound CV: RRR, no murmurs Abdomen: Soft, non-tender; no masses or hepatosplenomegaly Extremities: arthritic changes román hands Skin: Normal temperature, turgor and texture; no rash, ulcers or subcutaneous nodules Psych: Appropriate affect, alert and oriented to person, place and time. Neuro: alert and oriented x 3. Moving all extermities - Constitutional Vitals: Vital Signs Temp Pulse Resp BP Pulse Ox 99.2 F 73 18 102/55 93 11/28/18 12:05 11/28/18 12:05 11/28/18 12:05 11/28/18 12:05 11/28/18 12:05 Temperature -Last 24 Hours Temperature 99.2 F Temperature 98.8 F Temperature 98.3 F Temperature 98.7 F Temperature 99.9 F Temperature 101.4 F Temperature 98.0 F Temperature 99.6 F - Labs CBC & Chem 7: 11/28/18 11:03 11/27/18 05:03 Labs: Abnormal lab results 11/28/18 Range/Units 11:03 WBC 16.3 H (4.5-11.0) K/mm3 Hgb 11.7 L (11.8-15.2) gm/dl RDW 17.4 H (13.2-15.2) % Lymph % (Auto) 10.0 L (13.4-35.0) % [place] % (Auto) 7.5 H (0.0-7.3) % [place] # 1.2 H (0.0-0.8) K/mm3 Seg Neutrophils % 80.2 H (40.0-70.0) % Seg Neutrophils # 13.0 H (1.8-7.7) K/mm3
[2018-11-28] MEDS ORDERED: LEVAQUIN 750MG/150ML 750 MG/150 ML BAG IV SCH (14:00)
--- NOTE | 2018-11-28 14:03 | Progress Note ---
Assessment and Plan Impression: * Stage III chronic kidney disease - dx appx 2 years ago per patient --UPCR 300mg/g --Renal ultrasound: right 9.6, left 11.4. 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 Renal function is stable - SCr 2.0-2.2mg/dL since admission * Cardiology work up noted * ID following - abx resumed - Levo/Flagyl * Diuresis prn * Avoid potential nephrotoxins * Dose medications for renal function * AM labs Subjective Date of service: 11/28/18 Principal diagnosis: babak on ckd Interval history: Patient reports night sweats. Objective - Vital Signs Vital signs: Vital Signs - 12hr 11/28/18 11/28/18 11/28/18 04:13 05:24 07:30 Temperature 98.7 F 98.3 F Pulse Rate 83 83 82 Respiratory 18 18 Rate Blood Pressure 105/63 105/63 95/50 Blood Pressure [Right] O2 Sat by Pulse 94 95 Oximetry 11/28/18 11/28/18 11/28/18 09:12 09:17 09:36 Temperature 98.8 F Pulse Rate 84 80 84 Respiratory 20 Rate Blood Pressure 110/68 110/68 Blood Pressure 110/68 [Right] O2 Sat by Pulse Oximetry 11/28/18 12:05 Temperature 99.2 F Pulse Rate 73 Respiratory 18 Rate Blood Pressure 102/55 Blood Pressure [Right] O2 Sat by Pulse 93 Oximetry - General Appearance General appearance: well-developed, well-nourished EENT: ATNC Respiratory: Present: Clear to Ascultation Cardiology: regular, S1S2 Gastrointestinal: normal, no tenderness, no distended Musculoskeletal: other (no edema) Psychiatric: cooperative - Lab 11/28/18 11:03 11/27/18 05:03 Most recent lab results Calcium 9.0 mg/dL (8.4-10.2) 11/27/18 05:03 Magnesium 2.20 mg/dL (1.7-2.3) 11/16/18 05:24 Urine Creatinine 220.1 mg/dL (0.1-20.0) H 11/15/18 22:45 Urine Total Protein 65 mg/dL (5-11.8) H 11/15/18 22:45 Medications & Allergies - Medications Allergies/Adverse Reactions: Allergies lisinopril Allergy (Verified 11/14/18 16:51) Swelling Penicillins Allergy (Verified 11/14/18 16:51) Rash Home Medications: Home Medications Medication Instructions Recorded Confirmed Last Taken Type Amlodipine Besylate [Norvasc] 10 mg PO QDAY 11/14/18 11/14/18 Unknown History Aspirin EC [Aspirin Enteric Coated 81 mg PO QDAY 11/14/18 11/14/18 Unknown His tory TAB] AtorvaSTATin [Lipitor] 40 mg PO QHS 11/14/18 11/14/18 Unknown History hydrALAZINE [Apresoline TAB] 50 mg PO Q8HR 11/14/18 11/14/18 Unknown History Bumetanide [Bumex 1 mg tab] 1 mg PO BID #60 tab 11/22/18 Unknown Rx Fluconazole [Diflucan TAB] 100 mg PO QDAY #5 tablet 11/22/18 Unknown Rx ISOSORBIDE MONOnitrate [Imdur ER] 30 mg PO QDAY #30 tablet 11/22/18 Unknown Rx Metoprolol Xl [Metoprolol 25 mg PO QDAY #30 tablet 11/22/18 Unknown Rx SUCCINATE ER TAB] Pantoprazole [Protonix TAB] 20 mg PO QDAY #30 tablet. 11/22/18 Unknown Rx Potassium Chloride [K-Dur] 20 meq PO QDAY #30 tablet 11/22/18 Unknown Rx Pregabalin [Lyrica] 75 mg PO BID #60 capsule 11/22/18 Unknown Rx Active Medications: Generic Name Dose Route Start Last Admin Trade Name Freq PRN Reason Stop Dose Admin Acetaminophen 650 mg 11/14/18 21:40 11/27/18 20:55 Tylenol PO 650 mg Q4H PRN Administration Pain MILD(1-3)/Fever >100.5/RIVAS Amlodipine Besylate 10 mg 11/15/18 10:00 11/28/18 09:17 Norvasc PO Not Given QDAY KWAME Aspirin 81 mg 11/15/18 10:00 11/28/18 09:12 Halfprin Ec PO 81 mg QDAY KWAME Administration Atorvastatin Calcium 40 mg 11/15/18 22:00 11/27/18 21:00 Lipitor PO Not Given QHS KWAME Bumetanide 1 mg 11/27/18 10:00 11/28/18 09:12 Bumex PO 1 mg QDAY KWAME Administration Famotidine 10 mg 11/14/18 22:00 11/28/18 09:12 Pepcid PO 10 mg BID KWAME Administration Hydralazine HCl 25 mg 11/18/18 15:34 11/28/18 05:24 Apresoline PO 25 mg Q8HR KWAME Administration Metronidazole 500 mg in 100 mls @ 100 mls/hr 11/28/18 15:00 Flagyl 500 Mg/100 Ml IV Q8HR [facility] Protocol Levofloxacin/Dextrose 750 mg in 150 mls @ 100 mls/hr 11/28/18 16:00 Levaquin 750mg/150ml IV Q48H [facility] Protocol Isosorbide Mononitrate 30 mg 11/15/18 10:00 11/28/18 09:12 Imdur PO Not Given QDAY [facility] Metoprolol Succinate 50 mg 11/23/18 10:00 11/28/18 09:12 Toprol Xl PO 50 mg QDAY KWAME Administration Ondansetron HCl 4 mg 11/14/18 21:40 11/16/18 06:41 Zofran IV 4 mg Q8H PRN Administration Nausea And Vomiting Oxycodone/Acetaminophen 1 tab 11/23/18 02:18 11/27/18 11:18 Percocet 5/325 PO 1 tab Q6H PRN Administration Pain, Moderate (4-6) Pantoprazole Sodium 20 mg 11/18/18 18:00 11/28/18 09:12 Protonix PO 20 mg QDAY KWAME Administration Pregabalin 75 mg 11/16/18 15:00 11/28/18 09:12 Lyrica PO 75 mg BID KWAME Administration Sodium Chloride 10 ml 11/14/18 22:00 11/28/18 09:13 Sodium Chloride Flush Syringe 10 Ml IV 10 ml BID KWAME Administration Sodium Chloride 10 ml 11/14/18 21:40 11/17/18 06:20 Sodium Chloride Flush Syringe 10 Ml IV 10 ml PRN PRN Administration LINE FLUSH
--- NOTE | 2018-11-28 14:33 | Progress Note ---
Assessment and Plan Assessment and plan: 57-year-old man who presented to the hospital with chest pain, --Intermittent fevers, leukocytosis ID started Levaquin and Flagyl, follow cultures --Bilateral Pleural effusion;Lt larger than Rt. s/p thoracentesis, removal of 1400 mL pleural fluid analysis negative so far, Pulmonary following cont anti-failure medications --Chest pain; continue symptomatic management V/Q scan low probability for PE --Ischemic cardiomyopathy; history of 15-20% Continue current anti-failure medications Patient may need LifeVest recommended by cardiology --History of coronary artery disease; continue current cardiac medications --NSVT on telemetry on 11/22/18 Cardiology following, LifeVest prior to discharge Case management assisting --Chronic kidney disease stage III; closely monitor renal function Avoid nephrotoxins --PPM in place: Supportive care --DVT prophylaxis; Lovenox --DC planning. Case management Discussed with ID Dr. Bowden, patient and his nurse Sheriff Officer recommend LifeVest, however case management could not secure one Due to insurance, and financial constraints, Follow consultation and recommendations Possible discharge in 1-2 days if stable History Interval history: Patient seen and examined medical records reviewed Continues to have intermittent fevers MAXIMUM TEMPERATURE last 24 hours 101.4 Alert awake oriented 3 Vital signs reviewed Hospitalist Physical - Constitutional Vitals: Temp Pulse Resp BP Pulse Ox 99.2 F 73 18 102/55 93 11/28/18 12:05 11/28/18 12:05 11/28/18 12:05 11/28/18 12:05 11/28/18 12:05 General appearance: Present: no acute distress, well-nourished - EENT Eyes: Present: PERRL, EOM intact - Neck Neck: Present: supple, enlarged thyroid - Respiratory Respiratory effort: normal Respiratory: bilateral: diminished, negative: rales, rhonchi, wheezing - Cardiovascular Rhythm: regular Heart Sounds: Present: S1 & S2 - Extremities Extremities: no ischemia, No edema - Abdominal General gastrointestinal: soft, non-tender, non-distended, normal bowel sounds - Integumentary Integumentary: Present: clear, warm - Psychiatric Psychiatric: appropriate mood/affect, cooperative - Neurologic Neurologic: moves all extremities Results - Labs CBC & Chem 7: 11/28/18 11:03 11/27/18 05:03 Labs: Laboratory Last Values WBC 16.3 K/mm3 (4.5-11.0) H 11/28/18 11:03 RBC 4.24 M/mm3 (3.65-5.03) 11/28/18 11:03 Hgb 11.7 gm/dl (11.8-15.2) L 11/28/18 11:03 Hct 36.8 % (35.5-45.6) 11/28/18 11:03 MCV 87 fl (84-94) 11/28/18 11:03 MCH 28 pg (28-32) 11/28/18 11:03 MCHC 32 % (32-34) 11/28/18 11:03 RDW 17.4 % (13.2-15.2) H 11/28/18 11:03 Plt Count 379 K/mm3 (140-440) 11/28/18 11:03 Lymph % (Auto) 10.0 % (13.4-35.0) L 11/28/18 11:03 [place] % (Auto) 7.5 % (0.0-7.3) H 11/28/18 11:03 Eos % (Auto) 1.7 % (0.0-4.3) 11/28/18 11:03 Baso % (Auto) 0.6 % (0.0-1.8) 11/28/18 11:03 Lymph # 1.6 K/mm3 (1.2-5.4) 11/28/18 11:03 [place] # 1.2 K/mm3 (0.0-0.8) H 11/28/18 11:03 Eos # 0.3 K/mm3 (0.0-0.4) 11/28/18 11:03 Baso # 0.1 K/mm3 (0.0-0.1) 11/28/18 11:03 Seg Neutrophils % 80.2 % (40.0-70.0) H 11/28/18 11:03 Seg Neutrophils # 13.0 K/mm3 (1.8-7.7) H 11/28/18 11:03 ESR 55 mm/Hr (0-20) 11/18/18 05:12 PT 14.3 Sec. (12.2-14.9) 11/24/18 19:57 INR 1.05 (0.87-1.13) 11/24/18 19:57 Sodium 137 mmol/L (137-145) 11/27/18 05:03 Potassium 4.3 mmol/L (3.6-5.0) 11/27/18 05:03 Chloride 95.2 mmol/L (98-107) L 11/27/18 05:03 Carbon Dioxide 29 mmol/L (22-30) 11/27/18 05:03 Anion Gap 17 mmol/L 11/27/18 05:03 BUN 29 mg/dL (9-20) H 11/27/18 05:03 Creatinine 2.1 mg/dL (0.8-1.5) H 11/27/18 05:03 Estimated GFR 39 ml/min 11/27/18 05:03 BUN/Creatinine Ratio 14 % 11/27/18 05:03 Glucose 107 mg/dL (75-100) H 11/27/18 05:03 Hemoglobin A1c 5.6 % (4-6) 11/14/18 23:19 Calcium 9.0 mg/dL (8.4-10.2) 11/27/18 05:03 Magnesium 2.20 mg/dL (1.7-2.3) 11/16/18 05:24 Total Bilirubin 0.50 mg/dL (0.1-1.2) 11/15/18 04:29 Direct Bilirubin < 0.2 mg/dL (0-0.2) 11/14/18 17:02 Indirect Bilirubin 0.2 mg/dL 11/14/18 17:02 AST 13 units/L (5-40) 11/15/18 04:29 ALT 7 units/L (7-56) 11/15/18 04:29 Alkaline Phosphatase 91 units/L (35-129) 11/15/18 04:29 Troponin T 0.021 ng/mL (0.00-0.029) 11/15/18 04:29 C-Reactive Protein 26.70 mg/dL (0.00-1.30) H 11/18/18 05:12 NT-Pro-B Natriuret Pep 2268 pg/mL (0-900) H 11/26/18 08:49 Total Protein 6.6 g/dL (6.3-8.2) 11/15/18 04:29 Albumin 3.1 g/dL (3.9-5) L 11/15/18 04: Albumin/Globulin Ratio 0.9 % 11/15/18 04:29 Urine Color Yellow (Yellow) 11/15/18 22:45 Urine Turbidity Slightly-cloudy (Clear) 11/15/18 22:45 Urine pH 5.0 (5.0-7.0) 11/15/18 22:45 Ur Specific [place] 1.027 (1.003-1.030) 11/15/18 22:45 Urine Protein 30 mg/dl mg/dL (Negative) 11/15/18 22:45 Urine Glucose (UA) 50 mg/dL (Negative) 11/15/18 22:45 Urine Ketones Neg mg/dL (Negative) 11/15/18 22:45 Urine Blood Neg (Negative) 11/15/18 22:45 Urine Nitrite Neg (Negative) 11/15/18 22:45 Urine Bilirubin Neg (Negative) 11/15/18 22:45 Urine Urobilinogen 4.0 mg/dL (<2.0) 11/15/18 22:45 Ur Leukocyte Esterase Neg (Negative) 11/15/18 22:45 Urine WBC (Auto) 2.0 /HPF (0.0-6.0) 11/15/18 22:45 Urine RBC (Auto) 5.0 /HPF (0.0-6.0) 11/15/18 22:45 U Epithel Cells (Auto) 1.0 /HPF (0-13.0) 11/15/18 22:45 Urine Creatinine 220.1 mg/dL (0.1-20.0) H 11/15/18 22:45 Protein/Creatinin Ratio 0.30 11/15/18 22:45 Urine Total Protein 65 mg/dL (5-11.8) H 11/15/18 22:45 Fluid Type Pleural 11/25/18 11:45 Fluid Color Yellow 11/25/18 11:45 Fluid Appearance Hazy 11/25/18 11:45 Fluid WBC 445 /mm3 11/25/18 11:45 Fluid RBC 1025 /mm3 11/25/18 11:45 Fluid Seg Neutrophils 41.0 % 11/25/18 11:45 Fluid Lymphocytes 46.0 % 11/25/18 11:45 Fluid Reactive Lymphs 7.0 % 11/25/18 11:45 Fluid Monocytes 6.0 % 11/25/18 11:45 Rheumatoid Factor 19 IU/ml (0-13) H 11/19/18 13:30 SANTANA Screen Negative (Negative) 11/18/18 05:12 Complement C3 187 mg/dL (82-185) H 11/18/18 05:12 Complement C4 50 mg/dL (15-53) 11/18/18 05:12 HIV 1&2 Antibody Rapid Non react (Non React) 11/18/18 05:12 HIV P24 Antigen Non react (Non React) 11/18/18 05:12 Influenza A (Rapid) Negative (Negative) 11/19/18 Unknown Influenza A (RT-PCR) Negative (Negative) 11/19/18 Unknown Influenza B (Rapid) Negative (Negative) 11/19/18 Unknown Influenza B (RT-PCR) Negative (Negative) 11/19/18 Unknown Miscellaneous Test Flexitest 1 H 11/18/18 06:30 Active Medications - Current Medications Current Medications: Generic Name Dose Route Start Last Admin Trade Name Freq PRN Reason Stop Dose Admin Acetaminophen 650 mg 11/14/18 21:40 11/27/18 20:55 Tylenol PO 650 mg Q4H PRN Administration Pain MILD(1-3)/Fever >100.5/RIVAS Amlodipine Besylate 10 mg 11/15/18 10:00 11/28/18 09:17 Norvasc PO Not Given QDAY KWAME Aspirin 81 mg 11/15/18 10:00 11/28/18 09:12 Halfprin Ec PO 81 mg QDAY KWAME Administration Atorvastatin Calcium 40 mg 11/15/18 22:00 11/27/18 21:00 Lipitor PO Not Given QHS KWAME Bumetanide 1 mg 11/27/18 10:00 11/28/18 09:12 Bumex PO 1 mg QDAY KWAME Administration Famotidine 10 mg 11/14/18 22:00 11/28/18 09:12 Pepcid PO 10 mg BID KWAME Administration Hydralazine HCl 25 mg 11/18/18 15:34 11/28/18 05:24 Apresoline PO 25 mg Q8HR KWAME Administration Metronidazole 500 mg in 100 mls @ 100 mls/hr 11/28/18 15:00 Flagyl 500 Mg/100 Ml IV Q8HR KWAME Protocol Levofloxacin/Dextrose 750 mg in 150 mls @ 100 mls/hr 11/28/18 16:00 Levaquin 750mg/150ml IV Q48H [facility] Protocol Isosorbide Mononitrate 30 mg 11/15/18 10:00 11/28/18 09:12 Imdur PO Not Given QDAY KWAME Metoprolol Succinate 50 mg 11/23/18 10:00 11/28/18 09:12 Toprol Xl PO 50 mg QDAY KWAME Administration Ondansetron HCl 4 mg 11/14/18 21:40 11/16/18 06:41 Zofran IV 4 mg Q8H PRN Administration Nausea And Vomiting Oxycodone/Acetaminophen 1 tab 11/23/18 02:18 11/27/18 11:18 Percocet 5/325 PO 1 tab Q6H PRN Administration Pain, Moderate (4-6) Pantoprazole Sodium 20 mg 11/18/18 18:00 11/28/18 09:12 Protonix PO 20 mg QDAY KWAME Administration Pregabalin 75 mg 11/16/18 15:00 11/28/18 09:12 Lyrica PO 75 mg BID KWAME Administration Sodium Chloride 10 ml 11/14/18 22:00 11/28/18 09:13 Sodium Chloride Flush Syringe 10 Ml IV 10 ml BID KWAME Administration Sodium Chloride 10 ml 11/14/18 21:40 11/17/18 06:20 Sodium Chloride Flush Syringe 10 Ml IV 10 ml PRN PRN Administration LINE FLUSH Nutrition/Malnutrition Assess - Dietary Evaluation Nutrition/Malnutrition Findings: Nutrition Notes Start: 11/19/18 10:23 Freq: Status: Active Protocol: Document 11/19/18 10:25 (Rec: 11/19/18 10:28 [facility][id number]) Co-Sign 11/19/18 10:25 LP Nutrition Notes Need for Assessment generated from: LOS Initial or Follow up Brief Note Subjective/Other Information Screened for LOS. Per pt's ADL, pt eating 75-100 % of meals recorded. Nutrition Intervention Revisit per MD consult or patient Sign Off request:
[2018-11-28] MEDS: FLAGYL 500 MG/100 ML 500 MG/100 ML BAG IV SCH ×2 (15:14→21:29)
[2018-11-28] MEDS: LEVAQUIN 750MG/150ML 750 MG/150 ML BAG IV SCH (16:54)
[2018-11-28 17:02] LABS: Bilirubin,Urine NEG (Negative); Blood,Urine NEG (Negative); Color,Urine Yellow (Yellow); Protein,Urine <15 mg/dL mg/dL (Negative); Urobilinogen,Urine < 2.0 mg/dL (<2.0); WBC,Urine < 1.0 /HPF (0.0-6.0)
--- NOTE | 2018-11-28 18:33 | Cat Scan Report ---
PROCEDURE: CT CHEST WO CON TECHNIQUE: Axial helical imaging through the chest with sagittal and coronal reformatted images obta ined. HISTORY: persistent fever and chest pain despite thoracentesis COMPARISONS: Chest CT dated November 17, 2018 FINDINGS: Visualization of fine detail in portions of the chest is somewhat limited by motion artifact. There are small to moderate-sized bilateral pleural fluid collections, left greater than right, that are decreased in size compared to the previous study. There continues to be atelectasis of much of the left lower lobe and compressive atelectasis in the r ight lower lobe adjacent to the right pleural fluid collection. The trachea and bronchi are patent. There is no definite evidence of intrathoracic adenopathy. The heart is markedly enlarged with dual lead AICD similar in appearance to the previous study. There has been interval decrease in the size of the pericardial effusion which is minimal in size on the present study. The thoracic aorta is normal caliber. The visualized portion of the upper abdomen is unremarkable. The bony structures are unremarkable. IMPRESSION: 1. Interval decrease in size of bilateral pleural fluid collections which are mild to moderate in siz e on the present study. 2. Persistent atelectasis of much of the left lower lobe and compressive atelectasis in the right low er lobe adjacent to the pleural effusion. 3. Interval decrease in size of pericardial effusion. 4. No significant change in marked cardiac enlargement with dual-lead AICD. This document is electronically signed by Jayne Pabon MD., November 28 2018 06:31:00 PM ET
[2018-11-28] MEDS: TYLENOL PO PRN (19:49)
[2018-11-29] MEDS: FLAGYL 500 MG/100 ML 500 MG/100 ML BAG IV SCH ×3 (05:51→22:09)
[2018-11-29] MEDS: APRESOLINE PO SCH ×3 (05:51→22:08)
[2018-11-29 06:51] LABS: Hematocrit 36.3 % (35.5-45.6); Mean Corpuscular Volume 86 fl (84-94)
[2018-11-29 06:52] LABS: Basophils % (Auto) 0.3 % (0.0-1.8); Eosinophils # (Auto) 0.2 K/mm3 (0.0-0.4); Eosinophils % (Auto) 1.3 % (0.0-4.3); Lymphocytes # (Auto) 1.9 K/mm3 (1.2-5.4); Lymphocytes % (Auto) 11.3 % (13.4-35.0); Mean Corpuscular HGB Conc 33 % (32-34); Mean Platelet Volume 7.9 fl (6-12); Monocytes # (Auto) 1.3 K/mm3 (0.0-0.8); Monocytes % (Auto) 7.9 % (0.0-7.3); Platelet Count 367 K/mm3 (140-440); Red Cell Distribution Width 17.3 % (13.2-15.2)
[2018-11-29 06:57] LABS: Calcium 8.9 mg/dL (8.4-10.2)
--- NOTE | 2018-11-29 09:30 | Progress Note ---
Assessment and Plan Atypical chest pain V/Q scan reports a low probability for PE Leukocytosis Pleural effusion s/p left pleural effusion Dual-chamber pacemaker in situ Chronic kidney disease Hx of CAD Hx of Ischemic cardiomyopathy NSVT seen on telemetry 11/22 recommended LifeVest declined by the patient's medical insurance company. An echocardiogram which reveals a severe dilated cardiomyopathy, ejection fraction 15-20%. Thallium stress test reports a moderate to large, mostly fixed inferior wall defect. Recommendations: Continue medical therapy for coronary artery disease, ischemic cardiomyopathy and chronic systolic heart failure. Stable cardiac angeles. Once discharged, patient will follow up with [facility] as scheduled December 03. Subjective Date of service: 11/29/18 Principal diagnosis: babak on ckd Interval history: Patient has no complaints. Objective Vital Signs Temp Pulse Resp BP BP Pulse Ox 11/29/18 09:00 98.6 F 81 18 100/52 94 11/29/18 05:33 97.4 F L 69 20 129/75 94 11/29/18 00:42 98.3 F 69 20 117/68 100 11/28/18 20:04 90 11/28/18 19:37 102.9 F H 55 L 22 104/64 94 11/28/18 15:50 98.9 F 18 11/28/18 15:48 97.9 F 90 18 108/61 96 11/28/18 14:38 82 133/75 11/28/18 14:32 99.0 F 82 18 133/75 96 11/28/18 12:05 99.2 F 73 18 102/55 93 11/28/18 10:00 81 11/28/18 09:36 98.8 F 84 20 110/68 - Physical Examination General: No Apparent Distress HEENT: Positive: PERRL Neck: Positive: trachea midline Cardiac: Positive: Other (v-paced) Lungs: Positive: Decreased Breath Sounds Neuro: Positive: Grossly Intact Abdomen: Positive: Soft Extremities: Absent: edema - Labs and Meds CBC 11/28/18 11/29/18 Range/Units 11:03 05:32 WBC 16.3 H 16.8 H (4.5-11.0) K/mm3 RBC 4.24 4.20 (3.65-5.03) M/mm3 Hgb 11.7 L 12.0 (11.8-15.2) gm/dl Hct 36.8 36.3 (35.5-45.6) % Plt Count 379 367 (140-440) K/mm3 Lymph # 1.6 1.9 (1.2-5.4) K/mm3 [place] # 1.2 H 1.3 H (0.0-0.8) K/mm3 Eos # 0.3 0.2 (0.0-0.4) K/mm3 Baso # 0.1 0.0 (0.0-0.1) K/mm3 Comprehensive Metabolic Panel 11/29/18 Range/Units 05:32 Sodium 140 (137-145) mmol/L Potassium 4.6 (3.6-5.0) mmol/L Chloride 99.1 (98-107) mmol/L Carbon Dioxide 27 (22-30) mmol/L BUN 24 H (9-20) mg/dL Creatinine 1.9 H (0.8-1.5) mg/dL Glucose 84 (75-100) mg/dL Calcium 8.9 (8.4-10.2) mg/dL
--- NOTE | 2018-11-29 09:37 | Progress Note ---
Subjective Principal diagnosis: babak on ckd Interval history: Patient was seen today for follow-up on multiple renal related issues Events of this hospitalization noted Patient denies having any chest pain pressure or shortness of breath Vitals labs intake output medications were reviewed Social history: Reviewed Allergies: Reviewed Family history: Reviewed Physical examination HEENT: Oral mucosa moist no pallor or icterus Neck: Supple no JVD Chest: Diminished breath sound at bases CVS: Regular rate and rhythm S1 and S2 heard Abdomen: Soft nontender no suprapubic masses no organomegaly appreciable Extremity: Dry skin less than 1+ peripheral edema Musculoskeletal: No joint effusion noted in knees and ankle Neurological: Alert awake Dermatology: No petechial rashes Psychiatry: No evidence of any agitation and aggression noted Assessment and plan Chronic kidney disease stage III patient's renal function is stable around 1.9 creatinine and electrolytes stable no evidence of any metabolic acidosis Anemia: Currently hemoglobin is at 12 which is better than 11.7 Patient was adequately counseled and educated to make an appointment for follow- up in the office upon discharge Low-grade proteinuria in the 300 mg range Severe cardiomyopathy ejection fraction 15-20% range patient high risk for progression due to renal hypoperfusion cardiorenal syndrome Hypertension: Continue to monitor and follow Left parapneumonic effusion status post thoracentesis nearly 1.4 L were removed We'll continue to follow and monitor, Patient was adequately counseled and educated regarding multiple renal related issues Pertinent lab findings were discussed with patient, patient does exhibit good understanding of renal issues We'll continue to follow and make recommendation from renal standpoint Objective - Vital Signs Vital signs: Vital Signs - 12hr 11/29/18 11/29/18 11/29/18 00:42 05:33 09:00 Temperature 98.3 F 97.4 F L 98.6 F Pulse Rate 69 69 81 Respiratory 20 20 18 Rate Blood Pressure 117/68 129/75 100/52 O2 Sat by Pulse 100 94 94 Oximetry - Lab 11/29/18 05:32 11/29/18 05:32 Most recent lab results Calcium 8.9 mg/dL (8.4-10.2) 11/29/18 05:32 Magnesium 2.20 mg/dL (1.7-2.3) 11/16/18 05:24 Urine Creatinine 220.1 mg/dL (0.1-20.0) H 11/15/18 22:45 Urine Total Protein 65 mg/dL (5-11.8) H 11/15/18 22:45 Medications & Allergies - Medications Allergies/Adverse Reactions: Allergies lisinopril Allergy (Verified 11/14/18 16:51) Swelling Penicillins Allergy (Verified 11/14/18 16:51) Rash Home Medications: Home Medications Medication Instructions Recorded Confirmed Last Taken Type Amlodipine Besylate [Norvasc] 10 mg PO QDAY 11/14/18 11/14/18 Unknown History Aspirin EC [Aspirin Enteric Coated 81 mg PO QDAY 11/14/18 11/14/18 Unknown History TAB] AtorvaSTATin [Lipitor] 40 mg PO QHS 11/14/18 11/14/18 Unknown History hydrALAZINE [Apresoline TAB] 50 mg PO Q8HR 11/14/18 11/14/18 Unknown History Bumetanide [Bumex 1 mg tab] 1 mg PO BID #60 tab 11/22/18 Unknown Rx Fluconazole [Diflucan TAB] 100 mg PO QDAY #5 tablet 11/22/18 Unknown Rx ISOSORBIDE MONOnitrate [Imdur ER] 30 mg PO QDAY #30 tablet 11/22/18 Unknown Rx Metoprolol Xl [Metoprolol 25 mg PO QDAY #30 tablet 11/22/18 Unknown Rx SUCCINATE ER TAB] Pantoprazole [Protonix TAB] 20 mg PO QDAY #30 tablet. 11/22/18 Unknown Rx Potassium Chloride [K-Dur] 20 meq PO QDAY #30 tablet 11/22/18 Unknown Rx Pregabalin [Lyrica] 75 mg PO BID #60 capsule 11/22/18 Unknown Rx Active Medications: Generic Name Dose Route Start Last Admin Trade Name Freq PRN Reason Stop Dose Admin Acetaminophen 650 mg 11/14/18 21:40 11/28/18 19:49 Tylenol PO 650 mg Q4H PRN Administration Pain MILD(1-3)/Fever >100.5/RIVAS Amlodipine Besylate 10 mg 11/15/18 10:00 11/28/18 09:17 Norvasc PO Not Given QDAY KWAME Aspirin 81 mg 11/15/18 10:00 11/28/18 09:12 Halfprin Ec PO 81 mg QDAY KWAME Administration Atorvastatin Calcium 40 mg 11/15/18 22:00 11/28/18 21:28 Lipitor PO 40 mg QHS KWAME Administration Bumetanide 1 mg 11/27/18 10:00 11/28/18 09:12 Bumex PO 1 mg QDAY KWAME Administration Famotidine 10 mg 11/14/18 22:00 11/28/18 21:28 Pepcid PO 10 mg BID KWAME Administration Hydralazine HCl 25 mg 11/18/18 15:34 11/29/18 05:51 Apresoline PO 25 mg Q8HR KWAME Administration Metronidazole 500 mg in 100 mls @ 100 mls/hr 11/28/18 15:00 11/29/18 05:51 Flagyl 500 Mg/100 Ml IV 100 mls/hr Q8HR KWAME Administration Protocol Levofloxacin/Dextrose 750 mg in 150 mls @ 100 mls/hr 11/28/18 16:00 11/28/18 16:54 Levaquin 750mg/150ml IV 100 mls/hr Q48H KWAME Administration Protocol Isosorbide Mononitrate 30 mg 11/15/18 10:00 11/28/18 09:12 Imdur PO Not Given QDAY KWAME Metoprolol Succinate 50 mg 11/23/18 10:00 11/28/18 09:12 Toprol Xl PO 50 mg QDAY KWAME Administration Ondansetron HCl 4 mg 11/14/18 21:40 11/16/18 06:41 Zofran IV 4 mg Q8H PRN Administration Nausea And Vomiting Oxycodone/Acetaminophen 1 tab 11/23/18 02:18 11/27/18 11:18 Percocet 5/325 PO 1 tab Q6H PRN Administration Pain, Moderate (4-6) Pantoprazole Sodium 20 mg 11/18/18 18:00 11/28/18 09:12 Protonix PO 20 mg QDAY KWAME Administration Pregabalin 75 mg 11/16/18 15:00 11/28/18 21:38 Lyrica PO 75 mg BID KWAME Administration Sodium Chloride 10 ml 11/14/18 22:00 11/28/18 21:28 Sodium Chloride Flush Syringe 10 Ml IV 10 ml BID KWAME Administration Sodium Chloride 10 ml 11/14/18 21:40 11/17/18 06:20 Sodium Chloride Flush Syringe 10 Ml IV 10 ml PRN PRN Administration LINE FLUSH
[2018-11-29] MEDS: TOPROL XL PO SCH (09:59)
[2018-11-29] MEDS: HALFPRIN EC PO SCH (09:59)
[2018-11-29] MEDS: PROTONIX PO SCH (09:59)
[2018-11-29] MEDS: LYRICA PO SCH ×2 (09:59→22:09)
[2018-11-29] MEDS: PEPCID PO SCH ×2 (09:59→22:08)
[2018-11-29] MEDS: IMDUR PO SCH (09:59)
[2018-11-29] MEDS: BUMEX PO SCH (09:59)
[2018-11-29] MEDS: NORVASC PO SCH (09:59)
[2018-11-29] MEDS: SODIUM CHLORIDE FLUSH SYRINGE 10 ML IV SCH ×2 (10:00→22:09)
--- NOTE | 2018-11-29 12:13 | Progress Note ---
Assessment and Plan Cultures: 11/15/2018 MRSA nasal culture: Negative 11/17/2018 blood culture: no growth thus far 11/18/2018 HIV: negative A/P: 57-year-old male with cardiomyopathy, status post pacemaker placement about 2 years ago, CKD was admitted to the hospital on 11/14/2018 with complaints of chest pain. The patient recently moved from [place]. Admitted with chest pain. 1) Leukocytosis now new fever: leukocytosis not better, fever at 101.4. Likely from pleural effusion. Procal 0.3 c/w low risk for bacterial infection. Patient has an indwelling PPM. UA not suggestive of infection. Chest x-ray with bilateral pleural effusions likely related to CHF. ESR 55, CRP 26.70 elevated. RF elevated at 19. XR hand c/w OA. CT chest without pneumonia, showed large bilateral pleural effusions and small pericardial effusion. No vegetations noted on TTE. HIV- Non reactive. Influenza Rapid- negative. Influenza PCR -negative.C3/C4 not c/w acute lupus flare. Repeat CRP 23.70. 2) CKD: nephrology following. Has mild proteinuria. 3) Bilateral pleural effusions L>R: not c/w CHF as he has persistent fever despite left sided thoracentesis. Unclear etiology, pleural fluid studies incomplete. WBC 445, Lymph 40%, RBC 1025, cytology negative for malignancy with numerous mesothelial cells and macrophages. LDH/Glucose pending. 4) Anorexia: unintentional weight loss of 50+ lbs over the last 6 weeks. HIV negative. Also checking for lupus given family history. 5) Dilated cardiomyopathy: cardiology following. EF 15-20%. Indwelling pacemaker + 6) Proximal PIP swelling: will order Anti-cyclic citrullinated peptide (anti- CCP) , RA and obtain left hand xray. 70 Oral Candidiasis: white plaque on the oropharynx. Recs: f/u blood cuture f/u Urine culture continue Levaquin and flagyl to cover para-pneumonic effusion caused by anaerobes f/u SANTANA, anti-CCP waiting for pulmonary to review CT of chest If fever continues consider another thoracentesis. [facility] M: [phone] O:[phone] Subjective Date of service: 11/29/18 Principal diagnosis: babak on ckd Interval history: Patient seen and examined. Reports generalized weakness and night sweats. +fever. No pain or SOB. Objective - Exam Narrative Exam: Constitutional: Alert, cooperative. Mild distress reported Head, Ears, Nose: Normocephalic, atraumatic. External ears, nose normal Eyes: Conjunctivae/corneas clear. No icterus. No ptosis. Neck: Supple, no meningeal signs Oral: dentition fair, no thrush Cardiovascular: S1, S2 normal. PPM site is well healed, no swelling or ten derness Respiratory: AE decreased in bases, otherwise clear to ausc. GI: Soft, non-tender; bowel sounds normal. No peritoneal signs Musculoskeletal: No pedal edema, no cyanosis. Skin: No rash or abscess Hem/Lymphatic: No palpable cervical or supraclavicular nodes. No lymphangitis Psych: Mood ok. Affect normal Neurological: Awake, alert, oriented. No gross abnormality - Constitutional Vitals: Vital Signs Temp Pulse Resp BP Pulse Ox 98.6 F 81 18 100/52 94 11/29/18 09:00 11/29/18 09:00 11/29/18 09:00 11/29/18 09:00 11/29/18 09:00 Temperature -Last 24 Hours Temperature 98.6 F Temperature 97.4 F Temperature 98.3 F Temperature 102.9 F Temperature 98.9 F Temperature 97.9 F Temperature 99.0 F - Labs CBC & Chem 7: 11/29/18 05:32 11/29/18 05:32 Labs: Abnormal lab results 11/28/18 11/29/18 11/29/18 Range/Units 13:31 05:32 05:32 WBC 16.8 H (4.5-11.0) K/mm3 RDW 17.3 H (13.2-15.2) % Lymph % (Auto) 11.3 L (13.4-35.0) % [place] % (Auto) 7.9 H (0.0-7.3) % [place] # 1.3 H (0.0-0.8) K/mm3 Seg Neutrophils % 79.2 H (40.0-70.0) % Seg Neutrophils # 13.3 H (1.8-7.7) K/mm3 BUN 24 H (9-20) mg/dL Creatinine 1.9 H (0.8-1.5) mg/dL C-Reactive Protein 23.70 H (0.00-1.30) mg/dL
[2018-11-29 12:47] LABS: Total Protein,Body Fluid 4.7 (15.0-45.0)
[2018-11-29] MEDS: PERCOCET 5/325 PO PRN (16:41)
--- NOTE | 2018-11-29 17:03 | Progress Note ---
Assessment and Plan Assessment and plan: 58-year-old -[place] male patient with significant past medical history of congestive heart failure ,hypertension ,renal failure was admitted through emergency room with atypical chest pain and worsening shortness of breath.Patient was evaluated by cardiology medications optimized, evaluated by pulmonary for pleural effusion, status post thoracentesis with removal of 1400 mL of pleural fluid, fluid analysis negative so far, cardiology recommended LifeVest prior to discharge. The patient has persistent fevers, ID following, on empiric antibiotics Assessment and plan: --Intermittent fevers, leukocytosis Possible parapneumonic effusion ID started Levaquin and Flagyl, follow cultures --Bilateral Pleural effusion;Lt larger than Rt. s/p thoracentesis, removal of 1400 mL pleural fluid analysis negative so far, Pulmonary following cont anti-failure medications --Chest pain; continue symptomatic management V/Q scan low probability for PE --Ischemic cardiomyopathy; EF 15-20% Continue current anti-failure medications Patient may need LifeVest at discharge recommended by cardiology --History of coronary artery disease; continue current cardiac medications --NSVT on telemetry on 11/22/18 Cardiology following, LifeVest prior to discharge Case management assisting --Chronic kidney disease stage III; closely monitor renal function Avoid nephrotoxins --PPM in place: Supportive care --DVT prophylaxis; Lovenox --DC planning. Case management Discussed with ID Dr. Bowden, patient and his nurse Deputy Chief Counsel recommend LifeVest, however case management could not secure one Due to insurance, and financial constraints, Follow consultation and recommendations Disposition :Possible discharge in 1-2 days if stable History Interval history: Patient seen and examined medical records reviewed No new events reported by the nursing staff Patient spiked fever of 102 last 24 hours Complaints of generalized weakness Vital signs noted Hospitalist Physical - Constitutional Vitals: Temp Pulse Resp BP Pulse Ox 98.6 F 81 18 100/52 94 11/29/18 09:00 11/29/18 09:00 11/29/18 09:00 11/29/18 09:00 11/29/18 09:00 General appearance: Present: no acute distress, well-nourished - EENT Eyes: Present: PERRL, EOM intact - Neck Neck: Present: supple, normal ROM - Respiratory Respiratory effort: normal Respiratory: bilateral: diminished, rales, negative: rhonchi, wheezing - Cardiovascular Rhythm: regular Heart Sounds: Present: S1 & S2 - Extremities Extremities: no ischemia, No edema - Abdominal General gastrointestinal: soft, non-tender, non-distended, normal bowel sounds - Integumentary Integumentary: Present: clear, warm - Psychiatric Psychiatric: appropriate mood/affect, cooperative - Neurologic Neurologic: CNII-XII intact, moves all extremities Results - Labs CBC & Chem 7: 11/29/18 05:32 11/29/18 05:32 Labs: Laboratory Last Values WBC 16.8 K/mm3 (4.5-11.0) H 11/29/18 05:32 RBC 4.20 M/mm3 (3.65-5.03) 11/29/18 05:32 Hgb 12.0 gm/dl (11.8-15.2) 11/29/18 05:32 Hct 36.3 % (35.5-45.6) 11/29/18 05:32 MCV 86 fl (84-94) 11/29/18 05:32 MCH 29 pg (28-32) 11/29/18 05:32 MCHC 33 % (32-34) 11/29/18 05:32 RDW 17.3 % (13.2-15.2) H 11/29/18 05:32 Plt Count 367 K/mm3 (140-440) 11/29/18 05:32 Lymph % (Auto) 11.3 % (13.4-35.0) L 11/29/18 05:32 Barry % (Auto) 7.9 % (0.0-7.3) H 11/29/18 05:32 Eos % (Auto) 1.3 % (0.0-4.3) 11/29/18 05:32 Baso % (Auto) 0.3 % (0.0-1.8) 11/29/18 05:32 Lymph # 1.9 K/mm3 (1.2-5.4) 11/29/18 05:32 Barry # 1.3 K/mm3 (0.0-0.8) H 11/29/18 05:32 Eos # 0.2 K/mm3 (0.0-0.4) 11/29/18 05:32 Baso # 0.0 K/mm3 (0.0-0.1) 11/29/18 05:32 Seg Neutrophils % 79.2 % (40.0-70.0) H 11/29/18 05:32 Seg Neutrophils # 13.3 K/mm3 (1.8-7.7) H 11/29/18 05:32 ESR 55 mm/Hr (0-20) 11/18/18 05:12 PT 14.3 Sec. (12.2-14.9) 11/24/18 19:57 INR 1.05 (0.87-1.13) 11/24/18 19:57 Sodium 140 mmol/L (137-145) 11/29/18 05:32 Potassium 4.6 mmol/L (3.6-5.0) 11/29/18 05:32 Chloride 99.1 mmol/L (98-107) 11/29/18 05:32 Carbon Dioxide 27 mmol/L (22-30) 11/29/18 05:32 Anion Gap 19 mmol/L 11/29/18 05:32 BUN 24 mg/dL (9-20) H 11/29/18 05:32 Creatinine 1.9 mg/dL (0.8-1.5) H 11/29/18 05:32 Estimated GFR 44 ml/min 11/29/18 05:32 BUN/Creatinine Ratio 13 % 11/29/18 05:32 Glucose 84 mg/dL (75-100) 11/29/18 05:32 Hemoglobin A1c 5.6 % (4-6) 11/14/18 23:19 Calcium 8.9 mg/dL (8.4-10.2) 11/29/18 05:32 Magnesium 2.20 mg/dL (1.7-2.3) 11/16/18 05:24 Total Bilirubin 0.50 mg/dL (0.1-1.2) 11/15/18 04:29 Direct Bilirubin < 0.2 mg/dL (0-0.2) 11/14/18 17:02 Indirect Bilirubin 0.2 mg/dL 11/14/18 17:02 AST 13 units/L (5-40) 11/15/18 04:29 ALT 7 units/L (7-56) 11/15/18 04:29 Alkaline Phosphatase 91 units/L (35-129) 11/15/18 04:29 Troponin T 0.021 ng/mL (0.00-0.029) 11/15/18 04:29 C-Reactive Protein 23.70 mg/dL (0.00-1.30) H 11/28/18 13:31 NT-Pro-B Natriuret Pep 2268 pg/mL (0-900) H 11/26/18 08:49 Total Protein 6.6 g/dL (6.3-8.2) 11/15/18 04:29 Albumin 3.1 g/dL (3.9-5) L 11/15/18 04:29 Albumin/Globulin Ratio 0.9 % 11/15/18 04:29 Urine Color Yellow (Yellow) 11/28/18 16:30 Urine Turbidity Clear (Clear) 11/28/18 16:30 Urine pH 5.0 (5.0-7.0) 11/28/18 16:30 Ur Specific [place] 1.010 (1.003-1.030) 11/28/18 16:30 Urine Protein <15 mg/dl mg/dL (Negative) 11/28/18 16:30 Urine Glucose (UA) Neg mg/dL (Negative) 11/28/18 16:30 Urine Ketones Neg mg/dL (Negative) 11/28/18 16:30 Urine Blood Neg (Negative) 11/28/18 16:30 Urine Nitrite Neg (Negative) 11/28/18 16:30 Urine Bilirubin Neg (Negative) 11/28/18 16:30 Urine Urobilinogen < 2.0 mg/dL (<2.0) 11/28/18 16:30 Ur Leukocyte Esterase Neg (Negative) 11/28/18 16:30 Urine WBC (Auto) < 1.0 /HPF (0.0-6.0) 11/28/18 16:30 Urine RBC (Auto) 4.0 /HPF (0.0-6.0) 11/28/18 16:30 U Epithel Cells (Auto) 1.0 /HPF (0-13.0) 11/15/18 22:45 Urine Creatinine 220.1 mg/dL (0.1-20.0) H 11/15/18 22:45 Protein/Creatinin Ratio 0.30 11/15/18 22:45 Urine Total Protein 65 mg/dL (5-11.8) H 11/15/18 22:45 Fluid Type Pleural 11/25/18 11:45 Fluid Color Yellow 11/25/18 11:45 Fluid Appearance Hazy 11/25/18 11:45 Fluid WBC 445 /mm3 11/25/18 11:45 Fluid RBC 1025 /mm3 11/25/18 11:45 Fluid Seg Neutrophils 41.0 % 11/25/18 11:45 Fluid Lymphocytes 46.0 % 11/25/18 11:45 Fluid Reactive Lymphs 7.0 % 11/25/18 11:45 Fluid Monocytes 6.0 % 11/25/18 11:45 Fluid Glucose 115 mg/dL (40-70) H 11/25/18 11:45 Fluid Total Protein 4.7 (15.0-45.0) L 11/25/18 11:45 Fluid LDH 519 11/25/18 11:45 Rheumatoid Factor 19 IU/ml (0-13) H 11/19/18 13:30 SANTANA Screen Negative (Negative) 11/18/18 05:12 Complement C3 187 mg/dL (82-185) H 11/18/18 05:12 Complement C4 50 mg/dL (15-53) 11/18/18 05:12 HIV 1&2 Antibody Rapid Non react (Non React) 11/18/18 05:12 HIV P24 Antigen Non react (Non React) 11/18/18 05:12 Influenza A (Rapid) Negative (Negative) 11/19/18 Unknown Influenza A (RT-PCR) Negative (Negative) 11/19/18 Unknown Influenza B (Rapid) Negative (Negative) 11/19/18 Unknown Influenza B (RT-PCR) Negative (Negative) 11/19/18 Unknown Miscellaneous Test Flexitest 1 H 11/18/18 06:30 Active Medications - Current Medications Current Medications: Generic Name Dose Route Start Last Admin Trade Name Freq PRN Reason Stop Dose Admin Acetaminophen 650 mg 11/14/18 21:40 11/28/18 19:49 Tylenol PO 650 mg Q4H PRN Administration Pain MILD(1-3)/Fever >100.5/RIVAS Amlodipine Besylate 10 mg 11/15/18 10:00 11/29/18 09:59 Norvasc PO 10 mg QDAY KWAME Administration Aspirin 81 mg 11/15/18 10:00 11/29/18 09:59 Halfprin Ec PO 81 mg QDAY KWAME Administration Atorvastatin Calcium 40 mg 11/15/18 22:00 11/28/18 21:28 Lipitor PO 40 mg QHS KWAME Administration Bumetanide 1 mg 11/27/18 10:00 11/29/18 09:59 Bumex PO 1 mg QDAY KWAME Administration Famotidine 10 mg 11/14/18 22:00 11/29/18 09:59 Pepcid PO 10 mg BID KWAME Administration Hydralazine HCl 25 mg 11/18/18 15:34 11/29/18 14:21 Apresoline PO 25 mg Q8HR KWAME Administration Metronidazole 500 mg in 100 mls @ 100 mls/hr 11/28/18 15:00 11/29/18 14:21 Flagyl 500 Mg/100 Ml IV 100 mls/hr Q8HR KWAME Administration Protocol Levofloxacin/Dextrose 750 mg in 150 mls @ 100 mls/hr 11/28/18 16:00 11/28/18 16:54 Levaquin 750mg/150ml IV 100 mls/hr Q48H KWAME Administration Protocol Isosorbide Mononitrate 30 mg 11/15/18 10:00 11/29/18 09:59 Imdur PO 30 mg QDAY KWAME Administration Metoprolol Succinate 50 mg 11/23/18 10:00 11/29/18 09:59 Toprol Xl PO 50 mg QDAY KWAME Administration Ondansetron HCl 4 mg 11/14/18 21:40 11/16/18 06:41 Zofran IV 4 mg Q8H PRN Administration Nausea And Vomiting Oxycodone/Acetaminophen 1 tab 11/23/18 02:18 11/29/18 16:41 Percocet 5/325 PO 1 tab Q6H PRN Administration Pain, Moderate (4-6) Pantoprazole Sodium 20 mg 11/18/18 18:00 11/29/18 09:59 Protonix PO 20 mg QDAY KWAME Administration Pregabalin 75 mg 11/16/18 15:00 11/29/18 09:59 Lyrica PO 75 mg BID KWAME Administration Sodium Chloride 10 ml 11/14/18 22:00 11/29/18 10:00 Sodium Chloride Flush Syringe 10 Ml IV 10 ml BID KWAME Administration Sodium Chloride 10 ml 11/14/18 21:40 11/17/18 06:20 Sodium Chloride Flush Syringe 10 Ml IV 10 ml PRN PRN Administration LINE FLUSH Nutrition/Malnutrition Assess - Dietary Evaluation Nutrition/Malnutrition Findings: Nutrition Notes Start: 11/19/18 10 :23 Freq: Status: Active Protocol: Document 11/19/18 10:25 SA (Rec: 11/19/18 10:28 [facility]-[id number]) Co-Sign 11/19/18 10:25 LP Nutrition Notes Need for Assessment generated from: LOS Initial or Follow up Brief Note Subjective/Other Information Screened for LOS. Per pt's ADL, pt eating 75-100 % of meals recorded. Nutrition Intervention Revisit per MD consult or patient Sign Off request:
[2018-11-30] MEDS: PERCOCET 5/325 PO PRN ×3 (00:05→22:00)
[2018-11-30] MEDS: APRESOLINE PO SCH ×3 (05:40→22:01)
[2018-11-30] MEDS: FLAGYL 500 MG/100 ML 500 MG/100 ML BAG IV SCH ×3 (05:40→22:01)
[2018-11-30 06:26] LABS: Basophils % (Auto) 0.2 % (0.0-1.8); Eosinophils # (Auto) 0.3 K/mm3 (0.0-0.4); Eosinophils % (Auto) 2.4 % (0.0-4.3); Hematocrit 33.2 % (35.5-45.6); Hemoglobin 11.2 gm/dl (11.8-15.2); Lymphocytes # (Auto) 1.7 K/mm3 (1.2-5.4); Mean Corpuscular HGB Conc 34 % (32-34); Mean Corpuscular Volume 86 fl (84-94); Monocytes # (Auto) 1.1 K/mm3 (0.0-0.8); Monocytes % (Auto) 8.5 % (0.0-7.3); Platelet Count 319 K/mm3 (140-440); Red Blood Count 3.88 M/mm3 (3.65-5.03); Red Cell Distribution Width 17.4 % (13.2-15.2)
[2018-11-30 06:50] LABS: Albumin 2.6 g/dL (3.9-5); Calcium 8.6 mg/dL (8.4-10.2)
--- NOTE | 2018-11-30 09:26 | Progress Note ---
Subjective Principal diagnosis: babak on ckd Interval history: Patient was seen today for follow-up on multiple renal related issues Events of this hospitalization noted He wants to follow-up in the office upon discharge Patient denies having any chest pain pressure or shortness of breath Vitals labs intake output medications were reviewed Social history: Reviewed Allergies: Reviewed Family history: Reviewed Physical examination HEENT: Oral mucosa moist no pallor or icterus Neck: Supple no JVD Chest: Diminished breath sound at bases CVS: Regular rate and rhythm S1 and S2 heard Abdomen: Soft nontender no suprapubic masses no organomegaly appreciable Extremity: Dry skin less than 1+ peripheral edema Musculoskeletal: No joint effusion noted in knees and ankle Neurological: Alert awake Dermatology: No petechial rashes Psychiatry: No evidence of any agitation and aggression noted Assessment and plan Renal function remained stable, patient has been adequately counseled and educated to follow-up in the clinic upon discharge He does have known history of chronic kidney disease and has been adequately counseled regarding the management plan and need to follow-up Patient has not been seen and followed up by a supervisor frame sample and pattern in the outpatient setting Mild anemia with chronic kidney disease Will give him erythropoietin 20,000 units subcutaneous 1 Low-grade proteinuria in the 300 mg range, may consider a low-dose ARB in the outpatient setting Severe cardiomyopathy ejection fraction 15-20% range patient high risk for progression due to renal hypoperfusion cardiorenal syndrome Hypertension: Continue to monitor and follow Left parapneumonic effusion status post thoracentesis nearly 1.4 L were removed, patient admits being noncompliant with fluid and sodium We'll continue to follow and monitor, Patient was adequately counseled and educated regarding multiple renal related issues Pertinent lab findings were discussed with patient, patient does exhibit good understanding of renal issues We'll continue to follow and make recommendation from renal standpoint Objective - Vital Signs Vital signs: Vital Signs - 12hr 11/30/18 11/30/18 11/30/18 00:05 03:44 08:31 Temperature 98.5 F Pulse Rate 69 67 Respiratory 20 18 18 Rate Blood Pressure 115/68 109/65 O2 Sat by Pulse 94 95 Oximetry 11/30/18 08:32 Temperature 97.7 F Pulse Rate Respiratory Rate Blood Pressure O2 Sat by Pulse Oximetry - Lab 11/30/18 05:13 11/30/18 05:13 Most recent lab results Calcium 8.6 mg/dL (8.4-10.2) 11/30/18 05:13 Magnesium 2.20 mg/dL (1.7-2.3) 11/16/18 05:24 Urine Creatinine 220.1 mg/dL (0.1-20.0) H 11/15/18 22:45 Urine Total Protein 65 mg/dL (5-11.8) H 11/15/18 22:45 Medications & Allergies - Medications Allergies/Adverse Reactions: Allergies lisinopril Allergy (Verified 11/14/18 16:51) Swelling Penicillins Allergy (Verified 11/14/18 16:51) Rash Home Medications: Home Medications Medication Instructions Recorded Confirmed Last Taken Type Amlodipine Besylate [Norvasc] 10 mg PO QDAY 11/14/18 11/14/18 Unknown History Aspirin EC [Aspirin Enteric Coated 81 mg PO QDAY 11/14/18 11/14/18 Unknown History TAB] AtorvaSTATin [Lipitor] 40 mg PO QHS 11/14/18 11/14/18 Unknown History hydrALAZINE [Apresoline TAB] 50 mg PO Q8HR 11/14/18 11/14/18 Unknown History Bumetanide [Bumex 1 mg tab] 1 mg PO BID #60 tab 11/22/18 Unknown Rx Fluconazole [Diflucan TAB] 100 mg PO QDAY #5 tablet 11/22/18 Unknown Rx ISOSORBIDE MONOnitrate [Imdur ER] 30 mg PO QDAY #30 tablet 11/22/18 Unknown Rx Metoprolol Xl [Metoprolol 25 mg PO QDAY #30 tablet 11/22/18 Unknown Rx SUCCINATE ER TAB] Pantoprazole [Protonix TAB] 20 mg PO QDAY #30 tablet.dr 11/22/18 Unknown Rx Potassium Chloride [K-Dur] 20 meq PO QDAY #30 tablet 11/22/18 Unknown Rx Pregabalin [Lyrica] 75 mg PO BID #60 capsule 11/22/18 Unknown Rx Active Medications: Generic Name Dose Route Start Last Admin Trade Name Freq PRN Reason Stop Dose Admin Acetaminophen 650 mg 11/14/18 21:40 11/28/18 19:49 Tylenol PO 650 mg Q4H PRN Administration Pain MILD(1-3)/Fever >100.5/RIVAS Amlodipine Besylate 10 mg 11/15/18 10:00 04/29/19 09:59 Norvasc PO 10 mg QDAY KWAME Administration Aspirin 81 mg 11/15/18 10:00 11/29/18 09:59 Halfprin Ec PO 81 mg QDAY KWAME Administration Atorvastatin Calcium 40 mg 11/15/18 22:00 11/29/18 22:08 Lipitor PO 40 mg QHS KWAME Administration Bumetanide 1 mg 11/27/18 10:00 11/29/18 09:59 Bumex PO 1 mg QDAY KWAME Administration Famotidine 10 mg 11/14/18 22:00 11/29/18 22:08 Pepcid PO 10 mg BID KWAME Administration Hydralazine HCl 25 mg 11/18/18 15:34 11/30/18 05:40 Apresoline PO 25 mg Q8HR KWAME Administration Metronidazole 500 mg in 100 mls @ 100 mls/hr 11/28/18 15:00 11/30/18 05:40 Flagyl 500 Mg/100 Ml IV 100 mls/hr Q8HR KWAME Administration Protocol Levofloxacin/Dextrose 750 mg in 150 mls @ 100 mls/hr 11/28/18 16:00 11/28/18 16:54 Levaquin 750mg/150ml IV 100 mls/hr Q48H KWAME Administration Protocol Isosorbide Mononitrate 30 mg 11/15/18 10:00 11/29/18 09:59 Imdur PO 30 mg QDAY KWAME Administration Metoprolol Succinate 50 mg 11/23/18 10:00 11/29/18 09:59 Toprol Xl PO 50 mg QDAY KWAME Administration Ondansetron HCl 4 mg 11/14/18 21:40 11/16/18 06:41 Zofran IV 4 mg Q8H PRN Administration Nausea And Vomiting Oxycodone/Acetaminophen 1 tab 11/23/18 02:18 11/30/18 05:41 Percocet 5/325 PO 1 tab Q6H PRN Administration Pain, Moderate (4-6) Pantoprazole Sodium 20 mg 11/18/18 18:00 11/29/18 09:59 Protonix PO 20 mg QDAY KWAME Administration Pregabalin 75 mg 11/16/18 15:00 11/29/18 22:09 Lyrica PO 75 mg BID KWAME Administration Sodium Chloride 10 ml 11/14/18 22:00 11/29/18 22:09 Sodium Chloride Flush Syringe 10 Ml IV 10 ml BID KWAME Administration Sodium Chloride 10 ml 11/14/18 21:40 11/17/18 06:20 Sodium Chloride Flush Syringe 10 Ml IV 10 ml PRN PRN Administration LINE FLUSH
[2018-11-30] MEDS: TOPROL XL PO SCH (09:33)
[2018-11-30] MEDS: BUMEX PO SCH (09:33)
[2018-11-30] MEDS: NORVASC PO SCH (09:33)
[2018-11-30] MEDS: LYRICA PO SCH ×2 (09:33→22:01)
[2018-11-30] MEDS: PEPCID PO SCH ×2 (09:33→22:01)
[2018-11-30] MEDS: PROTONIX PO SCH (09:33)
[2018-11-30] MEDS: IMDUR PO SCH (09:33)
[2018-11-30] MEDS: HALFPRIN EC PO SCH (09:33)
[2018-11-30] MEDS: SODIUM CHLORIDE FLUSH SYRINGE 10 ML IV SCH ×2 (09:34→22:02)
--- NOTE | 2018-11-30 09:41 | Progress Note ---
Assessment and Plan Atypical chest pain V/Q scan reports a low probability for PE Leukocytosis Pleural effusion s/p left pleural effusion Dual-chamber pacemaker in situ Chronic kidney disease Hx of CAD Hx of Ischemic cardiomyopathy NSVT seen on telemetry 11/22 recommended LifeVest declined by the patient's medical insurance company. An echocardiogram which reveals a severe dilated cardiomyopathy, ejection fraction 15-20%. Thallium stress test reports a moderate to large, mostly fixed inferior wall defect. Recommendations: Continue medical therapy for coronary artery disease, ischemic cardiomyopathy and chronic systolic heart failure. Stable cardiac angeles. Once discharged, patient will follow up with [facility] as scheduled December 03. Subjective Date of service: 11/30/18 Principal diagnosis: babak on ckd Interval history: Patient has no cardiac complaints. Objective Vital Signs Temp Pulse Resp BP Pulse Ox 11/30/18 08:32 97.7 F 11/30/18 08:31 67 18 109/65 95 11/30/18 03:44 98.5 F 69 18 115/68 94 11/30/18 00:05 20 11/29/18 20:07 73 11/29/18 18:19 97.2 F L 11/29/18 16:39 69 112/68 95 11/29/18 11:37 69 95 11/29/18 11:36 104/61 - Physical Examination General: No Apparent Distress HEENT: Positive: PERRL Neck: Positive: trachea midline Cardiac: Positive: Other (v-paced) Lungs: Positive: Decreased Breath Sounds Neuro: Positive: Grossly Intact Abdomen: Positive: Soft Skin: Positive: Clear Extremities: Absent: edema - Labs and Meds Cardiac Enzymes 11/30/18 Range/Units 05:13 AST 13 (5-40) units/L CBC 11/30/18 Range/Units 05:13 WBC 13.1 H (4.5-11.0) K/mm3 RBC 3.88 (3.65-5.03) M/mm3 Hgb 11.2 L (11.8-15.2) gm/dl Hct 33.2 L (35.5-45.6) % Plt Count 319 (140-440) K/mm3 Lymph # 1.7 (1.2-5.4) K/mm3 [place] # 1.1 H (0.0-0.8) K/mm3 Eos # 0.3 (0.0-0.4) K/mm3 Baso # 0.0 (0.0-0.1) K/mm3 Comprehensive Metabolic Panel 11/30/18 Range/Units 05:13 Sodium 139 (137-145) mmol/L Potassium 4.3 (3.6-5.0) mmol/L Chloride 100.5 (98-107) mmol/L Carbon Dioxide 26 (22-30) mmol/L BUN 23 H (9-20) mg/dL Creatinine 1.8 H (0.8-1.5) mg/dL Glucose 122 H (75-100) mg/dL Calcium 8.6 (8.4-10.2) mg/dL AST 13 (5-40) units/L ALT 10 (7-56) units/L Alkaline Phosphatase 79 (35-129) units/L Total Protein 6.7 (6.3-8.2) g/dL Albumin 2.6 L (3.9-5) g/dL - Imaging and Cardiology EKG: report reviewed (NSR 90/min )
--- NOTE | 2018-11-30 10:54 | Progress Note ---
Assessment and Plan Assessment and plan: 58-year-old -[place]ish male patient with significant past medical history of congestive heart failure ,hypertension ,renal failure was admitted through emergency room with atypical chest pain and worsening shortness of breath.Patient was evaluated by cardiology medications optimized, evaluated by pulmonary for pleural effusion, status post thoracentesis with removal of 1400 mL of pleural fluid, fluid analysis negative so far, cardiology recommended LifeVest prior to discharge. The patient has persistent fevers, ID following, on empiric antibiotics Assessment and plan: --Intermittent fevers, leukocytosis Possible parapneumonic effusion ID started Levaquin and Flagyl, follow cultures --Bilateral Pleural effusion;Lt larger than Rt. s/p thoracentesis, removal of 1400 mL pleural fluid analysis negative so far, Pulmonary following cont anti-failure medications --Chest pain; continue symptomatic management V/Q scan low probability for PE --Ischemic cardiomyopathy; EF 15-20% Continue current anti-failure medications Patient may need LifeVest at discharge recommended by cardiology --Acute on chronic systolic congestive heart failure; EF 15-20% Continue anti-failure medications --History of coronary artery disease; continue current cardiac medications --NSVT on telemetry on 11/22/18 Cardiology following, LifeVest prior to discharge Case management assisting --Chronic kidney disease stage III; closely monitor renal function Avoid nephrotoxins --PPM in place: Supportive care --DVT prophylaxis; Lovenox --DC planning. Case management Discussed with ID Dr. oBwden, patient and his nurse Coil Shaper recommend LifeVest, however case management could not secure one Due to insurance, and financial constraints, Follow consultation and recommendations Disposition :Possible discharge in 1-2 days if stable History Interval history: Patient seen and examined medical records reviewed Patient feels slightly better No new complaints Vital signs reviewed Hospitalist Physical - Constitutional Vitals: Temp Pulse Resp BP Pulse Ox 97.7 F 67 18 109/65 95 11/30/18 08:32 11/30/18 08:31 11/30/18 08:31 11/30/18 08:31 11/30/18 08:31 General appearance: Present: no acute distress, well-nourished - EENT Eyes: Present: PERRL, EOM intact - Neck Neck: Present: supple, normal ROM - Respiratory Respiratory effort: labored Respiratory: bilateral: diminished, rhonchi, negative: rales, wheezing - Cardiovascular Rhythm: regular Heart Sounds: Present: S1 & S2 - Extremities Extremities: no ischemia, No edema - Abdominal General gastrointestinal: soft, non-tender, non-distended, normal bowel sounds - Integumentary Integumentary: Present: clear, warm - Psychiatric Psychiatric: appropriate mood/affect, cooperative - Neurologic Neurologic: CNII-XII intact, moves all extremities Results - Labs CBC & Chem 7: 11/30/18 05:13 11/30/18 05:13 Labs: Laboratory Last Values WBC 13.1 K/mm3 (4.5-11.0) H 11/30/18 05:13 RBC 3.88 M/mm3 (3.65-5.03) 11/30/18 05:13 Hgb 11.2 gm/dl (11.8-15.2) L 11/30/18 05:13 Hct 33.2 % (35.5-45.6) L 11/30/18 05:13 MCV 86 fl (84-94) 11/30/18 05:13 MCH 29 pg (28-32) 11/30/18 05:13 MCHC 34 % (32-34) 11/30/18 05:13 RDW 17.4 % (13.2-15.2) H 11/30/18 05:13 Plt Count 319 K/mm3 (140-440) 11/30/18 05:13 Lymph % (Auto) 13.0 % (13.4-35.0) L 11/30/18 05:13 Norman % (Auto) 8.5 % (0.0-7.3) H 11/30/18 05:13 Eos % (Auto) 2.4 % (0.0-4.3) 11/30/18 05:13 Baso % (Auto) 0.2 % (0.0-1.8) 11/30/18 05:13 Lymph # 1.7 K/mm3 (1.2-5.4) 11/30/18 05:13 Norman # 1.1 K/mm3 (0.0-0.8) H 11/30/18 05:13 Eos # 0.3 K/mm3 (0.0-0.4) 11/30/18 05:13 Baso # 0.0 K/mm3 (0.0-0.1) 11/30/18 05:13 Seg Neutrophils % 75.9 % (40.0-70.0) H 11/30/18 05:13 Seg Neutrophils # 9.9 K/mm3 (1.8-7.7) H 11/30/18 05:13 ESR 55 mm/Hr (0-20) 11/18/18 05:12 PT 14.3 Sec. (12.2-14.9) 11/24/18 19:57 INR 1.05 (0.87-1.13) 11/24/18 19:57 Sodium 139 mmol/L (137-145) 11/30/18 05:13 Potassium 4.3 mmol/L (3.6-5.0) 11/30/18 05:13 Chloride 100.5 mmol/L (98-107) 11/30/18 05:13 Carbon Dioxide 26 mmol/L (22-30) 11/30/18 05:13 Anion Gap 17 mmol/L 11/30/18 05:13 BUN 23 mg/dL (9-20) H 11/30/18 05:13 Creatinine 1.8 mg/dL (0.8-1.5) H 11/30/18 05:13 Estimated GFR 47 ml/min 11/30/18 05:13 BUN/Creatinine Ratio 13 % 11/30/18 05:13 Glucose 122 mg/dL (75-100) H 11/30/18 05:13 Hemoglobin A1c 5.6 % (4-6) 11/14/18 23:19 Calcium 8.6 mg/dL (8.4-10.2) 11/30/18 05:13 Magnesium 2.20 mg/dL (1.7-2.3) 11/16/18 05:24 Total Bilirubin 0.20 mg/dL (0.1-1.2) 11/30/18 05:13 Direct Bilirubin < 0.2 mg/dL (0-0.2) 11/14/18 17:02 Indirect Bilirubin 0.2 mg/dL 11/14/18 17:02 AST 13 units/L (5-40) 11/30/18 05:13 ALT 10 units/L (7-56) 11/30/18 05:13 Alkaline Phosphatase 79 units/L (35-129) 11/30/18 05:13 Troponin T 0.021 ng/mL (0.00-0.029) 11/15/18 04:29 C-Reactive Protein 23.70 mg/dL (0.00-1.30) H 11/28/18 13:31 NT-Pro-B Natriuret Pep 2268 pg/mL (0-900) H 11/26/18 08:49 Total Protein 6.7 g/dL (6.3-8.2) 11/30/18 05:13 Albumin 2.6 g/dL (3.9-5) L 11/30/18 05:13 Albumin/Globulin Ratio 0.6 % 11/30/18 05:13 Urine Color Yellow (Yellow) 11/28/18 16:30 Urine Turbidity Clear (Clear) 11/28/18 16:30 Urine pH 5.0 (5.0-7.0) 11/28/18 16:30 Ur Specific [place] 1.010 (1.003-1.030) 11/28/18 16:30 Urine Protein <15 mg/dl mg/dL (Negative) 11/28/18 16:30 Urine Glucose (UA) Neg mg/dL (Negative) 11/28/18 16:30 Urine Ketones Neg mg/dL (Negative) 11/28/18 16:30 Urine Blood Neg (Negative) 11/28/18 16:30 Urine Nitrite Neg (Negative) 11/28/18 16:30 Urine Bilirubin Neg (Negative) 11/28/18 16:30 Urine Urobilinogen < 2.0 mg/dL (<2.0) 11/28/18 16:30 Ur Leukocyte Esterase Neg (Negative) 11/28/18 16:30 Urine WBC (Auto) < 1.0 /HPF (0.0-6.0) 11/28/18 16:30 Urine RBC (Auto) 4.0 /HPF (0.0-6.0) 11/28/18 16:30 U Epithel Cells (Auto) 1.0 /HPF (0-13.0) 11/15/18 22:45 Urine Creatinine 220.1 mg/dL (0.1-20.0) H 11/15/18 22:45 Protein/Creatinin Ratio 0.30 11/15/18 22:45 Urine Total Protein 65 mg/dL (5-11.8) H 11/15/18 22:45 Fluid Type Pleural 11/25/18 11:45 Fluid Color Yellow 11/25/18 11:45 Fluid Appearance Hazy 11/25/18 11:45 Fluid WBC 445 /mm3 11/25/18 11:45 Fluid RBC 1025 /mm3 11/25/18 11:45 Fluid Seg Neutrophils 41.0 % 11/25/18 11:45 Fluid Lymphocytes 46.0 % 11/25/18 11:45 Fluid Reactive Lymphs 7.0 % 11/25/18 11:45 Fluid Monocytes 6.0 % 11/25/18 11:45 Fluid Glucose 115 mg/dL (40-70) H 11/25/18 11:45 Fluid Total Protein 4.7 (15.0-45.0) L 11/25/18 11:45 Fluid LDH 519 11/25/18 11:45 Rheumatoid Factor 19 IU/ml (0-13) H 11/19/18 13:30 SANTANA Screen Negative (Negative) 11/18/18 05:12 Complement C3 187 mg/dL (82-185) H 11/18/18 05:12 Complement C4 50 mg/dL (15-53) 11/18/18 05:12 HIV 1&2 Antibody Rapid Non react (Non React) 11/18/18 05:12 HIV P24 Antigen Non react (Non React) 11/18/18 05:12 Influenza A (Rapid) Negative (Negative) 11/19/18 Unknown Influenza A (RT-PCR) Negative (Negative) 11/19/18 Unknown Influenza B (Rapid) Negative (Negative) 11/19/18 Unknown Influenza B (RT-PCR) Negative (Negative) 11/19/18 Unknown Miscellaneous Test Flexitest 1 H 11/18/18 06:30 Active Medications - Current Medications Current Medications: Generic Name Dose Route Start Last Admin Trade Name Freq PRN Reason Stop Dose Admin Acetaminophen 650 mg 11/14/18 21:40 11/28/18 19:49 Tylenol PO 650 mg Q4H PRN Administration Pain MILD(1-3)/Fever >100.5/RIVAS Amlodipine Besylate 10 mg 11/15/18 10:00 11/30/18 09:33 Norvasc PO 10 mg QDAY KWAME Administration Aspirin 81 mg 11/15/18 10:00 11/30/18 09:33 Halfprin Ec PO 81 mg QDAY KWAME Administration Atorvastatin Calcium 40 mg 11/15/18 22:00 11/29/18 22:08 Lipitor PO 40 mg QHS KWAME Administration Bumetanide 1 mg 11/27/18 10:00 11/30/18 09:33 Bumex PO 1 mg QDAY KWAME Administration Epoetin Kwabena 20,000 unit 11/30/18 11:00 Procrit SUB-Q 11/30/18 15:00 ONCE NR Famotidine 10 mg 11/14/18 22:00 11/30/18 09:33 Pepcid PO 10 mg BID KWAME Administration Hydralazine HCl 25 mg 11/18/18 15:34 11/30/18 05:40 Apresoline PO 25 mg Q8HR KWAME Administration Metronidazole 500 mg in 100 mls @ 100 mls/hr 11/28/18 15:00 11/30/18 05:40 Flagyl 500 Mg/100 Ml IV 100 mls/hr Q8HR KWAME Administration Protocol Levofloxacin/Dextrose 750 mg in 150 mls @ 100 mls/hr 11/28/18 16:00 11/28/18 16:54 Levaquin 750mg/150ml IV 100 mls/hr Q48H KWAME Administration Protocol Isosorbide Mononitrate 30 mg 11/15/18 10:00 11/30/18 09:33 Imdur PO 30 mg QDAY KWAME Administration Metoprolol Succinate 50 mg 11/23/18 10:00 11/30/18 09:33 Toprol Xl PO 50 mg QDAY KWAME Administration Ondansetron HCl 4 mg 11/14/18 21:40 11/16/18 06:41 Zofran IV 4 mg Q8H PRN Administration Nausea And Vomiting Oxycodone/Acetaminophen 1 tab 11/23/18 02:18 11/30/18 05:41 Percocet 5/325 PO 1 tab Q6H PRN Administration Pain, Moderate (4-6) Pantoprazole Sodium 20 mg 11/18/18 18:00 11/30/18 09:33 Protonix PO 20 mg QDAY KWAME Administration Pregabalin 75 mg 11/16/18 15:00 11/30/18 09:33 Lyrica PO 75 mg BID KWAME Administration Sodium Chloride 10 ml 11/14/18 22:00 11/30/18 09:34 Sodium Chloride Flush Syringe 10 Ml IV 10 ml BID KWAME Administration Sodium Chloride 10 ml 11/14/18 21:40 11/17/18 06:20 Sodium Chloride Flush Syringe 10 Ml IV 10 ml PRN PRN Administration LINE FLUSH Nutrition/Malnutrition Assess - Dietary Evaluation Nutrition/Malnutrition Findings: Nutrition Notes Start: 11/19/18 10:23 Freq: Status: Active Protocol: Document 11/19/18 10:25 SA (Rec: 11/19/18 10:28 [facility]-[id number]) Co-Sign 11/19/18 10:25 LP Nutrition Notes Need for Assessment generated from: LOS Initial or Follow up Brief Note Subjective/Other Information Screened for LOS. Per pt's ADL, pt eating 75-100 % of meals recorded. Nutrition Intervention Revisit per MD consult or patient Sign Off request:
[2018-11-30] MEDS ORDERED: PROCRIT SUB-Q NR (11:00)
--- NOTE | 2018-11-30 11:15 | Progress Note ---
Assessment and Plan Cultures: 11/15/2018 MRSA nasal culture: Negative 11/17/2018 blood culture: no growth 11/18/2018 HIV: negative 11/29/18: blood culture: no growth to date A/P: 57-year-old male with cardiomyopathy, status post pacemaker placement about 2 years ago, CKD was admitted to the hospital on 11/14/2018 with complaints of chest pain. The patient recently moved from [place]. Admitted with chest pain. 1) Leukocytosis trending down. No fever in > than 24 hours. Likely from pleural effusion. Procal 0.3 c/w low risk for bacterial infection. Patient has an indwelling PPM. UA not suggestive of infection. Chest x-ray with bilateral pleural effusions likely related to CHF. ESR 55, CRP 26.70 elevated. RF elevated at 19. XR hand c/w OA. CT chest without pneumonia, showed large bilateral pleural effusions and small pericardial effusion. No vegetations noted on TTE. HIV- Non reactive. Influenza Rapid- negative. Influenza PCR -negative. SANTANA negative. C3/C4 not c/w acute lupus flare. Repeat CRP 23.70 2) CKD: nephrology following. Has mild proteinuria. 3) Bilateral pleural effusions L>R: not c/w CHF as he has persistent fever despite left sided thoracentesis. Unclear etiology, pleural fluid studies incomplete. WBC 445, Lymph 40%, RBC 1025, cytology negative for malignancy with numerous mesothelial cells and macrophages.LDH 519, Glucose 115, Total Protein 4.7. 4) Anorexia: unintentional weight loss of 50+ lbs over the last 6 weeks. HIV negative. Also checking for lupus given family history. 5) Dilated cardiomyopathy: cardiology following. EF 15-20%. Indwelling pacemaker + 6) Proximal PIP swelling: will order Anti-cyclic citrullinated peptide (anti- CCP) , RA and obtain left hand xray. 70 Oral Candidiasis: white plaque on the oropharynx. Recs: f/u blood culture continue Levaquin and flagyl to cover para-pneumonic effusion caused by anaerobes, D3 f/u anti-CCP Dr. Bowden discussed case with Dr. Singh and he will review repeat CT and fluid result [facility] M: [phone] O:[phone] Subjective Date of service: 11/30/18 Principal diagnosis: babak on ckd Interval history: Patient seen and examined. Reports generalized weakness and night sweats. no fever. +left chest pain at night. Objective - Exam Narrative Exam: Constitutional: Alert, cooperative. Mild distress reported Head, Ears, Nose: Normocephalic, atraumatic. External ears, nose normal Eyes: Conjunctivae/corneas clear. No icterus. No ptosis. Neck: Supple, no meningeal signs Oral: dentition fair, no thrush Cardiovascular: S1, S2 normal. PPM site is well healed, no swelling or tenderness Respiratory: AE decreased in bases, otherwise clear to ausc. GI: Soft, non-tender; bowel sounds normal. No peritoneal signs Musculoskeletal: No pedal edema, no cyanosis. Skin: No rash or abscess Hem/Lymphatic: No palpable cervical or supraclavicular nodes. No lymphangitis Psych: Mood ok. Affect normal Neurological: Awake, alert, oriented. No gross abnormality - Constitutional Vitals: Vital Signs Temp Pulse Resp BP Pulse Ox 97.7 F 67 18 109/65 95 11/30/18 08:32 11/30/18 08:31 11/30/18 08:31 11/30/18 08:31 11/30/18 08:31 Temperature -Last 24 Hours Temperature 97.7 F Temperature 98.5 F Temperature 97.2 F - Labs CBC & Chem 7: 11/30/18 05:13 11/30/18 05:13 Labs: Abnormal lab results 11/25/18 11/30/18 11/30/18 Range/Units 11:45 05:13 05:13 WBC 13.1 H (4.5-11.0) K/mm3 Hgb 11.2 L (11.8-15.2) gm/dl Hct 33.2 L (35.5-45.6) % RDW 17.4 H (13.2-15.2) % Lymph % (Auto) 13.0 L (13.4-35.0) % Harris % (Auto) 8.5 H (0.0-7.3) % Harris # 1.1 H (0.0-0.8) K/mm3 Seg Neutrophils % 75.9 H (40.0-70.0) % Seg Neutrophils # 9.9 H (1.8-7.7) K/mm3 BUN 23 H (9-20) mg/dL Creatinine 1.8 H (0.8-1.5) mg/dL Glucose 122 H (75-100) mg/dL Albumin 2.6 L (3.9-5) g/dL Fluid Glucose 115 H (40-70) mg/dL Fluid Total Protein 4.7 L (15.0-45.0)
[2018-11-30] MEDS: LEVAQUIN 750MG/150ML 750 MG/150 ML BAG IV SCH (16:26)
[2018-12-01] MEDS: FLAGYL 500 MG/100 ML 500 MG/100 ML BAG IV SCH (05:18)
[2018-12-01] MEDS: APRESOLINE PO SCH ×3 (05:19→22:54)
--- NOTE | 2018-12-01 08:58 | Progress Note ---
Assessment and Plan Cultures: 11/15/2018 MRSA nasal culture: Negative 11/17/2018 blood culture: no growth 11/18/2018 HIV: negative 11/29/18: blood culture: no growth to date A/P: 57-year-old male with cardiomyopathy, status post pacemaker placement about 2 years ago, CKD was admitted to the hospital on 11/14/2018 with complaints of chest pain. The patient recently moved from [place]. Admitted with chest pain. 1) Leukocytosis trending down. No fevers. Likely from pleural effusion. Procal 0.3 c/w low risk for bacterial infection. Patient has an indwelling PPM. UA not suggestive of infection. Chest x-ray with bilateral pleural effusions likely related to CHF. ESR 55, CRP 26.70 elevated. RF elevated at 19. XR hand c/w OA. CT chest without pneumonia, showed large bilateral pleural effusions and small pericardial effusion. No vegetations noted on TTE. HIV- Non reactive. Influenza Rapid- negative. Influenza PCR -negative. . Repeat CRP 23.70. 2) CKD: nephrology following. Has mild proteinuria. 3) Bilateral pleural effusions L>R: not c/w CHF as he has persistent fever despite left sided thoracentesis. Unclear etiology, pleural fluid studies incomplete. WBC 445, Lymph 40%, RBC 1025, cytology negative for malignancy with numerous mesothelial cells and macrophages.LDH 519, Glucose 115, Total Protein 4.7. 4) Anorexia: unintentional weight loss of 50+ lbs over the last 6 weeks. HIV negative. Also checking for lupus given family history. SANTANA negative. C3/C4 not c/w acute lupus flare 5) Dilated cardiomyopathy: cardiology following. EF 15-20%. Indwelling pacemaker + 6) Proximal PIP swelling: anti-CCP negative. 70 Oral Candidiasis: Improved. Recs: f/u blood culture follow-up pulmonary evaluation of repeat CT and fluid result Switch to Flagyl 500 mg PO every 8 hours and Levaquin 750mg PO every 48 hours (CrCl 43.28) for total 10 days ending 12-07-18 repeat chest xray at [facility] in one week f/u [facility] on 12-17-18 [facility] M: [phone] O:[phone] Subjective Date of service: 12/01/18 Principal diagnosis: babak on ckd Interval history: Patient seen and examined. Reports generalized weakness and night sweats. no fever. +left chest pain at night. Objective - Exam Narrative Exam: Constitutional: Alert, cooperative. Mild distress reported Head, Ears, Nose: Normocephalic, atraumatic. External ears, nose normal Eyes: Conjunctivae/corneas clear. No icterus. No ptosis. Neck: Supple, no meningeal signs Oral: dentition fair, no thrush Cardiovascular: S1, S2 normal. PPM site is well healed, no swelling or tend erness Respiratory: AE decreased in bases, otherwise clear to ausc. GI: Soft, non-tender; bowel sounds normal. No peritoneal signs Musculoskeletal: No pedal edema, no cyanosis. Skin: No rash or abscess Hem/Lymphatic: No palpable cervical or supraclavicular nodes. No lymphangitis Psych: Mood ok. Affect normal Neurological: Awake, alert, oriented. No gross abnormality - Constitutional Vitals: Vital Signs Temp Pulse Resp BP Pulse Ox 98.4 F 76 14 113/67 96 12/01/18 07:48 12/01/18 07:48 12/01/18 07:48 12/01/18 07:48 12/01/18 07:48 Temperature -Last 24 Hours Temperature 98.4 F Temperature 98.6 F Temperature 99.5 F Temperature 98.5 F Temperature 98.2 F - Labs CBC & Chem 7: 11/30/18 05:13 11/30/18 05:13
--- NOTE | 2018-12-01 09:11 | Progress Note ---
Subjective Principal diagnosis: babak on ckd Interval history: Patient was seen today for follow-up on multiple renal related issues Events of this hospitalization noted much better understanding of kidney problem now slowly improving Breathing is better Vitals labs intake output medications were reviewed Social history: Reviewed Allergies: Reviewed Family history: Reviewed Physical examination HEENT: Oral mucosa moist no pallor or icterus Neck: Supple no JVD Chest: Diminished breath sound at bases CVS: Regular rate and rhythm S1 and S2 heard Abdomen: Soft nontender no suprapubic masses no organomegaly appreciable Extremity: Dry skin less than 1+ peripheral edema Musculoskeletal: No joint effusion noted in knees and ankle Neurological: Alert awake Dermatology: No petechial rashes Psychiatry: No evidence of any agitation and aggression noted Assessment and plan stage III chronic kidney disease stable renal function Needs follow-up in the office Mild anemia received erythropoietin Low-grade proteinuria in the 300 mg range, may consider a low-dose ARB in the outpatient setting Severe cardiomyopathy ejection fraction 15-20% range patient high risk for progression due to renal hypoperfusion cardiorenal syndrome Hypertension: Continue to monitor and follow Left parapneumonic effusion status post thoracentesis nearly 1.4 L were removed, patient admits being noncompliant with fluid and sodium We'll continue to follow and monitor, Patient was adequately counseled and educated regarding multiple renal related issues Pertinent lab findings were discussed with patient, patient does exhibit good understanding of renal issues We'll continue to follow and make recommendation from renal standpoint Objective - Vital Signs Vital signs: Vital Signs - 12hr 11/30/18 12/01/18 12/01/18 23:35 04:07 07:48 Temperature 99.5 F 98.6 F 98.4 F Pulse Rate 80 77 76 Respiratory 12 12 14 Rate Blood Pressure 113/60 111/66 113/67 O2 Sat by Pulse 94 95 96 Oximetry - Lab 11/30/18 05:13 11/30/18 05:13 Most recent lab results Calcium 8.6 mg/dL (8.4-10.2) 11/30/18 05:13 Magnesium 2.20 mg/dL (1.7-2.3) 11/16/18 05:24 Urine Creatinine 220.1 mg/dL (0.1-20.0) H 11/15/18 22:45 Urine Total Protein 65 mg/dL (5-11.8) H 11/15/18 22:45 Medications & Allergies - Medications Allergies/Adverse Reactions: Allergies lisinopril Allergy (Verified 11/14/18 16:51) Swelling Penicillins Allergy (Verified 11/14/18 16:51) Rash Home Medications: Home Medications Medication Instructions Recorded Confirmed Last Taken Type Amlodipine Besylate [Norvasc] 10 mg PO QDAY 11/14/18 11/14/18 Unknown History Aspirin EC [Aspirin Enteric Coated 81 mg PO QDAY 11/14/18 11/14/18 Unknown History TAB] AtorvaSTATin [Lipitor] 40 mg PO QHS 11/14/18 11/14/18 Unknown History hydrALAZINE [Apresoline TAB] 50 mg PO Q8HR 11/14/18 11/14/18 Unknown History Bumetanide [Bumex 1 mg tab] 1 mg PO BID #60 tab 11/22/18 Unknown Rx Fluconazole [Diflucan TAB] 100 mg PO QDAY #5 tablet 11/22/18 Unknown Rx ISOSORBIDE MONOnitrate [Imdur ER] 30 mg PO QDAY #30 tablet 11/22/18 Unknown Rx Metoprolol Xl [Metoprolol 25 mg PO QDAY #30 tablet 11/22/18 Unknown Rx SUCCINATE ER TAB] Pantoprazole [Protonix TAB] 20 mg PO QDAY #30 tablet. 11/22/18 Unknown Rx Potassium Chloride [K-Dur] 20 meq PO QDAY #30 tablet 11/22/18 Unknown Rx Pregabalin [Lyrica] 75 mg PO BID #60 capsule 11/22/18 Unknown Rx Active Medications: Generic Name Dose Route Start Last Admin Trade Name Freq PRN Reason Stop Dose Admin Acetaminophen 650 mg 11/14/18 21:40 11/28/18 19:49 Tylenol PO 650 mg Q4H PRN Administration Pain MILD(1-3)/Fever >100.5/RIVAS Amlodipine Besylate 10 mg 11/15/18 10:00 11/30/18 09:33 Norvasc PO 10 mg QDAY KWAME Administration Aspirin 81 mg 11/15/18 10:00 11/30/18 09:33 Halfprin Ec PO 81 mg QDAY KWAME Administration Atorvastatin Calcium 40 mg 11/15/18 22:00 11/30/18 22:01 Lipitor PO 40 mg QHS KWAME Administration Bumetanide 1 mg 11/27/18 10:00 11/30/18 09:33 Bumex PO 1 mg QDAY KWAME Administration Famotidine 10 mg 11/14/18 22:00 11/30/18 22:01 Pepcid PO 10 mg BID KWAME Administration Hydralazine HCl 25 mg 11/18/18 15:34 12/01/18 05:19 Apresoline PO 25 mg Q8HR KWAME Administration Metronidazole 500 mg in 100 mls @ 100 mls/hr 11/28/18 15:00 12/01/18 05:18 Flagyl 500 Mg/100 Ml IV 100 mls/hr Q8HR KWAME Administration Protocol Levofloxacin/Dextrose 750 mg in 150 mls @ 100 mls/hr 11/28/18 16:00 11/30/18 16:26 Levaquin 750mg/150ml IV 100 mls/hr Q48H KWAME Administration Protocol Isosorbide Mononitrate 30 mg 11/15/18 10:00 11/30/18 09:33 Imdur PO 30 mg QDAY KWAME Administration Metoprolol Succinate 50 mg 11/23/18 10:00 11/30/18 09:33 Toprol Xl PO 50 mg QDAY KWAME Administration Ondansetron HCl 4 mg 11/14/18 21:40 11/16/18 06:41 Zofran IV 4 mg Q8H PRN Administration Nausea And Vomiting Oxycodone/Acetaminophen 1 tab 11/23/18 02:18 11/30/18 22:00 Percocet 5/325 PO 1 tab Q6H PRN Administration Pain, Moderate (4-6) Pantoprazole Sodium 20 mg 11/18/18 18:00 11/30/18 09:33 Protonix PO 20 mg QDAY KWAME Administration Pregabalin 75 mg 11/16/18 15:00 11/30/18 22:01 Lyrica PO 75 mg BID KWAME Administration Sodium Chloride 10 ml 11/14/18 22:00 11/30/18 22:02 Sodium Chloride Flush Syringe 10 Ml IV 10 ml BID KWAME Administration Sodium Chloride 10 ml 11/14/18 21:40 11/17/18 06:20 Sodium Chloride Flush Syringe 10 Ml IV 10 ml PRN PRN Administration LINE FLUSH
[2018-12-01] MEDS: LYRICA PO SCH ×2 (09:48→22:21)
[2018-12-01] MEDS: PEPCID PO SCH ×2 (09:48→22:21)
[2018-12-01] MEDS: PROTONIX PO SCH (09:48)
[2018-12-01] MEDS: SODIUM CHLORIDE FLUSH SYRINGE 10 ML IV SCH ×2 (09:49→22:21)
[2018-12-01] MEDS: HALFPRIN EC PO SCH (09:51)
[2018-12-01] MEDS: NORVASC PO SCH (09:54)
[2018-12-01] MEDS: IMDUR PO SCH (09:55)
[2018-12-01] MEDS: TOPROL XL PO SCH (09:55)
[2018-12-01] MEDS: BUMEX PO SCH (09:59)
--- NOTE | 2018-12-01 10:33 | Progress Note ---
Assessment and Plan Atypical chest pain V/Q scan reports a low probability for PE Leukocytosis Pleural effusion s/p left pleural effusion Dual-chamber pacemaker in situ Chronic kidney disease Hx of CAD Hx of Ischemic cardiomyopathy NSVT seen on telemetry 11/22 recommended LifeVest declined by the patient's medical insurance company. An echocardiogram which reveals a severe dilated cardiomyopathy, ejection fraction 15-20%. Thallium stress test reports a moderate to large, mostly fixed inferior wall defect. Recommendations: Continue medical therapy for coronary artery disease, ischemic cardiomyopathy and chronic systolic heart failure. Stable cardiac angeles. Once discharged, patient will follow up with [facility] as scheduled December 03. Subjective Date of service: 12/01/18 Principal diagnosis: babak on ckd Interval history: Patient has no cardiac complaints. Afebrile overnight. Objective Vital Signs Temp Pulse Resp BP Pulse Ox 12/01/18 09:55 82 117/73 12/01/18 09:54 78 117/73 12/01/18 07:48 98.4 F 76 14 113/67 96 12/01/18 04:07 98.6 F 77 12 111/66 95 11/30/18 23:35 99.5 F 80 12 113/60 94 11/30/18 19:00 84 11/30/18 17:14 98.5 F 79 18 115/65 94 11/30/18 12:03 98.2 F 11/30/18 12:02 73 18 109/59 94 - Physical Examination General: No Apparent Distress HEENT: Positive: PERRL Neck: Positive: trachea midline Cardiac: Positive: Other (v-paced) Lungs: Positive: Decreased Breath Sounds Neuro: Positive: Grossly Intact Extremities: Absent: edema
[2018-12-01] MEDS: FLAGYL PO SCH ×2 (13:52→22:21)
[2018-12-01] MEDS ORDERED: LEVAQUIN PO SCH (14:00)
--- NOTE | 2018-12-01 16:13 | Progress Note ---
Assessment and Plan Assessment and plan: Patient is a 57 yo man with a history of hypertension, PPM, CHF, CAD, tobacco dependency and dyslipidemia who presents to [facility] ED with sob and chest pains. * pCXR CXR IMPRESSION: Prominent cardiomegaly. Vascular distribution. Trace bilateral effusion. Findings compatible with mild congestion -Chest pains, with increase risk factors: Cardiology is managing -Bilateral Pleural effusion; Lt larger than Rt. s/p thoracentesis, removal of 1400 mL pleural fluid, analysis negative so far, Pulm following, cont anti- failure meds, Possible parapneumonic effusion, ID started Levaquin and Flagyl, follow cultures -Acute on chronic suspected combined heart failure: treat with iv diuretics, ECHO pending, Cardiology consulted -Ischemic cardiomyopathy; EF 15-20%, Continue current anti-failure medications, pt declined LifeVest as he says that he had before and it didn't work out -Hypertension: low salt diet, continue antihypertensives -Tobacco dependency: university counselor on stopping which patient reports that he has stopped -PPM present: Consult cardiology to check -NSVT on telemetry on 11/22/18 -ARF, vasomotor nephrology, no baseline (first visit here): consulted nephrology and monitor bmp closely -Leukocytosis, appears reactive, ?steroid related: continue to monitor DVT ppx full code Disposition: continue inpatient care for CHF, hopefully discharge tomorrow. History Interval history: Patient was seen and examined. Follow-up on current diagnosis CHF, cp, doing better. Overnight uneventful. Patient denies any nausea/vomiting or severe headaches. Imaging, nursing note, chart, labs and old chart reviewed. Discussed with patient. Hospitalist Physical - Physical exam Narrative exam: Gen: WDWN, NAD, Awake, Alert, Orientated HEENT: NCAT, EOMI, PERRL, OP Clear Neck: supple, no adenopathy, no thyromegaly, = JVD CVS/Heart: RRR, normal S1S2, pulses present bilaterally Chest/Lungs: diminished bs bilateral Symmetrical chest expansion, good air entry bilaterally GI/Abdomen: soft, NTND, good bowel sounds, no guarding or rebound /Bladder: no suprapubic tenderness, no CVA or paraspinal tenderness Extermity/Skin: pre-tibial pitting edema, no obvious rash MSK: FROM x 4 Neuro: CN 2-12 grossly intact, no new focal deficits Psych: calm - Constitutional Vitals: Temp Pulse Resp BP Pulse Ox 98.5 F 68 16 102/71 98 12/01/18 11:40 12/01/18 13:48 12/01/18 11:40 12/01/18 13:48 12/01/18 11:40 General appearance: Present: no acute distress, well-nourished Results - Labs CBC & Chem 7: 11/30/18 05:13 11/30/18 05:13 Labs: Laboratory Last Values WBC 13.1 K/mm3 (4.5-11.0) H 11/30/18 05:13 RBC 3.88 M/mm3 (3.65-5.03) 11/30/18 05:13 Hgb 11.2 gm/dl (11.8-15.2) L 11/30/18 05:13 Hct 33.2 % (35.5-45.6) L 11/30/18 05:13 MCV 86 fl (84-94) 11/30/18 05:13 MCH 29 pg (28-32) 11/30/18 05:13 MCHC 34 % (32-34) 11/30/18 05:13 RDW 17.4 % (13.2-15.2) H 11/30/18 05:13 Plt Count 319 K/mm3 (140-440) 11/30/18 05:13 Lymph % (Auto) 13.0 % (13.4-35.0) L 11/30/18 05:13 [place] % (Auto) 8.5 % (0.0-7.3) H 11/30/18 05:13 Eos % (Auto) 2.4 % (0.0-4.3) 11/30/18 05:13 Baso % (Auto) 0.2 % (0.0-1.8) 11/30/18 05:13 Lymph # 1.7 K/mm3 (1.2-5.4) 11/30/18 05:13 [place] # 1.1 K/mm3 (0.0-0.8) H 11/30/18 05:13 Eos # 0.3 K/mm3 (0.0-0.4) 11/30/18 05:13 Baso # 0.0 K/mm3 (0.0-0.1) 11/30/18 05:13 Seg Neutrophils % 75.9 % (40.0-70.0) H 11/30/18 05:13 Seg Neutrophils # 9.9 K/mm3 (1.8-7.7) H 11/30/18 05:13 ESR 55 mm/Hr (0-20) 11/18/18 05:12 PT 14.3 Sec. (12.2-14.9) 11/24/18 19:57 INR 1.05 (0.87-1.13) 11/24/18 19:57 Sodium 139 mmol/L (137-145) 11/30/18 05:13 Potassium 4.3 mmol/L (3.6-5.0) 11/30/18 05:13 Chloride 100.5 mmol/L (98-107) 11/30/18 05:13 Carbon Dioxide 26 mmol/L (22-30) 11/30/18 05:13 Anion Gap 17 mmol/L 11/30/18 05:13 BUN 23 mg/dL (9-20) H 11/30/18 05:13 Creatinine 1.8 mg/dL (0.8-1.5) H 11/30/18 05:13 Estimated GFR 47 ml/min 11/30/18 05:13 BUN/Creatinine Ratio 13 % 11/30/18 05:13 Glucose 122 mg/dL (75-100) H 11/30/18 05:13 Hemoglobin A1c 5.6 % (4-6) 11/14/18 23:19 Calcium 8.6 mg/dL (8.4-10.2) 11/30/18 05:13 Magnesium 2.20 mg/dL (1.7-2.3) 11/16/18 05:24 Total Bilirubin 0.20 mg/dL (0.1-1.2) 11/30/18 05:13 Direct Bilirubin < 0.2 mg/dL (0-0.2) 11/14/18 17:02 Indirect Bilirubin 0.2 mg/dL 11/14/18 17:02 AST 13 units/L (5-40) 11/30/18 05:13 ALT 10 units/L (7-56) 11/30/18 05:13 Alkaline Phosphatase 79 units/L (35-129) 11/30/18 05:13 Troponin T 0.021 ng/mL (0.00-0.029) 11/15/18 04:29 C-Reactive Protein 23.70 mg/dL (0.00-1.30) H 11/28/18 13:31 NT-Pro-B Natriuret Pep 2268 pg/mL (0-900) H 11/26/18 08:49 Total Protein 6.7 g/dL (6.3-8.2) 11/30/18 05:13 Albumin 2.6 g/dL (3.9-5) L 11/30/18 05:13 Albumin/Globulin Ratio 0.6 % 11/30/18 05:13 Urine Color Yellow (Yellow) 11/28/18 16:30 Urine Turbidity Clear (Clear) 11/28/18 16:30 Urine pH 5.0 (5.0-7.0) 11/28/18 16:30 Ur Specific [place] 1.010 (1.003-1.030) 11/28/18 16:30 Urine Protein <15 mg/dl mg/dL (Negative) 11/28/18 16:30 Urine Glucose (UA) Neg mg/dL (Negative) 11/28/18 16:30 Urine Ketones Neg mg/dL (Negative) 11/28/18 16:30 Urine Blood Neg (Negative) 11/28/18 16:30 Urine Nitrite Neg (Negative) 11/28/18 16:30 Urine Bilirubin Neg (Negative) 11/28/18 16:30 Urine Urobilinogen < 2.0 mg/dL (<2.0) 11/28/18 16:30 Ur Leukocyte Esterase Neg (Negative) 11/28/18 16:30 Urine WBC (Auto) < 1.0 /HPF (0.0-6.0) 11/28/18 16:30 Urine RBC (Auto) 4.0 /HPF (0.0-6.0) 11/28/18 16:30 U Epithel Cells (Auto) 1.0 /HPF (0-13.0) 11/15/18 22:45 Urine Creatinine 220.1 mg/dL (0.1-20.0) H 11/15/18 22:45 Protein/Creatinin Ratio 0.30 11/15/18 22:45 Urine Total Protein 65 mg/dL (5-11.8) H 11/15/18 22:45 Fluid Type Pleural 11/25/18 11:45 Fluid Color Yellow 11/25/18 11:45 Fluid Appearance Hazy 11/25/18 11:45 Fluid WBC 445 /mm3 11/25/18 11:45 Fluid RBC 1025 /mm3 11/25/18 11:45 Fluid Seg Neutrophils 41.0 % 11/25/18 11:45 Fluid Lymphocytes 46.0 % 11/25/18 11:45 Fluid Reactive Lymphs 7.0 % 11/25/18 11:45 Fluid Monocytes 6.0 % 11/25/18 11:45 Fluid Glucose 115 mg/dL (40-70) H 11/25/18 11:45 Fluid Total Protein 4.7 (15.0-45.0) L 11/25/18 11:45 Fluid LDH 519 11/25/18 11:45 Rheumatoid Factor 19 IU/ml (0-13) H 11/19/18 13:30 Cycl Citrul Peptide IgG See scanned result 11/23/18 05:34 SANTANA Screen Negative (Negative) 11/18/18 05:12 Complement C3 187 mg/dL (82-185) H 11/18/18 05:12 Complement C4 50 mg/dL (15-53) 11/18/18 05:12 HIV 1&2 Antibody Rapid Non react (Non React) 11/18/18 05:12 HIV P24 Antigen Non react (Non React) 11/18/18 05:12 Influenza A (Rapid) Negative (Negative) 11/19/18 Unknown Influenza A (RT-PCR) Negative (Negative) 11/19/18 Unknown Influenza B (Rapid) Negative (Negative) 11/19/18 Unknown Influenza B (RT-PCR) Negative (Negative) 11/19/18 Unknown Miscellaneous Test Flexitest 1 H 11/18/18 06:30 Active Medications - Current Medications Current Medications: Generic Name Dose Route Start Last Admin Trade Name Freq PRN Reason Stop Dose Admin Acetaminophen 650 mg 11/14/18 21:40 11/28/18 19:49 Tylenol PO 650 mg Q4H PRN Administration Pain MILD(1-3)/Fever >100.5/RIVAS Amlodipine Besylate 10 mg 11/15/18 10:00 12/01/18 09:54 Norvasc PO 10 mg QDAY KWAME Administration Aspirin 81 mg 11/15/18 10:00 12/01/18 09:51 Halfprin Ec PO 81 mg QDAY KWAME Administration Atorvastatin Calcium 40 mg 11/15/18 22:00 11/30/18 22:01 Lipitor PO 40 mg QHS KWAME Administration Bumetanide 1 mg 11/27/18 10:00 12/01/18 09:59 Bumex PO 1 mg QDAY KWAME Administration Famotidine 10 mg 11/14/18 22:00 12/01/18 09:48 Pepcid PO 10 mg BID KWAME Administration Hydralazine HCl 25 mg 11/18/18 15:34 12/01/18 13:48 Apresoline PO Not Given Q8HR KWAME Isosorbide Mononitrate 30 mg 11/15/18 10:00 12/01/18 09:55 Imdur PO 30 mg QDAY KWAME Administration Levofloxacin 750 mg 12/01/18 14:00 12/01/18 13:52 Levaquin PO 750 mg Q48H KWAME Administration Metoprolol Succinate 50 mg 11/23/18 10:00 12/01/18 09:55 Toprol Xl PO 50 mg QDAY KWAME Administration Metronidazole 500 mg 12/01/18 14:00 12/01/18 13:52 Flagyl PO 500 mg Q8HR KWAME Administration Protocol Ondansetron HCl 4 mg 11/14/18 21:40 11/16/18 06:41 Zofran IV 4 mg Q8H PRN Administration Nausea And Vomiting Oxycodone/Acetaminophen 1 tab 11/23/18 02:18 11/30/18 22:00 Percocet 5/325 PO 1 tab Q6H PRN Administration Pain, Moderate (4-6) Pantoprazole Sodium 20 mg 11/18/18 18:00 12/01/18 09:48 Protonix PO 20 mg QDAY KWAME Administration Pregabalin 75 mg 11/16/18 15:00 12/01/18 09:48 Lyrica PO 75 mg BID KWAME Administration Sodium Chloride 10 ml 11/14/18 22:00 12/01/18 09:49 Sodium Chloride Flush Syringe 10 Ml IV 10 ml BID KWAME Administration Sodium Chloride 10 ml 11/14/18 21:40 11/17/18 06:20 Sodium Chloride Flush Syringe 10 Ml IV 10 ml PRN PRN Administration LINE FLUSH Nutrition/Malnutrition Assess - Dietary Evaluation Nutrition/Malnutrition Findings: Nutrition Notes Start: 11/19/18 10:23 Freq: Status: Active Protocol: Document 11/19/18 10:25 SA (Rec: 11/19/18 10:28 [facility]-[email or web address]) Co-Sign 11/19/18 10:25 LP Nutrition Notes Need for Assessment generated from: LOS Initial or Follow up Brief Note Subjective/Other Information Screened for LOS. Per pt's ADL, pt eating 75-100 % of meals recorded. Nutrition Intervention Revisit per MD consult or patient Sign Off request:
[2018-12-01] MEDS: PERCOCET 5/325 PO PRN (17:24)
[2018-12-02] MEDS: APRESOLINE PO SCH ×3 (06:27→21:37)
[2018-12-02] MEDS: FLAGYL PO SCH ×3 (06:27→21:38)
--- NOTE | 2018-12-02 09:03 | Progress Note ---
Subjective Principal diagnosis: babak on ckd Interval history: Patient was seen today for follow-up on multiple renal related issues No new labs today Breathing is better Vitals labs intake output medications were reviewed Social history: Reviewed Allergies: Reviewed Family history: Reviewed Physical examination HEENT: Oral mucosa moist no pallor or icterus Neck: Supple no JVD Chest: Diminished breath sound at bases CVS: Regular rate and rhythm S1 and S2 heard Abdomen: Soft nontender no suprapubic masses no organomegaly appreciable Extremity: Dry skin less than 1+ peripheral edema Musculoskeletal: No joint effusion noted in knees and ankle Neurological: Alert awake Dermatology: No petechial rashes Psychiatry: No evidence of any agitation and aggression noted Assessment and plan stage III chronic kidney disease, will order for basic metabolic profile as well as intact PTH Function has been stable so far Anemia in chronic kidney disease received erythropoietin Low-grade proteinuria in the 300 mg range, patient is allergic to lisinopril and hence will avoid any such medication May consider spironolactone and low-dose outpatient setting Severe cardiomyopathy ejection fraction 15-20% range patient high risk for progression due to renal hypoperfusion cardiorenal syndrome Hypertension: Continue to monitor and follow Left parapneumonic effusion status post thoracentesis nearly 1.4 L were removed, patient admits being noncompliant with fluid and sodium We'll continue to follow and monitor, Patient was adequately counseled and educated regarding multiple renal related issues Pertinent lab findings were discussed with patient, patient does exhibit good understanding of renal issues We'll continue to follow and make recommendation from renal standpoint Objective - Vital Signs Vital signs: Vital Signs - 12hr 12/01/18 12/01/18 12/01/18 22:00 22:54 23:37 Temperature 98.4 F Pulse Rate 71 67 Respiratory 20 Rate Respiratory 18 Rate [Left Chest] Blood Pressure 99/60 104/57 O2 Sat by Pulse 93 Oximetry 12/02/18 12/02/18 12/02/18 05:11 06:27 07:29 Temperature 97.9 F 98.3 F Pulse Rate 63 63 63 Respiratory 20 18 Rate Respiratory Rate [Left Chest] Blood Pressure 102/57 102/57 114/68 O2 Sat by Pulse 92 99 Oximetry - Lab 11/30/18 05:13 11/30/18 05:13 Most recent lab results Calcium 8.6 mg/dL (8.4-10.2) 11/30/18 05:13 Magnesium 2.20 mg/dL (1.7-2.3) 11/16/18 05:24 Urine Creatinine 220.1 mg/dL (0.1-20.0) H 11/15/18 22:45 Urine Total Protein 65 mg/dL (5-11.8) H 11/15/18 22:45 Medications & Allergies - Medications Allergies/Adverse Reactions: Allergies lisinopril Allergy (Verified 11/14/18 16:51) Swelling Penicillins Allergy (Verified 11/14/18 16:51) Rash Home Medications: Home Medications Medication Instructions Recorded Confirmed Last Taken Type Amlodipine Besylate [Norvasc] 10 mg PO QDAY 11/14/18 11/14/18 Unknown History Aspirin EC [Aspirin Enteric Coated 81 mg PO QDAY 11/14/18 11/14/18 Unknown History TAB] AtorvaSTATin [Lipitor] 40 mg PO QHS 11/14/18 11/14/18 Unknown History hydrALAZINE [Apresoline TAB] 50 mg PO Q8HR 11/14/18 11/14/18 Unknown History Bumetanide [Bumex 1 mg tab] 1 mg PO BID #60 tab 11/22/18 Unknown Rx Fluconazole [Diflucan TAB] 100 mg PO QDAY #5 tablet 11/22/18 Unknown Rx ISOSORBIDE MONOnitrate [Imdur ER] 30 mg PO QDAY #30 tablet 11/22/18 Unknown Rx Metoprolol Xl [Metoprolol 25 mg PO QDAY #30 tablet 11/22/18 Unknown Rx SUCCINATE ER TAB] Pantoprazole [Protonix TAB] 20 mg PO QDAY #30 tablet. 11/22/18 Unknown Rx Potassium Chloride [K-Dur] 20 meq PO QDAY #30 tablet 11/22/18 Unknown Rx Pregabalin [Lyrica] 75 mg PO BID #60 capsule 11/22/18 Unknown Rx Active Medications: Generic Name Dose Route Start Last Admin Trade Name Freq PRN Reason Stop Dose Admin Acetaminophen 650 mg 11/14/18 21:40 11/28/18 19:49 Tylenol PO 650 mg Q4H PRN Administration Pain MILD(1-3)/Fever >100.5/RIVAS Amlodipine Besylate 10 mg 11/15/18 10:00 12/01/18 09:54 Norvasc PO 10 mg QDAY KWAME Administration Aspirin 81 mg 11/15/18 10:00 12/01/18 09:51 Halfprin Ec PO 81 mg QDAY KWAME Administration Atorvastatin Calcium 40 mg 11/15/18 22:00 12/01/18 22:20 Lipitor PO 40 mg QHS KWAME Administration Bumetanide 1 mg 11/27/18 10:00 12/01/18 09:59 Bumex PO 1 mg QDAY KWAME Administration Famotidine 10 mg 11/14/18 22:00 12/01/18 22:21 Pepcid PO 10 mg BID KWAME Administration Hydralazine HCl 25 mg 11/18/18 15:34 12/02/18 06:27 Apresoline PO 25 mg Q8HR KWAME Administration Isosorbide Mononitrate 30 mg 11/15/18 10:00 12/01/18 09:55 Imdur PO 30 mg QDAY KWAME Administration Levofloxacin 750 mg 12/01/18 14:00 12/01/18 13:52 Levaquin PO 750 mg Q48H KWAME Administration Metoprolol Succinate 50 mg 11/23/18 10:00 12/01/18 09:55 Toprol Xl PO 50 mg QDAY KWAME Administration Metronidazole 500 mg 12/01/18 14:00 12/02/18 06:27 Flagyl PO 500 mg Q8HR KWAME Administration Protocol Ondansetron HCl 4 mg 11/14/18 21:40 11/16/18 06:41 Zofran IV 4 mg Q8H PRN Administration Nausea And Vomiting Oxycodone/Acetaminophen 1 tab 11/23/18 02:18 12/01/18 17:24 Percocet 5/325 PO 1 tab Q6H PRN Administration Pain, Moderate (4-6) Pantoprazole Sodium 20 mg 11/18/18 18:00 12/01/18 09:48 Protonix PO 20 mg QDAY KWAME Administration Pregabalin 75 mg 11/16/18 15:00 12/01/18 22:21 Lyrica PO 75 mg BID KWAME Administration Sodium Chloride 10 ml 11/14/18 22:00 12/01/18 22:21 Sodium Chloride Flush Syringe 10 Ml IV 10 ml BID KWAME Administration Sodium Chloride 10 ml 11/14/18 21:40 11/17/18 06:20 Sodium Chloride Flush Syringe 10 Ml IV 10 ml PRN PRN Administration LINE FLUSH
--- NOTE | 2018-12-02 09:08 | Progress Note ---
Assessment and Plan Bilateral pleural effusions- reportedly exudate, see labs,negative cytology. Doubt TB, multiple mesothelials on cyto. Improving per f/u CT,no mass lesions,loculation caveats: if sampled post diuresis, protein gradient appears to be < 3.1 g, may suggest transudate => exudate convertion due to diuresis. No LDH ration to review CMP CKD Rec: Repeat chest US, thoracentesis, if enough fluid for drainage,repeat labs with pleural cholesterol and cytology If not, treat conservatively w diuretics and monitor OOB as tolerated IS q 1-2 hr Discussed with patient and Thanks Subjective Date of service: 12/02/18 Principal diagnosis: Pleural effusions,CMP, babak on ckd Interval history: Seen previously by Dr. Britton. Reviewed earlier with , regarding pleural tap chemestries results and concerns for infection. Recent pleural data; 11/25/18 11/25/18 11:45 11:45 Fluid Seg Neutrophils 41.0 Fluid Lymphocytes 46.0 Fluid Glucose 115 H Fluid Total Protein 4.7 L Fluid LDH [address] also noted Objective Vital Signs - 12hr 12/01/18 12/01/18 12/01/18 21:00 22:00 22:54 Temperature Pulse Rate 71 Respiratory 20 Rate Respiratory 18 Rate [Left Chest] Blood Pressure 99/60 O2 Sat by Pulse 97 Oximetry 12/01/18 12/02/18 12/02/18 23:37 05:11 06:27 Temperature 98.4 F 97.9 F Pulse Rate 67 63 63 Respiratory 20 20 Rate Respiratory Rate [Left Chest] Blood Pressure 104/57 102/57 102/57 O2 Sat by Pulse 93 92 Oximetry 12/02/18 07:29 Temperature 98.3 F Pulse Rate 63 Respiratory 18 Rate Respiratory Rate [Left Chest] Blood Pressure 114/68 O2 Sat by Pulse 99 Oximetry Constitutional: no acute distress, asleep ENT: oropharynx moist Neck: supple Ascultation: Bilateral: clear Percussion: Left: dull (bases,minimal) Cardiovascular: regular rate and rhythm Gastrointestinal: normoactive bowel sounds CBC and BMP: 11/30/18 05:13 11/30/18 05:13 ABG, PT/INR, D-dimer: PT/INR, D-dimer PT 14.3 Sec. (12.2-14.9) 11/24/18 19:57 INR 1.05 (0.87-1.13) 11/24/18 19:57 Abnormal lab findings: Abnormal Labs 11/14/18 11/14/18 11/14/18 17:02 17:02 17:02 WBC 14.9 H Hgb Hct RDW 17.5 H Plt Count Lymph % (Auto) 7.7 L Jackson % (Auto) 8.3 H Lymph # 1.1 L Jackson # 1.2 H Seg Neutrophils % 83.2 H Seg Neutrophils # 12.4 H Sodium Potassium Chloride BUN 31 H Creatinine 2.0 H Glucose 109 H C-Reactive Protein NT-Pro-B Natriuret Pep Albumin 3.3 L Urine Creatinine Urine Total Protein Fluid Glucose Fluid Total Protein Rheumatoid Factor Complement C3 Miscellaneous Test 11/14/18 11/15/18 11/15/18 17:02 04:29 04:29 WBC 14.6 H Hgb Hct RDW 17.3 H Plt Count Lymph % (Auto) 9.3 L Jackson % (Auto) 9.5 H Lymph # Jackson # 1.4 H Seg Neutrophils % 80.2 H Seg Neutrophils # 11.7 H Sodium Potassium Chloride BUN 30 H Creatinine 2.1 H Glucose C-Reactive Protein NT-Pro-B Natriuret Pep 2385 H Albumin 3.1 L Urine Creatinine Urine Total Protein Fluid Glucose Fluid Total Protein Rheumatoid Factor Complement C3 Miscellaneous Test 11/15/18 11/16/18 11/16/18 22:45 05:24 05:24 WBC 14.4 H Hgb Hct RDW 16.9 H Plt Count Lymph % (Auto) Jackson % (Auto) Lymph # Jackson # Seg Neutrophils % Seg Neutrophils # Sodium 136 L Potassium Chloride 96.7 L BUN 28 H Creatinine 2.0 H Glucose C-Reactive Protein NT-Pro-B Natriuret Pep Albumin Urine Creatinine 220.1 H Urine Total Protein 65 H Fluid Glucose Fluid Total Protein Rheumatoid Factor Complement C3 Miscellaneous Test 11/17/18 11/17/18 11/18/18 05:00 05:00 05:12 WBC 14.0 H 13.4 H Hgb 11.3 L Hct 34.2 L RDW 17.3 H 17.2 H Plt Count Lymph % (Auto) Jackson % (Auto) Lymph # Jackson # Seg Neutrophils % Seg Neutrophils # Sodium 136 L Potassium Chloride 97.7 L BUN 29 H Creatinine 2.2 H Glucose 109 H C-Reactive Protein NT-Pro-B Natriuret Pep Albumin Urine Creatinine Urine Total Protein Fluid Glucose Fluid Total Protein Rheumatoid Factor Complement C3 Miscellaneous Test 11/18/18 11/18/18 11/18/18 05:12 05:12 06:30 WBC Hgb Hct RDW Plt Count Lymph % (Auto) Jackson % (Auto) Lymph # Jackson # Seg Neutrophils % Seg Neutrophils # Sodium Potassium Chloride BUN 31 H Creatinine 2.2 H Glucose 115 H C-Reactive Protein 26.70 H NT-Pro-B Natriuret Pep Albumin Urine Creatinine Urine Total Protein Fluid Glucose Fluid Total Protein Rheumatoid Factor Complement C3 187 H Miscellaneous Test Flexitest 1 H 11/19/18 11/21/18 11/22/18 13:30 07:20 05:22 WBC Hgb Hct RDW Plt Count Lymph % (Auto) Jackson % (Auto) Lymph # Jackson # Seg Neutrophils % Seg Neutrophils # Sodium Potassium Chloride 96.4 L BUN 29 H 28 H Creatinine 2.0 H 2.0 H Glucose 124 H C-Reactive Protein NT-Pro-B Natriuret Pep Albumin Urine Creatinine Urine Total Protein Fluid Glucose Fluid Total Protein Rheumatoid Factor 19 H Complement C3 Miscellaneous Test 11/22/18 11/23/18 11/24/18 05:22 05:15 00:35 WBC 12.7 H Hgb 11.6 L Hct 35.1 L RDW 17.0 H Plt Count 457 H Lymph % (Auto) Jackson % (Auto) 8.1 H Lymph # Jackson # 1.0 H Seg Neutrophils % 75.4 H Seg Neutrophils # 9.6 H Sodium Potassium 5.2 H Chloride 97.0 L BUN 29 H Creatinine 2.1 H Glucose 122 H C-Reactive Protein NT-Pro-B Natriuret Pep 3963 H Albumin Urine Creatinine Urine Total Protein Fluid Glucose Fluid Total Protein Rheumatoid Factor Complement C3 Miscellaneous Test 11/24/18 11/25/18 11/25/18 05:33 05:26 11:45 WBC Hgb Hct RDW Plt Count Lymph % (Auto) Jackson % (Auto) Lymph # Jackson # Seg Neutrophils % Seg Neutrophils # Sodium Potassium Chloride 96.9 L 94.9 L BUN 30 H 30 H Creatinine 2.0 H 2.0 H Glucose 109 H 120 H C-Reactive Protein NT-Pro-B Natriuret Pep Albumin Urine Creatinine Urine Total Protein Fluid Glucose 115 H Fluid Total Protein 4.7 L Rheumatoid Factor Complement C3 Miscellaneous Test 11/26/18 11/26/18 11/26/18 00:31 05:02 08:49 WBC 14.0 H Hgb 11.4 L Hct 34.7 L RDW 17.7 H Plt Count Lymph % (Auto) Jackson % (Auto) 7.8 H Lymph # Jackson # 1.1 H Seg Neutrophils % 76.8 H Seg Neutrophils # 10.8 H Sodium Potassium Chloride 95.7 L BUN 30 H Creatinine 2.3 H Glucose 119 H C-Reactive Protein NT-Pro-B Natriuret Pep 2268 H Albumin Urine Creatinine Urine Total Protein Fluid Glucose Fluid Total Protein Rheumatoid Factor Complement C3 Miscellaneous Test 11/27/18 11/27/18 11/28/18 05:03 05:03 11:03 WBC 15.7 H 16.3 H Hgb 11.7 L 11.7 L Hct 35.1 L RDW 17.2 H 17.4 H Plt Count Lymph % (Auto) 12.0 L 10.0 L Jackson % (Auto) 8.0 H 7.5 H Lymph # Jackson # 1.2 H 1.2 H Seg Neutrophils % 78.7 H 80.2 H Seg Neutrophils # 12.4 H 13.0 H Sodium Potassium Chloride 95.2 L BUN 29 H Creatinine 2.1 H Glucose 107 H C-Reactive Protein NT-Pro-B Natriuret Pep Albumin Urine Creatinine Urine Total Protein Fluid Glucose Fluid Total Protein Rheumatoid Factor Complement C3 Miscellaneous Test 11/28/18 11/29/18 11/29/18 13:31 05:32 05:32 WBC 16.8 H Hgb Hct RDW 17.3 H Plt Count Lymph % (Auto) 11.3 L Jackson % (Auto) 7.9 H Lymph # Jackson # 1.3 H Seg Neutrophils % 79.2 H Seg Neutrophils # 13.3 H Sodium Potassium Chloride BUN 24 H Creatinine 1.9 H Glucose C-Reactive Protein 23.70 H NT-Pro-B Natriuret Pep Albumin Urine Creatinine Urine Total Protein Fluid Glucose Fluid Total Protein Rheumatoid Factor Complement C3 Miscellaneous Test 11/30/18 11/30/18 05:13 05:13 WBC 13.1 H Hgb 11.2 L Hct 33.2 L RDW 17.4 H Plt Count Lymph % (Auto) 13.0 L Jackson % (Auto) 8.5 H Lymph # Jackson # 1.1 H Seg Neutrophils % 75.9 H Seg Neutrophils # 9.9 H Sodium Potassium Chloride BUN 23 H Creatinine 1.8 H Glucose 122 H C-Reactive Protein NT-Pro-B Natriuret Pep Albumin 2.6 L Urine Creatinine Urine Total Protein Fluid Glucose Fluid Total Protein Rheumatoid Factor Complement C3 Miscellaneous Test
[2018-12-02] MEDS: TOPROL XL PO SCH (09:50)
[2018-12-02] MEDS: IMDUR PO SCH (09:50)
[2018-12-02] MEDS: LYRICA PO SCH ×2 (09:50→21:38)
[2018-12-02] MEDS: PEPCID PO SCH ×2 (09:50→21:38)
[2018-12-02] MEDS: NORVASC PO SCH (09:50)
[2018-12-02] MEDS: PROTONIX PO SCH (09:50)
[2018-12-02] MEDS: HALFPRIN EC PO SCH (09:50)
[2018-12-02] MEDS: SODIUM CHLORIDE FLUSH SYRINGE 10 ML IV SCH ×2 (09:50→21:39)
[2018-12-02] MEDS: BUMEX PO SCH (09:50)
--- NOTE | 2018-12-02 10:37 | Progress Note ---
Assessment and Plan Cultures: 11/15/2018 MRSA nasal culture: Negative 11/17/2018 blood culture: no growth 11/18/2018 HIV: negative 11/29/18: blood culture: no growth to date 11/25/18: AFB smear: negative A/P: 57-year-old male with cardiomyopathy, status post pacemaker placement about 2 years ago, CKD was admitted to the hospital on 11/14/2018 with complaints of chest pain. The patient recently moved from [place]. Admitted with chest pain. 1) Leukocytosis : Resolved. No fevers or leukocytosis. Likely from pleural effusion. Procal 0.3 c/w low risk for bacterial infection. Patient has an indwelling PPM. UA not suggestive of infection. Chest x-ray with bilateral pleural effusions likely related to CHF. ESR 55, CRP 26.70 elevated. RF elevated at 19. XR hand c/w OA. CT chest without pneumonia, showed large bilateral pleural effusions and small pericardial effusion. No vegetations noted on TTE. HIV- Non reactive. Influenza Rapid- negative. Influenza PCR -negative. . Repeat CRP 23.70. 2) CKD: nephrology following. Has mild proteinuria. 3) Bilateral pleural effusions L>R: not c/w CHF as he has persistent fever despite left sided thoracentesis. Unclear etiology, pleural fluid studies incomplete. WBC 445, Lymph 40%, RBC 1025, cytology negative for malignancy with numerous mesothelial cells and macrophages.LDH 519, Glucose 115, Total Protein 4.7. Will repeat Chest US, if enough fluid to drainage,thoracentesis will be repeated. If not will treat conservatively with diuretic and monitor. Dr. Singh following. 4) Anorexia: unintentional weight loss of 50+ lbs over the last 6 weeks. HIV negative. Also checking for lupus given family history. SANTANA negative. C3/C4 not c/w acute lupus flare 5) Dilated cardiomyopathy: cardiology following. EF 15-20%. Indwelling pacemaker + 6) Proximal PIP swelling: anti-CCP negative. 70 Oral Candidiasis: Improved. Recs: f/u Chest ultrasound, if enough fluid to drainage, thoracentesis will be repeated. If not will treat conservatively with diuretic and monitor- pulmonary following Continue Flagyl 500 mg PO every 8 hours and Levaquin 750mg PO every 48 hours (CrCl 43.28) for total 10 days ending 5-7-19 If discharged repeat chest xray at [facility] in one week f/u [facility] on 12-17-18 Tamara Dacosta NP [facility] M: [phone] O:[phone] Subjective Date of service: 12/02/18 Principal diagnosis: Pleural effusions,CMP, babak on ckd Interval history: Patient seen and examined. Reports that he is feeling better. Minor chest pain at night. No fevers. Objective - Exam Narrative Exam: Constitutional: Alert, cooperative. Mild distress reported Head, Ears, Nose: Normocephalic, atraumatic. External ears, nose normal Eyes: Conjunctivae/corneas clear. No icterus. No ptosis. Neck: Supple, no meningeal signs Oral: dentition fair, no thrush Cardiovascular: S1, S2 normal. PPM site is well healed, no swelling or tenderness Respiratory: AE decreased in bases, otherwise clear to ausc. GI: Soft, non-tender; bowel sounds normal. No peritoneal signs Musculoskeletal: No pedal edema, no cyanosis. Skin: No rash or abscess Hem/Lymphatic: No palpable cervical or supraclavicular nodes. No lymphangitis Psych: Mood ok. Affect normal Neurological: Awake, alert, oriented. No gross abnormality - Constitutional Vitals: Vital Signs Temp Pulse Resp BP Pulse Ox 98.3 F 63 18 114/68 99 12/02/18 07:29 12/02/18 07:29 12/02/18 07:29 12/02/18 07:29 12/02/18 07:29 Temperature -Last 24 Hours Temperature 98.3 F Temperature 97.9 F Temperature 98.4 F Temperature 98.9 F Temperature 98.4 F Temperature 98.5 F - Labs CBC & Chem 7: 12/02/18 10:44 12/02/18 09:49
--- NOTE | 2018-12-02 10:43 | Progress Note ---
Assessment and Plan Atypical chest pain V/Q scan reports a low probability for PE Leukocytosis Pleural effusion s/p left pleural effusion Dual-chamber pacemaker in situ Chronic kidney disease Hx of CAD Hx of Ischemic cardiomyopathy NSVT seen on telemetry 11/22 recommended LifeVest declined by the patient's medical insurance company. An echocardiogram which reveals a severe dilated cardiomyopathy, ejection fraction 15-20%. Thallium stress test reports a moderate to large, mostly fixed inferior wall defect. Recommendations: Continue medical therapy for coronary artery disease, ischemic cardiomyopathy and chronic systolic heart failure. Stable cardiac angeles. Once discharged, patient will follow up with [facility] as scheduled December 09. Subjective Date of service: 12/02/18 Principal diagnosis: Pleural effusions,CMP, babak on ckd Interval history: Patient has no cardiac complaints. Objective Vital Signs Temp Pulse Resp Resp BP Pulse Ox 12/02/18 07:29 98.3 F 63 18 114/68 99 12/02/18 06:27 63 102/57 12/02/18 05:11 97.9 F 63 20 102/57 92 12/01/18 23:37 98.4 F 67 20 104/57 93 12/01/18 22:54 71 99/60 12/01/18 22:00 18 12/01/18 21:00 20 97 12/01/18 19:43 98.9 F 71 20 99/60 94 12/01/18 19:23 74 12/01/18 16:19 98.4 F 68 16 103/64 98 12/01/18 13:48 68 102/71 12/01/18 11:40 98.5 F 72 16 108/67 98 - Physical Examination General: No Apparent Distress HEENT: Positive: PERRL Neck: Positive: trachea midline Cardiac: Positive: Other (v-paced) Lungs: Positive: Decreased Breath Sounds Neuro: Positive: Grossly Intact Extremities: Absent: edema
[2018-12-02 10:45] LABS: Calcium 8.8 mg/dL (8.4-10.2)
[2018-12-02 10:54] LABS: Basophils % (Auto) 0.3 % (0.0-1.8); Eosinophils # (Auto) 0.3 K/mm3 (0.0-0.4); Eosinophils % (Auto) 2.4 % (0.0-4.3); Hematocrit 34.1 % (35.5-45.6); Hemoglobin 11.4 gm/dl (11.8-15.2); Lymphocytes # (Auto) 1.1 K/mm3 (1.2-5.4); Lymphocytes % (Auto) 10.3 % (13.4-35.0); Mean Corpuscular HGB Conc 34 % (32-34); Mean Corpuscular Volume 86 fl (84-94); Monocytes # (Auto) 0.7 K/mm3 (0.0-0.8); Monocytes % (Auto) 6.5 % (0.0-7.3); Platelet Count 347 K/mm3 (140-440); Red Blood Count 3.98 M/mm3 (3.65-5.03); Red Cell Distribution Width 17.4 % (13.2-15.2)
--- NOTE | 2018-12-02 15:13 | Progress Note ---
Assessment and Plan Assessment and plan: Patient is a 57 yo man with a history of hypertension, PPM, CHF, CAD, tobacco dependency and dyslipidemia who presents to [facility] ED with sob and chest pains. * pCXR CXR IMPRESSION: Prominent cardiomegaly. Vascular distribution. Trace bilateral effusion. Findings compatible with mild congestion -Chest pains, with increase risk factors: Cardiology is managing -Bilateral Pleural effusion; Lt larger than Rt. s/p thoracentesis, removal of 1400 mL pleural fluid, analysis negative so far, Pulm following, cont anti- failure meds, Possible parapneumonic effusion, ID started Levaquin and Flagyl, follow cultures -Acute on chronic suspected combined heart failure: treat with iv diuretics, ECHO pending, Cardiology consulted -Ischemic cardiomyopathy; EF 15-20%, Continue current anti-failure medications, pt declined LifeVest as he says that he had before and it didn't work out -Hypertension: low salt diet, continue antihypertensives -Tobacco dependency: residential counselor on stopping which patient reports that he has stopped -PPM present: Consult cardiology to check -NSVT on telemetry on 11/22/18 -ARF, vasomotor nephrology, no baseline (first visit here): consulted nephrology and monitor bmp closely -Leukocytosis, appears reactive, ?steroid related: continue to monitor DVT ppx full code Disposition: continue inpatient care for CHF, 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 Last imaging and fever was 11/28/18. 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 Follow-up on current diagnosis CHF, cp, doing better. Overnight uneventful. Patient denies any nausea/vomiting or severe headaches. Imaging, nursing note, chart, labs and old chart reviewed. Discussed with patient. Hospitalist Physical - Physical exam Narrative exam: Gen: WDWN, NAD, Awake, Alert, Orientated HEENT: NCAT, EOMI, PERRL, OP Clear Neck: supple, no adenopathy, no thyromegaly, = JVD CVS/Heart: RRR, normal S1S2, pulses present bilaterally Chest/Lungs: diminished bs bilateral Symmetrical chest expansion, good air entry bilaterally GI/Abdomen: soft, NTND, good bowel sounds, no guarding or rebound /Bladder: no suprapubic tenderness, no CVA or paraspinal tenderness Extermity/Skin: pre-tibial pitting edema, no obvious rash MSK: FROM x 4 Neuro: CN 2-12 grossly intact, no new focal deficits Psych: calm - Constitutional Vitals: Temp Pulse Resp BP Pulse Ox 98.4 F 70 18 105/61 93 12/02/18 11:30 12/02/18 11:30 12/02/18 11:30 12/02/18 11:30 12/02/18 11:30 General appearance: Present: no acute distress, well-nourished Results - Labs CBC & Chem 7: 12/02/18 10:44 12/02/18 09:49 Labs: Laboratory Last Values WBC 10.7 K/mm3 (4.5-11.0) 12/02/18 10:44 RBC 3.98 M/mm3 (3.65-5.03) 12/02/18 10:44 Hgb 11.4 gm/dl (11.8-15.2) L 12/02/18 10:44 Hct 34.1 % (35.5-45.6) L 12/02/18 10:44 MCV 86 fl (84-94) 12/02/18 10:44 MCH 29 pg (28-32) 12/02/18 10:44 MCHC 34 % (32-34) 12/02/18 10:44 RDW 17.4 % (13.2-15.2) H 12/02/18 10:44 Plt Count 347 K/mm3 (140-440) 12/02/18 10:44 Lymph % (Auto) 10.3 % (13.4-35.0) L 12/02/18 10:44 Lucas % (Auto) 6.5 % (0.0-7.3) 12/02/18 10:44 Eos % (Auto) 2.4 % (0.0-4.3) 12/02/18 10:44 Baso % (Auto) 0.3 % (0.0-1.8) 12/02/18 10:44 Lymph # 1.1 K/mm3 (1.2-5.4) L 12/02/18 10:44 Lucas # 0.7 K/mm3 (0.0-0.8) 12/02/18 10:44 Eos # 0.3 K/mm3 (0.0-0.4) 12/02/18 10:44 Baso # 0.0 K/mm3 (0.0-0.1) 12/02/18 10:44 Seg Neutrophils % 80.5 % (40.0-70.0) H 12/02/18 10:44 Seg Neutrophils # 8.6 K/mm3 (1.8-7.7) H 12/02/18 10:44 ESR 55 mm/Hr (0-20) 11/18/18 05:12 PT 14.3 Sec. (12.2-14.9) 11/24/18 19:57 INR 1.05 (0.87-1.13) 11/24/18 19:57 Sodium 142 mmol/L (137-145) 12/02/18 09:49 Potassium 3.9 mmol/L (3.6-5.0) 12/02/18 09:49 Chloride 101.5 mmol/L (98-107) 12/02/18 09:49 Carbon Dioxide 26 mmol/L (22-30) 12/02/18 09:49 Anion Gap 18 mmol/L 12/02/18 09:49 BUN 24 mg/dL (9-20) H 12/02/18 09:49 Creatinine 1.6 mg/dL (0.8-1.5) H 12/02/18 09:49 Estimated GFR 54 ml/min 12/02/18 09:49 BUN/Creatinine Ratio 15 % 12/02/18 09:49 Glucose 137 mg/dL (75-100) H 12/02/18 09:49 Hemoglobin A1c 5.6 % (4-6) 11/14/18 23:19 Calcium 8.8 mg/dL (8.4-10.2) 12/02/18 09:49 Magnesium 2.20 mg/dL (1.7-2.3) 11/16/18 05:24 Total Bilirubin 0.20 mg/dL (0.1-1.2) 11/30/18 05:13 Direct Bilirubin < 0.2 mg/dL (0-0.2) 11/14/18 17:02 Indirect Bilirubin 0.2 mg/dL 11/14/18 17:02 AST 13 units/L (5-40) 11/30/18 05:13 ALT 10 units/L (7-56) 11/30/18 05:13 Alkaline Phosphatase 79 units/L (35-129) 11/30/18 05:13 Troponin T 0.021 ng/mL (0.00-0.029) 11/15/18 04:29 C-Reactive Protein 23.70 mg/dL (0.00-1.30) H 11/28/18 13:31 NT-Pro-B Natriuret Pep 2268 pg/mL (0-900) H 11/26/18 08:49 Total Protein 6.7 g/dL (6.3-8.2) 11/30/18 05:13 Albumin 2.6 g/dL (3.9-5) L 11/30/18 05:13 Albumin/Globulin Ratio 0.6 % 11/30/18 05:13 PTH Intact 56.58 pg/mL (15-65) 12/02/18 09:49 Urine Color Yellow (Yellow) 11/28/18 16:30 Urine Turbidity Clear (Clear) 11/28/18 16:30 Urine pH 5.0 (5.0-7.0) 11/28/18 16:30 Ur Specific [place] 1.010 (1.003-1.030) 11/28/18 16:30 Urine Protein <15 mg/dl mg/dL (Negative) 11/28/18 16:30 Urine Glucose (UA) Neg mg/dL (Negative) 11/28/18 16:30 Urine Ketones Neg mg/dL (Negative) 11/28/18 16:30 Urine Blood Neg (Negative) 11/28/18 16:30 Urine Nitrite Neg (Negative) 11/28/18 16:30 Urine Bilirubin Neg (Negative) 11/28/18 16:30 Urine Urobilinogen < 2.0 mg/dL (<2.0) 11/28/18 16:30 Ur Leukocyte Esterase Neg (Negative) 11/28/18 16:30 Urine WBC (Auto) < 1.0 /HPF (0.0-6.0) 11/28/18 16:30 Urine RBC (Auto) 4.0 /HPF (0.0-6.0) 11/28/18 16:30 U Epithel Cells (Auto) 1.0 /HPF (0-13.0) 11/15/18 22:45 Urine Creatinine 220.1 mg/dL (0.1-20.0) H 11/15/18 22:45 Protein/Creatinin Ratio 0.30 11/15/18 22:45 Urine Total Protein 65 mg/dL (5-11.8) H 11/15/18 22:45 Fluid Type Pleural 11/25/18 11:45 Fluid Color Yellow 11/25/18 11:45 Fluid Appearance Hazy 11/25/18 11:45 Fluid WBC 445 /mm3 11/25/18 11:45 Fluid RBC 1025 /mm3 11/25/18 11:45 Fluid Seg Neutrophils 41.0 % 11/25/18 11:45 Fluid Lymphocytes 46.0 % 11/25/18 11:45 Fluid Reactive Lymphs 7.0 % 11/25/18 11:45 Fluid Monocytes 6.0 % 11/25/18 11:45 Fluid Glucose 115 mg/dL (40-70) H 11/25/18 11:45 Fluid Total Protein 4.7 (15.0-45.0) L 11/25/18 11:45 Fluid LDH 519 11/25/18 11:45 Rheumatoid Factor 19 IU/ml (0-13) H 11/19/18 13:30 Cycl Citrul Peptide IgG See scanned result 11/23/18 05:34 SANTANA Screen Negative (Negative) 11/18/18 05:12 Complement C3 187 mg/dL (82-185) H 11/18/18 05:12 Complement C4 50 mg/dL (15-53) 11/18/18 05:12 HIV 1&2 Antibody Rapid Non react (Non React) 11/18/18 05:12 HIV P24 Antigen Non react (Non React) 11/18/18 05:12 Influenza A (Rapid) Negative (Negative) 11/19/18 Unknown Influenza A (RT-PCR) Negative (Negative) 11/19/18 Unknown Influenza B (Rapid) Negative (Negative) 11/19/18 Unknown Influenza B (RT-PCR) Negative (Negative) 11/19/18 Unknown Miscellaneous Test Flexitest 1 H 11/18/18 06:30 Active Medications - Current Medications Current Medications: Generic Name Dose Route Start Last Admin Trade Name Freq PRN Reason Stop Dose Admin Acetaminophen 650 mg 11/14/18 21:40 11/28/18 19:49 Tylenol PO 650 mg Q4H PRN Administration Pain MILD(1-3)/Fever >100.5/RIVAS Amlodipine Besylate 10 mg 11/15/18 10:00 12/02/18 09:50 Norvasc PO 10 mg QDAY KWAME Administration Aspirin 81 mg 11/15/18 10:00 12/02/18 09:50 Halfprin Ec PO 81 mg QDAY KWAME Administration Atorvastatin Calcium 40 mg 11/15/18 22:00 12/01/18 22:20 Lipitor PO 40 mg QHS KWAME Administration Bumetanide 1 mg 11/27/18 10:00 12/02/18 09:50 Bumex PO 1 mg QDAY KWAME Administration Famotidine 10 mg 11/14/18 22:00 12/02/18 09:50 Pepcid PO 10 mg BID KWAME Administration Hydralazine HCl 25 mg 11/18/18 15:34 12/02/18 13:36 Apresoline PO 25 mg Q8HR KWAME Administration Isosorbide Mononitrate 30 mg 11/15/18 10:00 12/02/18 09:50 Imdur PO 30 mg QDAY KWAME Administration Levofloxacin 750 mg 12/01/18 14:00 12/01/18 13:52 Levaquin PO 750 mg Q48H KWAME Administration Metoprolol Succinate 50 mg 11/23/18 10:00 12/02/18 09:50 Toprol Xl PO 50 mg QDAY KWAME Administration Metronidazole 500 mg 12/01/18 14:00 12/02/18 13:36 Flagyl PO 500 mg Q8HR KWAME Administration Protocol Ondansetron HCl 4 mg 11/14/18 21:40 11/16/18 06:41 Zofran IV 4 mg Q8H PRN Administration Nausea And Vomiting Oxycodone/Acetaminophen 1 tab 11/23/18 02:18 12/01/18 17:24 Percocet 5/325 PO 1 tab Q6H PRN Administration Pain, Moderate (4-6) Pantoprazole Sodium 20 mg 11/18/18 18:00 12/02/18 09:50 Protonix PO 20 mg QDAY KWAME Administration Pregabalin 75 mg 11/16/18 15:00 12/02/18 09:50 Lyrica PO 75 mg BID KWAME Administration Sodium Chloride 10 ml 11/14/18 22:00 12/02/18 09:50 Sodium Chloride Flush Syringe 10 Ml IV 10 ml BID KWAME Administration Sodium Chloride 10 ml 11/14/18 21:40 11/17/18 06:20 Sodium Chloride Flush Syringe 10 Ml IV 10 ml PRN PRN Administration LINE FLUSH Nutrition/Malnutrition Assess - Dietary Evaluation Nutrition/Malnutrition Findings: Nutrition Notes Start: 11/19/18 10:23 Freq: Status: Active Protocol: Document 11/19/18 10:25 SA (Rec: 11/19/18 10:28 SA [id number]) Co-Sign 11/19/18 10:25 LP Nutrition Notes Need for Assessment generated from: LOS Initial or Follow up Brief Note Subjective/Other Information Screened for LOS. Per pt's ADL, pt eating 75-100 % of meals recorded. Nutrition Intervention Revisit per MD consult or patient Sign Off request:
--- NOTE | 2018-12-02 18:25 | Ultrasound Report ---
PROCEDURE: US CHEST TECHNIQUE: Ultrasound chest for evaluation of pleural fluid HISTORY: please eval for persistent pleural fluid to tap COMPARISONS: Correlated with the prior CT chest of November 28, 2018 FINDINGS: Findings demonstrate bilateral pleural fluid collections with some compressive atelectasis noted in t he left lower lobe. Volume difficult to assess on the images obtained probable moderate in size IMPRESSION: Bilateral pleural fluid collections. This document is electronically signed by Guilehrme Camara MD., Dec 02 2018 06:23:56 PM ET
[2018-12-02] MEDS: PERCOCET 5/325 PO PRN (23:08)
[2018-12-03] MEDS: FLAGYL PO SCH (05:27)
[2018-12-03] MEDS: APRESOLINE PO SCH (05:27)
[2018-12-03 05:54] LABS: Hematocrit 36.7 % (35.5-45.6); Hemoglobin 12.1 gm/dl (11.8-15.2); Mean Corpuscular HGB Conc 33 % (32-34); Mean Corpuscular Volume 86 fl (84-94); Platelet Count 378 K/mm3 (140-440); Red Blood Count 4.27 M/mm3 (3.65-5.03); Red Cell Distribution Width 17.3 % (13.2-15.2)
[2018-12-03 06:12] LABS: Calcium 8.9 mg/dL (8.4-10.2)
--- NOTE | 2018-12-03 09:12 | Progress Note ---
Assessment and Plan Atypical chest pain V/Q scan reports a low probability for PE Leukocytosis Pleural effusion s/p left pleural effusion Dual-chamber pacemaker in situ Chronic kidney disease Hx of CAD Hx of Ischemic cardiomyopathy NSVT seen on telemetry 11/22 recommended LifeVest declined by the patient's medical insurance company. An echocardiogram which reveals a severe dilated cardiomyopathy, ejection fraction 15-20%. Thallium stress test reports a moderate to large, mostly fixed inferior wall defect. Recommendations: Continue medical therapy for coronary artery disease, ischemic cardiomyopathy and chronic systolic heart failure. Stable cardiac angeles. Once discharged, patient will follow up with [facility] as scheduled December 09. Subjective Date of service: 12/03/18 Principal diagnosis: Pleural effusions,CMP, babak on ckd Interval history: Patient has no cardiac complaints. Objective Vital Signs Temp Pulse Pulse Resp BP Pulse Ox 12/03/18 08:03 98.2 F 12/03/18 08:01 66 20 111/65 96 12/03/18 05:27 66 126/69 12/03/18 04:05 98.0 F 66 16 126/69 99 12/03/18 00:08 18 12/02/18 23:18 98.4 F 66 16 115/64 97 12/02/18 23:08 18 12/02/18 21:37 76 108/63 12/02/18 20:33 76 18 96 12/02/18 19:50 98.4 F 76 18 108/63 96 12/02/18 19:33 69 12/02/18 11:30 98.4 F 70 18 105/61 93 - Physical Examination General: No Apparent Distress HEENT: Positive: PERRL Neck: Positive: trachea midline Cardiac: Positive: Other (v-paced) Lungs: Positive: Decreased Breath Sounds Neuro: Positive: Grossly Intact Extremities: Absent: edema - Labs and Meds CBC 12/02/18 12/03/18 Range/Units 10:44 04:35 WBC 10.7 9.4 (4.5-11.0) K/mm3 RBC 3.98 4.27 (3.65-5.03) M/mm3 Hgb 11.4 L 12.1 (11.8-15.2) gm/dl Hct 34.1 L 36.7 (35.5-45.6) % Plt Count 347 378 (140-440) K/mm3 Lymph # 1.1 L (1.2-5.4) K/mm3 Drew # 0.7 (0.0-0.8) K/mm3 Eos # 0.3 (0.0-0.4) K/mm3 Baso # 0.0 (0.0-0.1) K/mm3 Comprehensive Metabolic Panel 12/02/18 12/03/18 Range/Units 09:49 04:35 Sodium 142 142 (137-145) mmol/L Potassium 3.9 4.0 (3.6-5.0) mmol/L Chloride 101.5 102.9 (98-107) mmol/L Carbon Dioxide 26 28 (22-30) mmol/L BUN 24 H 22 H (9-20) mg/dL Creatinine 1.6 H 1.7 H (0.8-1.5) mg/dL Glucose 137 H 93 (75-100) mg/dL Calcium 8.8 8.9 (8.4-10.2) mg/dL
--- NOTE | 2018-12-03 09:23 | Progress Note ---
Subjective Principal diagnosis: Pleural effusions,CMP, babak on ckd Interval history: Patient was seen today for follow-up on multiple renal related issues no acute complaints today Vitals labs intake output medications were reviewed Social history: Reviewed Allergies: Reviewed Family history: Reviewed Physical examination HEENT: Oral mucosa moist no pallor or icterus Neck: Supple no JVD Chest: Diminished breath sound at bases CVS: Regular rate and rhythm S1 and S2 heard Abdomen: Soft nontender no suprapubic masses no organomegaly appreciable Extremity: Dry skin less than 1+ peripheral edema Musculoskeletal: No joint effusion noted in knees and ankle Neurological: Alert awake Dermatology: No petechial rashes Psychiatry: No evidence of any agitation and aggression noted Assessment and plan patient has stage III chronic kidney disease, adequately counseled and educated will need follow-up in the officeRenal function has been stable Anemia in chronic kidney disease received erythropoietin Low-grade proteinuria in the 300 mg range,allergic to lisinopril Severe cardiomyopathy ejection fraction 15-20% range patient high risk for progression due to renal hypoperfusion cardiorenal syndrome Hypertension: Continue to monitor and follow Left parapneumonic effusion status post thoracentesis nearly 1.4 L were removed, patient admits being noncompliant with fluid and sodium he wants to make a follow-up appointment in the office We'll continue to follow and make recommendation from renal standpoint Objective - Vital Signs Vital signs: Vital Signs - 12hr 12/02/18 12/02/18 12/02/18 21:37 23:08 23:18 Temperature 98.4 F Pulse Rate 76 66 Respiratory 18 16 Rate Blood Pressure 108/63 115/64 O2 Sat by Pulse 97 Oximetry 12/03/18 12/03/18 12/03/18 00:08 04:05 05:27 Temperature 98.0 F Pulse Rate 66 66 Respiratory 18 16 Rate Blood Pressure 126/69 126/69 O2 Sat by Pulse 99 Oximetry 12/03/18 12/03/18 08:01 08:03 Temperature 98.2 F Pulse Rate 66 Respiratory 20 Rate Blood Pressure 111/65 O2 Sat by Pulse 96 Oximetry - Lab 12/03/18 04:35 12/03/18 04:35 Most recent lab results Calcium 8.9 mg/dL (8.4-10.2) 12/03/18 04:35 Magnesium 2.20 mg/dL (1.7-2.3) 11/16/18 05:24 Urine Creatinine 220.1 mg/dL (0.1-20.0) H 11/15/18 22:45 Urine Total Protein 65 mg/dL (5-11.8) H 11/15/18 22:45 Medications & Allergies - Medications Allergies/Adverse Reactions: Allergies lisinopril Allergy (Verified 11/14/18 16:51) Swelling Penicillins Allergy (Verified 11/14/18 16:51) Rash Home Medications: Home Medications Medication Instructions Recorded Confirmed Last Taken Type Amlodipine Besylate [Norvasc] 10 mg PO QDAY 11/14/18 11/14/18 Unknown History Aspirin EC [Aspirin Enteric Coated 81 mg PO QDAY 11/14/18 11/14/18 Unknown History TAB] AtorvaSTATin [Lipitor] 40 mg PO QHS 11/14/18 11/14/18 Unknown History hydrALAZINE [Apresoline TAB] 50 mg PO Q8HR 11/14/18 11/14/18 Unknown History Bumetanide [Bumex 1 mg tab] 1 mg PO BID #60 tab 11/22/18 Unknown Rx Fluconazole [Diflucan TAB] 100 mg PO QDAY #5 tablet 11/22/18 Unknown Rx ISOSORBIDE MONOnitrate [Imdur ER] 30 mg PO QDAY #30 tablet 11/22/18 Unknown Rx Metoprolol Xl [Metoprolol 25 mg PO QDAY #30 tablet 11/22/18 Unknown Rx SUCCINATE ER TAB] Pantoprazole [Protonix TAB] 20 mg PO QDAY #30 tablet.dr 11/22/18 Unknown Rx Potassium Chloride [K-Dur] 20 meq PO QDAY #30 tablet 11/22/18 Unknown Rx Pregabalin [Lyrica] 75 mg PO BID #60 capsule 11/22/18 Unknown Rx levoFLOXacin [Levaquin] 750 mg PO Q48H #4 tablet 12/03/18 Unknown Rx metroNIDAZOLE [Flagyl] 500 mg PO TID #16 tablet 12/03/18 Unknown Rx Active Medications: Generic Name Dose Route Start Last Admin Trade Name Freq PRN Reason Stop Dose Admin Acetaminophen 650 mg 11/14/18 21:40 11/28/18 19:49 Tylenol PO 650 mg Q4H PRN Administration Pain MILD(1-3)/Fever >100.5/RIVAS Amlodipine Besylate 10 mg 11/15/18 10:00 12/02/18 09:50 Norvasc PO 10 mg QDAY KWAME Administration Aspirin 81 mg 11/15/18 10:00 12/02/18 09:50 Halfprin Ec PO 81 mg QDAY KWAME Administration Atorvastatin Calcium 40 mg 11/15/18 22:00 12/02/18 21:39 Lipitor PO 40 mg QHS KWAME Administration Bumetanide 1 mg 11/27/18 10:00 12/02/18 09:50 Bumex PO 1 mg QDAY KWAME Administration Famotidine 10 mg 11/14/18 22:00 12/02/18 21:38 Pepcid PO 10 mg BID KWAME Administration Hydralazine HCl 25 mg 11/18/18 15:34 12/03/18 05:27 Apresoline PO 25 mg Q8HR KWAME Administration Isosorbide Mononitrate 30 mg 11/15/18 10:00 12/02/18 09:50 Imdur PO 30 mg QDAY KWAME Administration Levofloxacin 750 mg 12/01/18 14:00 12/01/18 13:52 Levaquin PO 750 mg Q48H KWAME Administration Metoprolol Succinate 50 mg 11/23/18 10:00 12/02/18 09:50 Toprol Xl PO 50 mg QDAY KWAME Administration Metronidazole 500 mg 12/01/18 14:00 12/03/18 05:27 Flagyl PO 500 mg Q8HR KWAME Administration Protocol Ondansetron HCl 4 mg 11/14/18 21:40 11/16/18 06:41 Zofran IV 4 mg Q8H PRN Administration Nausea And Vomiting Oxycodone/Acetaminophen 1 tab 11/23/18 02:18 12/02/18 23:08 Percocet 5/325 PO 1 tab Q6H PRN Administration Pain, Moderate (4-6) Pantoprazole Sodium 20 mg 11/18/18 18:00 12/02/18 09:50 Protonix PO 20 mg QDAY KWAME Administration Pregabalin 75 mg 11/16/18 15:00 12/02/18 21:38 Lyrica PO 75 mg BID KWAME Administration Sodium Chloride 10 ml 11/14/18 22:00 12/02/18 21:39 Sodium Chloride Flush Syringe 10 Ml IV 10 ml BID KWAME Administration Sodium Chloride 10 ml 11/14/18 21:40 11/17/18 06:20 Sodium Chloride Flush Syringe 10 Ml IV 10 ml PRN PRN Administration LINE FLUSH
[2018-12-03] MEDS: PROTONIX PO SCH (10:28)
[2018-12-03] MEDS: BUMEX PO SCH (10:28)
[2018-12-03] MEDS: LYRICA PO SCH (10:28)
[2018-12-03] MEDS: PEPCID PO SCH (10:28)
[2018-12-03] MEDS: HALFPRIN EC PO SCH (10:28)
[2018-12-03] MEDS: NORVASC PO SCH (10:29)
[2018-12-03] MEDS: TOPROL XL PO SCH (10:29)
[2018-12-03] MEDS: IMDUR PO SCH (10:29)
[2018-12-03] MEDS: SODIUM CHLORIDE FLUSH SYRINGE 10 ML IV SCH (10:30)
--- NOTE | 2018-12-03 10:32 | Progress Note ---
Assessment and Plan Cultures: 11/15/2018 MRSA nasal culture: Negative 11/17/2018 blood culture: no growth 11/18/2018 HIV: negative 11/29/18: blood culture: no growth to date 11/25/18: AFB smear: negative A/P: 57-year-old male with cardiomyopathy, status post pacemaker placement about 2 years ago, CKD was admitted to the hospital on 11/14/2018 with complaints of chest pain. The patient recently moved from [place]. Admitted with chest pain. 1) Leukocytosis : Resolved. No fevers or leukocytosis. Likely from pleural effusion. Procal 0.3 c/w low risk for bacterial infection. Patient has an indwelling PPM. UA not suggestive of infection. Chest x-ray with bilateral pleural effusions likely related to CHF. ESR 55, CRP 26.70 elevated. RF elevated at 19. XR hand c/w OA. CT chest without pneumonia, showed large bilateral pleural effusions and small pericardial effusion. No vegetations noted on TTE. HIV- Non reactive. Influenza Rapid- negative. Influenza PCR -negative. . Repeat CRP 23.70. 2) CKD: nephrology following. Has mild proteinuria. 3) Bilateral pleural effusions L>R: not c/w CHF as he has persistent fever despite left sided thoracentesis. Unclear etiology, pleural fluid studies incomplete. WBC 445, Lymph 40%, RBC 1025, cytology negative for malignancy with numerous mesothelial cells and macrophages.LDH 519, Glucose 115, Total Protein 4.7. Chest US showing possible moderate bilateral effusion. Repeat CXR shows small to moderate bilateral pleural effusions. Focal subsegmental atelectasis or infiltrates at both lung bases. More notable on the left. Dr. Singh to monitor outpatient. 4) Anorexia: unintentional weight loss of 50+ lbs over the last 6 weeks. HIV negative. Also checking for lupus given family history. SANTANA negative. C3/C4 not c/w acute lupus flare 5) Dilated cardiomyopathy: cardiology following. EF 15-20%. Indwelling pacemaker + 6) Proximal PIP swelling: anti-CCP negative. 70 Oral Candidiasis: Resolved. Recs: Continue Flagyl 500 mg PO every 8 hours and Levaquin 750mg PO every 48 hours (CrCl 43.28) for total 10 days ending 12-07-18 f/u [facility] on 12-17-18 Tamara Praneeth, [employer] [facility] M: [phone] O:[phone] Subjective Date of service: 12/03/18 Principal diagnosis: Pleural effusions,CMP, babak on ckd Interval history: Patient seen and examined. Reports that he is feeling better. Minor chest pain at night. No fevers. Objective - Exam Narrative Exam: Constitutional: Alert, cooperative. Mild distress reported Head, Ears, Nose: Normocephalic, atraumatic. External ears, nose normal Eyes: Conjunctivae/corneas clear. No icterus. No ptosis. Neck: Supple, no meningeal signs Oral: dentition fair, no thrush Cardiovascular: S1, S2 normal. PPM site is well healed, no swelling or te nderness Respiratory: AE decreased in bases, otherwise clear to ausc. GI: Soft, non-tender; bowel sounds normal. No peritoneal signs Musculoskeletal: No pedal edema, no cyanosis. Skin: No rash or abscess Hem/Lymphatic: No palpable cervical or supraclavicular nodes. No lymphangitis Psych: Mood ok. Affect normal Neurological: Awake, alert, oriented. No gross abnormality - Constitutional Vitals: Vital Signs Temp Pulse Resp BP Pulse Ox 98.2 F 68 20 118/66 96 12/03/18 08:03 12/03/18 10:29 12/03/18 08:01 12/03/18 10:29 12/03/18 08:01 Temperature -Last 24 Hours Temperature 98.2 F Temperature 98.0 F Temperature 98.4 F Temperature 98.4 F Temperature 98.4 F - Labs CBC & Chem 7: 12/03/18 04:35 12/03/18 04:35 Labs: Abnormal lab results 12/02/18 12/02/18 12/03/18 Range/Units 09:49 10:44 04:35 Hgb 11.4 L (11.8-15.2) gm/dl Hct 34.1 L (35.5-45.6) % RDW 17.4 H 17.3 H (13.2-15.2) % Lymph % (Auto) 10.3 L (13.4-35.0) % Lymph # 1.1 L (1.2-5.4) K/mm3 Seg Neutrophils % 80.5 H (40.0-70.0) % Seg Neutrophils # 8.6 H (1.8-7.7) K/mm3 BUN 24 H (9-20) mg/dL Creatinine 1.6 H (0.8-1.5) mg/dL Glucose 137 H (75-100) mg/dL 12/03/18 Range/Units 04:35 Hgb (11.8-15.2) gm/dl Hct (35.5-45.6) % RDW (13.2-15.2) % Lymph % (Auto) (13.4-35.0) % Lymph # (1.2-5.4) K/mm3 Seg Neutrophils % (40.0-70.0) % Seg Neutrophils # (1.8-7.7) K/mm3 BUN 22 H (9-20) mg/dL Creatinine 1.7 H (0.8-1.5) mg/dL Glucose (75-100) mg/dL
--- NOTE | 2018-12-03 10:48 | XRay Report ---
PROCEDURE: XR CHEST 4+V TECHNIQUE: Chest radiograph, PA, lateral, and bilateral decubitus views. HISTORY: please eval pleural effusion size COMPARISONS: Chest x-ray November 25, 2018. FINDINGS: Cardiac silhouette is within normal limits. Aortic calcifications. Cardiac device is intact. Ill-defined opacity in the left lower lobe is unchanged compared to prior. Blunted right costophrenic angles. Subtle ill-defined opacity in the right lung base is also unchanged. No pneumothorax. There are no suspicious osseous lesions. IMPRESSION: * Small to moderate bilateral pleural effusions. Focal subsegmental atelectasis or infiltrates at juan th lung bases. More notable on the left. This document is electronically signed by Ramses Draper MD., Dec 03 2018 10:46:34 AM ET
--- NOTE | 2018-12-03 10:52 | Progress Note ---
Assessment and Plan Bilateral pleural effusions, left more than right. Improved on last x-ray in my opinion, report pending- reportedly exudate, see labs,negative cytology. Doubt TB, multiple mesothelials on cyto. Improving per f/u CT,no mass lesions,loc ulation if sampled post diuresis, protein gradient appears to be < 3.1 g, may suggest transudate => exudate convertion due to diuresis. No LDH ration to review CMP. Improving CKD. Stable Rec: Discussed with Dr. Gauthier yesterday to consider chest US, thoracentesis, if enough fluid for drainage,repeat labs with pleural cholesterol and cytology If not, treat conservatively w diuretics and monitor OOB as tolerated IS q 1-2 hr Discussed with patient. He wants to go home soon. He is not consensus regarding further need for thoracentesis, he will be monitored as an outpatient Subjective Date of service: 12/03/18 Principal diagnosis: Pleural effusions,CMP, babak on ckd Interval history: No events overnight. No chest complaints. No shortness of breath. Objective Vital Signs - 12hr 12/02/18 12/02/18 12/03/18 23:08 23:18 00:08 Temperature 98.4 F Pulse Rate 66 Respiratory 18 16 18 Rate Blood Pressure 115/64 O2 Sat by Pulse 97 Oximetry 12/03/18 12/03/18 12/03/18 04:05 05:27 08:01 Temperature 98.0 F Pulse Rate 66 66 66 Respiratory 16 20 Rate Blood Pressure 126/69 126/69 111/65 O2 Sat by Pulse 99 96 Oximetry 12/03/18 12/03/18 08:03 10:29 Temperature 98.2 F Pulse Rate 68 Respiratory Rate Blood Pressure 118/66 O2 Sat by Pulse Oximetry Constitutional: no acute distress, asleep ENT: oropharynx moist Neck: supple Ascultation: Left: diminished breath sounds, Bilateral: clear Percussion: Left: dull (bases,minimal, improved) Cardiovascular: regular rate and rhythm Gastrointestinal: normoactive bowel sounds CBC and BMP: 12/03/18 04:35 12/03/18 04:35 ABG, PT/INR, D-dimer: PT/INR, D-dimer PT 14.3 Sec. (12.2-14.9) 11/24/18 19:57 INR 1.05 (0.87-1.13) 11/24/18 19:57 Abnormal lab findings: Abnormal Labs 11/14/18 11/14/18 11/14/18 17:02 17:02 17:02 WBC 14.9 H Hgb Hct RDW 17.5 H Plt Count Lymph % (Auto) 7.7 L Sullivan % (Auto) 8.3 H Lymph # 1.1 L Sullivan # 1.2 H Seg Neutrophils % 83.2 H Seg Neutrophils # 12.4 H Sodium Potassium Chloride BUN 31 H Creatinine 2.0 H Glucose 109 H C-Reactive Protein NT-Pro-B Natriuret Pep Albumin 3.3 L Urine Creatinine Urine Total Protein Fluid Glucose Fluid Total Protein Rheumatoid Factor Complement C3 Miscellaneous Test 11/14/18 11/15/18 11/15/18 17:02 04:29 04:29 WBC 14.6 H Hgb Hct RDW 17.3 H Plt Count Lymph % (Auto) 9.3 L Sullivan % (Auto) 9.5 H Lymph # Sullivan # 1.4 H Seg Neutrophils % 80.2 H Seg Neutrophils # 11.7 H Sodium Potassium Chloride BUN 30 H Creatinine 2.1 H Glucose C-Reactive Protein NT-Pro-B Natriuret Pep 2385 H Albumin 3.1 L Urine Creatinine Urine Total Protein Fluid Glucose Fluid Total Protein Rheumatoid Factor Complement C3 Miscellaneous Test 11/15/18 11/16/18 11/16/18 22:45 05:24 05:24 WBC 14.4 H Hgb Hct RDW 16.9 H Plt Count Lymph % (Auto) Sullivan % (Auto) Lymph # Sullivan # Seg Neutrophils % Seg Neutrophils # Sodium 136 L Potassium Chloride 96.7 L BUN 28 H Creatinine 2.0 H Glucose C-Reactive Protein NT-Pro-B Natriuret Pep Albumin Urine Creatinine 220.1 H Urine Total Protein 65 H Fluid Glucose Fluid Total Protein Rheumatoid Factor Complement C3 Miscellaneous Test 11/17/18 11/17/18 11/18/18 05:00 05:00 05:12 WBC 14.0 H 13.4 H Hgb 11.3 L Hct 34.2 L RDW 17.3 H 17.2 H Plt Count Lymph % (Auto) Sullivan % (Auto) Lymph # Sullivan # Seg Neutrophils % Seg Neutrophils # Sodium 136 L Potassium Chloride 97.7 L BUN 29 H Creatinine 2.2 H Glucose 109 H C-Reactive Protein NT-Pro-B Natriuret Pep Albumin Urine Creatinine Urine Total Protein Fluid Glucose Fluid Total Protein Rheumatoid Factor Complement C3 Miscellaneous Test 11/18/18 11/18/18 11/18/18 05:12 05:12 06:30 WBC Hgb Hct RDW Plt Count Lymph % (Auto) Sullivan % (Auto) Lymph # Sullivan # Seg Neutrophils % Seg Neutrophils # Sodium Potassium Chloride BUN 31 H Creatinine 2.2 H Glucose 115 H C-Reactive Protein 26.70 H NT-Pro-B Natriuret Pep Albumin Urine Creatinine Urine Total Protein Fluid Glucose Fluid Total Protein Rheumatoid Factor Complement C3 187 H Miscellaneous Test Flexitest 1 H 11/19/18 11/21/18 11/22/18 13:30 07:20 05:22 WBC Hgb Hct RDW Plt Count Lymph % (Auto) Sullivan % (Auto) Lymph # Sullivan # Seg Neutrophils % Seg Neutrophils # Sodium Potassium Chloride 96.4 L BUN 29 H 28 H Creatinine 2.0 H 2.0 H Glucose 124 H C-Reactive Protein NT-Pro-B Natriuret Pep Albumin Urine Creatinine Urine Total Protein Fluid Glucose Fluid Total Protein Rheumatoid Factor 19 H Complement C3 Miscellaneous Test 11/22/18 11/23/18 11/24/18 05:22 05:15 00:35 WBC 12.7 H Hgb 11.6 L Hct 35.1 L RDW 17.0 H Plt Count 457 H Lymph % (Auto) Sullivan % (Auto) 8.1 H Lymph # Sullivan # 1.0 H Seg Neutrophils % 75.4 H Seg Neutrophils # 9.6 H Sodium Potassium 5.2 H Chloride 97.0 L BUN 29 H Creatinine 2.1 H Glucose 122 H C-Reactive Protein NT-Pro-B Natriuret Pep 3963 H Albumin Urine Creatinine Urine Total Protein Fluid Glucose Fluid Total Protein Rheumatoid Factor Complement C3 Miscellaneous Test 11/24/18 11/25/18 11/25/18 05:33 05:26 11:45 WBC Hgb Hct RDW Plt Count Lymph % (Auto) Sullivan % (Auto) Lymph # Sullivan # Seg Neutrophils % Seg Neutrophils # Sodium Potassium Chloride 96.9 L 94.9 L BUN 30 H 30 H Creatinine 2.0 H 2.0 H Glucose 109 H 120 H C-Reactive Protein NT-Pro-B Natriuret Pep Albumin Urine Creatinine Urine Total Protein Fluid Glucose 115 H Fluid Total Protein 4.7 L Rheumatoid Factor Complement C3 Miscellaneous Test 11/26/18 11/26/18 11/26/18 00:31 05:02 08:49 WBC 14.0 H Hgb 11.4 L Hct 34.7 L RDW 17.7 H Plt Count Lymph % (Auto) Sullivan % (Auto) 7.8 H Lymph # Sullivan # 1.1 H Seg Neutrophils % 76.8 H Seg Neutrophils # 10.8 H Sodium Potassium Chloride 95.7 L BUN 30 H Creatinine 2.3 H Glucose 119 H C-Reactive Protein NT-Pro-B Natriuret Pep 2268 H Albumin Urine Creatinine Urine Total Protein Fluid Glucose Fluid Total Protein Rheumatoid Factor Complement C3 Miscellaneous Test 11/27/18 11/27/18 11/28/18 05:03 05:03 11:03 WBC 15.7 H 16.3 H Hgb 11.7 L 11.7 L Hct 35.1 L RDW 17.2 H 17.4 H Plt Count Lymph % (Auto) 12.0 L 10.0 L Sullivan % (Auto) 8.0 H 7.5 H Lymph # Sullivan # 1.2 H 1.2 H Seg Neutrophils % 78.7 H 80.2 H Seg Neutrophils # 12.4 H 13.0 H Sodium Potassium Chloride 95.2 L BUN 29 H Creatinine 2.1 H Glucose 107 H C-Reactive Protein NT-Pro-B Natriuret Pep Albumin Urine Creatinine Urine Total Protein Fluid Glucose Fluid Total Protein Rheumatoid Factor Complement C3 Miscellaneous Test 11/28/18 11/29/18 11/29/18 13:31 05:32 05:32 WBC 16.8 H Hgb Hct RDW 17.3 H Plt Count Lymph % (Auto) 11.3 L Sullivan % (Auto) 7.9 H Lymph # Sullivan # 1.3 H Seg Neutrophils % 79.2 H Seg Neutrophils # 13.3 H Sodium Potassium Chloride BUN 24 H Creatinine 1.9 H Glucose C-Reactive Protein 23.70 H NT-Pro-B Natriuret Pep Albumin Urine Creatinine Urine Total Protein Fluid Glucose Fluid Total Protein Rheumatoid Factor Complement C3 Miscellaneous Test 11/30/18 11/30/18 12/02/18 05:13 05:13 09:49 WBC 13.1 H Hgb 11.2 L Hct 33.2 L RDW 17.4 H Plt Count Lymph % (Auto) 13.0 L Sullivan % (Auto) 8.5 H Lymph # Sullivan # 1.1 H Seg Neutrophils % 75.9 H Seg Neutrophils # 9.9 H Sodium Potassium Chloride BUN 23 H 24 H Creatinine 1.8 H 1.6 H Glucose 122 H 137 H C-Reactive Protein NT-Pro-B Natriuret Pep Albumin 2.6 L Urine Creatinine Urine Total Protein Fluid Glucose Fluid Total Protein Rheumatoid Factor Complement C3 Miscellaneous Test 12/02/18 12/03/18 12/03/18 10:44 04:35 04:35 WBC Hgb 11.4 L Hct 34.1 L RDW 17.4 H 17.3 H Plt Count Lymph % (Auto) 10.3 L Sullivan % (Auto) Lymph # 1.1 L Sullivan # Seg Neutrophils % 80.5 H Seg Neutrophils # 8.6 H Sodium Potassium Chloride BUN 22 H Creatinine 1.7 H Glucose C-Reactive Protein NT-Pro-B Natriuret Pep Albumin Urine Creatinine Urine Total Protein Fluid Glucose Fluid Total Protein Rheumatoid Factor Complement C3 Miscellaneous Test
[2018-12-03 11:40] VITALS: BP 114/62
--- NOTE | 2018-12-03 12:56 | Discharge Summary ---
Providers - Providers Date of Admission: 11/14/18 18:32 Date of discharge: 12/03/18 Attending physician: MILEY KERNS 11/15/18 06:50 Consult to Physician [CONS] Routine Comment: Consulting Provider: TAMIR LOZANO Physician Instructions: Reason For Exam: BROOKE/CKD 11/17/18 11:05 Consult to Physician [CONS] Routine Comment: Consulting Provider: LYNDON REID Physician Instructions: Reason For Exam: fever, Sp PPM 11/20/18 10:28 Physical Therapy Evaluation and Treat [CONS] Routine Comment: Reason For Exam: ataxia Primary care physician: DUSTY WEST Hospitalization Condition: Stable Hospital course: Patient is a 57 yo man with a history of hypertension, PPM, CHF, CAD, tobacco dependency and dyslipidemia who presents to [facility] ED with sob and chest pains. * pCXR CXR IMPRESSION: Prominent cardiomegaly. Vascular distribution. Trace bilateral effusion. Findings compatible with mild congestion -Chest pains, atypical, upsected pneumonia related with increase risk factors -Bilateral Pleural effusion; Lt larger than Rt. s/p thoracentesis, removal of 1400 mL pleural fluid, analysis negative so far, Pulm following, cont anti- failure meds, Possible parapneumonic effusion, -Suspected bilateral pneumonia with sepsis, poa: ID started Levaquin and Flagyl, follow cultures -Acute on chronic suspected combined heart failure: treated with iv diuretics, Cardiology consulted, input noted -Ischemic cardiomyopathy; EF 15-20%, Continue current anti-failure medications, pt declined LifeVest as he says that he had before -Hypertension: low salt diet, continue antihypertensives -Tobacco dependency: career guidance counselor on stopping which patient reports that he has stopped -Oral pancho per ID -PPM present -NSVT on telemetry on 11/22/18, Cardiology evaluated, input noted -ARF, vasomotor nephrology, no baseline (first visit here): consulted nephrology and monitor bmp closely -Leukocytosis, appears reactive, suspected steroid related: continue to monitor DVT ppx full code Disposition: home ID Recs: F/u CXR if clinically improved and evaluated by Dr. Singh and IMstoney to d/c home on flagyl and levaquin. Continue Flagyl 500 mg PO every 8 hours and Levaquin 750mg PO every 48 hours (CrCl 43.28) for total 10 days ending 12-07-18 f/u ID Clinic on 12-17-18 Disposition: DC-01 TO HOME OR SELFCARE Time spent for discharge: 34 minutes Core Measure Documentation - Palliative Care Palliative Care/ Comfort Measures: Not Applicable - Core Measures Any of the following diagnoses?: heart failure - VTE Discharge Requirements Deep Vein Thrombosis/Pulmonary Embolism Present on Admission: No Has pt received <5 days of overlap therapy or INR<2.0: No Anticoagulant overlap therapy prescribed at discharge: No Contraindication No Overlap Therapy order at DC: Not Indicated - Heart Failure Discharge Requirements PHILLIP/ARB for LVSD if EF <40%: No Reason for no PHILLIP/ARB: Renal impairment Beta maria elena at discharge: Yes Exam - Physical Exam Narrative exam: Gen: WDWN, NAD, Awake, Alert, Orientated HEENT: NCAT, EOMI, PERRL, OP Clear Neck: supple, no adenopathy, no thyromegaly, = JVD CVS/Heart: RRR, normal S1S2, pulses present bilaterally Chest/Lungs: diminished bs bilateral but much better, Symmetrical chest expansion, good air entry bilaterally GI/Abdomen: soft, NTND, good bowel sounds, no guarding or rebound /Bladder: no suprapubic tenderness, no CVA or paraspinal tenderness Extermity/Skin: pre-tibial pitting edema, no obvious rash MSK: FROM x 4 Neuro: CN 2-12 grossly intact, no new focal deficits Psych: calm - Constitutional Vitals: Temp Pulse Resp BP Pulse Ox 97.7 F 62 20 114/62 99 12/03/18 11:40 12/03/18 11:39 12/03/18 11:39 12/03/18 11:39 12/03/18 11:39 Plan Activity: other (no strenous activity unless cleared by pcp) Diet: low salt Follow up with: DUSTY WEST MD [Primary Care Provider] - 7 Days ANANTH SALAS MD [Staff Physician] - 7 Days LYNDON REID MD [Staff Physician] - 7 Days Prescriptions: Bumetanide [Bumex 1 mg tab] 1 mg PO BID #60 tab Fluconazole [Diflucan TAB] 100 mg PO QDAY #5 tablet metroNIDAZOLE [Flagyl] 500 mg PO TID #16 tablet ISOSORBIDE MONOnitrate [Imdur ER] 30 mg PO QDAY #30 tablet Potassium Chloride [K-Dur] 20 meq PO QDAY #30 tablet levoFLOXacin [Levaquin] 750 mg PO Q48H #4 tablet Pregabalin [Lyrica] 75 mg PO BID #60 capsule Metoprolol Xl [Metoprolol SUCCINATE ER TAB] 25 mg PO QDAY #30 tablet Pantoprazole [Protonix TAB] 20 mg PO QDAY #30 tablet.
== END 2018-12-03 14:43 | disposition home or self-care (01) | DRG 871 ==
LOC: ED 16:39 → 4A 18:32
PROVIDERS: ADMIT Internal Medicine; ATTEND Internal Medicine
PROC: 0W9B3ZZ Drainage of Left Pleural Cavity, Percutaneous Approach (ICD-10-PCS; principal; 2018-11-25)
DX: A41.9 Sepsis, unspecified organism (principal); I50.43 Acute on chronic combined systolic (congestive) and diastolic (congestive) heart failure; N17.0 Acute kidney failure with tubular necrosis; J96.01 Acute respiratory failure with hypoxia; J18.9 Pneumonia, unspecified organism; I13.0 Hypertensive heart and chronic kidney disease with heart failure and stage 1 through stage 4 chronic kidney disease, or unspecified chronic kidney disease; J91.8 Pleural effusion in other conditions classified elsewhere; E87.3 Alkalosis; B37.0 Candidal stomatitis; I47.2 Ventricular tachycardia; I42.0 Dilated cardiomyopathy; E87.5 Hyperkalemia; D72.829 Elevated white blood cell count, unspecified; D63.1 Anemia in chronic kidney disease; I25.5 Ischemic cardiomyopathy; R63.0 Anorexia; N18.3 Chronic kidney disease, stage 3 (moderate); Z95.0 Presence of cardiac pacemaker; Z87.891 Personal history of nicotine dependence; Z88.6 Allergy status to analgesic agent; Z88.8 Allergy status to other drugs, medicaments and biological substances; Z79.899 Other long term (current) drug therapy; Z79.82 Long term (current) use of aspirin; Z68.26 Body mass index [BMI] 26.0-26.9, adult; Z71.6 Tobacco abuse counseling; T38.0X5A Adverse effect of glucocorticoids and synthetic analogues, initial encounter; Y92.89 Other specified places as the place of occurrence of the external cause
CPT/HCPCS: 32555; 36415; 70490; 71045; 71046; 71048; 71250; 76604; 76770; 78452; 78582; 80048; 80053; 80076; 81001; 82570; 82947; 83036; 83605; 83735; 83880; 83970; 84156; 84160; 84484; 85025; 85027; 85610; 85652; 86038; 86140; 86160; 86200; 86618; 87040; 87102; 87116; 87400; 87806; 88112; 88305; 89051; 93005; 93010; 93017; 93306; 93970; 96374; 99291; G0378; 87502; A9270-GY; A9502; A9540; A9558; J0885; J1170; J1644; J1940; J1956; J2270; J2405; J2785

== ENCOUNTER 2019-01-17 09:13 | Outpatient (CLI) | payer MEDICAID, OTHER ==
[2019-01-17 10:55] LABS: Calcium 9.7 mg/dL (8.4-10.2); Chol/HDL Ratio 4.52 %
[2019-01-20 10:02] LABS: Vitamin D, 25-OH, D2 <4 ng/mL
== END 2019-01-17 09:14 | disposition home or self-care (01) ==
LOC: LAB 09:13
PROVIDERS: ATTEND Internal Medicine
DX: Z00.01 Encounter for general adult medical examination with abnormal findings (principal); Z13.21 Encounter for screening for nutritional disorder; Z13.220 Encounter for screening for lipoid disorders; Z12.5 Encounter for screening for malignant neoplasm of prostate; I13.0 Hypertensive heart and chronic kidney disease with heart failure and stage 1 through stage 4 chronic kidney disease, or unspecified chronic kidney disease; I50.9 Heart failure, unspecified; N18.3 Chronic kidney disease, stage 3 (moderate)
CPT/HCPCS: 36415; 80048; 80061; 82306; 82607; 84153; 84443

== ENCOUNTER 2019-03-04 23:15 | Emergency (ER) | payer MEDICAID ==
--- NOTE | 2019-03-05 01:31 | Emergency Department Report ---
ED Psych HPI - General Chief Complaint: Extremity Injury, Lower Stated Complaint: LEFT HIP PAIN Time Seen by Provider: 03/05/19 01:27 Source: patient Mode of arrival: Ambulatory - History of Present Illness Initial Comments: Patient is a 58-year-old male that presents emergency room with complaints of left hip pain. Patient states she's had hip pain for 4 years. Patient states that he's had similar pain and he wants to kill himself. Patient states his plan is to overdose. Patient was initially being seen in our fast track area but when the patient made a statement that he wanted to kill himself patient was brought to the main side of the ER. Patient denies hallucination. Patient denies homicidal ideations. Patient denies chest pain. MD Complaint: suicidal ideation -: Sudden Associated Psychiatric Symptoms: depression, suicidal ideation History of same: No Quality: constant Improves With: none Worsens With: none Associated Symptoms: denies other symptoms (except for left hip pain which is chronic) Treatments Prior to Arrival: none If Self Harm: admits thoughts of, has plan - Related Data Home Medications Medication Instructions Recorded Confirmed Last Taken Aspirin EC 81 mg PO QDAY 11/14/18 03/05/19 Unknown hydrALAZINE [Apresoline TAB] 25 mg PO QAM 11/14/18 03/05/19 Unknown Bumetanide [Bumex 1 mg tab] 1 mg PO QAM 03/05/19 03/05/19 Unknown Metoprolol Xl [Metoprolol 100 mg PO QDAY 03/05/19 03/05/19 Unknown SUCCINATE ER TAB] Spironolactone [Aldactone] 25 mg PO QDAY 03/05/19 03/05/19 Unknown Allergies Allergy/AdvReac Type Severity Reaction Status Date / Time lisinopril Allergy Swelling Verified 11/14/18 16:51 Penicillins Allergy Rash Verified 11/14/18 16:51 ED Review of Systems ROS: Stated complaint: LEFT HIP PAIN Other details as noted in HPI Constitutional: denies: chills, fever Eyes: denies: eye pain, eye discharge, vision change ENT: denies: ear pain, throat pain Respiratory: denies: cough, shortness of breath, wheezing Cardiovascular: denies: chest pain, palpitations Endocrine: no symptoms reported Gastrointestinal: denies: abdominal pain, nausea, diarrhea Genitourinary: denies: urgency, dysuria Musculoskeletal: denies: back pain, joint swelling, arthralgia Skin: denies: rash, lesions Neurological: denies: headache, weakness, paresthesias Psychiatric: depression, suicidal thoughts. denies: anxiety Hematological/Lymphatic: denies: easy bleeding, easy bruising ED Past Medical Hx - Past Medical History Previous Medical History?: Yes Hx Hypertension: Yes Hx Congestive Heart Failure: Yes Hx Renal Disease: Yes (CKD 3) Hx Asthma: No Additional medical history: Diverticulitis,. Chronic hip pain. CKD 3 - Surgical History Past Surgical History?: Yes Hx Pacemaker: Yes Additional Surgical History: pace maker - Family History Family history: no significant - Social History Smoking Status: Current Every Day Smoker Substance Use Type: Cocaine - Medications Home Medications: Home Medications Medication Instructions Recorded Confirmed Last Taken Type Aspirin EC 81 mg PO QDAY 11/14/18 03/05/19 Unknown History hydrALAZINE [Apresoline TAB] 25 mg PO QAM 11/14/18 03/05/19 Unknown History Bumetanide [Bumex 1 mg tab] 1 mg PO QAM 03/05/19 03/05/19 Unknown History Metoprolol Xl [Metoprolol 100 mg PO QDAY 03/05/19 03/05/19 Unknown History SUCCINATE ER TAB] Spironolactone [Aldactone] 25 mg PO QDAY 03/05/19 03/05/19 Unknown History ED Physical Exam - General Limitations: No Limitations General appearance: alert, in no apparent distress - Head Head exam: Present: atraumatic, normocephalic - Eye Eye exam: Present: normal appearance - ENT ENT exam: Present: mucous membranes moist - Neck Neck exam: Present: normal inspection - Respiratory Respiratory exam: Present: normal lung sounds bilaterally. Absent: respiratory distress - Cardiovascular Cardiovascular Exam: Present: regular rate, normal rhythm. Absent: systolic murmur, diastolic murmur, rubs, gallop - GI/Abdominal GI/Abdominal exam: Present: soft, normal bowel sounds - Rectal Rectal exam: Present: deferred - Extremities Exam Extremities exam: Present: normal inspection - Back Exam Back exam: Present: normal inspection - Neurological Exam Neurological exam: Present: alert, oriented X3 - Psychiatric Psychiatric exam: Present: depressed, suicidal ideation - Skin Skin exam: Present: warm, dry, intact, normal color. Absent: rash ED Course Vital Signs 03/04/19 03/05/19 23:21 03:33 Temperature 97.6 F 98.5 F Pulse Rate 76 70 Respiratory 16 18 Rate Blood Pressure 127/80 Blood Pressure 127/63 [Right] O2 Sat by Pulse 98 98 Oximetry - Reevaluation(s) Reevaluation #1: Evaluation done in the fast-track area. Patient stated he is having suicidal thoughts and wants to kill himself by overdose due to the amount of pain he is in an hour-long evening pain. pt placed on 1013. Patient will be transferred over to our main side psych area. 03/05/19 00:50 Reevaluation #2: Patient resting in his room without complaints. I discussed all results with patient. I discussed plan of care with patient. Patient agrees to plan of care. Patient will remain in the ER on a 1013 until accepted into appropriate psychiatric facility. Patient is medically cleared. 03/05/19 04:42 ED Medical Decision Making - Lab Data Result diagrams: 03/05/19 01:42 03/05/19 01:42 - Medical Decision Making She is a 58-year-old male that presents to emergency room with issue complaining of left hip pain. Patient has chronic left hip pain which is not being properly managed in his opinion by his outpatient physicians. Patient then stated he wanted to kill himself and wanted to overdose on cocaine. Patient was then placed on a 1013. Patient was initially evaluated in the fast-track area and then transferred over to the main side psychiatric area. Patient evaluated by our mental health. Patient's labs unremarkable and consistent with his chronic kidney disease. - Differential Diagnosis suicidal ideation. Mental health. Critical care attestation.: If time is entered above; I have spent that time in minutes in the direct care of this critically ill patient, excluding procedure time. ED Disposition Clinical Impression: Suicidal ideation, Medical clearance for psychiatric admission, Chronic kidney disease, stage III (moderate) Disposition: DC/TX-65 PSY HOSP/PSY UNIT Is pt being admited?: No Does the pt Need Aspirin: No Condition: Stable Additional Instructions: Patient is medically cleared Referrals: YANN MCKEON MD [Primary Care Provider] - 3-5 Days Time of Disposition: 04:44
[2019-03-05 02:11] LABS: Hematocrit 41.2 % (35.5-45.6); Hemoglobin 14.2 gm/dl (11.8-15.2); Mean Corpuscular HGB Conc 35 % (32-34); Mean Corpuscular Volume 91 fl (84-94); Platelet Count 188 K/mm3 (140-440); Red Blood Count 4.55 M/mm3 (3.65-5.03); Red Cell Distribution Width 19.5 % (13.2-15.2)
[2019-03-05 02:30] LABS: Albumin 4.3 g/dL (3.9-5); Calcium 8.9 mg/dL (8.4-10.2)
[2019-03-05 03:01] LABS: Bilirubin,Urine NEG (Negative); Blood,Urine NEG (Negative); Color,Urine Yellow (Yellow); Protein,Urine <15 mg/dL mg/dL (Negative); Urobilinogen,Urine < 2.0 mg/dL (<2.0)
[2019-03-05 03:06] LABS: Amphetamine Screen,Urine PRESUMPTIVE NEGATIVE; Benzodiazepines Screen,Urine PRESUMPTIVE NEGATIVE; Cannabinoid Screen,Urine PRESUMPTIVE NEGATIVE; Methadone Screen,Urine PRESUMPTIVE NEGATIVE; Opiate Screen,Urine PRESUMPTIVE NEGATIVE
[2019-03-05 03:19] LABS: Cocaine Screen,Urine PRESUMPTIVE POSITIVE
[2019-03-05 04:30] LABS: Basophils % (Manual) 0 % (0.0-1.8); Total Cells Counted 100
[2019-03-05 04:31] LABS: Anisocytosis Few; Platelet Estimate Consistent w Auto; Poikilocytosis Few
--- NOTE | 2019-03-05 16:52 | Consultation ---
History of Present Illness - Reason for Consult Consult date: 03/05/19 Reason for consult: psychiatric evaluation - Chief Complaint Chief complaint: late entry due to 'prospecting observer error' "I've been dealing with this hip for so long." - History of Present Psychiatric Illness 58-year-old AA male presented to the emergency room with complaints of left hip pain x 4 years. He reports suicidal ideation with a plan to overdose. Patient denies homicidal ideations. UDS positive for cocaine. He states his chronic pain is depressing, his living situation is horrible, and he is depressed. Although, later he states, "I'm not suicidal, and I'm not crazy." He states he used cocaine to ease his pain. He moved to [place] 11/20/2018 to live with his sister and her son. He says she uses cocaine and he sells it. He expected his sister to help him due to his mobility problems and health conditions. He states she is mean to him and is trying to be in charge of his money. He is currently in control of his money. He wants to be in a assisted. Medications and Allergies Allergies Allergy/AdvReac Type Severity Reaction Status Date / Time lisinopril Allergy Swelling Verified 11/14/18 16:51 Penicillins Allergy Rash Verified 11/14/18 16:51 Home Medications Medication Instructions Recorded Confirmed Last Taken Type Aspirin EC 81 mg PO QDAY 11/14/18 03/05/19 Unknown History hydrALAZINE [Apresoline TAB] 25 mg PO QAM 11/14/18 03/05/19 Unknown History Bumetanide [Bumex 1 mg tab] 1 mg PO QAM 03/05/19 03/05/19 Unknown History Metoprolol Xl [Metoprolol 100 mg PO QDAY 03/05/19 03/05/19 Unknown History SUCCINATE ER TAB] Spironolactone [Aldactone] 25 mg PO QDAY 03/05/19 03/05/19 Unknown History Past psychiatric history - Past Medical History Past Medical History: other (Pacemaker, CHF, HTN, Diverticulitis,. Chronic hip pain. CKD 3) - past Psychiatric treatment and history psychiatric treatment history: denies history of mental health treatment denies suicide attempts - Social History Social history: lives with family (lives with sister and son. He says she uses cocaine and he sells it.) Mental Status Exam - Vital signs Last Vital Signs Temp 97.5 F L 03/05/19 08:49 Pulse 70 03/05/19 08:49 Resp 18 03/05/19 08:49 BP 143/86 03/05/19 08:49 Pulse Ox 99 03/05/19 08:49 - Exam Orientation: time, place, person Affect: depressed Mood: congruent with affect Thought content: other (suicidal ideation plan to OD. no HI) Thought Process: Intact Perceptions: none Speech: normal rate and pattern Concentration: focused Motor activity: normal Level of consciousness: alert Memory: Intact Sleep Symptoms: None Appetite: decreased Interaction: cooperative Results Result Diagrams: 03/05/19 01:42 03/05/19 01:42 Abnormal lab results 03/05/19 03/05/19 03/05/19 Range/Units 01:42 01:42 01:42 MCHC 35 H (32-34) % RDW 19.5 H (13.2-15.2) % Eosinophils % (Manual) 5.0 H (0.0-4.3) % BUN 30 H (9-20) mg/dL Creatinine 1.8 H (0.8-1.5) mg/dL Glucose 118 H (75-100) mg/dL Salicylates < 0.3 L (2.8-20.0) mg/dL Acetaminophen (10.0-30.0) ug/mL 03/05/19 Range/Units 01:42 MCHC (32-34) % RDW (13.2-15.2) % Eosinophils % (Manual) (0.0-4.3) % BUN (9-20) mg/dL Creatinine (0.8-1.5) mg/dL Glucose (75-100) mg/dL Salicylates (2.8-20.0) mg/dL Acetaminophen < 5.0 L (10.0-30.0) ug/mL All other labs normal. Assessment and Plan Assessment and plan: Impression: major depressive disorder, single episode cocaine use disorder: relapsed a few days ago after being clean for 4 years. UDS positive for cocaine no etoh Recommendation: continue medical treatment per the ER staff continue 1013 consider SSRI for depression. He declines today. dispo: inpatient psychiatric facility staffed with Dr. begum
[2019-03-05] MEDS ORDERED: TOPROL XL PO SCH (21:00)
[2019-03-05] MEDS: TOPROL XL PO SCH (21:23)
[2019-03-05] MEDS: ALDACTONE PO SCH (21:24)
[2019-03-05] MEDS: HALFPRIN EC PO SCH (21:24)
[2019-03-06] MEDS: APRESOLINE PO SCH (10:30)
[2019-03-06] MEDS: BUMEX PO SCH (10:30)
[2019-03-06] MEDS: ALDACTONE PO SCH (10:30)
[2019-03-06] MEDS: HALFPRIN EC PO SCH (10:30)
[2019-03-06] MEDS: TOPROL XL PO SCH (11:30)
[2019-03-06] MEDS ORDERED: COLACE PO ONE (12:14)
--- NOTE | 2019-03-06 19:12 | Progress Note ---
Subjective - Reason for Consult Consult date: 03/06/19 Reason for consult: follow up - Chief Complaint Chief complaint: "I've never dreamed of living like that." 58-year-old AA male presented to the emergency room with complaints of left hip pain x 4 years. He reports suicidal ideation with a plan to overdose. Patient denies homicidal ideations. UDS positive for cocaine. He states his chronic pain is depressing, his living situation is horrible, and he is depressed. He wants to move out of his sister's house. Mental Status Exam - Exam Orientation: time, place, person Affect: depressed Mood: congruent with affect Thought content: other (suicidal ideation plan to OD. no HI) Thought Process: Intact Perceptions: none Speech: normal rate and pattern Concentration: focused Motor activity: normal Level of consciousness: alert Memory: Intact Sleep Symptoms: None Appetite: decreased Interaction: cooperative Assessment and plan: Impression: major depressive disorder, single episode cocaine use disorder: relapsed a few days ago after being clean for 4 years. UDS positive for cocaine no etoh He has multiple physical comorbidities, including CHF/has a pacemaker, HTN, hip pain/uses crutches Recommendation: continue medical treatment per the ER staff continue 1013 consider SSRI for depression. He declines today. dispo: inpatient psychiatric facility staffed with Dr. begum Mental Status Exam - Vital signs Last Vital Signs Temp 98.2 F 03/06/19 13:30 Pulse 83 03/06/19 13:30 Resp 83 H 03/06/19 13:30 BP 163/96 03/06/19 13:30 Pulse Ox 97 03/06/19 13:30
[2019-03-07 07:53] VITALS: BP 143/86
[2019-03-07] MEDS: HALFPRIN EC PO SCH (10:50)
--- NOTE | 2019-03-07 10:55 | Progress Note ---
Subjective - Reason for Consult Consult date: 03/07/19 Reason for consult: Psychiatry Follow-up - Chief Complaint Chief complaint: "I definitely want to live" 58-year-old AA male who presented to the ER for left hip pain. Per the recorid, the patient may have gestured SI's. Today the patient was calm and cooperative during the assessment. He stated that he will follow up with his PCP to see if he can be referred to another orthopedic physician. He stated that most of his issues stem from his left hip pain and his current living arrangement. Per collateral information from his sister Ashley Wilson at [phone], she denies any previous suicide attempt by the patient. She denies that her brother have a mental health dx asked. She sated that she will pick her brother up once he's discharged. This isn't the sister the patient reside with. The patient denies SI/HI's and AVH's. Mental Status Exam - Vital signs Last Vital Signs Temp 98.2 F 03/07/19 07:00 Pulse 58 L 03/07/19 07:00 Resp 18 03/07/19 07:00 BP 143/86 03/07/19 07:00 Pulse Ox 99 03/07/19 07:00 - Exam Narrative exam: MSE: Appearance: calm, cooperative Behavior: regular eye contact Speech: regular rate and tone Mood: "okay" Affect: congruent to mood Thought Process: circumstantial Thought Content: denies SI/HI's and AVH's Motor Activity: sitting up in bed Cognition: A/O x3 Insight: appropriate Judgment: appropriate Assessment and Plan Impression: MDD, single episode. Substance Use DO (cocaine)Today the patient was calm and cooperative during the assessment. The patient is no threat to self. DDx: Somatic Symptom DO. Substance Induced Mood DO recommendation/Plan: Rescind 1013. Discussed risks/benefits of SSRI's with the patient, he prefer not to take any medication. He stated that his major issue is getting his left hip "taking care of." discussed the importance to abstain from recreational drug use with the patient, he verbalized understanding. Dipso: The patient can follow up with [facility] for outpatient psy/rehab services. Will staff with Dr Lobo Yin.
[2019-03-07] MEDS: ALDACTONE PO SCH (10:58)
[2019-03-07] MEDS: BUMEX PO SCH (10:59)
[2019-03-07] MEDS: APRESOLINE PO SCH (10:59)
[2019-03-07] MEDS: TOPROL XL PO SCH (11:00)
== END 2019-03-07 13:58 ==
LOC: ED 23:15 → EEVIPCON 23:15 → ED 03-07 13:58
DX: F32.9 Major depressive disorder, single episode, unspecified (principal); R45.851 Suicidal ideations; I13.0 Hypertensive heart and chronic kidney disease with heart failure and stage 1 through stage 4 chronic kidney disease, or unspecified chronic kidney disease; N18.3 Chronic kidney disease, stage 3 (moderate); I50.9 Heart failure, unspecified; G89.29 Other chronic pain; F17.200 Nicotine dependence, unspecified, uncomplicated; F14.10 Cocaine abuse, uncomplicated
CPT/HCPCS: 36415; 80053; 80307; 80320; 81001; 85007; 85025; G0480

== ENCOUNTER 2019-06-03 09:46 | Outpatient (CLI) | payer MEDICAID, OTHER ==
[2019-06-03 11:48] LABS: Chol/HDL Ratio 4.9 %
== END 2019-06-03 09:47 | disposition home or self-care (01) ==
LOC: LAB 09:46
PROVIDERS: ATTEND Internal Medicine
DX: E78.5 Hyperlipidemia, unspecified (principal); I13.0 Hypertensive heart and chronic kidney disease with heart failure and stage 1 through stage 4 chronic kidney disease, or unspecified chronic kidney disease; I50.9 Heart failure, unspecified; N18.3 Chronic kidney disease, stage 3 (moderate); F17.200 Nicotine dependence, unspecified, uncomplicated; Z95.0 Presence of cardiac pacemaker
CPT/HCPCS: 36415; 80061

== ENCOUNTER 2019-08-30 05:50 | Emergency (ER) | payer MEDICAID ==
[2019-08-30 06:14] VITALS: BP 167/83
--- NOTE | 2019-08-30 07:55 | Emergency Department Report ---
ED Recheck HPI - General Chief Complaint: Medical Clearance Stated Complaint: MED REFILL Time Seen by Provider: 08/30/19 07:09 Source: patient Mode of arrival: Ambulatory Limitations: No Limitations - History of Present Illness Initial Comments: This is a 58-year-old -German male who presents to the emergency room for medication refills. Patient reports past medical history of chronic pain, hypertension, major depressive disorder, CHF, and chronic kidney disease stage III. Patient denies any symptoms. Patient states he took the last prescription 2 days ago. States he tried to make an appointment with his PCP and unable to get in. He denies chest pain, shortness of breath, palpitations, edema, new injury, or weakness. Complaint: medication refill request Onset/Timin -: days(s) Returns Today for: request for prescription Symptoms Since Prior Visit: no new symptoms Context: ran out of medication Associated Symptoms: none - Related Data Home Medications Medication Instructions Recorded Confirmed Last Taken Aspirin EC [Halfprin EC] 81 mg PO QDAY 11/14/18 03/05/19 Unknown Bumetanide [Bumex 1 mg tab] 1 mg PO QAM 03/05/19 03/05/19 Unknown Spironolactone [Aldactone] 25 mg PO QDAY 03/05/19 03/05/19 Unknown Previous Rx's Medication Instructions Recorded Last Taken Type Diclofenac Potassium 50 mg PO TID PRN #30 tablet 08/30/19 Unknown Rx Metoprolol Xl [Metoprolol 100 mg PO QDAY #30 tab 08/30/19 Unknown Rx SUCCINATE ER TAB] hydrALAZINE [Apresoline TAB] 25 mg PO QAM #30 tab 08/30/19 Unknown Rx Allergies Allergy/AdvReac Type Severity Reaction Status Date / Time lisinopril Allergy Swelling Verified 11/14/18 16:51 Penicillins Allergy Rash Verified 11/14/18 16:51 ED Review of Systems ROS: Stated complaint: MED REFILL Other details as noted in HPI Constitutional: denies: chills, fever Respiratory: denies: cough, shortness of breath, wheezing Cardiovascular: denies: chest pain, palpitations Gastrointestinal: denies: abdominal pain, nausea, diarrhea Musculoskeletal: denies: back pain, joint swelling, arthralgia Skin: denies: rash, lesions Neurological: denies: headache, weakness, paresthesias Psychiatric: denies: anxiety, depression ED Past Medical Hx - Past Medical History Previous Medical History?: Yes Hx Hypertension: Yes Hx Congestive Heart Failure: Yes Hx Renal Disease: Yes (CKD 3) Hx Asthma: No Additional medical history: Diverticulitis,. Chronic hip pain. CKD 3 - Surgical History Past Surgical History?: Yes Hx Pacemaker: Yes Additional Surgical History: pace maker - Social History Smoking Status: Current Every Day Smoker Substance Use Type: None - Medications Home Medications: Home Medications Medication Instructions Recorded Confirmed Last Taken Type Aspirin EC [Halfprin EC] 81 mg PO QDAY 11/14/18 03/05/19 Unknown History Bumetanide [Bumex 1 mg tab] 1 mg PO QAM 03/05/19 03/05/19 Unknown History Spironolactone [Aldactone] 25 mg PO QDAY 03/05/19 03/05/19 Unknown History Diclofenac Potassium 50 mg PO TID PRN #30 tablet 08/30/19 Unknown Rx Metoprolol Xl [Metoprolol 100 mg PO QDAY #30 tab 08/30/19 Unknown Rx SUCCINATE ER TAB] hydrALAZINE [Apresoline TAB] 25 mg PO QAM #30 tab 08/30/19 Unknown Rx ED Physical Exam - General Limitations: No Limitations General appearance: alert, in no apparent distress - Respiratory Respiratory exam: Present: normal lung sounds bilaterally. Absent: respiratory distress - Cardiovascular Cardiovascular Exam: Present: regular rate, normal rhythm. Absent: systolic murmur, diastolic murmur, rubs, gallop - GI/Abdominal GI/Abdominal exam: Present: soft, normal bowel sounds. Absent: distended, tenderness, guarding, rebound, rigid - Extremities Exam Extremities exam: Present: full ROM, normal capillary refill. Absent: pedal edema, joint swelling, calf tenderness - Neurological Exam Neurological exam: Present: alert, oriented X3, normal gait - Psychiatric Psychiatric exam: Present: normal affect, normal mood - Skin Skin exam: Present: warm, dry, intact, normal color. Absent: rash ED Course Vital Signs 08/30/19 05:56 Temperature 97.9 F Pulse Rate 68 Respiratory 18 Rate Blood Pressure 167/83 O2 Sat by Pulse 99 Oximetry ED Recheck MDM - Differential Diagnosis Prescription Refill(s) - Medical Decision Making This is a 58-year-old male that presents for medication refills. Vitals are stable inpatient in no acute distress. Past medical history of chronic pain, hypertension, major depressive disorder, CHF, and chronic kidney disease stage III. Denies new symptoms. Denies shortness of breath, chest pain, edema, or weakness. Refill metoprolol XL 100 mg by mouth daily, hydralazine 25 mg by mouth every morning, and diclofenac 50 mg by mouth 3 times a day when necessary. Instructed to follow up with PCP. Patient discharged home stable. Critical care attestation.: If time is entered above; I have spent that time in minutes in the direct care of this critically ill patient, excluding procedure time. ED Disposition Clinical Impression: Medication refill Disposition: TO HOME OR SELFCARE Is pt being admited?: No Condition: Stable Instructions: Self-Care Measures with a Chronic Disease (ED), Hypertension (ED) Additional Instructions: Follow-up with your primary care doctor for remaining refills. Prescriptions: hydrALAZINE [Apresoline TAB] 25 mg PO QAM #30 tab Diclofenac Potassium 50 mg PO TID PRN #30 tablet PRN Reason: Pain , Severe (7-10) Metoprolol Xl [Metoprolol SUCCINATE ER TAB] 100 mg PO QDAY #30 tab Referrals: DUSTY WEST MD [Staff Physician] - 3-5 Days SRINIVAS DUNN MD [Staff Physician] - 3-5 Days [facility] [Provider Group] - 3-5 Days Forms: Work/School Release Form(ED) Time of Disposition: 08:01
== END 2019-08-30 08:03 | disposition home or self-care (01) ==
LOC: ED 05:50
DX: I13.0 Hypertensive heart and chronic kidney disease with heart failure and stage 1 through stage 4 chronic kidney disease, or unspecified chronic kidney disease (principal); N18.3 Chronic kidney disease, stage 3 (moderate); I50.9 Heart failure, unspecified; F32.9 Major depressive disorder, single episode, unspecified; G89.29 Other chronic pain; F17.200 Nicotine dependence, unspecified, uncomplicated; Z76.0 Encounter for issue of repeat prescription; Z88.0 Allergy status to penicillin; Z88.8 Allergy status to other drugs, medicaments and biological substances; Z79.899 Other long term (current) drug therapy; Z95.0 Presence of cardiac pacemaker
CPT/HCPCS: 99282

== ENCOUNTER 2019-09-09 13:04 | Emergency (ER) | payer MEDICAID ==
--- NOTE | 2019-09-09 14:02 | Emergency Department Report ---
ED Psych HPI - General Chief Complaint: Psych Stated Complaint: SUICIDAL IDEATIONS Time Seen by Provider: 09/09/19 13:54 Source: patient Mode of arrival: Stretcher - History of Present Illness MD Complaint: suicidal ideation (plan to jump off the bridge), feels depressed (is very upset with his current life situation and need of a left hip replacement cannot obtain, by the heart time getting into shelters, having financial issues) Associated Psychiatric Symptoms: none History of same: No Quality: constant Improves With: none Worsens With: none Context: recent alcohol abuse Associated Symptoms: denies other symptoms Treatments Prior to Arrival: none If Self Harm: admits thoughts of, has plan - Related Data Home Medications Medication Instructions Recorded Confirmed Last Taken Aspirin EC [Halfprin EC] 81 mg PO QDAY 11/14/18 03/05/19 Unknown Bumetanide [Bumex 1 mg tab] 1 mg PO QAM 03/05/19 03/05/19 Unknown Spironolactone [Aldactone] 25 mg PO QDAY 03/05/19 03/05/19 Unknown Previous Rx's Medication Instructions Recorded Last Taken Type Diclofenac Potassium 50 mg PO TID PRN #30 tablet 08/30/19 Unknown Rx Metoprolol Xl [Metoprolol 100 mg PO QDAY #30 tab 08/30/19 Unknown Rx SUCCINATE ER TAB] hydrALAZINE [Apresoline TAB] 25 mg PO QAM #30 tab 08/30/19 Unknown Rx Allergies Allergy/AdvReac Type Severity Reaction Status Date / Time lisinopril Allergy Swelling Verified 11/14/18 16:51 Penicillins Allergy Rash Verified 11/14/18 16:51 ED Review of Systems ROS: Stated complaint: SUICIDAL IDEATIONS Other details as noted in HPI Comment: All other systems reviewed and negative ED Past Medical Hx - Past Medical History Previous Medical History?: Yes Hx Hypertension: Yes Hx Congestive Heart Failure: Yes Hx Renal Disease: Yes (CKD 3) Hx Asthma: No Additional medical history: Diverticulitis,. Chronic hip pain. CKD 3 - Surgical History Past Surgical History?: Yes Hx Pacemaker: Yes Additional Surgical History: pace maker, right hip replacement - Social History Smoking Status: Current Some Day Smoker Substance Use Type: Cocaine - Medications Home Medications: Home Medications Medication Instructions Recorded Confirmed Last Taken Type Aspirin EC [Halfprin EC] 81 mg PO QDAY 11/14/18 03/05/19 Unknown History Bumetanide [Bumex 1 mg tab] 1 mg PO QAM 03/05/19 03/05/19 Unknown History Spironolactone [Aldactone] 25 mg PO QDAY 03/05/19 03/05/19 Unknown History Diclofenac Potassium 50 mg PO TID PRN #30 tablet 08/30/19 Unknown Rx Metoprolol Xl [Metoprolol 100 mg PO QDAY #30 tab 08/30/19 Unknown Rx SUCCINATE ER TAB] hydrALAZINE [Apresoline TAB] 25 mg PO QAM #30 tab 08/30/19 Unknown Rx ED Physical Exam - General Limitations: No Limitations General appearance: alert, in no apparent distress - Head Head exam: Present: atraumatic, normocephalic - Eye Eye exam: Present: normal appearance, PERRL Pupils: Present: normal accommodation - ENT ENT exam: Present: normal exam, normal orophraynx, mucous membranes moist - Neck Neck exam: Present: normal inspection, full ROM - Respiratory Respiratory exam: Present: normal lung sounds bilaterally. Absent: respiratory distress, wheezes, rales - Cardiovascular Cardiovascular Exam: Present: regular rate, normal rhythm. Absent: systolic murmur, diastolic murmur, rubs, gallop - GI/Abdominal GI/Abdominal exam: Present: soft, normal bowel sounds - Rectal Rectal exam: Present: deferred - Extremities Exam Extremities exam: Present: normal inspection, full ROM, normal capillary refill - Back Exam Back exam: Present: normal inspection. Absent: CVA tenderness (R), CVA tenderness (L) - Neurological Exam Neurological exam: Present: alert, oriented X3, CN II-XII intact, normal gait - Psychiatric Psychiatric exam: Present: normal affect, normal mood, depressed, suicidal ideation. Absent: anxious, flat affect - Skin Skin exam: Present: warm, dry, intact, normal color. Absent: rash ED Medical Decision Making - Medical Decision Making This patient presents with symptoms consistent with an underlying psychiatric disorder, most likely . Differential diagnosis includes . Presentation not consistent with acute organic causes to include delirium, dementia or drug induced disorders (acute ingestions or withdrawal; no evidence of toxidrome). Given the H&P, I suspect this patient is suicidal/homicidal/gravely disabled and will require psychiatric care. Will consult psychiatry to evaluate the patient for potential hold for . Will also obtain labs for medical clearance. Plan: labs, EKG, ASA/APAP levels, ETOH level, UDS, ICON, Psych consult, medical detainment, reassess Critical care attestation.: If time is entered above; I have spent that time in minutes in the direct care of this critically ill patient, excluding procedure time. ED Disposition Clinical Impression: Suicidal ideation Condition: Stable
[2019-09-09 14:21] LABS: Basophils % (Auto) 0.4 % (0.0-1.8); Eosinophils # (Auto) 0.1 K/mm3 (0.0-0.4); Eosinophils % (Auto) 0.8 % (0.0-4.3); Hemoglobin 14.4 gm/dl (11.8-15.2); Lymphocytes # (Auto) 1.7 K/mm3 (1.2-5.4); Lymphocytes % (Auto) 22.7 % (13.4-35.0); Mean Corpuscular HGB Conc 33 % (32-34); Mean Corpuscular Volume 92 fl (84-94); Monocytes # (Auto) 0.4 K/mm3 (0.0-0.8); Monocytes % (Auto) 4.9 % (0.0-7.3); Platelet Count 228 K/mm3 (140-440); Red Cell Distribution Width 15.8 % (13.2-15.2)
[2019-09-09 14:41] LABS: Calcium 9.7 mg/dL (8.4-10.2)
[2019-09-09 14:57] LABS: Bilirubin,Urine NEG (Negative); Blood,Urine NEG (Negative); Color,Urine Amber (Yellow); Mucus,Urine 2+ /HPF
[2019-09-09 15:02] LABS: Amphetamine Screen,Urine PRESUMPTIVE NEGATIVE; Benzodiazepines Screen,Urine PRESUMPTIVE NEGATIVE; Cannabinoid Screen,Urine PRESUMPTIVE NEGATIVE; Methadone Screen,Urine PRESUMPTIVE NEGATIVE; Opiate Screen,Urine PRESUMPTIVE NEGATIVE
[2019-09-09 15:16] LABS: Cocaine Screen,Urine PRESUMPTIVE POSITIVE
[2019-09-10 07:34] VITALS: BP 166/87
== END 2019-09-10 08:16 ==
LOC: ED 13:04 → EEVIPCON 13:04 → ED 09-10 08:16
DX: R45.851 Suicidal ideations (principal); I11.0 Hypertensive heart disease with heart failure; I50.9 Heart failure, unspecified; N28.9 Disorder of kidney and ureter, unspecified; K57.90 Diverticulosis of intestine, part unspecified, without perforation or abscess without bleeding; F14.10 Cocaine abuse, uncomplicated; F17.200 Nicotine dependence, unspecified, uncomplicated; Z98.890 Other specified postprocedural states; Z79.899 Other long term (current) drug therapy; Z88.0 Allergy status to penicillin; Z88.2 Allergy status to sulfonamides
CPT/HCPCS: 36415; 80048; 80307; 80320; 81001; 85025; G0480

== ENCOUNTER 2019-12-08 20:09 | Inpatient (IN) | payer MEDICAID ==
--- NOTE | 2019-12-08 21:02 | Emergency Department Report ---
ED General Adult HPI - General Chief complaint: Chest Pain Stated complaint: CHEST PAIN Time Seen by Provider: 12/08/19 20:38 Source: patient, EMS Mode of arrival: Stretcher Limitations: No Limitations - History of Present Illness Initial comments: Patient is 59 years old male with history of hypertension, congestive heart failure and pacemaker. Patient presented to the ER initially stated that he is having chest pain and then he added that he is having left chest pain and then he stated that he is suicidal because he has been homeless for a while. Patient stated that his left hip pain is because he slept on the sidewalk last night. Patient stated that he has been having visual hallucination also. Patient denied auditory hallucination. Patient also denied any homicidal ideation. Severity scale (0 -10): 8 - Related Data Home Medications Medication Instructions Recorded Confirmed Last Taken Aspirin EC [Halfprin EC] 81 mg PO QDAY 11/14/18 09/09/19 Unknown Diclofenac Potassium 50 mg PO BID PRN 09/09/19 09/09/19 Unknown hydrALAZINE [Apresoline TAB] 25 mg PO BID 09/09/19 09/09/19 Unknown Previous Rx's Medication Instructions Recorded Last Taken Type Metoprolol Xl [Metoprolol 100 mg PO QDAY #30 tab 08/30/19 Unknown Rx SUCCINATE ER TAB] Allergies Allergy/AdvReac Type Severity Reaction Status Date / Time lisinopril Allergy Swelling Verified 11/14/18 16:51 Penicillins Allergy Rash Verified 11/14/18 16:51 ED Review of Systems ROS: Stated complaint: CHEST PAIN Other details as noted in HPI Comment: All other systems reviewed and negative Constitutional: denies: chills, fever Respiratory: denies: cough, shortness of breath Cardiovascular: chest pain. denies: palpitations Gastrointestinal: denies: abdominal pain, nausea, vomiting, diarrhea, constipation, hematemesis, melena, hematochezia Musculoskeletal: denies: back pain Neurological: denies: headache, weakness, numbness, paresthesias, confusion, abnormal gait Psychiatric: depression, visual hallucinations, suicidal thoughts. denies: auditory hallucinations, homicidal thoughts ED Past Medical Hx - Past Medical History Hx Hypertension: Yes Hx Congestive Heart Failure: Yes Hx Renal Disease: Yes (CKD 3) Hx Asthma: No Additional medical history: Diverticulitis,. Chronic hip pain. CKD 3 - Surgical History Hx Pacemaker: Yes Additional Surgical History: pace maker, right hip replacement - Social History Smoking Status: Current Some Day Smoker Substance Use Type: Cocaine - Medications Home Medications: Home Medications Medication Instructions Recorded Confirmed Last Taken Type Aspirin EC [Halfprin EC] 81 mg PO QDAY 11/14/18 09/09/19 Unknown History Metoprolol Xl [Metoprolol 100 mg PO QDAY #30 tab 08/30/19 09/09/19 Unknown Rx SUCCINATE ER TAB] Diclofenac Potassium 50 mg PO BID PRN 09/09/19 09/09/19 Unknown History hydrALAZINE [Apresoline TAB] 25 mg PO BID 09/09/19 09/09/19 Unknown History ED Physical Exam - General Limitations: No Limitations General appearance: alert, in no apparent distress - Head Head exam: Present: atraumatic, normocephalic, normal inspection - Eye Eye exam: Present: normal appearance - ENT ENT exam: Present: normal exam, normal orophraynx, mucous membranes moist - Neck Neck exam: Present: normal inspection, full ROM. Absent: tenderness, me ningismus, lymphadenopathy, thyromegaly - Respiratory Respiratory exam: Present: normal lung sounds bilaterally - Cardiovascular Cardiovascular Exam: Present: regular rate, normal rhythm, normal heart sounds - GI/Abdominal GI/Abdominal exam: Present: soft, normal bowel sounds. Absent: distended, tenderness, guarding, rebound, rigid, organomegaly, mass, bruit, pulsatile mass, hernia - Extremities Exam Extremities exam: Present: normal inspection, full ROM, normal capillary refill. Absent: tenderness - Back Exam Back exam: Present: normal inspection, full ROM. Absent: CVA tenderness (R), CVA tenderness (L) - Neurological Exam Neurological exam: Present: alert, oriented X3, CN II-XII intact - Psychiatric Psychiatric exam: Present: depressed, suicidal ideation. Absent: homicidal ideation - Skin Skin exam: Present: warm, intact, normal color ED Course Vital Signs 12/08/19 12/08/19 12/08/19 20:22 20:30 20:46 Temperature 97.8 F Pulse Rate 63 74 69 Respiratory 18 15 25 H Rate Blood Pressure 115/83 115/83 142/63 O2 Sat by Pulse 100 99 98 Oximetry 12/08/19 12/08/19 12/08/19 21:00 21:30 22:00 Temperature Pulse Rate 75 60 61 Respiratory 21 13 11 L Rate Blood Pressure 141/73 145/75 137/69 O2 Sat by Pulse 98 98 98 Oximetry 12/08/19 12/08/19 12/08/19 22:30 23:00 23:30 Temperature Pulse Rate 75 63 71 Respiratory 18 20 20 Rate Blood Pressure 148/80 134/65 138/72 O2 Sat by Pulse 99 99 98 Oximetry 12/08/19 23:43 Temperature 98.0 F Pulse Rate Respiratory Rate Blood Pressure O2 Sat by Pulse Oximetry ED Medical Decision Making - Lab Data Result diagrams: 12/08/19 20:54 12/08/19 20:54 - EKG Data -: EKG Interpreted by Me Rate: normal - EKG Data Interpretation: no acute changes - Radiology Data Radiology results: report reviewed - Medical Decision Making Patient is 59 years old male with history of hypertension, congestive heart failure and pacemaker. Patient presented to the ER initially stated that he is having chest pain and then he added that he is having left chest pain and then he stated that he is suicidal because he has been homeless for a while. Patient stated that his left hip pain is because he slept on the sidewalk last night. Patient stated that he has been having visual hallucination also. Patient denied auditory hallucination. Patient also denied any homicidal ideation. EKG showed no ST elevation, labs reviewed and is unremarkable including a negati ve troponin. Patient is homeless and suicidal. Patient second troponin came back slightly increased at 0.066. Patient given aspirin. I discussed the patient with Dr. Priscilla Murray, she agreed to admit the patient to medical service for further management. Critical care attestation.: If time is entered above; I have spent that time in minutes in the direct care of this critically ill patient, excluding procedure time. ED Disposition Clinical Impression: Chest pain, Suicidal ideation, Cocaine abuse, Elevated troponin Disposition: OP ADMIT IP TO THIS HOSP Is pt being admited?: Yes Condition: Stable Instructions: Chest Pain (ED) Referrals: PRIMARY CARE, [Primary Care Provider] - 3-5 Days
[2019-12-08 21:06] LABS: Basophils # (Auto) 0.1 K/mm3 (0.0-0.1); Basophils % (Auto) 0.5 % (0.0-1.8); Eosinophils # (Auto) 0.2 K/mm3 (0.0-0.4); Eosinophils % (Auto) 1.8 % (0.0-4.3); Hematocrit 40.7 % (35.5-45.6); Hemoglobin 13.9 gm/dl (11.8-15.2); Lymphocytes # (Auto) 2.3 K/mm3 (1.2-5.4); Lymphocytes % (Auto) 19.1 % (13.4-35.0); Mean Corpuscular HGB Conc 34 % (32-34); Mean Corpuscular Volume 91 fl (84-94); Monocytes # (Auto) 0.8 K/mm3 (0.0-0.8); Monocytes % (Auto) 7.1 % (0.0-7.3); Platelet Count 220 K/mm3 (140-440); Red Blood Count 4.49 M/mm3 (3.65-5.03); Red Cell Distribution Width 17.4 % (13.2-15.2)
--- NOTE | 2019-12-08 21:15 | XRay Report ---
CHEST 1 VIEW 8:49 PM INDICATION / CLINICAL INFORMATION: Chest Pain. COMPARISON: 08/28/19. FINDINGS: SUPPORT DEVICES: The position of the dual chamber left subclavian transvenous pacemaker has not olmos ed. HEART / MEDIASTINUM: Mild cardiomegaly is stable. Pulmonary vasculature is normal. The aorta is jonathan l in caliber. LUNGS / PLEURA: No significant pulmonary or pleural abnormality. No pneumothorax. ADDITIONAL FINDINGS: No significant additional findings. IMPRESSION: No acute abnormality or significant change. Signer Name: Vin Fernández MD Signed: 12/08/2019 9:11 PM Workstation Name: [id number]
[2019-12-08 21:28] LABS: BUN/Creatinine Ratio 13; Blood Urea Nitrogen 29 mg/dL (9-20); Calcium 9.2 mg/dL (8.4-10.2); Hemolysis Index 10
[2019-12-08 23:58] LABS: Amphetamine Screen,Urine PRESUMPTIVE NEGATIVE; Benzodiazepines Screen,Urine PRESUMPTIVE NEGATIVE; Bilirubin,Urine NEG (Negative); Blood,Urine SM (Negative); Cannabinoid Screen,Urine PRESUMPTIVE NEGATIVE; Color,Urine Yellow (Yellow); Methadone Screen,Urine PRESUMPTIVE NEGATIVE; Mucus,Urine FEW /HPF; Opiate Screen,Urine PRESUMPTIVE NEGATIVE; Protein,Urine <15 mg/dL mg/dL (Negative)
[2019-12-09 00:19] LABS: Cocaine Screen,Urine PRESUMPTIVE POSITIVE
[2019-12-09] MEDS ORDERED: ASPIRIN 81 MG TAB CHEW PO ONE (01:30)
[2019-12-09 01:56] LABS: Chol/HDL Ratio 2.6 %
--- NOTE | 2019-12-09 03:08 | History and Physical Report ---
History of Present Illness History of present illness: 59-year-old man with hypertension, CHF, coronary artery disease, chronic kidney disease comes emergency room with complaints of chest pain. States that her chest pain is across the chest chest which she describes as a sharp pain, started 2 days ago, intermittent, not lasting long, intensity 5/10 no radiation, worse when he takes a deep breath. Denies to nausea, shortness of breath, no diaphoresis or palpitation. He had a stress test last year which was abnormal. Patient also admits to suicidal ideation, stated he can get this hip replaced therefore he has difficulty ambulating, stated he has a plan. Patient will be admitted for chest pain and suicidal ideation Review Of Systems: Constitutional: no weight loss, fever, chills Ears, eyes, nose, mouth and throat: no nasal congestion, no nasal discharge, no sinus pressure, blurry vision, diplopia Neck: No neck pain or rigidity. Cardiovascular: No palpitation Respiratory: No shortness of breath, cough Gastrointestinal: No hematochezia Genitourinary : no dysuria, frequency Musculoskeletal: no muscle ache , joint pain Integumentary: no rash, no pruritis Neurological: no parathesias, focal weakness Endocrine: no cold or heat intolerance, no polyuria or polydipsia Hematologic/Lymphatic: no easy bruising, no easy bleeding, no gland swelling Allergic/Immunologic: no urticaria, no angioedema. PAST MEDICAL HISTORY: hypertension, CHF, coronary artery disease, chronic kidney disease PAST SURGICAL HISTORY: Pacemaker SOCIAL HISTORY: Denies alcohol, +tobacco, + cocaine FAMILY HISTORY: Hypertension . Medications and Allergies Allergies Allergy/AdvReac Type Severity Reaction Status Date / Time lisinopril Allergy Swelling Verified 11/14/18 16:51 Penicillins Allergy Rash Verified 11/14/18 16:51 Home Medications Medication Instructions Recorded Confirmed Last Taken Type Aspirin EC [Halfprin EC] 81 mg PO QDAY 11/14/18 09/09/19 Unknown History Metoprolol Xl [Metoprolol 100 mg PO QDAY #30 tab 08/30/19 09/09/19 Unknown Rx SUCCINATE ER TAB] Diclofenac Potassium 50 mg PO BID PRN 09/09/19 09/09/19 Unknown History hydrALAZINE [Apresoline TAB] 25 mg PO BID 09/09/19 09/09/19 Unknown History Exam - Physical Exam Narrative exam: Gen. appearance: Patient lying in bed, no apparent distress HEENT: Normocephalic, atraumatic, pupils equally round and reactive to light, extraocular movement intact, and no sclericterus,. No JVD or thyromegaly or nodule,neck supple, no carotid bruit ,mucous membranes moist, no exudate or erythema Heart: S1, S2, regular rate and rhythm Lungs: Clear bilaterally, breathing comfortable Abdomen: Positive bowel sounds, nontender, nondistended, no organomegaly Extremity: no edema, cyanosis, clubbing Skin: No rash, nodules, warm, dry Neuro: speech is fluent, moves extremities, sensory intact - Constitutional Vitals: Temp Pulse Resp BP Pulse Ox 98.0 F 66 13 145/77 98 12/08/19 23:43 12/09/19 02:16 12/09/19 02:16 12/09/19 02:16 12/09/19 02:16 Results - Labs CBC & Chem 7: 12/09/19 04:19 12/08/19 20:54 Labs: Abnormal lab results 12/08/19 12/08/19 12/08/19 Range/Units 20:54 20:54 20:54 WBC 12.0 H (4.5-11.0) K/mm3 RDW 17.4 H (13.2-15.2) % Seg Neutrophils % 71.5 H (40.0-70.0) % Seg Neutrophils # 8.6 H (1.8-7.7) K/mm3 Sodium (137-145) mmol/L BUN (9-20) mg/dL Creatinine (0.8-1.5) mg/dL Troponin T (0.00-0.029) ng/mL Salicylates < 0.3 L (2.8-20.0) mg/dL Acetaminophen < 5.0 L (10.0-30.0) ug/mL 12/08/19 12/08/19 Range/Units 20:54 23:13 WBC (4.5-11.0) K/mm3 RDW (13.2-15.2) % Seg Neutrophils % (40.0-70.0) % Seg Neutrophils # (1.8-7.7) K/mm3 Sodium 136 L (137-145) mmol/L BUN 29 H (9-20) mg/dL Creatinine 2.3 H (0.8-1.5) mg/dL Troponin T 0.066 H D (0.00-0.029) ng/mL Salicylates (2.8-20.0) mg/dL Acetaminophen (10.0-30.0) ug/mL - Imaging and Cardiology EKG: image reviewed Chest x-ray: report reviewed Assessment and Plan Assessment Chest pain/coronary artery disease/cocaine abuse Check cardiac enzymes, consult cardiology Continue aspirin, percocet Chronic renal insufficiency secondary Monitor kidney function Congestive heart failure, systolic stable, continue to monitor Hypertension Continue outpatient medication DVT prophylaxis
[2019-12-09] MEDS ORDERED: ONDANSETRON 4 MG/2 ML INJ IV PRN (03:53)
[2019-12-09] MEDS ORDERED: ACETAMINOPHEN 325 MG TAB PO PRN (03:53)
[2019-12-09 04:31] LABS: Basophils % (Auto) 0.4 % (0.0-1.8); Eosinophils # (Auto) 0.2 K/mm3 (0.0-0.4); Hematocrit 40.3 % (35.5-45.6); Hemoglobin 13.5 gm/dl (11.8-15.2); Lymphocytes # (Auto) 2.8 K/mm3 (1.2-5.4); Lymphocytes % (Auto) 25.7 % (13.4-35.0); Mean Corpuscular HGB Conc 33 % (32-34); Mean Corpuscular Volume 92 fl (84-94); Monocytes # (Auto) 0.7 K/mm3 (0.0-0.8); Monocytes % (Auto) 6.6 % (0.0-7.3); Platelet Count 201 K/mm3 (140-440); Red Cell Distribution Width 17.5 % (13.2-15.2)
[2019-12-09 04:46] LABS: Creatine Kinase MB 4.7 ng/mL (0.0-4.0)
[2019-12-09 04:47] LABS: Calcium 9.3 mg/dL (8.4-10.2)
[2019-12-09] MEDS ORDERED: ASPIRIN 81 MG TAB CHEW ONE (10:03)
[2019-12-09] MEDS: ASPIRIN 81 MG TAB CHEW PO SCH (10:04)
[2019-12-09 10:43] LABS: Creatine Kinase MB 3.9 ng/mL (0.0-4.0)
--- NOTE | 2019-12-09 11:22 | Consultation ---
History of Present Illness Consult date: 12/09/19 Consult reason: chest pain History of present illness: This is a 59-year old male who presented with atypical chest pain thus this cardiac consultation. Patient denies unusual shortness of breath and fever. An EKG on presentation was in normal sinus rhythm with underlying right bundle branch block. Chest x-ray reports no interstitial changes. Patient is known to [employer]. He has a history of coronary artery disease, ischemic cardiomyopathy and SSS s/p Medtronic dual chamber pacemaker. Routine device checks revealed normal functioning device. His latest cardiac workup was done a year ago. An echocardiogram showed severe dilated cardiomyopathy, ejection fraction 15-20%. A thallium stress test ordered by the medical service, forms a severe dilated cardiomyopathy, and a moderate to large, mostly fixed inferior wall defect. Co-morbidities includes chronic kidney disease, hypertension, and a long standing history of substance abuse. Medications and Allergies Allergies Allergy/AdvReac Type Severity Reaction Status Date / Time lisinopril Allergy Swelling Verified 11/14/18 16:51 Penicillins Allergy Rash Verified 11/14/18 16:51 Home Medications Medication Instructions Recorded Confirmed Last Taken Type Aspirin EC [Halfprin EC] 81 mg PO QDAY 11/14/18 09/09/19 Unknown History Metoprolol Xl [Metoprolol 100 mg PO QDAY #30 tab 08/30/19 09/09/19 Unknown Rx SUCCINATE ER TAB] Diclofenac Potassium 50 mg PO BID PRN 09/09/19 09/09/19 Unknown History hydrALAZINE [Apresoline TAB] 25 mg PO BID 09/09/19 09/09/19 Unknown History Active Meds: Active Medications Acetaminophen (Tylenol) 650 mg PO Q4H PRN PRN Reason: Pain MILD(1-3)/Fever >100.5/RIVAS Aspirin (Baby Aspirin) 81 mg PO QDAY [facility] Last Admin: 12/09/19 10:04 Dose: 81 mg Documented by: Ondansetron HCl (Zofran) 4 mg IV Q8H PRN PRN Reason: Nausea And Vomiting Oxycodone/Acetaminophen (Percocet 5/325) 1 tab PO Q6H PRN PRN Reason: Pain, Moderate (4-6) Sodium Chloride (Sodium Chloride Flush Syringe 10 Ml) 10 ml IV BID [facility] Last Admin: 12/09/19 10:05 Dose: 10 ml Documented by: Sodium Chloride (Sodium Chloride Flush Syringe 10 Ml) 10 ml IV PRN PRN PRN Reason: LINE FLUSH Physical Examination Vital Signs Temp Pulse Resp BP Pulse Ox 97.8 F 63 18 115/83 98 12/08/19 20:22 12/08/19 20:22 12/08/19 20:22 12/08/19 20:22 12/08/19 20:22 General appearance: no acute distress HEENT: Positive: PERRL Neck: Positive: trachea midline Cardiac: Positive: Reg Rate and Rhythm Neuro: Positive: Grossly Intact Results 12/09/19 04:19 12/09/19 04:19 Cardiac Enzymes 12/09/19 12/09/19 Range/Units 04:19 09:58 CK-MB (CK-2) 4.7 H 3.9 (0.0-4.0) ng/mL Lipids 12/08/19 Range/Units 23:13 Triglycerides 94 (2-149) mg/dL Cholesterol 130 (50-199) mg/dL HDL Cholesterol 50 (40-59) mg/dL Cholesterol/HDL Ratio 2.60 % CBC 12/08/19 12/09/19 Range/Units 20:54 04:19 WBC 12.0 H 11.0 (4.5-11.0) K/mm3 RBC 4.49 4.40 (3.65-5.03) M/mm3 Hgb 13.9 13.5 (11.8-15.2) gm/dl Hct 40.7 40.3 (35.5-45.6) % Plt Count 220 201 (140-440) K/mm3 Lymph # 2.3 2.8 (1.2-5.4) K/mm3 [place] # 0.8 0.7 (0.0-0.8) K/mm3 Eos # 0.2 0.2 (0.0-0.4) K/mm3 Baso # 0.1 0.0 (0.0-0.1) K/mm3 Comprehensive Metabolic Panel 12/08/19 12/09/19 Range/Units 20:54 04:19 Sodium 136 L 137 (137-145) mmol/L Potassium 3.9 3.7 (3.6-5.0) mmol/L Chloride 99.3 98.4 (98-107) mmol/L Carbon Dioxide 22 26 (22-30) mmol/L BUN 29 H 30 H (9-20) mg/dL Creatinine 2.3 H 2.3 H (0.8-1.5) mg/dL Glucose 80 147 H (75-100) mg/dL Calcium 9.2 9.3 (8.4-10.2) mg/dL Assessment and Plan Atypical chest pain Dual-chamber pacemaker in situ Chronic kidney disease Hx of CAD Hx of Ischemic cardiomyopathy 11/2018 cardiac workup: An echocardiogram which reveals a severe dilated cardiomyopathy, ejection fraction 15-20%. Thallium stress test reports a moderate to large, mostly fixed inferior wall defect. Recommend: Resume medical therapy for coronary artery disease, ischemic cardiomyopathy and chronic systolic heart failure.
[2019-12-09] MEDS ORDERED: hydrALAZINE 25 MG TAB ONE (12:17)
[2019-12-09] MEDS: hydrALAZINE 25 MG TAB PO SCH ×2 (12:17→21:59)
--- OUTSIDE RECORDS SUMMARY | 2019-12-09 15:03 | External Medical Summary ---
:1960 Author Care Team Providers Name Role Phone Shruti Primary Care Provider Radames Primary Care Provider Reason for Referral Reason Schedule THAI Schedule THAI Assessment No Assessments Health Concern No Health Concerns Goals No Goals Medications Code Code System Medication Frequency Route Dose Active 902319 (SBD) RxNorm Norvasc 10 mg tablet 1 by mouth daily oral 1 unit Active 337606 (SCD) RxNorm metoprolol succinate 1 by mouth daily oral 1 unit Active 100 mg tablet extended release 24 hr 766854 (SBD) RxNorm spironolactone 25 mg 1 by mouth daily oral 1 unit Active tablet 312475 (SCD) RxNorm hydralazine 50 mg 1 by mouth twice oral 1 unit Active tablet daily 868104 (SBD) RxNorm diclofenac sodium 50 1 twice daily oral 1 unit Active mg tablet,delayed release (DR/EC) 9102352 (SBD) RxNorm aspirin 81 mg 1 by mouth daily oral 1 uni t Active tablet,delayed release (DR/EC) 435969 (SCD) RxNorm bumetanide 2 mg tablet 1/2 by mouth oral 1 unit Active twice daily Social History Element Description Status Start End Code Code System Current Smoking Status Former smoker 10/11/2019 - 5180335 SNOMED-CT Sex Male - M Administrative Sex Lab Results Lab Test Name Lab Test Code Code System Date Performing Lab Result Code Code System Name Result Value and Units Date Referance Range Basic Metabolic Panel (BMP) [facility] LOCAL 04/2019 Performing lab not available 76378-2 LOINC Calcium Value=9.4 units=mg/dL 12/09/2018 8.6 -10.3 2028-04 LOINC CO2 Value=30 units=mEq/L 12/09/2018 22-3 2 2075-0 LOINC Chloride Pwbmz=380 units=mEq/L 12/09/2018 97- 108 2160-0 LOINC Creatinine Value=1.51 units=mg/dL 12/09/2018 0. 70-1.30 2345-7 [facility] Glucose Value=83 units=mg/dL 12/09/2018 65-9 9 2823-3 [facility] Potassium Value=4.6 units=mEq/L 12/09/2018 3.5 -5.3 2951-2 [facility] Sodium Muvse=752 units=mEq/L 12/09/2018 135 -145 3094-0 [facility] BUN Value=25 units=mg/dL 12/09/2018 6-20 Estimated Glomerular Filtration Rate EGFR LOCAL 12/09/2018 Performing lab not available 32968-8 [facility] GFR/Black Value=58 units=mL/min/1.73m2 019 >60 52109-3 [facility] GFR/White Value=48 units=mL/min/1.73m2 019 >60 Functional Status No Functional Status Information History of Procedures No Known Procedures History of Encounters Description Vist Date Vist Code Code System Code Code System Description INPATIENT CONSULTATION HIGH 11/15/2018 79216 CPT I50.41 TPT89-HE Acute combined systo lic (congestive) and diastolic (congestive) heart failure I50.41 VDG26-II Acute combined systo lic (congestive) and diastolic (congestive) heart failure SUBSEQUENT CARE DETAIL 11/17/2018 27253 CPT I50.41 XJR51-YM Acute combined systo lic (congestive) and diastolic (congestive) heart failure SUBSEQUENT CARE MED 11/18/2018 50678 CPT I50.41 CLK31-WL Acute combined systo lic (congestive) and diastolic (congestive) heart failure ECHO PROFESSIONAL 11/14/2018 5925711 CPT I36.8 DGR95-SX Other nonrheumatic t ricuspid valve disorders THALLIUM PROFESSIONAL 11/15/2018 5607253 CPT R07.2 SWH03-NB Precordial pain R07.2 LJB61-EY Precordial pain R07.2 IJF28-CK Precordial pain SUBSEQUENT HOSP CARE INPATIENT 11/19/2018 47721 C PT I50.41 GSI25-NN Acute combined systo lic (congestive) and diastolic (congestive) heart failure SUBSEQUENT CARE DETAIL 2018 06185 CPT I50.41 HTZ96-OJ Acute combined systo lic (congestive) and diastolic (congestive) heart failure I50.41 VBJ56-SO Acute combined systo lic (congestive) and diastolic (congestive) heart failure SUBSEQUENT CARE MED 11/22/2018 72041 CPT I50.41 ZFE35-SL Acute combined systo lic (congestive) and diastolic (congestive) heart failure I50.41 QQB06-YY Acute combined systo lic (congestive) and diastolic (congestive) heart failure SUBSEQUENT HOSP CARE INPATIENT 11/24/2018 32746 C PT I50.41 GEZ36-VE Acute combined systo lic (congestive) and diastolic (congestive) heart failure SUBSEQUENT CARE MED 11/25/2018 90309 CPT I50.41 MYN02-DR Acute combined systo lic (congestive) and diastolic (congestive) heart failure I50.41 GAC33-FG Acute combined systo lic (congestive) and diastolic (congestive) heart failure I50.41 BKM71-IO Acute combined systo lic (congestive) and diastolic (congestive) heart failure I50.41 OKQ32-LF Acute combined systo lic (congestive) and diastolic (congestive) heart failure SUBSEQUENT HOSP CARE INPATIENT 11/26/2018 68912 C PT I50.41 KYT39-ZZ Acute combined systo lic (congestive) and diastolic (congestive) heart failure SUBSEQUENT CARE MED 11/30/2018 99033 CPT I50.41 MBP83-NY Acute combined systo lic (congestive) and diastolic (congestive) heart failure EKG 12/09/2018 79870 CPT I10 FGI61-AP Essential (primary) hypertension OV OR OUTPT HIGH 12/09/2018 53035 CPT I42.9 TUR50-JC Cardiomyopathy, unsp ecified I50.22 VAP00-OT Chronic Systolic (co ngestive) Heart Failure Z95.0 FAQ97-CM Presence Of Cardiac Pacemaker I42.9 NYP64-WW Cardiomyopathy, unsp ecified I50.22 QDD65-EP Chronic Systolic (co ngestive) Heart Failure Z95.0 YIC67-ZU Presence Of Cardiac Pacemaker I42.9 TYG90-BY Cardiomyopathy, unsp ecified I50.22 YUU54-OO Chronic Systolic (co ngestive) Heart Failure Z95.0 AXZ06-HK Presence Of Cardiac Pacemaker I42.9 PDR81-NP Cardiomyopathy, unsp ecified I50.22 XMC06-WT Chronic Systolic (co ngestive) Heart Failure Z95.0 RBO27-TU Presence Of Cardiac Pacemaker SUBSEQUENT HOSP CARE INPATIENT 12/01/2018 50104 C PT I50.41 ZEM78-IN Acute combined systo lic (congestive) and diastolic (congestive) heart failure SUBSEQUENT CARE MED 12/02/2018 08066 CPT I50.41 PJQ86-QZ Acute combined systo lic (congestive) and diastolic (congestive) heart failure SUBSEQUENT HOSP CARE INPATIENT 12/03/2018 38252 C PT I50.41 CFG45-HW Acute combined systo lic (congestive) and diastolic (congestive) heart failure OV OR OUTPT HIGH 12/23/2018 85813 CPT I42.9 DRZ32-TO Cardiomyopathy, unsp ecified I50.22 FZY11-PR Chronic Systolic (co ngestive) Heart Failure Z95.0 FOM05-TI Presence Of Cardiac Pacemaker I42.9 VEL50-IY Cardiomyopathy, unsp ecified I50.22 GFR43-BF Chronic Systolic (co ngestive) Heart Failure Z95.0 WSX03-NP Presence Of Cardiac Pacemaker I42.9 XHT84-ER Cardiomyopathy, unsp ecified I50.22 LNM45-MM Chronic Systolic (co ngestive) Heart Failure Z95.0 EIR17-TK Presence Of Cardiac Pacemaker I42.9 GGM38-EM Cardiomyopathy, unsp ecified I50.22 DRH05-MS Chronic Systolic (co ngestive) Heart Failure Z95.0 ODO17-MK Presence Of Cardiac Pacemaker OV OR OUTPT SEVERE 01/11/2019 44747 CPT I42.9 ADL65-CB Cardiomyopathy, unsp ecified Z95.0 MZQ39-MK Presence Of Cardiac Pacemaker EKG 01/11/2019 43455 CPT I42.9 XTC91-PL Cardiomyopathy, unsp ecified PROGRAMMING DDD 01/11/2019 1483031 CPT Z45.010 BNM53-YA Encounter for checki ng and testing of cardiac pacemaker pulse generator [battery] OV OR OUTPT HIGH 01/20/2019 96426 CPT I42.0 NPX43-SR Dilated Cardiomyopat hy I47.2 JAK21-WP Ventricular Tachycar kelechi N18.3 CWA25-LS Chronic Kidney Disea se, Stage 3 (moderate) Z95.0 AYQ97-XW Presence Of Cardiac Pacemaker I42.0 BOX14-VN Dilated Cardiomyopat hy I47.2 EPJ61-CM Ventricular Tachycar kelechi N18.3 YIZ97-KD Chronic Kidney Disea se, Stage 3 (moderate) Z95.0 YAB05-ZI Presence Of Cardiac Pacemaker I42.0 HMO73-BS Dilated Cardiomyopat hy I47.2 BFY44-OJ Ventricular Tachycar kelechi N18.3 PSZ60-ER Chronic Kidney Disea se, Stage 3 (moderate) Z95.0 CMD21-MK Presence Of Cardiac Pacemaker I42.0 TPE67-BC Dilated Cardiomyopat hy I47.2 YVQ22-PA Ventricular Tachycar kelechi N18.3 WRQ82-UQ Chronic Kidney Disea se, Stage 3 (moderate) Z95.0 JUX88-HF Presence Of Cardiac Pacemaker ECHO 03/22/2019 84369 CPT R94.31 NLU38-WQ Abnormal electrocard iogram (ECG) (EKG) EKG 03/22/2019 86356 CPT I47.2 JTD27-JT Ventricular Tachycar kelechi OV OR OUTPT HIGH 03/22/2019 69511 CPT Z95.0 IYX99-DH Presence Of Cardiac Pacemaker Z95.0 RVU54-FE Presence Of Cardiac Pacemaker OV OR OUTPT HIGH 03/24/2019 21305 CPT I42.0 QYU78-AP Dilated Cardiomyopat hy I47.2 DXH04-FD Ventricular Tachycar kelechi N18.3 PIE03-WN Chronic Kidney Disea se, Stage 3 (moderate) R94.31 NNG98-SN Abnormal electrocard iogram (ECG) (EKG) I42.0 MGQ34-KK Dilated Cardiomyopat hy I47.2 HVE60-HX Ventricular Tachycar kelechi N18.3 XEB14-CM Chronic Kidney Disea se, Stage 3 (moderate) R94.31 FWT90-WQ Abnormal electrocard iogram (ECG) (EKG) I42.0 UHW02-CS Dilated Cardiomyopat hy I47.2 ZIE31-AC Ventricular Tachycar kelechi N18.3 BWF30-WF Chronic Kidney Disea se, Stage 3 (moderate) R94.31 YSX31-QX Abnormal electrocard iogram (ECG) (EKG) OV OR OUTPT HIGH 07/12/2019 71777 CPT I10 BQX09-LU Essential (primary) hypertension I10 IGM09-MU Essential (primary) hypertension I10 MYB83-WJ Essential (primary) hypertension EKG 07/12/2019 49352 CPT I10 FYF08-SO Essential (primary) hypertension PROGRAMMING DDD 07/12/2019 1582126 CPT Z45.010 MGJ41-PW Encounter for checki ng and testing of cardiac pacemaker pulse generator [battery] EKG 07/26/2019 57654 CPT I10 AEO15-MN Essential (primary) hypertension OV OR OUTPT SEVERE 07/26/2019 99183 CPT Z95.0 EBO60-QI Presence Of Cardiac Pacemaker Z95.0 HVN37-LL Presence Of Cardiac Pacemaker OV OR OUTPT HIGH 08/09/2019 26981 CPT I10 KRI92-GT Essential (primary) hypertension I42.0 GPM72-SH Dilated Cardiomyopat hy I47.2 GFW13-MG Ventricular Tachycar kelechi I50.22 MYF18-RA Chronic Systolic (co ngestive) Heart Failure I10 NVI31-NK Essential (primary) hypertension I42.0 ZGP62-QH Dilated Cardiomyopat hy I47.2 ZTE55-VT Ventricular Tachycar kelechi I50.22 SXP82-BV Chronic Systolic (co ngestive) Heart Failure I10 WHA83-MT Essential (primary) hypertension I42.0 WVX17-LP Dilated Cardiomyopat hy I47.2 XRP53-JV Ventricular Tachycar kelechi I50.22 JPA56-HA Chronic Systolic (co ngestive) Heart Failure Plan of Treatment Date Description 01/10/2020 11:20:00 AM Devices ([address] [place] [address] [id number]) Medical Equipment No History of Medical Devices Mental Status No Mental Status Information Vital Signs Code Code System Vital Name Timing Information Value and Units 8480-6 [facility] Blood 08/09/2019 Value =142 (Systolic) Pressure-Systolic units=mm[H g] 8462-4 [facility] Blood 08/09/2019 Value =84 (Diastolic) Pressure-Diastolic units=mm[ Hg] 8867-4 [facility] Heart Rate 08/09/2019 Value =64 units=/min 9279-1 LOINC Respiration 08/09/2019 Value =12 units=/min 8302-2 INC Height 08/09/2019 Value =173 units=cm 04455-8 [facility] Weight 08/09/2019 Value =99 units=kg 83020-4 [facility] BMI 08/09/2019 Value =33.14 units=kg/m2 8480-6 [facility] Blood 07/26/2019 Value =150 (Systolic) Pressure-Systolic units=mm[H g] 8462-4 INC Blood 07/26/2019 Value =88 (Diastolic) Pressure-Diastolic units=mm[ Hg] 8867-4 INC Heart Rate 07/26/2019 Value =69 units=/min 9279-1 LOINC Respiration 07/26/2019 Value =16 units=/min 8302-2 LOINC Height 07/26/2019 Value =173 units=cm 68271-8 LOINC Weight 07/26/2019 Value =99 units=kg 08190-1 INC BMI 07/26/2019 Value =33.02 units=kg/m2 8480-6 [facility] Blood 07/12/2019 Value =150 (Systolic) Pressure-Systolic units=mm[H g] 8462-4 [facility] Blood 07/12/2019 Value =80 (Diastolic) Pressure-Diastolic units=mm[ Hg] 8867-4 INC Heart Rate 07/12/2019 Value =68 units=/min 9279-1 INC Respiration 07/12/2019 Value =16 units=/min 8302-2 INC Height 07/12/2019 Value =173 units=cm 54488-6 INC Weight 07/12/2019 Value =97 units=kg 24920-2 [facility] BMI 07/12/2019 Value =32.60 units=kg/m2 8480-6 [facility] Blood 07/12/2019 Value =140 (Systolic) Pressure-Systolic units=mm[H g] 8462-4 [facility] Blood 07/12/2019 Value =80 (Diastolic) Pressure-Diastolic units=mm[ Hg] 8302-2 [facility] Height 07/12/2019 Value =173 units=cm 8480-6 [facility] Blood 03/24/2019 Value =130 (Systolic) Pressure-Systolic units=mm[H g] 8462-4 [facility] Blood 03/24/2019 Value =80 (Diastolic) Pressure-Diastolic units=mm[ Hg] 8867-4 INC Heart Rate 03/24/2019 Value =86 units=/min 9279-1 LOINC Respiration 03/24/2019 Value =16 units=/min 8302-2 INC Height 03/24/2019 Value =173 units=cm 04111-5 LOINC Weight 03/24/2019 Value =90 units=kg 22305-0 [facility] BMI 03/24/2019 Value =30.10 units=kg/m2 8480-6 [facility] Blood 03/22/2019 Value =140 (Systolic) Pressure-Systolic units=mm[H g] 8462-4 [facility] Blood 03/22/2019 Value =100 (Diastolic) Pressure-Diastolic units=mm[ Hg] 8867-4 [facility] Heart Rate 03/22/2019 Value =87 units=/min 9279-1 LOINC Respiration 03/22/2019 Value =16 units=/min 8302-2 LOINC Height 03/22/2019 Value =173 units=cm 97272-1 LOINC Weight 03/22/2019 Value =91 units=kg 95408-3 LOINC BMI 03/22/2019 Value =30.38 units=kg/m2 8480-6 [facility] Blood 01/20/2019 Value =148 (Systolic) Pressure-Systolic units=mm[H g] 8462-4 LOINC Blood 01/20/2019 Value =80 (Diastolic) Pressure-Diastolic units=mm[ Hg] 8867-4 LOINC Heart Rate 01/20/2019 Value =87 units=/min 9279-1 LOINC Respiration 01/20/2019 Value =16 units=/min 8302-2 LOINC Height 01/20/2019 Value =173 units=cm 93742-9 LOINC Weight 01/20/2019 Value =87 units=kg 03221-9 LOINC BMI 01/20/2019 Value =29.13 units=kg/m2 8480-6 LO[facility] Blood 01/11/2019 Value =120 (Systolic) Pressure-Systolic units=mm[H g] 8462-4 LOINC Blood 01/11/2019 Value =80 (Diastolic) Pressure-Diastolic units=mm[ Hg] 8867-4 LOINC Heart Rate 01/11/2019 Value =68 units=/min 9279-1 LOINC Respiration 01/11/2019 Value =16 units=/min 8302-2 LOINC Height 01/11/2019 Value =173 units=cm 03029-9 LOINC Weight 01/11/2019 Value =86 units=kg 72951-7 LOINC BMI 01/11/2019 Value =28.70 units=kg/m2 8480-6 LOINC Blood 12/23/2018 Value =140 (Systolic) Pressure-Systolic units=mm[H g] 8462-4 [facility] Blood 12/23/2018 Value =90 (Diastolic) Pressure-Diastolic units=mm[ Hg] 8867-4 LOINC Heart Rate 12/23/2018 Value =76 units=/min 9279-1 LOINC Respiration 12/23/2018 Value =16 units=/min 8302-2 LOINC Height 12/23/2018 Value =173 units=cm 60032-6 LOINC Weight 12/23/2018 Value =84 units=kg 39801-4 INC BMI 12/23/2018 Value =28.28 units=kg/m2 8480-6 [facility] Blood 12/09/2018 Value =110 (Systolic) Pressure-Systolic units=mm[H g] 8462-4 [facility] Blood 12/09/2018 Value =70 (Diastolic) Pressure-Diastolic units=mm[ Hg] 8867-4 INC Heart Rate 12/09/2018 Value =84 units=/min 9279-1 INC Respiration 12/09/2018 Value =16 units=/min 8302-2 INC Height 12/09/2018 Value =173 units=cm 30591-1 [facility] Weight 12/09/2018 Value =77 units=kg 23071-4 [facility] BMI 12/09/2018 Value =25.94 units=kg/m2 Allergies, adverse reactions, alerts Code Code System Allergy Reaction Severity Concern Statu s 79111 ([place]) RxNorm Lisinopril Swelling (non-specific) Unknown A ctive (code - 698985812, SNOMED-CT) -1 ([place]) RxNorm Penicillins Generalized rash (code - Unknown Active 794899577, SNOMED-CT) Immunizations No Known Immunizations Problem List Code Code System Condition Concern Status R94.31 ICD10 Abnormal electrocardiogram (ECG) (EKG) Active N18.3 ICD10 Chronic Kidney Disease, Stage 3 (moderate) Active I50.22 ICD10 Chronic Systolic (congestive) He art Failure Active I42.0 ICD10 Dilated Cardiomyopathy Active I10 ICD10 Essential (primary) hypertension Active Z95.0 ICD10 Presence Of Cardiac Pacemaker Ac tive I47.2 ICD10 Ventricular Tachycardia Active
--- NOTE | 2019-12-09 15:22 | Consultation ---
History of Present Illness - Reason for Consult Consult date: 12/09/19 Reason for consult: suicide ideation - History of Present Psychiatric Illness Ok Wilson is a 59y/o male patient who states he came to the ER for "chest and knee pain." The patient is a/o x 3. He is dressed appropriately. He makes good eye contact. He is a poor historian. He says "he is not well and can't take care of himself because he needs a knee replacement." The patient denies SI/HI at the moment but says "it comes and goes." He says, "I'm not sure what I'll do if I leave here." He states, "not being able to get around good and not having anywhere to go is what makes me not want to live like this." The patient says he has a history of "depression." He says, he is "depressed now because of my condition and not having a place to live." He was unable to tell me if he sees a psychiatrist. He verbalizes using "cocaine and crack." He denies alcohol or nicotine use. He says he attempted suicide in the past "two times." He states he was admitted for psychiatric problems "once." The denies ever being on any psych medications, "he says he never took them." He could not recall what they were. The patient denies hallucinations of any kind. He denies any problems with his appetite or sleep cycle. PAST PSYCHIATRIC HISTORY: Diagnoses: Depression Suicide attempts or Self-harm behavior: Twice Prior psychiatric hospitalizations: Once Substance Abuse history: Crack, cocaine Previous psychiatric medications tried: Could not recall Outpatient treatment: Denies PAST MEDICAL HISTORY: None reported Family Psychiatric History: None reported or documented SOCIAL HISTORY Current living status: Homeless Highest level of education: High school Marital status: Single Legal history: Denies History of abuse: Denies REVIEW OF SYSTEMS Constitutional: Negative for weight loss ENT: Negative for stridor Respiratory: Negative for cough or hemoptysis All other systems reviewed and are negative MENTAL STATUS EXAMINATION General Appearance: Dressed appropriately Behavior: Calm, cooperative. Mood: "depressed" Affect: Congruent with stated mood Speech: Normal tone and pace Thought Process: Goal directed Thought Content: Suicidal Ideation: Yes, comes and goes Homicidal Ideation: Denies Hallucinations: Denies Delusions: Denies Insight and Judgment: Limited Memory/Cognition: Limited Assessment Major Depressive Disorder, Moderate, Without Psychotic Features Plan MEDICATIONS: Zoloft 25mg po daily Trazodone 50mg po qhs Geodon 10mg IM q6h prn agitation Risks, benefits and alternatives of medications discussed with the patient, questions answered and consent obtained from patient. PSYCHOTHERAPY: Supportive psychotherapy provided MEDICAL: Per primary team DELIRIUM PRECAUTIONS: Please re-orient patient frequently, keep lights on during the day, and minimize benzodiazepines and opiates as these medications could worsen patient's confusion. INTERVENTIONAL TECH: Per Medical team. DISPOSITION: The patient meets the requirement for acute inpatient psychiatric hospitalization at this time. He may transfer to an acute facility once he is medically clear. The treatment plan was explained to the patient. He verbalizes understanding and agreement of plan. Will continue to follow until the patient is transferred or his condition improves enough for discharge Thank you for the consult. Please contact with any questions or concerns. Medications and Allergies Allergies Allergy/AdvReac Type Severity Reaction Status Date / Time lisinopril Allergy Swelling Verified 11/14/18 16:51 Penicillins Allergy Rash Verified 11/14/18 16:51 Home Medications Medication Instructions Recorded Confirmed Last Taken Type Aspirin EC [Halfprin EC] 81 mg PO QDAY 11/14/18 09/09/19 Unknown History Metoprolol Xl [Metoprolol 100 mg PO QDAY #30 tab 08/30/19 09/09/19 Unknown Rx SUCCINATE ER TAB] Diclofenac Potassium 50 mg PO BID PRN 09/09/19 09/09/19 Unknown History hydrALAZINE [Apresoline TAB] 25 mg PO BID 09/09/19 09/09/19 Unknown History Active Meds: Active Medications Acetaminophen (Tylenol) 650 mg PO Q4H PRN PRN Reason: Pain MILD(1-3)/Fever >100.5/RIVAS Aspirin (Baby Aspirin) 81 mg PO QDAY [facility] Last Admin: 12/09/19 10:04 Dose: 81 mg Documented by: Carvedilol (Coreg) 6.25 mg PO BID [facility] Hydralazine HCl (Apresoline) 50 mg PO Q12HR [facility] Last Admin: 12/09/19 12:17 Dose: 50 mg Documented by: Ondansetron HCl (Zofran) 4 mg IV Q8H PRN PRN Reason: Nausea And Vomiting Oxycodone/Acetaminophen (Percocet 5/325) 1 tab PO Q6H PRN PRN Reason: Pain, Moderate (4-6) Sodium Chloride (Sodium Chloride Flush Syringe 10 Ml) 10 ml IV BID [facility] Last Admin: 12/09/19 10:05 Dose: 10 ml Documented by: Sodium Chloride (Sodium Chloride Flush Syringe 10 Ml) 10 ml IV PRN PRN PRN Reason: LINE FLUSH Spironolactone (Aldactone) 12.5 mg PO QDAY [facility] Mental Status Exam - Vital signs Last Vital Signs Temp 98.0 F 12/08/19 23:43 Pulse 66 12/09/19 13:01 Resp 19 12/09/19 13:01 BP 154/77 12/09/19 13:01 Pulse Ox 96 12/09/19 13:01 Results Result Diagrams: 12/09/19 04:19 12/09/19 04:19 Abnormal lab results 12/08/19 12/08/19 12/08/19 Range/Units 20:54 20:54 20:54 WBC 12.0 H (4.5-11.0) K/mm3 RDW 17.4 H (13.2-15.2) % Seg Neutrophils % 71.5 H (40.0-70.0) % Seg Neutrophils # 8.6 H (1.8-7.7) K/mm3 D-Dimer (0-234) ng/mlDDU Sodium (137-145) mmol/L BUN (9-20) mg/dL Creatinine (0.8-1.5) mg/dL Glucose (75-100) mg/dL CK-MB (CK-2) (0.0-4.0) ng/mL Troponin T (0.00-0.029) ng/mL Salicylates < 0.3 L (2.8-20.0) mg/dL Acetaminophen < 5.0 L (10.0-30.0) ug/mL 12/08/19 12/08/19 12/09/19 Range/Units 20:54 23:13 02:31 WBC (4.5-11.0) K/mm3 RDW (13.2-15.2) % Seg Neutrophils % (40.0-70.0) % Seg Neutrophils # (1.8-7.7) K/mm3 D-Dimer (0-234) ng/mlDDU Sodium 136 L (137-145) mmol/L BUN 29 H (9-20) mg/dL Creatinine 2.3 H (0.8-1.5) mg/dL Glucose (75-100) mg/dL CK-MB (CK-2) (0.0-4.0) ng/mL Troponin T 0.066 H D 0.054 H (0.00-0.029) ng/mL Salicylates (2.8-20.0) mg/dL Acetaminophen (10.0-30.0) ug/mL 12/09/19 12/09/19 12/09/19 Range/Units 04:19 04:19 04:19 WBC (4.5-11.0) K/mm3 RDW 17.5 H (13.2-15.2) % Seg Neutrophils % (40.0-70.0) % Seg Neutrophils # (1.8-7.7) K/mm3 D-Dimer 282.61 H (0-234) ng/mlDDU Sodium (137-145) mmol/L BUN 30 H (9-20) mg/dL Creatinine 2.3 H (0.8-1.5) mg/dL Glucose 147 H (75-100) mg/dL CK-MB (CK-2) 4.7 H (0.0-4.0) ng/mL Troponin T 0.055 H (0.00-0.029) ng/mL Salicylates (2.8-20.0) mg/dL Acetaminophen (10.0-30.0) ug/mL 12/09/19 Range/Units 09:58 WBC (4.5-11.0) K/mm3 RDW (13.2-15.2) % Seg Neutrophils % (40.0-70.0) % Seg Neutrophils # (1.8-7.7) K/mm3 D-Dimer (0-234) ng/mlDDU Sodium (137-145) mmol/L BUN (9-20) mg/dL Creatinine (0.8-1.5) mg/dL Glucose (75-100) mg/dL CK-MB (CK-2) (0.0-4.0) ng/mL Troponin T 0.039 H D (0.00-0.029) ng/mL Salicylates (2.8-20.0) mg/dL Acetaminophen (10.0-30.0) ug/mL All other labs normal.
[2019-12-09] MEDS ORDERED: ZIPRASIDONE MESYLATE 20 MG VIAL IM PRN (15:32)
--- NOTE | 2019-12-09 17:07 | Event Note ---
Date: 12/09/19 Patient 59-year-old gentleman with a history of hypertension, congestive heart failure ejection fraction 15 to 20% last known 1 year ago negative Lexiscan 1 year ago chronic kidney disease stage IV presented with nonexertional chest pain and also having increased anxiety and suicidal ideations. Patient was admitted evaluated by cardiology and psychiatry. At present patient remains chest pain- free. Also has no suicidal ideations. Patient does have major depression with some concerns for hopelessness. Chest pain at present patient dilated cardiomyopathy. Chest pain-free. Last Lexiscan normal ejection fraction 15 to 20%. Cardiology consult conservative management at this point. Patient has atypical pain unlikely cardiac at this time. Coronary artery disease status post CABG. History of cocaine abuse. Not using it present. Chronic kidney disease stage IV unchanged. Suicidal ideations major depression. Transfer to inpatient psych when bed available.
[2019-12-09] MEDS ORDERED: SERTRALINE 50 MG TAB ONE ×2 (17:21→19:51)
[2019-12-09] MEDS: SERTRALINE 25 MG TAB PO SCH (19:54)
[2019-12-09] MEDS: carvediloL 6.25 MG TAB PO SCH (21:59)
[2019-12-09] MEDS: traZODone 50 MG TAB PO SCH (22:00)
[2019-12-09] MEDS: oxyCODONE /ACETAMINOPHEN 5-325MG TAB PO PRN (22:52)
[2019-12-10] MEDS: oxyCODONE /ACETAMINOPHEN 5-325MG TAB PO PRN ×2 (09:22→22:18)
[2019-12-10] MEDS: carvediloL 6.25 MG TAB PO SCH ×2 (09:22→22:17)
[2019-12-10] MEDS: SERTRALINE 25 MG TAB PO SCH (09:23)
[2019-12-10] MEDS: hydrALAZINE 25 MG TAB PO SCH ×2 (09:23→22:16)
[2019-12-10] MEDS: SPIRONOLACTONE 25 MG TAB PO SCH (09:23)
[2019-12-10] MEDS: ASPIRIN 81 MG TAB CHEW PO SCH (09:23)
[2019-12-10] MEDS ORDERED: SERTRALINE 25 MG TAB PO SCH (12:11)
--- NOTE | 2019-12-10 12:11 | Progress Note ---
Subjective - Reason for Consult Consult date: 12/10/19 Reason for consult: SI - Chief Complaint Chief complaint: During my interview with the patient today, he was lying in bed. Awake. He is a/o x 3. He makes fair eye contact. The patient states he is "depressed and doesn't know what to do." He says, "I'm in so much pain, can't get around and don't have a place to live." He denies SI/HI at the moment, but states, "I'm not sure what I'll do once I get back out there. I can't make no promises I wont hurt myself." The patient says "sometimes I think I see things, but when I look they are gone," he says when asked about hallucinations. The patient states he "did not sleep good because I was up worrying about what I'm going to do." He denies any problems with his appetite. REVIEW OF SYSTEMS Constitutional: Negative for weight loss ENT: Negative for stridor Respiratory: Negative for cough or hemoptysis All other systems reviewed and are negative MENTAL STATUS EXAMINATION General Appearance: Dressed appropriately Behavior: Calm, cooperative. Fair eye contact Mood: "depressed" Affect: Congruent with stated mood Speech: Normal tone and pace Thought Process: Goal directed Thought Content: Suicidal Ideation: Not at present, but unsure of what he'll do if discharged Homicidal Ideation: Denies Hallucinations: Auditory Delusions: Denies Insight and Judgment: Limited Memory/Cognition: Limited Assessment Major Depressive Disorder, Moderate, Without Psychotic Features Plan MEDICATIONS: Increased Zoloft 50mg po daily Risperidone 0.25mg po BID Risks, benefits and alternatives of medications discussed with the patient, questions answered and consent obtained from patient. PSYCHOTHERAPY: Supportive psychotherapy provided MEDICAL: Per primary team DELIRIUM PRECAUTIONS: Please re-orient patient frequently, keep lights on during the day, and minimize benzodiazepines and opiates as these medications could worsen patient's confusion. 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 DISPOSITION: The patient meets the requirement for acute inpatient psychiatric hospitalization at this time. He may transfer to an acute facility once he is medically clear. The treatment plan was explained to the patient. He verbalizes understanding and agreement of plan. Will continue to follow until the patient is transferred or his condition improves enough for discharge Thank you for the consult. Please contact with any questions or concerns. Mental Status Exam - Vital signs Last Vital Signs Temp 97.9 F 12/10/19 04:50 Pulse 74 12/10/19 09:23 Resp 18 12/10/19 04:50 BP 148/76 12/10/19 09:23 Pulse Ox 97 12/10/19 04:50
[2019-12-10] MEDS: risperiDONE 0.25 MG TAB PO SCH ×2 (13:34→22:18)
[2019-12-10] MEDS: SERTRALINE 50 MG TAB PO SCH (13:34)
--- NOTE | 2019-12-10 14:42 | Progress Note ---
Assessment and Plan Assessment and plan: --Chest pain; rule out acute coronary syndrome Continue current cardiac medications Cardiology following --Suicidal ideation; psychiatry following Suicidal watch, product safety expert, follow psych evaluation recommendations Recommend inpatient psych admission once medically stable --History of coronary artery disease; Patient is on aspirin beta-blockers Add statin, patient is allergic to PHILLIP inhibitors Nitrates as needed --Chronic kidney disease; baseline Avoid nephrotoxins --Hypertension; moderate control Monitor closely --Ischemic cardiomyopathy; ejection fraction 15 to 20% Continue anti-failure medication beta-blockers spironolactone --History of dual-chamber pacemaker; stable --DVT prophylaxis; Lovenox Cardiology and psych evaluation recommendations noted And appreciated Monitor closely and adjust management as needed History Interval history: Patient seen and examined in his room this morning Patient's chart, tests, and consultants reports reviewed Patient feels better, no new complaints Vital signs reviewed Hospitalist Physical - Constitutional Vitals: Temp Pulse Resp BP Pulse Ox 98.7 F 61 20 144/71 95 12/10/19 11:57 12/10/19 11:57 12/10/19 11:57 12/10/19 11:57 12/10/19 11:57 General appearance: Present: no acute distress, well-nourished - EENT Eyes: Present: PERRL, EOM intact - Neck Neck: Present: supple, normal ROM - Respiratory Respiratory effort: normal Respiratory: bilateral: diminished, negative: rales, rhonchi, wheezing - Cardiovascular Rhythm: regular Heart Sounds: Present: S1 & S2 - Extremities Extremities: no ischemia, No edema - Abdominal General gastrointestinal: soft, non-tender, non-distended, normal bowel sounds - Integumentary Integumentary: Present: clear, warm - Psychiatric Psychiatric: appropriate mood/affect, cooperative - Neurologic Neurologic: moves all extremities RUDDY score - Ruddy Score Age > 65: (0) No Aspirin use within the Past 7 Days: (0) No 3 or more CAD Risk Factors: (0) No 2 or more Angina events in past 24 hrs: (1) Yes Known CAD with more than 50% Stenosis: (0) No Elevated Cardiac Markers: (0) No ST Deviation Greater than 0.5mm: (0) No RUDDY Score: 1 Results - Labs CBC & Chem 7: 12/09/19 04:19 12/09/19 04:19 Labs: Laboratory Last Values WBC 11.0 K/mm3 (4.5-11.0) 12/09/19 04:19 RBC 4.40 M/mm3 (3.65-5.03) 12/09/19 04:19 Hgb 13.5 gm/dl (11.8-15.2) 12/09/19 04:19 Hct 40.3 % (35.5-45.6) 12/09/19 04:19 MCV 92 fl (84-94) 12/09/19 04:19 MCH 31 pg (28-32) 12/09/19 04:19 MCHC 33 % (32-34) 12/09/19 04:19 RDW 17.5 % (13.2-15.2) H 12/09/19 04:19 Plt Count 201 K/mm3 (140-440) 12/09/19 04:19 Lymph % (Auto) 25.7 % (13.4-35.0) 12/09/19 04:19 [place] % (Auto) 6.6 % (0.0-7.3) 12/09/19 04:19 Eos % (Auto) 2.0 % (0.0-4.3) 12/09/19 04:19 Baso % (Auto) 0.4 % (0.0-1.8) 12/09/19 04:19 Lymph # 2.8 K/mm3 (1.2-5.4) 12/09/19 04:19 [place] # 0.7 K/mm3 (0.0-0.8) 12/09/19 04:19 Eos # 0.2 K/mm3 (0.0-0.4) 12/09/19 04:19 Baso # 0.0 K/mm3 (0.0-0.1) 12/09/19 04:19 Seg Neutrophils % 65.3 % (40.0-70.0) 12/09/19 04:19 Seg Neutrophils # 7.2 K/mm3 (1.8-7.7) 12/09/19 04:19 D-Dimer 282.61 ng/mlDDU (0-234) H 12/09/19 04:19 Sodium 137 mmol/L (137-145) 12/09/19 04:19 Potassium 3.7 mmol/L (3.6-5.0) 12/09/19 04:19 Chloride 98.4 mmol/L (98-107) 12/09/19 04:19 Carbon Dioxide 26 mmol/L (22-30) 12/09/19 04:19 Anion Gap 16 mmol/L 12/09/19 04:19 BUN 30 mg/dL (9-20) H 12/09/19 04:19 Creatinine 2.3 mg/dL (0.8-1.5) H 12/09/19 04:19 Estimated GFR 35 ml/min 12/09/19 04:19 BUN/Creatinine Ratio 13 % 12/09/19 04:19 Glucose 147 mg/dL (75-100) H 12/09/19 04:19 Calcium 9.3 mg/dL (8.4-10.2) 12/09/19 04:19 Total Creatine Kinase 148 units/L (55-170) 12/09/19 09:58 CK-MB (CK-2) 3.9 ng/mL (0.0-4.0) 12/09/19 09:58 CK-MB (CK-2) Rel Index 2.6 (0-4) 12/09/19 09:58 Troponin T 0.039 ng/mL (0.00-0.029) H D 12/09/19 09:58 Triglycerides 94 mg/dL (2-149) 12/08/19 23:13 Cholesterol 130 mg/dL (50-199) 12/08/19 23:13 LDL Cholesterol Direct 73 mg/dL (50-130) 12/08/19 23:13 HDL Cholesterol 50 mg/dL (40-59) 12/08/19 23:13 Cholesterol/HDL Ratio 2.60 % 12/08/19 23:13 Urine Color Yellow (Yellow) 12/08/19 22:58 Urine Turbidity Slightly-cloudy (Clear) 12/08/19 22:58 Urine pH 5.0 (5.0-7.0) 12/08/19 22:58 Ur Specific [place] 1.025 (1.003-1.030) 12/08/19 22:58 Urine Protein <15 mg/dl mg/dL (Negative) 12/08/19 22:58 Urine Glucose (UA) Neg mg/dL (Negative) 12/08/19 22:58 Urine Ketones Neg mg/dL (Negative) 12/08/19 22:58 Urine Blood Sm (Negative) 12/08/19 22:58 Urine Nitrite Neg (Negative) 12/08/19 22:58 Urine Bilirubin Neg (Negative) 12/08/19 22:58 Urine Urobilinogen 2.0 mg/dL (<2.0) 12/08/19 22:58 Ur Leukocyte Esterase Neg (Negative) 12/08/19 22:58 Urine WBC (Auto) 3.0 /HPF (0.0-6.0) 12/08/19 22:58 Urine RBC (Auto) 6.0 /HPF (0.0-6.0) 12/08/19 22:58 U Epithel Cells (Auto) < 1.0 /HPF (0-13.0) 12/08/19 22:58 Urine Mucus Few /HPF 12/08/19 22:58 Salicylates < 0.3 mg/dL (2.8-20.0) L 12/08/19 20:54 Urine Opiates Screen Presumptive negative 12/08/19 22:58 Urine Methadone Screen Presumptive negative 12/08/19 22:58 Acetaminophen < 5.0 ug/mL (10.0-30.0) L 12/08/19 20:54 Ur Barbiturates Screen Presumptive negative 12/08/19 22:58 Ur Phencyclidine Scrn Presumptive negative 12/08/19 22:58 Ur Amphetamines Screen Presumptive negative 12/08/19 22:58 U Benzodiazepines Scrn Presumptive negative 12/08/19 22:58 Urine Cocaine Screen Presumptive positive 12/08/19 22:58 U Marijuana (THC) Screen Presumptive negative 12/08/19 22:58 Drugs of Abuse Note Disclamer 12/08/19 22:58 Plasma/Serum Alcohol < 0.01 % (0-0.07) 12/08/19 20:54 Aguiar/IV: Voiding Method Bedpan IV Catheter Type [Right INT / Saline Lock Forearm] IV Catheter Type [Left Peripheral IV Antecubital] Active Medications - Current Medications Current Medications: Generic Name Dose Route Start Last Admin Trade Name Freq PRN Reason Stop Dose Admin Acetaminophen 650 mg 12/09/19 03:53 Tylenol PO Q4H PRN Pain MILD(1-3)/Fever >100.5/RIVAS Aspirin 81 mg 12/09/19 10:00 12/10/19 09:23 Baby Aspirin PO 81 mg QDAY KWAME Administration Carvedilol 6.25 mg 12/09/19 22:00 12/10/19 09:22 Coreg PO 6.25 mg BID KWAME Administration Hydralazine HCl 50 mg 12/09/19 12:00 12/10/19 09:23 Apresoline PO 50 mg Q12HR KWAME Administration Ondansetron HCl 4 mg 12/09/19 03:53 Zofran IV Q8H PRN Nausea And Vomiting Oxycodone/Acetaminophen 1 tab 12/09/19 03:53 12/10/19 09:22 Percocet 5/325 PO 1 tab Q6H PRN Administration Pain, Moderate (4-6) Risperidone 0.25 mg 12/10/19 13:00 12/10/19 13:34 Risperdal PO 0.25 mg BID KWAME Administration Sertraline HCl 50 mg 12/10/19 13:00 12/10/19 13:34 Zoloft PO 50 mg QDAY KWAME Administration Sodium Chloride 10 ml 12/09/19 10:00 12/10/19 12:37 Sodium Chloride Flush Syringe 10 Ml IV 10 ml BID KWAME Administration Sodium Chloride 10 ml 12/09/19 03:53 Sodium Chloride Flush Syringe 10 Ml IV PRN PRN LINE FLUSH Spironolactone 12.5 mg 12/10/19 10:00 12/10/19 09:23 Aldactone PO 12.5 mg QDAY KWAME Administration Trazodone HCl 50 mg 12/09/19 22:00 12/09/19 22:00 Desyrel PO 50 mg QHS KWAME Administration Ziprasidone 10 mg 12/09/19 15:32 Geodon IM Q6H PRN Agitation Nutrition/Malnutrition Assess - Dietary Evaluation Nutrition/Malnutrition Findings: Nutrition Notes Start: 12/10/19 0 8:15 Freq: Status: Active Protocol: Document 12/10/19 08:15 LP (Rec: 12/10/19 08:17 LP [id number]) Nutrition Notes Need for Assessment generated from: health sciences manager Initial or Follow up Brief Note Current Diagnosis CKD(stage I-IV),Hypertension, Heart Failure Other Pertinent Diagnosis chest pain Current Diet Cardiac Subjective/Other Information Screen for DM, skin risk (20), TF and chewing difficulty. All screens are incorrect and do not apply to this pt. Nutrition Intervention Revisit per MD consult or patient Sign Off request:
--- NOTE | 2019-12-10 14:49 | Progress Note ---
Assessment and Plan Atypical chest pain Dual-chamber pacemaker in situ Chronic kidney disease Hx of CAD Hx of Ischemic cardiomyopathy 11/2018 cardiac workup: An echocardiogram which reveals a severe dilated cardiomyopathy, ejection fraction 15-20%. Thallium stress test reports a moderate to large, mostly fixed inferior wall defect. Recommend: Continue medical therapy for coronary artery disease, ischemic cardiomyopathy and chronic systolic heart failure. Continue ongoing psychiatry evaluation and treatment Subjective Date of service: 12/10/19 Interval history: No acute events, psychiatry evaluation noted. Objective Vital Signs Temp Pulse Resp BP BP Pulse Ox 12/10/19 11:57 98.7 F 61 20 144/71 95 12/10/19 09:23 74 148/76 12/10/19 09:22 74 148/76 12/10/19 08:10 98.4 F 63 20 156/71 98 12/10/19 04:50 97.9 F 74 18 148/76 97 12/10/19 03:41 66 12/10/19 00:02 68 12/09/19 21:59 171/81 12/09/19 21:50 66 18 171/81 96 12/09/19 20:51 67 22 153/93 99 12/09/19 20:49 69 25 H 153/93 98 12/09/19 20:00 67 21 153/93 96 12/09/19 19:00 71 22 153/86 95 12/09/19 18:00 65 25 H 153/81 95 12/09/19 17:01 63 13 151/74 97 12/09/19 16:00 65 12 149/81 99 12/09/19 15:00 63 15 143/76 96 - Physical Examination HEENT: Positive: PERRL Neck: Positive: trachea midline Cardiac: Positive: Reg Rate and Rhythm Lungs: Positive: clear to auscultation Neuro: Positive: Grossly Intact Extremities: Absent: edema - Imaging and Cardiology EKG: image reviewed
[2019-12-10] MEDS: traZODone 50 MG TAB PO SCH (22:23)
[2019-12-11 05:50] LABS: Calcium 9.2 mg/dL (8.4-10.2)
--- NOTE | 2019-12-11 09:30 | Progress Note ---
Subjective - Reason for Consult Consult date: 12/11/19 Reason for consult: suicide ideation - Chief Complaint Chief complaint: The patient's medical record was reviewed and the patient's progress was discussed with the nursing staff. The nurse note states the patient has no confusion noted, and denies suicide ideation denies suicide ideation. During my interview with the patient today, he was lying in bed. Awake. He is a/o x 3. He makes good eye contact. He was calm and cooperative. The patient is polite. The patient states he is "feeling pretty good" when asked about his mood. He asks me about "renting a room, or having a place to go once I'm dis charged." I informed the patient that we have resources to help with transitional housing. The patient says "that's where all my depression was stemming from. Not having a place to go and being in this pain." He denies SI/HI or hallucinations of any kind. REVIEW OF SYSTEMS Constitutional: Negative for weight loss ENT: Negative for stridor Respiratory: Negative for cough or hemoptysis All other systems reviewed and are negative MENTAL STATUS EXAMINATION General Appearance: Dressed appropriately Behavior: Calm, cooperative. Good eye contact. Polite Mood: "feeling pretty good" Affect: Congruent with stated mood Speech: Normal tone and pace Thought Process: Goal directed Thought Content: Suicidal Ideation: Denies Homicidal Ideation: Denies Hallucinations: Denies Delusions: Denies Insight and Judgment: Limited Memory/Cognition: Limited Assessment Major Depressive Disorder, Moderate, Without Psychotic Features Plan MEDICATIONS: Zoloft 50mg po daily Risperidone 0.25mg po BID Risks, benefits and alternatives of medications discussed with the patient, questions answered and consent obtained from patient. PSYCHOTHERAPY: Supportive psychotherapy provided MEDICAL: Per primary team DELIRIUM PRECAUTIONS: Please re-orient patient frequently, keep lights on during the day, and minimize benzodiazepines and opiates as these medications could worsen patient's confusion. 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 DISPOSITION: The patient does not meet the requirement for acute inpatient psychiatric hospitalization at this time. He may discharge home once medically clear. The patient is denying any suicidal thoughts or feelings of endangerment. He verbalized understanding that if suicidal thoughts or tendencies are to arise he is to seek immediate assistance including but not limited to the crisis hotline, 911 and/or ER. The treatment plan was explained to the patient. He verbalizes understanding and agreement of plan. The parts interpreter to further discuss safety plan and give the patient resources for transitional living, and/or mcc information. The patient is to follow up with outpatient psychiatry or primary in 7 to 14 days upon discharge. Will sign off. Thank you for the consult. Please contact with any questions or concerns. Mental Status Exam - Vital signs Last Vital Signs Temp 97.6 F 12/11/19 05:16 Pulse 62 12/11/19 05:16 Resp 14 12/11/19 05:16 BP 134/71 12/11/19 05:16 Pulse Ox 98 12/11/19 05:16
[2019-12-11] MEDS: SERTRALINE 50 MG TAB PO SCH (10:12)
[2019-12-11] MEDS: risperiDONE 0.25 MG TAB PO SCH ×2 (10:12→21:34)
[2019-12-11] MEDS: ASPIRIN 81 MG TAB CHEW PO SCH (10:12)
[2019-12-11] MEDS: SPIRONOLACTONE 25 MG TAB PO SCH (10:12)
[2019-12-11] MEDS: carvediloL 6.25 MG TAB PO SCH ×2 (10:15→21:34)
[2019-12-11] MEDS: hydrALAZINE 25 MG TAB PO SCH ×2 (10:15→21:35)
--- NOTE | 2019-12-11 12:39 | Progress Note ---
Assessment and Plan Atypical chest pain: Now resolved Dual-chamber pacemaker in situ Chronic kidney disease Hx of CAD Hx of Ischemic cardiomyopathy 11/2018 cardiac workup: An echocardiogram which reveals a severe dilated cardiomyopathy, ejection fraction 15-20%. Thallium stress test reports a moderate to large, mostly fixed inferior wall defect. Recommend: Continue medical therapy for coronary artery disease, ischemic cardiomyopathy and chronic systolic heart failure. Continue ongoing psychiatry evaluation and treatment Subjective Date of service: 12/11/19 Interval history: No cardiac complaints Objective Vital Signs Temp Pulse Resp BP Pulse Ox 12/11/19 10:15 98.2 F 60 20 138/64 97 12/11/19 09:32 98 12/11/19 05:16 97.6 F 62 14 134/71 98 12/11/19 04:00 60 12/11/19 01:41 98.0 F 62 16 142/67 95 12/10/19 23:18 18 12/10/19 23:00 95 12/10/19 22:18 18 12/10/19 22:17 66 167/85 12/10/19 22:16 66 167/85 12/10/19 21:49 98 12/10/19 20:54 99.4 F 66 16 167/85 95 12/10/19 20:30 63 12/10/19 17:14 98.5 F 63 20 160/81 96 - Physical Examination HEENT: Positive: PERRL Neck: Positive: trachea midline Cardiac: Positive: Reg Rate and Rhythm Lungs: Positive: clear to auscultation Neuro: Positive: Grossly Intact Extremities: Absent: edema - Labs and Meds Comprehensive Metabolic Panel 12/11/19 Range/Units 04:54 Sodium 143 (137-145) mmol/L Potassium 4.4 (3.6-5.0) mmol/L Chloride 105.5 (98-107) mmol/L Carbon Dioxide 26 (22-30) mmol/L BUN 21 H (9-20) mg/dL Creatinine 1.8 H (0.8-1.5) mg/dL Glucose 92 (75-100) mg/dL Calcium 9.2 (8.4-10.2) mg/dL - Imaging and Cardiology EKG: image reviewed
--- NOTE | 2019-12-11 15:48 | Discharge Summary ---
Providers - Providers Date of Admission: 12/09/19 04:16 Date of discharge: 12/12/19 Attending physician: RAY COWAN 12/09/19 03:53 Consult to Physician [CONS] Routine Comment: Consulting Provider: ROMA GARCIA Physician Instructions: Reason For Exam: cp 12/09/19 03:54 psychiatry consult [Consult to Mental Health] [CONS] Routine Reason For Exam: SI 12/09/19 20:36 Consult to Case Management [CONS] Routine Services Needed at Discharge: Wood Technologist Notified:: NO Primary care physician: CONSTRUCTION COORDINATOR Hospitalization Condition: Stable Disposition: DC-01 TO HOME OR SELFCARE Time spent for discharge: 32 min Core Measure Documentation - Palliative Care Palliative Care/ Comfort Measures: Not Applicable - Core Measures Any of the following diagnoses?: none Exam - Constitutional Vitals: Temp Pulse Resp BP Pulse Ox 98.0 F 60 20 145/70 97 12/11/19 13:20 12/11/19 13:20 12/11/19 13:20 12/11/19 13:20 12/11/19 13:20 General appearance: Present: no acute distress, well-nourished - EENT Eyes: Present: PERRL, EOM intact - Neck Neck: Present: supple, normal ROM - Respiratory Respiratory effort: normal Respiratory: bilateral: diminished, negative: rales, rhonchi, wheezing - Cardiovascular Rhythm: regular Heart Sounds: Present: S1 & S2 - Extremities Extremities: no ischemia, No edema - Abdominal General gastrointestinal: Present: soft, non-tender, non-distended, normal bowel sounds - Integumentary Integumentary: Present: clear, warm - Musculoskeletal Musculoskeletal: strength equal bilaterally - Psychiatric Psychiatric: appropriate mood/affect, cooperative - Neurologic Neurologic: moves all extremities Plan Activity: advance as tolerated Diet: other (cardiac diet) Additional Instructions: Follow outpatient psychiatrist in 3 to 5 days. Follow [facility] in 3 to 5 days Follow up with: PRIMARY CARE, [Primary Care Provider] - 3-5 Days Prescriptions: Spironolactone [Aldactone] 12.5 mg PO QDAY #60 tablet carvediloL [Coreg] 6.25 mg PO BID #60 tablet traZODone [Desyrel] 50 mg PO QHS #14 tablet Hydralazine HCl 50 mg PO BID #60 tablet risperiDONE [RisperDAL] 0.25 mg PO BID #60 tab risperiDONE [RisperDAL] 0.5 mg PO BID #60 tablet Sertraline [Zoloft] 50 mg PO QDAY #30 tablet
--- NOTE | 2019-12-11 18:26 | Progress Note ---
Assessment and Plan Assessment and plan: --Chest pain; rule out acute coronary syndrome Continue current cardiac medications Cardiology evaluated, medical management Typical chest pain probably costochondritis Pain medications --Suicidal ideation; psychiatry evaluated Rescinded 1013, no suicidal thoughts or ideation psych cleared for discharge and follow-up outpatient --History of coronary artery disease; Patient is on aspirin beta-blockers Add statin, patient is allergic to PHILLIP inhibitors Cardiology evaluated, medical management --Acute on chronic kidney disease 3; baseline Vasomotor nephropathy --Hypertension; moderate control Monitor closely --Ischemic cardiomyopathy; ejection fraction 15 to 20% Continue anti-failure medication beta-blockers spironolactone No PHILLIP, patient is allergic, chronic kidney disease --History of dual-chamber pacemaker; stable --DVT prophylaxis; Lovenox Cardiology and psych evaluation recommendations noted And appreciated Patient is medically stable for discharge Discharge orders given However patient reports that he is homeless Case management assisting with discharge planning DC held History Interval history: Patient seen and examined at bedside this morning Initially patient was cleared by psych rescinded 1013 Patient is hemodynamically stable Discharge order is given However patient reports he is homeless Discharge held, case management assisting with placement Patient's vital signs are stable Hospitalist Physical - Constitutional Vitals: Temp Pulse Resp BP Pulse Ox 98.0 F 60 20 145/70 97 12/11/19 13:20 12/11/19 13:20 12/11/19 13:20 12/11/19 13:20 12/11/19 13:20 General appearance: Present: no acute distress, well-nourished - EENT Eyes: Present: PERRL, EOM intact - Neck Neck: Present: supple, normal ROM - Respiratory Respiratory effort: normal Respiratory: bilateral: diminished, negative: rales, rhonchi, wheezing - Cardiovascular Rhythm: regular Heart Sounds: Present: S1 & S2 - Extremities Extremities: no ischemia, No edema - Abdominal General gastrointestinal: soft, non-tender, non-distended, normal bowel sounds - Integumentary Integumentary: Present: clear, warm - Psychiatric Psychiatric: appropriate mood/affect, agitated - Neurologic Neurologic: CNII-XII intact, moves all extremities RUDDY score - Ruddy Score Age > 65: (0) No Aspirin use within the Past 7 Days: (0) No 3 or more CAD Risk Factors: (0) No 2 or more Angina events in past 24 hrs: (1) Yes Known CAD with more than 50% Stenosis: (0) No Elevated Cardiac Markers: (0) No ST Deviation Greater than 0.5mm: (0) No RUDDY Score: 1 Results - Labs CBC & Chem 7: 12/09/19 04:19 12/11/19 04:54 Labs: Laboratory Last Values WBC 11.0 K/mm3 (4.5-11.0) 12/09/19 04:19 RBC 4.40 M/mm3 (3.65-5.03) 12/09/19 04:19 Hgb 13.5 gm/dl (11.8-15.2) 12/09/19 04:19 Hct 40.3 % (35.5-45.6) 12/09/19 04:19 MCV 92 fl (84-94) 12/09/19 04:19 MCH 31 pg (28-32) 12/09/19 04:19 MCHC 33 % (32-34) 12/09/19 04:19 RDW 17.5 % (13.2-15.2) H 12/09/19 04:19 Plt Count 201 K/mm3 (140-440) 12/09/19 04:19 Lymph % (Auto) 25.7 % (13.4-35.0) 12/09/19 04:19 [place] % (Auto) 6.6 % (0.0-7.3) 12/09/19 04:19 Eos % (Auto) 2.0 % (0.0-4.3) 12/09/19 04:19 Baso % (Auto) 0.4 % (0.0-1.8) 12/09/19 04:19 Lymph # 2.8 K/mm3 (1.2-5.4) 12/09/19 04:19 [place] # 0.7 K/mm3 (0.0-0.8) 12/09/19 04:19 Eos # 0.2 K/mm3 (0.0-0.4) 12/09/19 04:19 Baso # 0.0 K/mm3 (0.0-0.1) 12/09/19 04:19 Seg Neutrophils % 65.3 % (40.0-70.0) 12/09/19 04:19 Seg Neutrophils # 7.2 K/mm3 (1.8-7.7) 12/09/19 04:19 D-Dimer 282.61 ng/mlDDU (0-234) H 12/09/19 04:19 Sodium 143 mmol/L (137-145) 12/11/19 04:54 Potassium 4.4 mmol/L (3.6-5.0) 12/11/19 04:54 Chloride 105.5 mmol/L (98-107) 12/11/19 04:54 Carbon Dioxide 26 mmol/L (22-30) 12/11/19 04:54 Anion Gap 16 mmol/L 12/11/19 04:54 BUN 21 mg/dL (9-20) H 12/11/19 04:54 Creatinine 1.8 mg/dL (0.8-1.5) H 12/11/19 04:54 Estimated GFR 47 ml/min 12/11/19 04:54 BUN/Creatinine Ratio 12 % 12/11/19 04:54 Glucose 92 mg/dL (75-100) 12/11/19 04:54 Calcium 9.2 mg/dL (8.4-10.2) 12/11/19 04:54 Total Creatine Kinase 148 units/L (55-170) 12/09/19 09:58 CK-MB (CK-2) 3.9 ng/mL (0.0-4.0) 12/09/19 09:58 CK-MB (CK-2) Rel Index 2.6 (0-4) 12/09/19 09:58 Troponin T 0.039 ng/mL (0.00-0.029) H D 12/09/19 09:58 Triglycerides 94 mg/dL (2-149) 12/08/19 23:13 Cholesterol 130 mg/dL (50-199) 12/08/19 23:13 LDL Cholesterol Direct 73 mg/dL (50-130) 12/08/19 23:13 HDL Cholesterol 50 mg/dL (40-59) 12/08/19 23:13 Cholesterol/HDL Ratio 2.60 % 12/08/19 23:13 Urine Color Yellow (Yellow) 12/08/19 22:58 Urine Turbidity Slightly-cloudy (Clear) 12/08/19 22:58 Urine pH 5.0 (5.0-7.0) 12/08/19 22:58 Ur Specific [place] 1.025 (1.003-1.030) 12/08/19 22:58 Urine Protein <15 mg/dl mg/dL (Negative) 12/08/19 22:58 Urine Glucose (UA) Neg mg/dL (Negative) 12/08/19 22:58 Urine Ketones Neg mg/dL (Negative) 12/08/19 22:58 Urine Blood Sm (Negative) 12/08/19 22:58 Urine Nitrite Neg (Negative) 12/08/19 22:58 Urine Bilirubin Neg (Negative) 12/08/19 22:58 Urine Urobilinogen 2.0 mg/dL (<2.0) 12/08/19 22:58 Ur Leukocyte Esterase Neg (Negative) 12/08/19 22:58 Urine WBC (Auto) 3.0 /HPF (0.0-6.0) 12/08/19 22:58 Urine RBC (Auto) 6.0 /HPF (0.0-6.0) 12/08/19 22:58 U Epithel Cells (Auto) < 1.0 /HPF (0-13.0) 12/08/19 22:58 Urine Mucus Few /HPF 12/08/19 22:58 Salicylates < 0.3 mg/dL (2.8-20.0) L 12/08/19 20:54 Urine Opiates Screen Presumptive negative 12/08/19 22:58 Urine Methadone Screen Presumptive negative 12/08/19 22:58 Acetaminophen < 5.0 ug/mL (10.0-30.0) L 12/08/19 20:54 Ur Barbiturates Screen Presumptive negative 12/08/19 22:58 Ur Phencyclidine Scrn Presumptive negative 12/08/19 22:58 Ur Amphetamines Screen Presumptive negative 12/08/19 22:58 U Benzodiazepines Scrn Presumptive negative 12/08/19 22:58 Urine Cocaine Screen Presumptive positive 12/08/19 22:58 U Marijuana (THC) Screen Presumptive negative 12/08/19 22:58 Drugs of Abuse Note Disclamer 12/08/19 22:58 Plasma/Serum Alcohol < 0.01 % (0-0.07) 12/08/19 20:54 Aguiar/IV: Voiding Method Urinal IV Catheter Type [Right INT / Saline Lock Forearm] IV Catheter Type [Left Peripheral IV Antecubital] Active Medications - Current Medications Current Medications: Generic Name Dose Route Start Last Admin Trade Name Freq PRN Reason Stop Dose Admin Acetaminophen 650 mg 12/09/19 03:53 Tylenol PO Q4H PRN Pain MILD(1-3)/Fever >100.5/RIVAS Aspirin 81 mg 12/09/19 10:00 12/11/19 10:12 Baby Aspirin PO 81 mg QDAY KWAME Administration Carvedilol 6.25 mg 12/09/19 22:00 12/11/19 10:15 Coreg PO 6.25 mg BID KWAME Administration Hydralazine HCl 50 mg 12/09/19 12:00 12/11/19 10:15 Apresoline PO 50 mg Q12HR KWAME Administration Ondansetron HCl 4 mg 12/09/19 03:53 Zofran IV Q8H PRN Nausea And Vomiting Oxycodone/Acetaminophen 1 tab 12/09/19 03:53 12/10/19 22:18 Percocet 5/325 PO 1 tab Q6H PRN Administration Pain, Moderate (4-6) Risperidone 0.25 mg 12/10/19 13:00 12/11/19 10:12 Risperdal PO 0.25 mg BID KWAME Administration Sertraline HCl 50 mg 12/10/19 13:00 12/11/19 10:12 Zoloft PO 50 mg QDAY KWAME Administration Sodium Chloride 10 ml 12/09/19 10:00 12/11/19 10:16 Sodium Chloride Flush Syringe 10 Ml IV 10 ml BID KWAME Administration Sodium Chloride 10 ml 12/09/19 03:53 Sodium Chloride Flush Syringe 10 Ml IV PRN PRN LINE FLUSH Spironolactone 12.5 mg 12/10/19 10:00 12/11/19 10:12 Aldactone PO 12.5 mg QDAY KWAME Administration Trazodone HCl 50 mg 12/09/19 22:00 12/10/19 22:23 Desyrel PO 50 mg QHS KWAME Administration Ziprasidone 10 mg 12/09/19 15:32 Geodon IM Q6H PRN Agitation Nutrition/Malnutrition Assess - Dietary Evaluation Nutrition/Malnutrition Findings: Nutrition Notes Start: 12/10/19 08:15 Freq: Status: Active Protocol: Document 12/10/19 08:15 LP (Rec: 12/10/19 08:17 LP [email or web address]) Nutrition Notes Need for Assessment generated from: supervisor winter Initial or Follow up Brief Note Current Diagnosis CKD(stage I-IV),Hypertension, Heart Failure Other Pertinent Diagnosis chest pain Current Diet Cardiac Subjective/Other Information Screen for DM, skin risk (20), TF and chewing difficulty. All screens are incorrect and do not apply to this pt. Nutrition Intervention Revisit per MD consult or patient Sign Off request:
[2019-12-11] MEDS: traZODone 50 MG TAB PO SCH (21:35)
--- OUTSIDE RECORDS SUMMARY | 2019-12-12 06:22 | External Medical Summary ---
:1960 Author Care Team Providers Name Role Phone Shruti Primary Care Provider Radames Primary Care Provider Reason for Referral Reason Schedule THAI Schedule THAI Assessment No Assessments Health Concern No Health Concerns Goals No Goals Medications Code Code System Medication Frequency Route Dose Active 000990 (SBD) RxNorm Norvasc 10 mg tablet 1 by mouth daily oral 1 unit Active 793149 (SCD) RxNorm metoprolol succinate 1 by mouth daily oral 1 unit Active 100 mg tablet extended release 24 hr 576477 (SBD) RxNorm spironolactone 25 mg 1 by mouth daily oral 1 unit Active tablet 158910 (SCD) RxNorm hydralazine 50 mg 1 by mouth twice oral 1 unit Active tablet daily 462154 (SBD) RxNorm diclofenac sodium 50 1 twice daily oral 1 unit Active mg tablet,delayed release (DR/EC) 0158943 (SBD) RxNorm aspirin 81 mg 1 by mouth daily oral 1 uni t Active tablet,delayed release (DR/EC) 285245 (SCD) RxNorm bumetanide 2 mg tablet 1/2 by mouth oral 1 unit Active twice daily Social History Element Description Status Start End Code Code System Current Smoking Status Former smoker 10/11/2019 - 9553352 SNOMED-CT Sex Male - M Administrative Sex Lab Results Lab Test Name Lab Test Code Code System Date Performing Lab Result Code Code System Name Result Value and Units Date Referance Range Basic Metabolic Panel (BMP) [facility] LOCAL 04/2019 Performing lab not available 15721-7 LOINC Calcium Value=9.4 units=mg/dL 12/09/2018 8.6 -10.3 2028-04 LOINC CO2 Value=30 units=mEq/L 12/09/2018 22-3 2 2075-0 LOINC Chloride Yzimq=246 units=mEq/L 12/09/2018 97- 108 2160-0 LOINC Creatinine Value=1.51 units=mg/dL 12/09/2018 0. 70-1.30 2345-7 [facility] Glucose Value=83 units=mg/dL 12/09/2018 65-9 9 2823-3 [facility] Potassium Value=4.6 units=mEq/L 12/09/2018 3.5 -5.3 2951-2 [facility] Sodium Jmutl=985 units=mEq/L 12/09/2018 135 -145 3094-0 [facility] BUN Value=25 units=mg/dL 12/09/2018 6-20 Estimated Glomerular Filtration Rate EGFR LOCAL 12/09/2018 Performing lab not available 28311-7 [facility] GFR/Black Value=58 units=mL/min/1.73m2 019 >60 94122-4 [facility] GFR/White Value=48 units=mL/min/1.73m2 019 >60 Functional Status No Functional Status Information History of Procedures No Known Procedures History of Encounters Description Vist Date Vist Code Code System Code Code System Description INPATIENT CONSULTATION HIGH 11/15/2018 40647 CPT I50.41 EZK71-BZ Acute combined systo lic (congestive) and diastolic (congestive) heart failure I50.41 BXU47-NZ Acute combined systo lic (congestive) and diastolic (congestive) heart failure SUBSEQUENT CARE DETAIL 11/17/2018 28251 CPT I50.41 VOG17-YO Acute combined systo lic (congestive) and diastolic (congestive) heart failure SUBSEQUENT CARE MED 11/18/2018 73188 CPT I50.41 LWX48-JX Acute combined systo lic (congestive) and diastolic (congestive) heart failure ECHO PROFESSIONAL 11/14/2018 8517479 CPT I36.8 AVZ28-AT Other nonrheumatic t ricuspid valve disorders THALLIUM PROFESSIONAL 11/15/2018 9327644 CPT R07.2 PUJ32-SF Precordial pain R07.2 DMN81-CI Precordial pain R07.2 JJN96-NI Precordial pain SUBSEQUENT HOSP CARE INPATIENT 11/19/2018 16879 C PT I50.41 BXS62-OF Acute combined systo lic (congestive) and diastolic (congestive) heart failure SUBSEQUENT CARE DETAIL 2018 64210 CPT I50.41 WSG97-OK Acute combined systo lic (congestive) and diastolic (congestive) heart failure I50.41 XSB81-WN Acute combined systo lic (congestive) and diastolic (congestive) heart failure SUBSEQUENT CARE MED 11/22/2018 28038 CPT I50.41 RGU90-BY Acute combined systo lic (congestive) and diastolic (congestive) heart failure I50.41 MMS75-BN Acute combined systo lic (congestive) and diastolic (congestive) heart failure SUBSEQUENT HOSP CARE INPATIENT 11/24/2018 62546 C PT I50.41 OXY42-OB Acute combined systo lic (congestive) and diastolic (congestive) heart failure SUBSEQUENT CARE MED 11/25/2018 17200 CPT I50.41 KCD57-FX Acute combined systo lic (congestive) and diastolic (congestive) heart failure I50.41 NVW97-RN Acute combined systo lic (congestive) and diastolic (congestive) heart failure I50.41 HRJ36-DQ Acute combined systo lic (congestive) and diastolic (congestive) heart failure I50.41 WLT52-AN Acute combined systo lic (congestive) and diastolic (congestive) heart failure SUBSEQUENT HOSP CARE INPATIENT 11/26/2018 90614 C PT I50.41 RAR87-VB Acute combined systo lic (congestive) and diastolic (congestive) heart failure SUBSEQUENT CARE MED 11/30/2018 78949 CPT I50.41 OVY53-FQ Acute combined systo lic (congestive) and diastolic (congestive) heart failure EKG 12/09/2018 36843 CPT I10 EMR87-SK Essential (primary) hypertension OV OR OUTPT HIGH 12/09/2018 68262 CPT I42.9 VMT29-PD Cardiomyopathy, unsp ecified I50.22 XWF04-AR Chronic Systolic (co ngestive) Heart Failure Z95.0 BZS50-AS Presence Of Cardiac Pacemaker I42.9 YYK50-PW Cardiomyopathy, unsp ecified I50.22 TSS34-TG Chronic Systolic (co ngestive) Heart Failure Z95.0 QGR08-QX Presence Of Cardiac Pacemaker I42.9 YOO78-RG Cardiomyopathy, unsp ecified I50.22 ZFP77-LV Chronic Systolic (co ngestive) Heart Failure Z95.0 RRS70-AT Presence Of Cardiac Pacemaker I42.9 LDW96-QD Cardiomyopathy, unsp ecified I50.22 IDR91-LV Chronic Systolic (co ngestive) Heart Failure Z95.0 OJU16-XZ Presence Of Cardiac Pacemaker SUBSEQUENT HOSP CARE INPATIENT 12/01/2018 85034 C PT I50.41 FDT51-BC Acute combined systo lic (congestive) and diastolic (congestive) heart failure SUBSEQUENT CARE MED 12/02/2018 09650 CPT I50.41 KUI82-RT Acute combined systo lic (congestive) and diastolic (congestive) heart failure SUBSEQUENT HOSP CARE INPATIENT 12/03/2018 18090 C PT I50.41 FJS45-BD Acute combined systo lic (congestive) and diastolic (congestive) heart failure OV OR OUTPT HIGH 12/23/2018 82679 CPT I42.9 LUV48-MX Cardiomyopathy, unsp ecified I50.22 WSG00-NY Chronic Systolic (co ngestive) Heart Failure Z95.0 OKN46-FR Presence Of Cardiac Pacemaker I42.9 NRC03-TV Cardiomyopathy, unsp ecified I50.22 UXL10-GQ Chronic Systolic (co ngestive) Heart Failure Z95.0 RCD32-DK Presence Of Cardiac Pacemaker I42.9 HSK17-VJ Cardiomyopathy, unsp ecified I50.22 UCU10-YT Chronic Systolic (co ngestive) Heart Failure Z95.0 YSZ72-TV Presence Of Cardiac Pacemaker I42.9 QWU27-HZ Cardiomyopathy, unsp ecified I50.22 JMY48-KS Chronic Systolic (co ngestive) Heart Failure Z95.0 OZY72-NH Presence Of Cardiac Pacemaker OV OR OUTPT SEVERE 01/11/2019 05431 CPT I42.9 QPH37-ZZ Cardiomyopathy, unsp ecified Z95.0 SIP80-WZ Presence Of Cardiac Pacemaker EKG 01/11/2019 45679 CPT I42.9 JEV20-GI Cardiomyopathy, unsp ecified PROGRAMMING DDD 01/11/2019 9218262 CPT Z45.010 PRK66-RZ Encounter for checki ng and testing of cardiac pacemaker pulse generator [battery] OV OR OUTPT HIGH 01/20/2019 07623 CPT I42.0 MPP07-AW Dilated Cardiomyopat hy I47.2 MRY38-HL Ventricular Tachycar kelechi N18.3 HWP85-CD Chronic Kidney Disea se, Stage 3 (moderate) Z95.0 QVO51-GC Presence Of Cardiac Pacemaker I42.0 NLC28-IU Dilated Cardiomyopat hy I47.2 ASU84-YR Ventricular Tachycar kelechi N18.3 UPW18-OA Chronic Kidney Disea se, Stage 3 (moderate) Z95.0 NFE76-TS Presence Of Cardiac Pacemaker I42.0 PNR52-NE Dilated Cardiomyopat hy I47.2 SUR46-CC Ventricular Tachycar kelechi N18.3 REO70-NE Chronic Kidney Disea se, Stage 3 (moderate) Z95.0 JIH44-BT Presence Of Cardiac Pacemaker I42.0 AYC36-TM Dilated Cardiomyopat hy I47.2 RCZ31-XY Ventricular Tachycar kelechi N18.3 RFV38-ZP Chronic Kidney Disea se, Stage 3 (moderate) Z95.0 FCU90-FB Presence Of Cardiac Pacemaker ECHO 03/22/2019 83134 CPT R94.31 VXC22-PH Abnormal electrocard iogram (ECG) (EKG) EKG 03/22/2019 19869 CPT I47.2 JNE11-JW Ventricular Tachycar kelechi OV OR OUTPT HIGH 03/22/2019 84402 CPT Z95.0 QOA92-GB Presence Of Cardiac Pacemaker Z95.0 LDC90-VY Presence Of Cardiac Pacemaker OV OR OUTPT HIGH 03/24/2019 63648 CPT I42.0 VBT33-CJ Dilated Cardiomyopat hy I47.2 AQL34-VL Ventricular Tachycar kelechi N18.3 OBL16-HB Chronic Kidney Disea se, Stage 3 (moderate) R94.31 WGD68-MI Abnormal electrocard iogram (ECG) (EKG) I42.0 NIO19-LD Dilated Cardiomyopat hy I47.2 RLI95-MK Ventricular Tachycar kelechi N18.3 ZTA49-PU Chronic Kidney Disea se, Stage 3 (moderate) R94.31 GZT07-PV Abnormal electrocard iogram (ECG) (EKG) I42.0 MGR02-FP Dilated Cardiomyopat hy I47.2 REB91-WK Ventricular Tachycar kelechi N18.3 EWN19-GR Chronic Kidney Disea se, Stage 3 (moderate) R94.31 DCL93-UD Abnormal electrocard iogram (ECG) (EKG) OV OR OUTPT HIGH 07/12/2019 13845 CPT I10 DJC12-CA Essential (primary) hypertension I10 CCU73-YA Essential (primary) hypertension I10 ZHU14-MT Essential (primary) hypertension EKG 07/12/2019 51597 CPT I10 ZVI84-YC Essential (primary) hypertension PROGRAMMING DDD 07/12/2019 6070137 CPT Z45.010 OCD05-BR Encounter for checki ng and testing of cardiac pacemaker pulse generator [battery] EKG 07/26/2019 81883 CPT I10 NJV37-UM Essential (primary) hypertension OV OR OUTPT SEVERE 07/26/2019 13085 CPT Z95.0 KVO10-CI Presence Of Cardiac Pacemaker Z95.0 YMK67-WA Presence Of Cardiac Pacemaker OV OR OUTPT HIGH 08/09/2019 78303 CPT I10 JUY72-UY Essential (primary) hypertension I42.0 FLK82-VC Dilated Cardiomyopat hy I47.2 IDX83-GQ Ventricular Tachycar kelechi I50.22 PYL31-NM Chronic Systolic (co ngestive) Heart Failure I10 COV27-UH Essential (primary) hypertension I42.0 TON47-VL Dilated Cardiomyopat hy I47.2 NXD76-MJ Ventricular Tachycar kelechi I50.22 XRJ59-AI Chronic Systolic (co ngestive) Heart Failure I10 AFV61-GU Essential (primary) hypertension I42.0 AIG40-QE Dilated Cardiomyopat hy I47.2 PPN89-OA Ventricular Tachycar kelechi I50.22 UZH73-DU Chronic Systolic (co ngestive) Heart Failure Plan of Treatment Date Description 01/10/2020 11:20:00 AM Devices ([address] [place] [address] [id number]) Medical Equipment No History of Medical Devices Mental Status No Mental Status Information Vital Signs Code Code System Vital Name Timing Information Value and Units 8480-6 [facility] Blood 08/09/2019 Value =142 (Systolic) Pressure-Systolic units=mm[H g] 8462-4 [facility] Blood 08/09/2019 Value =84 (Diastolic) Pressure-Diastolic units=mm[ Hg] 8867-4 [facility] Heart Rate 08/09/2019 Value =64 units=/min 9279-1 [facility] Respiration 08/09/2019 Value =12 units=/min 8302-2 [facility] Height 08/09/2019 Value =173 units=cm 14723-1 [facility] Weight 08/09/2019 Value =99 units=kg 13704-1 [facility] BMI 08/09/2019 Value =33.14 units=kg/m2 8480-6 [facility] Blood 07/26/2019 Value =150 (Systolic) Pressure-Systolic units=mm[H g] 8462-4 INC Blood 07/26/2019 Value =88 (Diastolic) Pressure-Diastolic units=mm[ Hg] 8867-4 [facility] Heart Rate 07/26/2019 Value =69 units=/min 9279-1 LOINC Respiration 07/26/2019 Value =16 units=/min 8302-2 LOINC Height 07/26/2019 Value =173 units=cm 85236-5 [facility] Weight 07/26/2019 Value =99 units=kg 10919-7 INC BMI 07/26/2019 Value =33.02 units=kg/m2 8480-6 [facility] Blood 07/12/2019 Value =150 (Systolic) Pressure-Systolic units=mm[H g] 8462-4 [facility] Blood 07/12/2019 Value =80 (Diastolic) Pressure-Diastolic units=mm[ Hg] 8867-4 [facility] Heart Rate 07/12/2019 Value =68 units=/min 9279-1 INC Respiration 07/12/2019 Value =16 units=/min 8302-2 INC Height 07/12/2019 Value =173 units=cm 92049-1 INC Weight 07/12/2019 Value =97 units=kg 75912-2 [facility] BMI 07/12/2019 Value =32.60 units=kg/m2 8480-6 [facility] Blood 07/12/2019 Value =140 (Systolic) Pressure-Systolic units=mm[H g] 8462-4 [facility] Blood 07/12/2019 Value =80 (Diastolic) Pressure-Diastolic units=mm[ Hg] 8302-2 [facility] Height 07/12/2019 Value =173 units=cm 8480-6 [facility] Blood 03/24/2019 Value =130 (Systolic) Pressure-Systolic units=mm[H g] 8462-4 [facility] Blood 03/24/2019 Value =80 (Diastolic) Pressure-Diastolic units=mm[ Hg] 8867-4 [facility] Heart Rate 03/24/2019 Value =86 units=/min 9279-1 LOINC Respiration 03/24/2019 Value =16 units=/min 8302-2 INC Height 03/24/2019 Value =173 units=cm 42809-5 [facility] Weight 03/24/2019 Value =90 units=kg 70856-0 [facility] BMI 03/24/2019 Value =30.10 units=kg/m2 8480-6 [facility] Blood 03/22/2019 Value =140 (Systolic) Pressure-Systolic units=mm[H g] 8462-4 [facility] Blood 03/22/2019 Value =100 (Diastolic) Pressure-Diastolic units=mm[ Hg] 8867-4 [facility] Heart Rate 03/22/2019 Value =87 units=/min 9279-1 LOINC Respiration 03/22/2019 Value =16 units=/min 8302-2 [facility] Height 03/22/2019 Value =173 units=cm 57201-1 [facility] Weight 03/22/2019 Value =91 units=kg 88223-6 [facility] BMI 03/22/2019 Value =30.38 units=kg/m2 8480-6 [facility] Blood 01/20/2019 Value =148 (Systolic) Pressure-Systolic units=mm[H g] 8462-4 [facility] Blood 01/20/2019 Value =80 (Diastolic) Pressure-Diastolic units=mm[ Hg] 8867-4 [facility] Heart Rate 01/20/2019 Value =87 units=/min 9279-1 LOINC Respiration 01/20/2019 Value =16 units=/min 8302-2 [facility]INC Height 01/20/2019 Value =173 units=cm 68978-7 [facility] Weight 01/20/2019 Value =87 units=kg 27679-6 [facility] BMI 01/20/2019 Value =29.13 units=kg/m2 8480-6 [facility] Blood 01/11/2019 Value =120 (Systolic) Pressure-Systolic units=mm[H g] 8462-4 [facility] Blood 01/11/2019 Value =80 (Diastolic) Pressure-Diastolic units=mm[ Hg] 8867-4 [facility] Heart Rate 01/11/2019 Value =68 units=/min 9279-1 LOINC Respiration 01/11/2019 Value =16 units=/min 8302-2 LO[facility] Height 01/11/2019 Value =173 units=cm 23224-9 [facility] Weight 01/11/2019 Value =86 units=kg 19642-6 [facility] BMI 01/11/2019 Value =28.70 units=kg/m2 8480-6 [facility] Blood 12/23/2018 Value =140 (Systolic) Pressure-Systolic units=mm[H g] 8462-4 [facility] Blood 12/23/2018 Value =90 (Diastolic) Pressure-Diastolic units=mm[ Hg] 8867-4 [facility] Heart Rate 12/23/2018 Value =76 units=/min 9279-1 LOINC Respiration 12/23/2018 Value =16 units=/min 8302-2 LOINC Height 12/23/2018 Value =173 units=cm 75692-3 [facility] Weight 12/23/2018 Value =84 units=kg 82044-6 INC BMI 12/23/2018 Value =28.28 units=kg/m2 8480-6 [facility] Blood 12/09/2018 Value =110 (Systolic) Pressure-Systolic units=mm[H g] 8462-4 [facility] Blood 12/09/2018 Value =70 (Diastolic) Pressure-Diastolic units=mm[ Hg] 8867-4 INC Heart Rate 12/09/2018 Value =84 units=/min 9279-1 INC Respiration 12/09/2018 Value =16 units=/min 8302-2 INC Height 12/09/2018 Value =173 units=cm 08488-5 [facility] Weight 12/09/2018 Value =77 units=kg 71910-5 [facility] BMI 12/09/2018 Value =25.94 units=kg/m2 Allergies, adverse reactions, alerts Code Code System Allergy Reaction Severity Concern Statu s 08004 ([place]) RxNorm Lisinopril Swelling (non-specific) Unknown A ctive (code - 550429156, SNOMED-CT) -1 ([place]) RxNorm Penicillins Generalized rash (code - Unknown Active 500727509, SNOMED-CT) Immunizations No Known Immunizations Problem List [...]
[2019-12-12] MEDS: SERTRALINE 50 MG TAB PO SCH (09:00)
[2019-12-12] MEDS: risperiDONE 0.25 MG TAB PO SCH (09:00)
[2019-12-12] MEDS: ASPIRIN 81 MG TAB CHEW PO SCH (09:00)
[2019-12-12] MEDS: SPIRONOLACTONE 25 MG TAB PO SCH (09:00)
[2019-12-12] MEDS: hydrALAZINE 25 MG TAB PO SCH (09:01)
[2019-12-12] MEDS: carvediloL 6.25 MG TAB PO SCH (09:01)
--- NOTE | 2019-12-12 09:13 | Progress Note ---
Assessment and Plan Atypical chest pain -resolved Dual-chamber pacemaker in situ Chronic kidney disease Hx of CAD Hx of Ischemic cardiomyopathy 11/2018 cardiac workup: An echocardiogram which reveals a severe dilated cardiomyopathy, ejection fraction 15-20%. Thallium stress test reports a moderate to large, mostly fixed inferior wall defect. Recommend: Continue medical therapy for coronary artery disease, ischemic cardiomyopathy and chronic systolic heart failure. Once discharged, patient will follow up in our office as previously scheduled. Subjective Date of service: 12/12/19 Interval history: Patient denies chest pain. Objective Vital Signs Temp Pulse Pulse Pulse Pulse Resp BP 12/12/19 09:01 67 152/79 12/12/19 09:00 67 152/79 12/12/19 08:52 71 71 71 12/12/19 08:10 98.6 F 61 20 12/12/19 07:57 153/80 12/12/19 04:12 98.0 F 66 16 142/74 12/11/19 20:15 98.1 F 65 16 161/75 12/11/19 20:00 61 12/11/19 16:51 20 148/78 12/11/19 13:20 98.0 F 60 20 145/70 12/11/19 13:19 58 L 145/70 12/11/19 12:00 62 12/11/19 10:15 98.2 F 60 20 138/64 12/11/19 09:32 BP Pulse Ox 12/12/19 09:01 12/12/19 09:00 12/12/19 08:52 12/12/19 08:10 158/79 98 12/12/19 07:57 12/12/19 04:12 95 12/11/19 20:15 94 12/11/19 20:00 12/11/19 16:51 12/11/19 13:20 97 12/11/19 13:19 95 12/11/19 12:00 12/11/19 10:15 97 12/11/19 09:32 98 - Physical Examination General: No Apparent Distress HEENT: Positive: PERRL Neck: Positive: trachea midline Cardiac: Positive: Other (paced) Neuro: Positive: Grossly Intact Extremities: Absent: edema
[2019-12-12] MEDS: oxyCODONE /ACETAMINOPHEN 5-325MG TAB PO PRN (13:07)
[2019-12-13 11:27] VITALS: BP 138/72
== END 2019-12-12 16:07 | disposition home or self-care (01) | DRG 205 ==
LOC: ED 20:09 → 4A 12-09 04:16
PROVIDERS: ADMIT Internal Medicine; ATTEND Internal Medicine
DX: M94.0 Chondrocostal junction syndrome [Tietze] (principal); N17.0 Acute kidney failure with tubular necrosis; R45.851 Suicidal ideations; I50.22 Chronic systolic (congestive) heart failure; I13.0 Hypertensive heart and chronic kidney disease with heart failure and stage 1 through stage 4 chronic kidney disease, or unspecified chronic kidney disease; I42.0 Dilated cardiomyopathy; F32.1 Major depressive disorder, single episode, moderate; Z88.0 Allergy status to penicillin; Z88.8 Allergy status to other drugs, medicaments and biological substances; Z95.0 Presence of cardiac pacemaker; Z79.82 Long term (current) use of aspirin; F17.200 Nicotine dependence, unspecified, uncomplicated; I25.10 Atherosclerotic heart disease of native coronary artery without angina pectoris; Z82.49 Family history of ischemic heart disease and other diseases of the circulatory system; N18.3 Chronic kidney disease, stage 3 (moderate)
CPT/HCPCS: 36415; 71045; 80048; 80061; 80307; 80320; 81001; 82550; 82553; 84484; 85025; 85379; 93005; G0378; G0480; J3486

== ENCOUNTER 2020-01-22 12:49 | Emergency (ER) | payer MEDICAID ==
[2020-01-22 13:25] VITALS: BP 141/64
--- NOTE | 2020-01-22 13:32 | Emergency Department Report ---
ED General Adult HPI - General Chief complaint: Chest Pain Stated complaint: CHEST PAIN Time Seen by Provider: 01/22/20 13:14 Source: patient, EMS Mode of arrival: Stretcher Limitations: No Limitations - History of Present Illness Initial comments: CC: "I am in a bad way. See, I am homeless." Mr. Wilson is a 59-year-old male with history of CHF, diverticulitis, hypertension, CKD, cocaine abuse who presents with chest pain. Chest pain has been intermittent stabbing for the last 3 days. Worse with movement. No radiation. 8 out of 10. He has pain at his right lower extremity. He was bitten by a snake last night. He was he also has suicidal ideation without plan to harm himself. November 2018: Echocardiogram revealed ejection fraction 15 to 20% with concentric LVH Four-chamber dilated cardiomyopathy -: days(s) (3) Location: chest Severity scale (0 -10): 8 Quality: stabbing, aching Consistency: intermittent Improves with: none Worsens with: none Associated Symptoms: other (right leg pain) - Related Data Home Medications Medication Instructions Recorded Confirmed Last Taken Aspirin EC [Halfprin EC] 81 mg PO QDAY 11/14/18 12/09/19 Unknown Diclofenac Potassium 50 mg PO BID PRN 09/09/19 12/09/19 Unknown Previous Rx's Medication Instructions Recorded Last Taken Type Hydralazine HCl 50 mg PO BID #60 tablet 12/11/19 Unknown Rx Sertraline [Zoloft] 50 mg PO QDAY #30 tablet 12/11/19 Unknown Rx Spironolactone [Aldactone] 12.5 mg PO QDAY #60 tablet 12/11/19 Unknown Rx carvediloL [Coreg] 6.25 mg PO BID #60 tablet 12/11/19 Unknown Rx risperiDONE [RisperDAL] 0.25 mg PO BID #60 tab 12/11/19 Unknown Rx risperiDONE [RisperDAL] 0.5 mg PO BID #60 tablet 12/11/19 Unknown Rx traZODone [Desyrel] 50 mg PO QHS #14 tablet 12/11/19 Unknown Rx traMADoL [Ultram 50 MG tab] 50 mg PO Q6HR PRN #20 tablet 01/22/20 Unknown Rx Allergies Allergy/AdvReac Type Severity Reaction Status Date / Time lisinopril Allergy Swelling Verified 11/14/18 16:51 Penicillins Allergy Rash Verified 11/14/18 16:51 ED Review of Systems ROS: Stated complaint: CHEST PAIN Other details as noted in HPI Comment: All other systems reviewed and negative Constitutional: denies: fever, malaise Respiratory: denies: cough, shortness of breath Cardiovascular: chest pain ED Past Medical Hx - Past Medical History Previous Medical History?: Yes Hx Hypertension: Yes Hx Congestive Heart Failure: Yes Hx Renal Disease: Yes (CKD 3) Hx Asthma: No Additional medical history: Diverticulitis,. Chronic hip pain. CKD 3 - Surgical History Past Surgical History?: Yes Hx Pacemaker: Yes Additional Surgical History: pace maker, right hip replacement - Social History Smoking Status: Current Every Day Smoker Substance Use Type: Cocaine - Medications Home Medications: Home Medications Medication Instructions Recorded Confirmed Last Taken Type Aspirin EC [Halfprin EC] 81 mg PO QDAY 11/14/18 12/09/19 Unknown History Diclofenac Potassium 50 mg PO BID PRN 09/09/19 12/09/19 Unknown History Hydralazine HCl 50 mg PO BID #60 tablet 12/11/19 Unknown Rx Sertraline [Zoloft] 50 mg PO QDAY #30 tablet 12/11/19 Unknown Rx Spironolactone [Aldactone] 12.5 mg PO QDAY #60 tablet 12/11/19 Unknown Rx carvediloL [Coreg] 6.25 mg PO BID #60 tablet 12/11/19 Unknown Rx risperiDONE [RisperDAL] 0.25 mg PO BID #60 tab 12/11/19 Unknown Rx risperiDONE [RisperDAL] 0.5 mg PO BID #60 tablet 12/11/19 Unknown Rx traZODone [Desyrel] 50 mg PO QHS #14 tablet 12/11/19 Unknown Rx traMADoL [Ultram 50 MG tab] 50 mg PO Q6HR PRN #20 tablet 01/22/20 Unknown Rx ED Physical Exam - General Limitations: No Limitations General appearance: alert, in no apparent distress - Head Head exam: Present: atraumatic, normocephalic - Eye Eye exam: Present: normal appearance - ENT ENT exam: Present: mucous membranes moist - Neck Neck exam: Present: normal inspection, full ROM - Respiratory Respiratory exam: Present: normal lung sounds bilaterally. Absent: respiratory distress, wheezes, rales, rhonchi - Cardiovascular Cardiovascular Exam: Present: regular rate, normal rhythm, normal heart sounds. Absent: rubs, gallop - GI/Abdominal GI/Abdominal exam: Present: soft, normal bowel sounds. Absent: distended, tenderness, guarding, rebound - Rectal Rectal exam: Present: deferred - Extremities Exam Extremities exam: Present: normal inspection - Neurological Exam Neurological exam: Present: alert, oriented X3 - Psychiatric Psychiatric exam: Present: normal affect, normal mood - Skin Skin exam: Present: warm, dry, intact, normal color, other. Absent: rash ED Course Vital Signs 01/22/20 13:23 Temperature 98.5 F Pulse Rate 62 Respiratory 14 Rate Blood Pressure 141/64 [Right] O2 Sat by Pulse 98 Oximetry ED Medical Decision Making - Lab Data Result diagrams: 01/22/20 14:09 01/22/20 14:09 - EKG Data 01/22/20 13:55 EKG obtained 1316 Normal sinus rhythm rate 60 bpm left axis deviation right bundle branch block no ST elevation diffuse T wave abnormality EKG is unchanged from 12/08/2019 - Medical Decision Making Mr. Wilson has history of coronary artery disease, cocaine abuse, dilated cardiomyopathy, CHF. He presents with chest pain for the past 3 days. Also concern for possible snakebite right lower extremity. 1. Chest pain: Atypical for ACS. Just last month Mr. Wilson was admitted for evaluation of chest pain. ACS was ruled out. Patient was evaluated by cardiology. Medical management was recommended. Chest pain was atypical at that time and attributed to chest wall pain. 2. Right lower extremity: No lesion no swelling no erythema 3. Chronic right hip pain: Patient requests prescription for diclofenac 50 mg twice daily considering patient has CKD, I have explained that tramadol would be safer for his kidney function. 4. Suicidal ideation: Patient does not have a plan to harm himself or others. He did not have a plan when he spoke with triage nurse. I do not feel the patient is a harm to himself or others at this time. Critical care attestation.: If time is entered above; I have spent that time in minutes in the direct care of this critically ill patient, excluding procedure time. ED Disposition Clinical Impression: Stable angina, Cocaine abuse, Chronic hip pain Disposition: TO HOME OR SELFCARE Is pt being admited?: No Does the pt Need Aspirin: No Condition: Stable Instructions: Angina (ED) Prescriptions: traMADoL [Ultram 50 MG tab] 50 mg PO Q6HR PRN #20 tablet PRN Reason: Pain Referrals: DECLAN ACKERMAN MD [Staff Physician] - 3-5 Days
--- NOTE | 2020-01-22 14:19 | XRay Report ---
CHEST 1 VIEW INDICATION / CLINICAL INFORMATION: Chest Pain. COMPARISON: 12/08/2019 FINDINGS: SUPPORT DEVICES: Pacemaker appears unchanged HEART / MEDIASTINUM: No significant abnormality. LUNGS / PLEURA: No significant pulmonary or pleural abnormality.. No pneumothorax. ADDITIONAL FINDINGS: No significant additional findings. IMPRESSION: 1. No significant change. Signer Name: Cassius Carroll MD Signed: 01/22/2020 2:14 PM Workstation Name: [id number]
[2020-01-22 14:45] LABS: Basophils % (Auto) 0.4 % (0.0-1.8); Eosinophils # (Auto) 0.1 K/mm3 (0.0-0.4); Eosinophils % (Auto) 1.8 % (0.0-4.3); Hematocrit 38.2 % (35.5-45.6); Hemoglobin 12.8 gm/dl (11.8-15.2); Lymphocytes # (Auto) 1.2 K/mm3 (1.2-5.4); Lymphocytes % (Auto) 20.1 % (13.4-35.0); Mean Corpuscular HGB Conc 33 % (32-34); Mean Corpuscular Volume 93 fl (84-94); Monocytes # (Auto) 0.5 K/mm3 (0.0-0.8); Monocytes % (Auto) 8.6 % (0.0-7.3); Platelet Count 185 K/mm3 (140-440); Red Blood Count 4.13 M/mm3 (3.65-5.03); Red Cell Distribution Width 16.5 % (13.2-15.2)
[2020-01-22 14:55] LABS: Calcium 9.1 mg/dL (8.4-10.2)
== END 2020-01-22 15:19 | disposition home or self-care (01) ==
LOC: ED 12:49
DX: I20.8 Other forms of angina pectoris (principal); F14.10 Cocaine abuse, uncomplicated; M25.551 Pain in right hip; I50.9 Heart failure, unspecified; F17.200 Nicotine dependence, unspecified, uncomplicated; Z79.82 Long term (current) use of aspirin; Z79.899 Other long term (current) drug therapy; Z98.890 Other specified postprocedural states; Z88.0 Allergy status to penicillin; Z88.8 Allergy status to other drugs, medicaments and biological substances
CPT/HCPCS: 36415; 71045; 80048; 84484; 85025; 93005

== ENCOUNTER 2020-05-03 12:23 | Outpatient (CLI) | payer MEDICAID ==
[2020-05-03 12:58] LABS: Basophils % (Auto) 0.3 % (0.0-1.8); Eosinophils # (Auto) 0.1 K/mm3 (0.0-0.4); Eosinophils % (Auto) 1.4 % (0.0-4.3); Hematocrit 39.5 % (35.5-45.6); Hemoglobin 13.3 gm/dl (11.8-15.2); Lymphocytes # (Auto) 2.4 K/mm3 (1.2-5.4); Lymphocytes % (Auto) 30.1 % (13.4-35.0); Mean Corpuscular HGB Conc 34 % (32-34); Mean Corpuscular Volume 90 fl (84-94); Monocytes # (Auto) 0.6 K/mm3 (0.0-0.8); Monocytes % (Auto) 7.1 % (0.0-7.3); Platelet Count 247 K/mm3 (140-440); Red Blood Count 4.37 M/mm3 (3.65-5.03); Red Cell Distribution Width 15.3 % (13.2-15.2)
[2020-05-03 13:16] LABS: Albumin 4.2 g/dL (3.9-5); Calcium 9.7 mg/dL (8.4-10.2); Chol/HDL Ratio 3.79 %
== END 2020-05-03 12:24 | disposition home or self-care (01) ==
LOC: LAB 12:23
PROVIDERS: ATTEND Internal Medicine
DX: Z00.00 Encounter for general adult medical examination without abnormal findings (principal); E78.5 Hyperlipidemia, unspecified; Z13.29 Encounter for screening for other suspected endocrine disorder; E55.9 Vitamin D deficiency, unspecified
CPT/HCPCS: 36415; 80053; 80061; 82306; 82607; 83036; 84443; 85025